=== PATIENT | female | born 1950 | race Caucasian/White ===

== ENCOUNTER 2017-04-13 22:42 | Observation (INO) | payer OTHER, MEDICAID ==
--- NOTE | 2017-04-13 23:59 | DR.GENAD ---
HPI - HPI Comment HPI Comment: HISTORY BELOW. - Complaint/Symptoms Chief Complaint Doctors Comments: GENERALIZE WEAKNESS WITH ARTHRALGIA AND SEVERE PAIN. PATIENT IS HAVING SEVERE LOWER BACK AND RIGHT HIP AND SHOULDER PAIN. SHE IA HAVING HEADACHE AHD DIZZINESS. HAVE MEDS AT HOME BUT NOT HELPING.LAST TIME SHE HAD EPISODE LIKE THIS SHE WAS IN HOSPITAL FOR SEVERAL DAYS ON IV MEDICATIONS. FEVER AT HOME. Chief Complaint:: right shoulder,hip and foot pain, headache - Nurses notes reviewed Nurses Notes Review: Yes - Source History Provided: Patient - Mode of Arrival Mode of Arrival: Wheelchair - Timing Onset of Chief Complaint: 04/12/17 Came on: Gradually - Duration Duration: Constant Duration: Days - Severity Severity: Moderate PMH - PMH Past Medical History: Yes Past Medical History: Arthritis, Asthma, CHF, Diabetes, Gout, Hypertension Past Surgical History: Yes Surgical History: , Hysterectomy - Family History History of Family Medical Conditions: Yes Family Medical History: Hypertension - Social History Does patient currently use any type of tobacco product: No Have you used tobacco products in the last 12 months: No Type of Tobacco Use: None Does any household member use tobacco: No Alcohol Use: None Do you use any recreational Drugs:: No Lives With: Alone Lives Where: Home - infectious screening In the last 2 months have you had wt loss of >10#?: NO Have you had fever, night sweats or hemotysis?: No Have you traveled outside the country in the last 6 months?: No Isolation: Standard ROS - Review of Systems Constitutional: Fever, Weakness, Fatigue. negative: Chills, Diaphoresis, Loss of Appetite Eyes: No Symptoms Reported. negative: Eye Pain, Discharge ENTM: No Symptoms Reported, Nose Congestion. negative: Ear Pain, Nose Discharge , Throat Pain Respiratoy: No Symptoms Reported, Non-Productive Cough, Short of Breath. negative: Productive Cough, Wheezing, Hemoptysis Cardiovascular: Chest Pain. negative: Edema, Palpitations, Syncope Gastrointestinal/Abdominal: Abdominal Pain, Nausea. negative: Constipation, Diarrhea, Vomiting Genitourinary: No Symptoms Reported. negative: Dysuria, Frequency, Hematuria Neurological: Headache, Numbness, Paresthesia, Weakness, Dizziness Musculoskeletal: Back Pain, Joint Pain, Joint Swelling, Muscle Pain, Muscle Stiffness, Neck Pain, Right, Shoulder, Hip Integumentary: Change in Color, Rash Hematologic/Lymphatic: Easy Bleeding, Easy Bruising Endocrine: negative: Flushing, Increased Thirst, Increased Urine All Other Systems: Reviewed and Negative PE - Vital Signs Vitals: Temperature 97.4 F Pulse Rate 96 Respiratory Rate 16 Blood Pressure [Right Arm] 144/89 Blood Pressure [Left Arm] 127/74 Blood Pressure 148/83 O2 Sat by Pulse Oximetry 94 - General Limitations: No Limitations General Appearance: Alert - Head Head Exam: Normal Inspection - Eyes Eye exam: Normal Appearance - ENT ENT Exam: Normal External Ear Exam External Ear Exam: Normal External Inspection TM/Canal Exam: Bilateral Normal Nose Exam: Normal Nose Exam Mouth Exam: Normal Inspection Throat Exam: Normal Inspection - Neck Neck Exam: Trachea Midline. negative: Tenderness, Meningismus, Lymphadenopathy - Chest Chest Inspection: Symmetric Chest Wall Rise - Respiratory Respiratory Exam: Normal Lung Sounds Bilat, Respiratory Distress Respiratory Exam: Bilateral Wheezing, Bilateral Rhonchi, Lower Rhonchi - Cardiovascular Cardiovascular Exam: Regular Rate, Normal Rhythm, Normal Heart Sounds - Abdominal Exam Abdominal Exam: Normal Bowel Sounds, Soft, Tenderness (EPIGASTRIC DISCOMFORT.) - Extremities Extremities Exam: Tenderness (RT HIP AND SHOULDER), Joint Swelling (RT HIP AND SHOULDER.) - Back Back Exam: Paraspinal Tenderness, Vertebral Tenderness - Neurologic Neurological Exam: Alert, Oriented X3, CN II-XII Intact, Reflexes Normal. negative: Motor Sensory Deficit - Psychiatric Psychiatric Exam: Normal Affect, Normal Mood - Skin Skin Exam: Normal Color MDM - Additional Information Additional Information Obtained From: Family - Differential Diagnosis Differential Diagnosis: GENERALISE WEAKNESS, UTI, GENERALIZE ARTHRALGIA, ARTHRITIS Course - Treatment Treatment: SEE ORDERS. - Consultation Consultation Comments: DISCUSS PATIENT WITH DR. CHRISTINE. HE WILL ADMIT PATIENT. - Education/Counseling Education/Counseling: Patient, Family, Education Educated On: Treatment, Diagnosis, Needs for Follow Up ROR - Labs Reviewed Laboratory Results Reviewed?: Yes Result Diagrams: 04/14/17 04:40 04/14/17 04:40 Laboratory: WBC 8.9 X10^3/uL (3.6-10.0) 04/14/17 00:10 RBC 4.14 X10^6/uL (3.5-5.4) 04/14/17 00:10 Hgb 11.5 g/dL (12.0-16.0) L 04/14/17 00:10 Hct 34.3 % (36.0-47.0) L 04/14/17 00:10 MCV 83.0 fL (80.0-100.0) 04/14/17 00:10 MCH 27.8 pg (27.0-34.0) 04/14/17 00:10 MCHC 33.5 g/dL (33.0-35.0) 04/14/17 00:10 RDW 15.5 % (11.6-16.5) 04/14/17 00:10 Plt Count 327 X10^3/uL (150.0-450.0) 04/14/17 00:10 MPV 6.7 fL (7.4-11.0) L 04/14/17 00:10 Neut % 55.4 % (42.0-75.0) 04/14/17 00:10 Lymph % 36.8 % (21.0-51.0) 04/14/17 00:10 [place] % 5.0 % (0.0-13.0) 04/14/17 00:10 Eos % 1.9 % (0.9-2.9) 04/14/17 00:10 Baso % 0.9 % (0.2-1.0) 04/14/17 00:10 Neut # 4.9 x10^3/uL (2.2-4.8) H 04/14/17 00:10 Lymph # 3.3 X10^3/uL (1.3-2.9) H 04/14/17 00:10 [place] # 0.4 x10^3/uL (0.3-0.8) 04/14/17 00:10 Eos # 0.2 x10^3/uL (0.0-0.2) 04/14/17 00:10 Baso # 0.1 X10^3/uL (0.0-0.1) 04/14/17 00:10 Absolute Nucleated RBC 0.1 /100WBC 04/14/17 00:10 Sodium 147 mmol/L (136-145) H 04/14/17 00:10 Corrected Sodium 147 mmol/L (136-145) H 04/14/17 00:10 Potassium 4.2 mmol/L (3.5-5.1) 04/14/17 00:10 Chloride 107 mmol/L (98-107) 04/14/17 00:10 Carbon Dioxide 29.7 mmol/L (21-32) 04/14/17 00:10 BUN 18 mg/dL (7-18) 04/14/17 00:10 Creatinine 0.90 mg/dL (0.55-1.02) 04/14/17 00:10 Est GFR (MDRD) Af Amer > 60 (>60) 04/14/17 00:10 Est GFR (MDRD) Non-Af > 60 (>60) 04/14/17 00:10 Glucose 112 mg/dL (65-99) H 04/14/17 00:10 Calcium 9.4 mg/dL (8.5-10.1) 04/14/17 00:10 Corrected Calcium TNP 04/14/17 00:10 Total Bilirubin 0.30 mg/dL (0.2-1.0) 04/14/17 00:10 AST 24 Units/L (15-37) 04/14/17 00:10 ALT 20 Units/L (12-78) 04/14/17 00:10 Alkaline Phosphatase 64 Units/L (46-116) 04/14/17 00:10 Creatine Kinase 914 Units/L (26-192) H 04/14/17 00:10 CK-MB (CK-2) < 1.0 ng/mL (0-4.0) 04/14/17 00:10 CK/CKMB % Calc 0.1 % (<4) 04/14/17 00:10 Troponin I < 0.02 ng/mL (0-1.5) 04/14/17 00:10 Total Protein 7.9 g/dL (6.4-8.2) 04/14/17 00:10 Albumin 3.8 g/dL (3.4-5.0) 04/14/17 00:10 Globulin 4.1 g/dL (2.5-4.5) 04/14/17 00:10 Albumin/Globulin Ratio 0.9 Ratio (1.1-2.1) L 04/14/17 00:10 - XRAY XRAY Findings: REPORT DISCUSS WITH THE PATIENT AND FAMILY. - EKG Rhythm: NSR (EKG NOTED) - Diagnosis Discharge Problem: Generalized weakness, Generalized arthritis, Intractable pain - Discharge Plan Disposition: ADMITTED INPATIENT Condition: Stable - Follow ups/Referrals - Instructions
[2017-04-14 00:23] LABS: BASOPHILS # (AUTO) 0.1 X10^3/uL (0.0-0.1); BASOPHILS % (AUTO) 0.9 % (0.2-1.0); EOSINOPHILS # (AUTO) 0.2 x10^3/uL (0.0-0.2); EOSINOPHILS % (AUTO) 1.9 % (0.9-2.9); HEMATOCRIT 34.3 % (36.0-47.0); HEMOGLOBIN 11.5 g/dL (12.0-16.0); LYMPHOCYTES # (AUTO) 3.3 X10^3/uL (1.3-2.9); LYMPHOCYTES % (AUTO) 36.8 % (21.0-51.0); MEAN CORPUSCULAR HEMOGLOBIN 27.8 pg (27.0-34.0); MEAN CORPUSCULAR HGB CONC 33.5 g/dL (33.0-35.0); MEAN PLATELET VOLUME 6.7 fL (7.4-11.0); MONOCYTES # (AUTO) 0.4 x10^3/uL (0.3-0.8); NEUTROPHILS # (AUTO) 4.9 x10^3/uL (2.2-4.8); NEUTROPHILS % (AUTO) 55.4 % (42.0-75.0); PLATELET COUNT 327 X10^3/uL (150.0-450.0); RED BLOOD COUNT 4.14 X10^6/uL (3.5-5.4); RED CELL DISTRIBUTION WIDTH 15.5 % (11.6-16.5); WHITE BLOOD COUNT 8.9 X10^3/uL (3.6-10.0)
--- NOTE | 2017-04-14 00:47 | RAD ---
EXAM: Chest X-ray INDICATION: Chest pain COMPARISION: Prior exam from October 15, 2016 TECHNIQUE: PA, single view FINDINGS: The lungs are clear. The heart is mildly enlarged. No pleural effusion or pneumothorax. The mediasti num is normal. The regional skeleton is intact. IMPRESSION: Cardiomegaly. The remainder of the examination appears unremarkable. Reported By:
--- NOTE | 2017-04-14 00:50 | RAD ---
EXAM: Right shoulder x-ray INDICATION: Pain COMPARISION: No priors for comparison TECHNIQUE: Lateral, AP with internal and external rotation, 3 views FINDINGS: No acute fracture or dislocation. The joint spaces are preserved. The soft tissues are normal. No ra diopaque foreign body. The visualize ribs are intact. IMPRESSION: Normal right shoulder x-ray examination Reported By:
[2017-04-14 00:51] LABS: BLOOD UREA NITROGEN 18 mg/dL (7-18); CALCIUM 9.4 mg/dL (8.5-10.1); CARBON DIOXIDE 29.7 mmol/L (21-32); CHLORIDE 107 mmol/L (98-107); COR NA(FOR HYPERGLY) 147 mmol/L (136-145); GLUCOSE 112 mg/dL (65-99); SODIUM 147 mmol/L (136-145); TROPONIN I < 0.02 ng/mL (0-1.5); eGFR BLACK RACES > 60 (>60); eGFR NON BLACK RACES > 60 (>60)
--- NOTE | 2017-04-14 00:51 | RAD ---
EXAM: Lumbar Spine X-Ray INDICATION: Lumbar pain COMPARISION: No priors for comparison TECHNIQUE: AP, lateral L-S junction, and lateral views were obtained, 3 views FINDINGS: Moderate degenerative disc changes are present at L5-S1. There is mild disc space narrowing througho ut the remaining lumbar levels. Mild degenerative endplate changes are also present. No acute fractu re or subluxation. The vertebral body heights are preserved. The facets are intact. The surrounding soft tissues appear unremarkable. IMPRESSION: Mild and moderate degenerative disc changes noted throughout the lumbar spine. No acute abnormality is identified. Reported By:
[2017-04-14 00:52] LABS: ALANINE AMINOTRANSFERASE 20 Units/L (12-78); ALBUMIN 3.8 g/dL (3.4-5.0); ALKALINE PHOSPHATASE 64 Units/L (46-116); ASPARTATE AMINO TRANSFERASE 24 Units/L (15-37); CKMB % 0.1 % (<4); CREATINE KINASE 914 Units/L (26-192); CREATINE KINASE MB < 1.0 ng/mL (0-4.0); TOTAL PROTEIN 7.9 g/dL (6.4-8.2)
[2017-04-14] MEDS ORDERED: DECADRON INJ IVP ONE (01:34)
[2017-04-14] MEDS ORDERED: TORADOL 30 MG VIAL IVP ONE (01:34)
[2017-04-14] MEDS ORDERED: DECADRON INJ ONE (02:15)
[2017-04-14] MEDS ORDERED: TORADOL 30 MG VIAL ONE (02:15)
[2017-04-14] MEDS: NS 1000 ML 1,000 ML IV SCH ×2 (02:21→19:30)
[2017-04-14] MEDS ORDERED: TORADOL 15 MG VIAL IVP PRN (02:22)
[2017-04-14] MEDS ORDERED: ZOFRAN INJ 4 MG VIAL IVP PRN (02:24)
[2017-04-14 02:43] LABS: APPEARANCE,URINE CLEAR (CLEAR); COLOR,URINE YELLOW (YELLOW); GLUCOSE, URINE NEGATIVE (NEGATIVE); KETONES,URINE NEGATIVE (NEGATIVE); PROTEIN,URINE NEGATIVE (NEGATIVE)
[2017-04-14 02:44] LABS: BILIRUBIN,URINE NEGATIVE (NEGATIVE); BLOOD/HEMOGLOBIN,URINE NEGATIVE (NEGATIVE); LEUKOCYTE ESTERASE ,URINE 1+ (NEGATIVE); NITRITES,URINE POSITIVE (NEGATIVE); RBC,URINE NONE SEEN /HPF (NEGATIVE); UROBILINOGEN,URINE NORMAL (NORMAL)
[2017-04-14 02:45] LABS: BACTERIA,URINE TRACE /HPF (NEGATIVE); SQUAMOUS EPITHELIAL CELL,UR NEGATIVE /HPF (NEGATIVE)
[2017-04-14 05:22] LABS: ALANINE AMINOTRANSFERASE 18 Units/L (12-78); ALBUMIN 3.6 g/dL (3.4-5.0); ALKALINE PHOSPHATASE 61 Units/L (46-116); ASPARTATE AMINO TRANSFERASE 21 Units/L (15-37); BLOOD UREA NITROGEN 18 mg/dL (7-18); CALCIUM 9.2 mg/dL (8.5-10.1); CARBON DIOXIDE 27.1 mmol/L (21-32); CHLORIDE 107 mmol/L (98-107); CHOL/HDL RATIO 2.2 (0.0-5.0); CHOLESTEROL 161 mg/dL (0-200); COR NA(FOR HYPERGLY) 146 mmol/L (136-145); GLUCOSE 155 mg/dL (65-99); HDL CHOLESTEROL 73 mg/dL (40-60); SODIUM 145 mmol/L (136-145); TOTAL PROTEIN 7.6 g/dL (6.4-8.2); TRIGLYCERIDES 104 mg/dL (0-150); eGFR BLACK RACES > 60 (>60); eGFR NON BLACK RACES > 60 (>60)
[2017-04-14 05:36] LABS: BASOPHILS % (AUTO) 0.3 % (0.2-1.0); EOSINOPHILS % (AUTO) 0.5 % (0.9-2.9); HEMATOCRIT 32.5 % (36.0-47.0); HEMOGLOBIN 10.9 g/dL (12.0-16.0); LYMPHOCYTES # (AUTO) 1.4 X10^3/uL (1.3-2.9); LYMPHOCYTES % (AUTO) 15.2 % (21.0-51.0); MEAN CORPUSCULAR HEMOGLOBIN 27.4 pg (27.0-34.0); MEAN CORPUSCULAR HGB CONC 33.6 g/dL (33.0-35.0); MEAN CORPUSCULAR VOLUME 81.6 fL (80.0-100.0); MONOCYTES # (AUTO) 0.2 x10^3/uL (0.3-0.8); MONOCYTES % (AUTO) 1.9 % (0.0-13.0); NEUTROPHILS # (AUTO) 7.6 x10^3/uL (2.2-4.8); NEUTROPHILS % (AUTO) 82.1 % (42.0-75.0); PLATELET COUNT 318 X10^3/uL (150.0-450.0); RED BLOOD COUNT 3.98 X10^6/uL (3.5-5.4); RED CELL DISTRIBUTION WIDTH 15.4 % (11.6-16.5); WHITE BLOOD COUNT 9.2 X10^3/uL (3.6-10.0)
[2017-04-14 05:58] LABS: CKMB % 0.1 % (<4); CREATINE KINASE 772 Units/L (26-192); CREATINE KINASE MB < 1.0 ng/mL (0-4.0); TROPONIN I < 0.02 ng/mL (0-1.5)
[2017-04-14 06:20] VITALS: BMI 34.8
[2017-04-14] MEDS ORDERED: MILK OF MAGNESIA PO PRN (09:01)
[2017-04-14] MEDS: PERCOCET TAB 5/325 MG PO PRN ×2 (11:00→21:14)
[2017-04-14 11:49] LABS: CKMB % 0.2 % (<4); CREATINE KINASE 625 Units/L (26-192); CREATINE KINASE MB < 1.0 ng/mL (0-4.0); TROPONIN I < 0.02 ng/mL (0-1.5)
--- NOTE | 2017-04-14 12:19 | DR.H&P ---
H&P - History & Physical for Day of: H&P Date: 04/13/17 - Chief Complaint Chief Complaint: weakness, muscel aches - Allergies Allergies/Adverse Reactions: Allergies Allergy/AdvReac Type Severity Reaction Status Date / Time MS No Known Drug Allergy Allergy Verified 02/28/16 14:01 [No Known Drug Allergy] - History of Present Illness History of Present Illness: 67 BF ADMITTED FROM ER WITH CO WEAKNESS AND MUSCLE ACHES. PT CO LOWER BACK PAIN AND LEG WEAKNESS. PLAN TO ADMIT FOR FURTHER EVALUATION. REPEAT AM LABS, TELEMETRY. - Past Medical History Past Medical History: Arthritis, Asthma, CHF, Diabetes, Gout, Hypertension - Past Surgical History Surgical History: , Hysterectomy - Family History Family Medical History: Hypertension - Social History Does patient currently use any type of tobacco product: No Have you used tobacco products in the last 12 months: No Type of Tobacco Use: None Does any household member use tobacco: No Alcohol Use: None Drug Use: None - Medications Home Medications: Alprazolam [XANAX 0.5 MG *] 1 mg PO DAILY PRN 04/14/17 [History Confirmed ] Furosemide [Lasix] 40 mg PO QAM 04/14/17 [History Confirmed 04/14/17] Gabapentin [Neurontin Cap 300 mg] 900 mg PO HS 04/14/17 [History Confirmed 04/14] Glimepiride [Glimepiride] 4 mg PO BID 04/14/17 [History Confirmed 04/14/17] Metformin HCl [Metformin HCl] 1,000 mg PO BID 04/14/17 [History Confirmed ] - Review of Systems Constitutional: Weakness Eyes: No Symptoms Reported ENT: No Symptoms Reported Respiratory: No Symptoms Reported Cardiovascular: No Symptoms Reported Gastrointestinal: Nausea Genitourinary: No Symptoms Reported Musculoskeletal: Back Pain Skin: No Symptoms Reported Neurological: Weakness - Physical Exam Vital Signs: Temperature 97.6 F Pulse Rate [Left Brachial] 110 Respiratory Rate 20 Blood Pressure [Right Arm] 137/75 Blood Pressure [Left Arm] 132/82 O2 Sat by Pulse Oximetry 95 Oriented: Normal Eyes: Normal Ear: Normal Nose: Normal Throat: Normal Respiratory: RLL Diminished, LLL Diminished Cardiovascular: Normal : Normal Auscultation: Bowel Sounds: Normal Palpation: Normal Tenderness: Normal Skin: Normal Musculoskeletal: Back:Lumbar, Motor Deficit Psychiatric: Depression Speech Pattern: Clear, Appropriate - Assessment/Plan (1) UTI (urinary tract infection) Qualifiers: Urinary tract infection type: U Hematuria presence: H Indwelling urinary catheter type: I Encounter type: E Status: Acute Plan: PLAN TO ADMIT, IV ATBX. CULTURE PENDING (2) Generalized weakness Status: Acute Plan: IV HYDRATION, AM LABS (3) Back pain Qualifiers: Back pain location: B Chronicity: C Back pain laterality: B Sciatica presence: S Sciatica laterality: S Status: Chronic (4) CHF (congestive heart failure) Qualifiers: Congestive heart failure type: unspecified congestive heart failure type Congestive heart failure chronicity: chronic Qualified Code(s): I50.9 - Heart failure, unspecified Status: Chronic Plan: BP AND LIPID CONTROL. RESUME HOME MEDS (5) Diabetes mellitus Qualifiers: Diabetes mellitus type: D Diabetes mellitus complication status: D Diabetes mellitus complication detail: D Diabetic retinopathy severity: D Proliferative retinopathy type: P Diabetes mellitus macular edema: D Diabetes mellitus chcf insulin use: D Laterality: L Chronic kidney disease stage: C Status: Chronic (6) Hypertension Qualifiers: Hypertension type: H Status: Chronic
[2017-04-14] MEDS ORDERED: HumuLIN R SC PRN (13:00)
[2017-04-14] MEDS: ROCEPHIN VIAL 1 GM 1 GM in NS 50 ML IV + SPIKE MINIBAG* 50 ML IV SCH (14:09)
[2017-04-14] MEDS: MORPHINE SULFATE INJ 2 MG IVP PRN (16:00)
--- NOTE | 2017-04-14 17:39 | MRI ---
MRI BRAIN WITHOUT CONTRAST CLINICAL HISTORY: 67-year-old female with severe headache and dizziness with left-sided weakness. COMPARISON: CT head May 23, 2016. TECHNIQUE: Multiplanar, multisequence MR images of the brain were obtained without contrast. FINDINGS: There is no evidence of diffusion restriction. The craniocervical junction is normal. Pitu itary and optic nerve complex are normal. Mild multifocal punctate T2 FLAIR signal hyperintensities are present within the periventricular and supraventricular white matter that are nonspecific in [place] but most likely to represent microvascular white matter ischemic changes. Normal signal oscar acteristics and morphology are demonstrated within the cerebral cortex, corpus callosum, deep lawrence n uclei, brainstem and cerebellum. Age related cortical volume loss is present, with commensurate sulc al and ventricular prominence. The major vascular flow voids, to include the dural venous sinuses, a re intact. The basilar cisterns are normal. Bilateral lens implants with otherwise normal appearance of the orbits and globes. Trace fluid in th e floor of the dominant right sphenoid sinus with high proteinaceous fluid within the dependent left mastoid air cells. Remaining paranasal sinuses, right mastoid air cells and tympanic cavities are c lear. IMPRESSION: 1. Mild chronic microvascular white matter ischemic disease, with age related volume loss. 2. Proteinaceous fluid within the dependent aspect of the left mastoid air cells. 3. No acute ischemic or hemorrhagic insult. Reported By:
[2017-04-14] MEDS ORDERED: RESTORIL CAP 15 MG PO PRN (19:39)
[2017-04-14] MEDS ORDERED: COLACE CAP 100 MG PO SCH (21:00)
[2017-04-15 05:32] LABS: ALANINE AMINOTRANSFERASE 17 Units/L (12-78); ALBUMIN 3.2 g/dL (3.4-5.0); ALKALINE PHOSPHATASE 54 Units/L (46-116); ASPARTATE AMINO TRANSFERASE 14 Units/L (15-37); BLOOD UREA NITROGEN 20 mg/dL (7-18); CALCIUM 8.9 mg/dL (8.5-10.1); CHLORIDE 108 mmol/L (98-107); COR CA(FOR HYPOALB) 9.5 mg/dL (8.5-10.1); COR NA(FOR HYPERGLY) 143 mmol/L (136-145); CREATININE 0.87 mg/dL (0.55-1.02); GLUCOSE 115 mg/dL (65-99); SODIUM 143 mmol/L (136-145); TOTAL PROTEIN 6.9 g/dL (6.4-8.2); eGFR BLACK RACES > 60 (>60); eGFR NON BLACK RACES > 60 (>60)
[2017-04-15 05:35] LABS: BASOPHILS # (AUTO) 0.1 X10^3/uL (0.0-0.1); BASOPHILS % (AUTO) 0.5 % (0.2-1.0); EOSINOPHILS % (AUTO) 0.2 % (0.9-2.9); HEMATOCRIT 31.9 % (36.0-47.0); HEMOGLOBIN 10.7 g/dL (12.0-16.0); LYMPHOCYTES # (AUTO) 3.4 X10^3/uL (1.3-2.9); LYMPHOCYTES % (AUTO) 32.6 % (21.0-51.0); MEAN CORPUSCULAR HEMOGLOBIN 27.3 pg (27.0-34.0); MEAN CORPUSCULAR HGB CONC 33.6 g/dL (33.0-35.0); MEAN CORPUSCULAR VOLUME 81.5 fL (80.0-100.0); MEAN PLATELET VOLUME 7.1 fL (7.4-11.0); MONOCYTES # (AUTO) 0.6 x10^3/uL (0.3-0.8); MONOCYTES % (AUTO) 6.1 % (0.0-13.0); NEUTROPHILS # (AUTO) 6.2 x10^3/uL (2.2-4.8); NEUTROPHILS % (AUTO) 60.6 % (42.0-75.0); PLATELET COUNT 311 X10^3/uL (150.0-450.0); RED BLOOD COUNT 3.91 X10^6/uL (3.5-5.4); RED CELL DISTRIBUTION WIDTH 15.2 % (11.6-16.5); WHITE BLOOD COUNT 10.3 X10^3/uL (3.6-10.0)
[2017-04-15] MEDS: MORPHINE SULFATE INJ 2 MG IVP PRN (05:41)
[2017-04-15] MEDS: NS 1000 ML 1,000 ML IV SCH (06:12)
[2017-04-15] MEDS: ROCEPHIN VIAL 1 GM 1 GM in NS 50 ML IV + SPIKE MINIBAG* 50 ML IV SCH (08:30)
[2017-04-15 12:21] VITALS: BP 136/77
[2017-04-15] MEDS: PERCOCET TAB 5/325 MG PO PRN (12:56)
[2017-04-15 17:17] LABS: RHEUMATOID FACTOR NEGATIVE (NEGATIVE)
== END 2017-04-15 17:10 | disposition home or self-care (01) ==
LOC: ER 22:42 → MED/SURG 04-14 02:12
PROVIDERS: ADMIT Internal Medicine; ATTEND Internal Medicine
DX: N39.0 Urinary tract infection, site not specified (principal); R42 Dizziness and giddiness; I50.9 Heart failure, unspecified; R53.1 Weakness; M13.89 Other specified arthritis, multiple sites; M54.5 Low back pain; M25.551 Pain in right hip; M25.511 Pain in right shoulder; I51.7 Cardiomegaly; M51.36 Other intervertebral disc degeneration, lumbar region; R94.31 Abnormal electrocardiogram [ECG] [EKG]; M62.81 Muscle weakness (generalized); E11.65 Type 2 diabetes mellitus with hyperglycemia; I10 Essential (primary) hypertension; R51 Headache
CPT/HCPCS: 36415; 70551; 71010; 72100; 73030; 80053; 80061; 81001; 82550; 82553; 84484; 85025; 85652; 86140; 86308; 86430; 87086; 93005; 93010; 94760; 96365; 96374; 96375; 97535; 99218; 99284; A4222; G8978; G8979; G8984; G8985; G0378; J0696; J1100; J1815; J1885; J2270

== ENCOUNTER → 2017-08-08 | Outpatient (CLI) | payer OTHER, MEDICAID ==
--- NOTE | 2017-08-09 14:20 | RAD ---
HISTORY: Shortness of breath Study: Chest PA and lateral Comparison: 04/17/2017 Findings: The heart is enlarged. Mild pulmonary venous congestion is present. No interstitial or alveolar edema , alveolar infiltrates, or pleural effusions are identified. The bony thorax is unremarkable. IMPRESSION: Cardiomegaly with mild pulmonary venous congestion Lungs clear Reported By:
--- NOTE | 2017-08-09 14:21 | RAD ---
HISTORY: Lower abdominal pain Study: KUB Comparison: None Findings: Evaluation of the abdomen demonstrates a normal bowel gas pattern. No pathological soft tissue mass or calcification can be observed. The bony structures are grossly intact. IMPRESSION: 1. No evidence for acute abdominal pathology identified. Reported By:
== END | disposition home or self-care (01) ==
LOC: RAD 13:20
PROVIDERS: ATTEND Nurse Practitioner Family
DX: R06.02 Shortness of breath (principal); R10.30 Lower abdominal pain, unspecified; R09.89 Other specified symptoms and signs involving the circulatory and respiratory systems; I51.7 Cardiomegaly
CPT/HCPCS: 71020; 74000

== ENCOUNTER 2017-08-09 15:06 | Inpatient (IN) | payer OTHER, MEDICAID ==
[2017-08-09 15:48] VITALS: BMI 34.7
[2017-08-09 16:56] LABS: BASOPHILS # (AUTO) 0.1 X10^3/uL (0.0-0.1); BASOPHILS % (AUTO) 1.3 % (0.2-1.0); EOSINOPHILS # (AUTO) 0.3 x10^3/uL (0.0-0.2); EOSINOPHILS % (AUTO) 3.2 % (0.9-2.9); HEMATOCRIT 30.1 % (36.0-47.0); HEMOGLOBIN 10.1 g/dL (12.0-16.0); LYMPHOCYTES # (AUTO) 3.6 X10^3/uL (1.3-2.9); LYMPHOCYTES % (AUTO) 39.2 % (21.0-51.0); MEAN CORPUSCULAR HEMOGLOBIN 27.5 pg (27.0-34.0); MEAN CORPUSCULAR HGB CONC 33.6 g/dL (33.0-35.0); MEAN PLATELET VOLUME 7.2 fL (7.4-11.0); MONOCYTES # (AUTO) 0.7 x10^3/uL (0.3-0.8); MONOCYTES % (AUTO) 7.6 % (0.0-13.0); NEUTROPHILS # (AUTO) 4.5 x10^3/uL (2.2-4.8); NEUTROPHILS % (AUTO) 48.7 % (42.0-75.0); PLATELET COUNT 278 X10^3/uL (150.0-450.0); RED BLOOD COUNT 3.68 X10^6/uL (3.5-5.4); RED CELL DISTRIBUTION WIDTH 14.4 % (11.6-16.5); WHITE BLOOD COUNT 9.2 X10^3/uL (3.6-10.0)
[2017-08-09 17:04] LABS: ALANINE AMINOTRANSFERASE 15 Units/L (12-78); ALBUMIN 3.8 g/dL (3.4-5.0); ALKALINE PHOSPHATASE 70 Units/L (46-116); ASPARTATE AMINO TRANSFERASE 19 Units/L (15-37); BLOOD UREA NITROGEN 86 mg/dL (7-18); CALCIUM 8.7 mg/dL (8.5-10.1); CARBON DIOXIDE 18.2 mmol/L (21-32); CHLORIDE 104 mmol/L (98-107); COR NA(FOR HYPERGLY) 139 mmol/L (136-145); CREATININE 9.82 mg/dL (0.55-1.02); MAGNESIUM 2.7 mg/dL (1.7-2.9); SODIUM 139 mmol/L (136-145); TOTAL PROTEIN 7.8 g/dL (6.4-8.2); eGFR BLACK RACES 5 (>60); eGFR NON BLACK RACES 4 (>60)
[2017-08-09] MEDS ORDERED: XANAX PO PRN (17:47)
[2017-08-09] MEDS ORDERED: ZOFRAN INJ 4 MG VIAL IVP PRN (17:48)
[2017-08-09 17:51] LABS: CKMB % 0.7 % (<4); CREATINE KINASE 135 Units/L (26-192); CREATINE KINASE MB < 1.0 ng/mL (0-4.0); PHOSPHORUS 7.1 mg/dL (2.6-4.7); TROPONIN I < 0.02 ng/mL (0-1.5)
[2017-08-09] MEDS: NS 1000 ML 1,000 ML IV SCH (18:18)
[2017-08-09 19:57] LABS: BILIRUBIN,URINE NEGATIVE (NEGATIVE); BLOOD/HEMOGLOBIN,URINE 2+ (NEGATIVE); GLUCOSE, URINE NEGATIVE (NEGATIVE); KETONES,URINE NEGATIVE (NEGATIVE); LEUKOCYTE ESTERASE ,URINE NEGATIVE (NEGATIVE); NITRITES,URINE NEGATIVE (NEGATIVE); PROTEIN,URINE 2+ (NEGATIVE); UROBILINOGEN,URINE NORMAL (NORMAL)
[2017-08-09 20:04] LABS: APPEARANCE,URINE CLEAR (CLEAR); BACTERIA,URINE NEGATIVE /HPF (NEGATIVE); COLOR,URINE YELLOW (YELLOW); SQUAMOUS EPITHELIAL CELL,UR MODERATE /HPF (NEGATIVE)
[2017-08-09] MEDS ORDERED: ULTRAM PO PRN (20:24)
[2017-08-09] MEDS ORDERED: ULTRAM ONE (20:34)
[2017-08-09] MEDS: COREG TAB 12.5 MG PO SCH (20:38)
[2017-08-09] MEDS: ZOCOR TAB 40 MG PO SCH (20:38)
[2017-08-09] MEDS: AMBIEN PO SCH (20:38)
[2017-08-09] MEDS: NEURONTIN CAP 300 MG PO SCH (20:39)
[2017-08-09] MEDS: SNACK - Diabetic Appropriate PO SCH (20:40)
[2017-08-09] MEDS: MORPHINE SULFATE INJ 2 MG INJ IVP PRN (23:29)
[2017-08-10 06:12] LABS: BASOPHILS # (AUTO) 0.1 X10^3/uL (0.0-0.1); BASOPHILS % (AUTO) 0.8 % (0.2-1.0); EOSINOPHILS # (AUTO) 0.3 x10^3/uL (0.0-0.2); EOSINOPHILS % (AUTO) 4.1 % (0.9-2.9); HEMATOCRIT 28.9 % (36.0-47.0); HEMOGLOBIN 9.8 g/dL (12.0-16.0); LYMPHOCYTES % (AUTO) 36.4 % (21.0-51.0); MEAN CORPUSCULAR HEMOGLOBIN 27.8 pg (27.0-34.0); MEAN CORPUSCULAR VOLUME 81.7 fL (80.0-100.0); MEAN PLATELET VOLUME 7.3 fL (7.4-11.0); MONOCYTES # (AUTO) 0.7 x10^3/uL (0.3-0.8); MONOCYTES % (AUTO) 8.2 % (0.0-13.0); NEUTROPHILS # (AUTO) 4.2 x10^3/uL (2.2-4.8); NEUTROPHILS % (AUTO) 50.5 % (42.0-75.0); PLATELET COUNT 257 X10^3/uL (150.0-450.0); RED BLOOD COUNT 3.54 X10^6/uL (3.5-5.4); RED CELL DISTRIBUTION WIDTH 13.8 % (11.6-16.5); WHITE BLOOD COUNT 8.3 X10^3/uL (3.6-10.0)
[2017-08-10] MEDS: NEURONTIN CAP 300 MG PO SCH ×3 (06:17→20:37)
[2017-08-10 06:43] LABS: ALANINE AMINOTRANSFERASE 11 Units/L (12-78); ALBUMIN 3.4 g/dL (3.4-5.0); ALKALINE PHOSPHATASE 65 Units/L (46-116); ASPARTATE AMINO TRANSFERASE 16 Units/L (15-37); BLOOD UREA NITROGEN 81 mg/dL (7-18); CALCIUM 8.4 mg/dL (8.5-10.1); CARBON DIOXIDE 16.4 mmol/L (21-32); CHLORIDE 108 mmol/L (98-107); COR NA(FOR HYPERGLY) 142 mmol/L (136-145); CREATININE 8.03 mg/dL (0.55-1.02); SODIUM 142 mmol/L (136-145); TOTAL PROTEIN 7.1 g/dL (6.4-8.2); eGFR BLACK RACES 6 (>60); eGFR NON BLACK RACES 5 (>60)
[2017-08-10] MEDS: MORPHINE SULFATE INJ 2 MG INJ IVP PRN ×3 (06:45→21:27)
[2017-08-10] MEDS: NS 1000 ML 1,000 ML IV SCH ×2 (07:40→23:10)
[2017-08-10] MEDS: COREG TAB 12.5 MG PO SCH ×2 (08:19→20:37)
--- NOTE | 2017-08-10 08:37 | RAD ---
HISTORY: Shortness of breath, COPD, asthma, hypertension, CHF. Study: Two-view chest Comparison: 08/08/2017 Findings: Cardiac monitoring electrodes are noted on the chest. The trachea is midline. There is cardiomegaly w ith pulmonary vascular congestion. Improved aeration is present involving both lungs with reduction i n interstitial markings. Findings likely represent some improvement in CHF. No consolidation, pleural fluid or pneumothorax is seen. Osseous structures are intact. IMPRESSION: Improvement in CHF pattern. Reported By:
[2017-08-10] MEDS: COLACE CAP 100 MG PO SCH ×2 (10:56→20:36)
[2017-08-10] MEDS: HumuLIN R SUBCUT PRN ×2 (12:06→20:39)
--- NOTE | 2017-08-10 13:03 | DR.H&P ---
H&P - History & Physical for Day of: H&P Date: 08/09/17 - Chief Complaint Chief Complaint: sob, edema, weakness - Allergies Allergies/Adverse Reactions: Allergies Allergy/AdvReac Type Severity Reaction Status Date / Time No Known Drug Allergies Allergy Verified 08/09/17 16:33 - History of Present Illness History of Present Illness: patient is a 67-year-old black female who was a direct admit from Dr. Levi's office after presenting for follow-up visit for CHF exacerbation. Patient was seen one day ago with complaints of shortness of breath, edema and weakness. Patient had outpatient labs which revealed acute renal failure as well as venous congestion on her chest x-ray. Patient was admitted to ICU for further evaluation and general IV hydration to improve renal function. We will repeat a.m. labs hold by mouth NSAIDs as well as diabetic medication. We will administer sliding scale insulin only at this time. - Past Medical History Past Medical History: Arthritis, Asthma, CHF, Diabetes, Gout, Hypertension - Past Surgical History Surgical History: , Hysterectomy - Family History Family Medical History: Hypertension - Social History Does patient currently use any type of tobacco product: No Type of Tobacco Use: None Does any household member use tobacco: No Alcohol Use: None Drug Use: None - Review of Systems Constitutional: Weakness Eyes: No Symptoms Reported ENT: No Symptoms Reported Respiratory: Shortness of Breath Cardiovascular: Edema Gastrointestinal: Nausea Genitourinary: Retention Musculoskeletal: Back Pain, Leg Pain Neurological: Weakness - Physical Exam Vital Signs: Temperature 97.0 F Pulse Rate [Left Brachial] 69 Respiratory Rate 18 Blood Pressure [Right Arm] 124/72 Blood Pressure [Left Arm] 119/58 Blood Pressure 136/77 O2 Sat by Pulse Oximetry 98 Oriented: Normal Eyes: Normal Ear: Normal Nose: Normal Throat: Normal Respiratory: RLL Diminished, LLL Diminished Cardiovascular: Edema : Normal Auscultation: Bowel Sounds: Normal Palpation: Normal Tenderness: Normal Skin: Normal Musculoskeletal: Back:Thoracic, Back:Lumbar Psychiatric: Depression Speech Pattern: Clear, Appropriate - Assessment/Plan (1) ARF (acute renal failure) Qualifiers: Acute renal failure type: unspecified Qualified Code(s): N17.9 - Acute kidney failure, unspecified Status: Acute Plan: ADMIT ICU, GENTLE IV HYDRATION, STRICT I & OS. CBC CMP MAG, UA UC CHEST XRAY EKG ON ADMISSION. BP MONITORING, HOLD NSAIDS AND PO DIABETIC AGENTS. CARDIAC PROFILE. REPEAT AM LABS (2) Generalized weakness Status: Acute (3) Arthritis Status: Chronic (4) Asthma Status: Chronic (5) CHF (congestive heart failure) Qualifiers: Congestive heart failure type: unspecified congestive heart failure type Congestive heart failure chronicity: chronic Qualified Code(s): I50.9 - Heart failure, unspecified Status: Chronic (6) Diabetes mellitus Status: Chronic
[2017-08-10] MEDS ORDERED: MILK OF MAGNESIA ONE (20:31)
[2017-08-10] MEDS: AMBIEN PO SCH (20:37)
[2017-08-10] MEDS: ZOCOR TAB 40 MG PO SCH (20:37)
[2017-08-10] MEDS: MILK OF MAGNESIA PO PRN (20:37)
[2017-08-10] MEDS: SNACK - Diabetic Appropriate PO SCH (20:38)
[2017-08-11] MEDS: NEURONTIN CAP 300 MG PO SCH ×3 (05:56→21:06)
[2017-08-11 06:07] LABS: BASOPHILS # (AUTO) 0.1 X10^3/uL (0.0-0.1); BASOPHILS % (AUTO) 0.7 % (0.2-1.0); EOSINOPHILS # (AUTO) 0.3 x10^3/uL (0.0-0.2); EOSINOPHILS % (AUTO) 4.4 % (0.9-2.9); HEMATOCRIT 29.6 % (36.0-47.0); HEMOGLOBIN 9.9 g/dL (12.0-16.0); LYMPHOCYTES % (AUTO) 38.4 % (21.0-51.0); MEAN CORPUSCULAR HEMOGLOBIN 27.4 pg (27.0-34.0); MEAN CORPUSCULAR HGB CONC 33.5 g/dL (33.0-35.0); MEAN CORPUSCULAR VOLUME 81.8 fL (80.0-100.0); MEAN PLATELET VOLUME 7.4 fL (7.4-11.0); MONOCYTES # (AUTO) 0.7 x10^3/uL (0.3-0.8); MONOCYTES % (AUTO) 8.3 % (0.0-13.0); NEUTROPHILS # (AUTO) 3.8 x10^3/uL (2.2-4.8); NEUTROPHILS % (AUTO) 48.2 % (42.0-75.0); PLATELET COUNT 263 X10^3/uL (150.0-450.0); RED BLOOD COUNT 3.62 X10^6/uL (3.5-5.4); RED CELL DISTRIBUTION WIDTH 14.3 % (11.6-16.5); WHITE BLOOD COUNT 7.9 X10^3/uL (3.6-10.0)
[2017-08-11 06:16] LABS: ALANINE AMINOTRANSFERASE 13 Units/L (12-78); ALBUMIN 3.4 g/dL (3.4-5.0); ALKALINE PHOSPHATASE 64 Units/L (46-116); ASPARTATE AMINO TRANSFERASE 14 Units/L (15-37); BLOOD UREA NITROGEN 59 mg/dL (7-18); CALCIUM 8.1 mg/dL (8.5-10.1); CARBON DIOXIDE 20.4 mmol/L (21-32); CHLORIDE 114 mmol/L (98-107); CREATININE 4.13 mg/dL (0.55-1.02); SODIUM 146 mmol/L (136-145); TOTAL PROTEIN 7.1 g/dL (6.4-8.2); eGFR BLACK RACES 14 (>60); eGFR NON BLACK RACES 11 (>60)
[2017-08-11] MEDS: MORPHINE SULFATE INJ 2 MG INJ IVP PRN ×2 (07:00→13:55)
[2017-08-11] MEDS: NS 1000 ML 1,000 ML IV SCH ×2 (08:00→11:21)
[2017-08-11] MEDS: COREG TAB 12.5 MG PO SCH ×2 (08:11→21:05)
[2017-08-11] MEDS ORDERED: ROBITUSSIN DM PO PRN (08:53)
[2017-08-11] MEDS ORDERED: DULCOLAX SUPPOSITORY 10 MG RECTAL ONE (13:07)
[2017-08-11] MEDS: MILK OF MAGNESIA PO PRN (13:55)
[2017-08-11] MEDS ORDERED: NS 1/2 1000 ML IV 1,000 ML IV ONE (14:14)
[2017-08-11] MEDS: NS 1/2 1000 ML IV 1,000 ML IV SCH (14:22)
[2017-08-11] MEDS: HumuLIN R SUBCUT PRN (16:24)
[2017-08-11] MEDS: COLACE CAP 100 MG PO SCH (21:04)
[2017-08-11] MEDS: AMBIEN PO SCH (21:04)
[2017-08-11] MEDS: SNACK - Diabetic Appropriate PO SCH (21:04)
[2017-08-11] MEDS: ZOCOR TAB 40 MG PO SCH (21:05)
[2017-08-11] MEDS ORDERED: DULCOLAX SUPPOSITORY 10 MG PR NR (22:00)
[2017-08-12] MEDS ORDERED: NS 1/2 1000 ML IV 1,000 ML IV ONE ×2 (01:59→15:38)
[2017-08-12] MEDS: NS 1/2 1000 ML IV 1,000 ML IV SCH ×2 (03:15→15:47)
[2017-08-12 06:04] LABS: BASOPHILS % (AUTO) 0.5 % (0.2-1.0); EOSINOPHILS # (AUTO) 0.3 x10^3/uL (0.0-0.2); EOSINOPHILS % (AUTO) 3.6 % (0.9-2.9); HEMATOCRIT 28.6 % (36.0-47.0); HEMOGLOBIN 9.5 g/dL (12.0-16.0); LYMPHOCYTES # (AUTO) 3.8 X10^3/uL (1.3-2.9); LYMPHOCYTES % (AUTO) 44.5 % (21.0-51.0); MEAN CORPUSCULAR HEMOGLOBIN 27.3 pg (27.0-34.0); MEAN CORPUSCULAR HGB CONC 33.3 g/dL (33.0-35.0); MEAN CORPUSCULAR VOLUME 82.1 fL (80.0-100.0); MEAN PLATELET VOLUME 7.5 fL (7.4-11.0); MONOCYTES # (AUTO) 0.6 x10^3/uL (0.3-0.8); MONOCYTES % (AUTO) 6.7 % (0.0-13.0); NEUTROPHILS # (AUTO) 3.9 x10^3/uL (2.2-4.8); NEUTROPHILS % (AUTO) 44.7 % (42.0-75.0); PLATELET COUNT 267 X10^3/uL (150.0-450.0); RED BLOOD COUNT 3.49 X10^6/uL (3.5-5.4); RED CELL DISTRIBUTION WIDTH 14.1 % (11.6-16.5); WHITE BLOOD COUNT 8.6 X10^3/uL (3.6-10.0)
[2017-08-12 06:19] LABS: ALBUMIN 3.2 g/dL (3.4-5.0); CARBON DIOXIDE 20.8 mmol/L (21-32); COR CA(FOR HYPOALB) 8.6 mg/dL (8.5-10.1); CREATININE 2.23 mg/dL (0.55-1.02); TOTAL PROTEIN 6.8 g/dL (6.4-8.2)
[2017-08-12] MEDS: HumuLIN R SUBCUT PRN ×4 (06:24→21:45)
[2017-08-12] MEDS: MORPHINE SULFATE INJ 2 MG INJ IVP PRN ×3 (07:22→21:49)
[2017-08-12] MEDS: NEURONTIN CAP 300 MG PO SCH ×3 (07:32→21:42)
[2017-08-12] MEDS: COREG TAB 12.5 MG PO SCH ×2 (09:46→21:40)
[2017-08-12] MEDS: FLONASE NASAL SPRAY ENOSTRIL SCH (16:05)
[2017-08-12] MEDS: CLARITIN PO SCH (16:09)
[2017-08-12] MEDS ORDERED: CLARITIN ONE (16:10)
[2017-08-12] MEDS: COLACE CAP 100 MG PO SCH (21:40)
[2017-08-12] MEDS: ZOCOR TAB 40 MG PO SCH (21:40)
[2017-08-12] MEDS: SNACK - Diabetic Appropriate PO SCH (21:42)
[2017-08-12] MEDS: AMBIEN PO SCH (21:42)
--- NOTE | 2017-08-12 21:51 | PCM.PROG ---
Progress Note - Progress Note for Day of Date: 08/12/17 - Subjective Subjective: patient is a 67-year-old black female who was a direct admit from Dr. Levi's office after presenting for follow-up visit for CHF exacerbation. Patient was seen one day ago with complaints of shortness of breath, edema and weakness. Patient had outpatient labs which revealed acute renal failure as well as venous congestion on her chest x-ray. Patient was admitted to ICU for further evaluation and general IV hydration to improve renal function. Patient today is sitting up in chair. Complains of allergies. States she needs her Flonase. Patients CR has improved. Denies any other complaints. - Past Medical Family Social History Past Med/Fam/Surg Hx: No changes since H&P Allergies: Allergies No Known Drug Allergies Allergy (Verified 08/09/17 16:33) - Review of Systems ROS: No change since H&P - Vital Signs and I&O's Vital Signs: Temperature 98.4 F Pulse Rate [Left Brachial] 61 Respiratory Rate 16 Blood Pressure [Right Arm] 123/62 Blood Pressure [Left Arm] 136/79 Blood Pressure 136/77 O2 Sat by Pulse Oximetry 98 Intake and Output: Intake & Output 08/10/17 08/11/17 08/12/17 08/13/17 11:59 11:59 11:59 11:59 Intake Total 1640 5070 3820 1840 Output Total 370 3000 3150 1150 Balance 1270 2070 670 690 - Physical Exam Oriented: Normal Eyes: Normal Ear: Normal Nose: Normal Throat: Normal Respiratory: Normal Cardiovascular: Edema : Normal Auscultation: Bowel Sounds: Normal Palpation: Normal Tenderness: Normal Skin: Normal Musculoskeletal: Back:Thoracic, Back:Lumbar Psychiatric: Depression Mood Description: Calm Affect: Normal Speech Pattern: Clear, Appropriate - Laboratory and Diagnostics Result Diagrams: 08/12/17 04:40 08/12/17 04:40 Labs: 08/09/17 19:46 Urine,Clean Catch Urine Culture - Final Laboratory WBC 8.6 X10^3/uL (3.6-10.0) 08/12/17 04:40 RBC 3.49 X10^6/uL (3.5-5.4) L 08/12/17 04:40 Hgb 9.5 g/dL (12.0-16.0) L 08/12/17 04:40 Hct 28.6 % (36.0-47.0) L 08/12/17 04:40 MCV 82.1 fL (80.0-100.0) 08/12/17 04:40 MCH 27.3 pg (27.0-34.0) 08/12/17 04:40 MCHC 33.3 g/dL (33.0-35.0) 08/12/17 04:40 RDW 14.1 % (11.6-16.5) 08/12/17 04:40 Plt Count 267 X10^3/uL (150.0-450.0) 08/12/17 04:40 MPV 7.5 fL (7.4-11.0) 08/12/17 04:40 Neut % 44.7 % (42.0-75.0) 08/12/17 04:40 Lymph % 44.5 % (21.0-51.0) 08/12/17 04:40 [place] % 6.7 % (0.0-13.0) 08/12/17 04:40 Eos % 3.6 % (0.9-2.9) H 08/12/17 04:40 Baso % 0.5 % (0.2-1.0) 08/12/17 04:40 Neut # 3.9 x10^3/uL (2.2-4.8) 08/12/17 04:40 Lymph # 3.8 X10^3/uL (1.3-2.9) H 08/12/17 04:40 [place] # 0.6 x10^3/uL (0.3-0.8) 08/12/17 04:40 Eos # 0.3 x10^3/uL (0.0-0.2) H 08/12/17 04:40 Baso # 0.0 X10^3/uL (0.0-0.1) 08/12/17 04:40 Absolute Nucleated RBC 0.1 /100WBC 08/12/17 04:40 INR Target Range - 08/09/17 16:35 INR 0.98 (0.8-1.3) 08/09/17 16:35 Sodium 146 mmol/L (136-145) H 08/12/17 04:40 Corrected Sodium 147 mmol/L (136-145) H 08/12/17 04:40 Potassium 4.7 mmol/L (3.5-5.1) 08/12/17 04:40 Chloride 113 mmol/L (98-107) H 08/12/17 04:40 Carbon Dioxide 20.8 mmol/L (21-32) L 08/12/17 04:40 BUN 36 mg/dL (7-18) H 08/12/17 04:40 Creatinine 2.23 mg/dL (0.55-1.02) H 08/12/17 04:40 Est GFR (MDRD) Af Amer 28 (>60) L 08/12/17 04:40 Est GFR (MDRD) Non-Af 23 (>60) L 08/12/17 04:40 Glucose 138 mg/dL (65-99) H 08/12/17 04:40 POC Glucose (mg/dL) 221 mg/dL (65-99) H 08/12/17 20:32 Calcium 8.0 mg/dL (8.5-10.1) L 08/12/17 04:40 Corrected Calcium 8.6 mg/dL (8.5-10.1) 08/12/17 04:40 Phosphorus 7.1 mg/dL (2.6-4.7) H 08/09/17 16:35 Magnesium 2.7 mg/dL (1.7-2.9) 08/09/17 16:35 Total Bilirubin 0.20 mg/dL (0.2-1.0) 08/12/17 04:40 AST 16 Units/L (15-37) 08/12/17 04:40 ALT 7 Units/L (12-78) L 08/12/17 04:40 Alkaline Phosphatase 59 Units/L (46-116) 08/12/17 04:40 Creatine Kinase 135 Units/L (26-192) 08/09/17 16:35 CK-MB (CK-2) < 1.0 ng/mL (0-4.0) 08/09/17 16:35 CK/CKMB % Calc 0.7 % (<4) 08/09/17 16:35 Troponin I < 0.02 ng/mL (0-1.5) 08/09/17 16:35 Total Protein 6.8 g/dL (6.4-8.2) 08/12/17 04:40 Albumin 3.2 g/dL (3.4-5.0) L 08/12/17 04:40 Globulin 3.6 g/dL (2.5-4.5) 08/12/17 04:40 Albumin/Globulin Ratio 0.9 Ratio (1.1-2.1) L 08/12/17 04:40 Specimen Type Clean catch urine 08/09/17 19:46 Urine Color Yellow (YELLOW) 08/09/17 19:46 Urine Appearance Clear (CLEAR) 08/09/17 19:46 Urine pH 5.0 (5.0 - 8.0) 08/09/17 19:46 Ur Specific [place] 1.015 (1.000-1.030) 08/09/17 19:46 Urine Protein 2+ (NEGATIVE) 08/09/17 19:46 Urine Glucose (UA) Negative (NEGATIVE) 08/09/17 19:46 Urine Ketones Negative (NEGATIVE) 08/09/17 19:46 Urine Occult Blood 2+ (NEGATIVE) 08/09/17 19:46 Urine Nitrite Negative (NEGATIVE) 08/09/17 19:46 Urine Bilirubin Negative (NEGATIVE) 08/09/17 19:46 Urine Urobilinogen Normal (NORMAL) 08/09/17 19:46 Ur Leukocyte Esterase Negative (NEGATIVE) 08/09/17 19:46 Urine RBC 2-6 /HPF (NEGATIVE) 08/09/17 19:46 Urine WBC 0-3 /HPF (NEGATIVE) 08/09/17 19:46 Ur Squamous Epith Cells Moderate /HPF (NEGATIVE) 08/09/17 19:46 Urine Bacteria Negative /HPF (NEGATIVE) 08/09/17 19:46 Ur Culture Indicated? Yes/culture set up 08/09/17 19:46 Radiology Reviewed: Yes Rhythm: NSR - Plan (1) Seasonal allergic rhinitis Status: Acute Plan: Flonase and Claritin (2) ARF (acute renal failure) Status: Acute Qualifiers: Acute renal failure type: unspecified Qualified Code(s): N17.9 - Acute kidney failure, unspecified Plan: GENTLE IV HYDRATION, STRICT I & OS. CBC CMP CHEST XRAY in AM. BP MONITORING, HOLD NSAIDS AND PO DIABETIC AGENTS (3) Cardiomegaly Status: Acute (4) CHF (congestive heart failure) Status: Chronic Qualifiers: Congestive heart failure type: unspecified congestive heart failure type Congestive heart failure chronicity: chronic Qualified Code(s): I50.9 - Heart failure, unspecified Plan: Monitor for SOB, Monitor BUN/CR (5) Diabetes mellitus, type II Status: Chronic Plan: FSBS checks with SSRI coverage. (6) Hypertension Status: Chronic Qualifiers: Hypertension type: essential hypertension Qualified Code(s): I10 - Essential (primary) hypertension Plan: Monitor BP. Administer anti-hypertensives.
[2017-08-13] MEDS ORDERED: NS 1/2 1000 ML IV 1,000 ML IV ONE (02:33)
[2017-08-13] MEDS: NS 1/2 1000 ML IV 1,000 ML IV SCH ×2 (02:50→05:11)
[2017-08-13 05:26] LABS: CALCIUM 8.3 mg/dL (8.5-10.1); CARBON DIOXIDE 21.8 mmol/L (21-32); CREATININE 1.48 mg/dL (0.55-1.02)
[2017-08-13 05:27] LABS: BASOPHILS % (AUTO) 0.5 % (0.2-1.0); EOSINOPHILS # (AUTO) 0.3 x10^3/uL (0.0-0.2); EOSINOPHILS % (AUTO) 2.8 % (0.9-2.9); HEMATOCRIT 28.8 % (36.0-47.0); HEMOGLOBIN 9.7 g/dL (12.0-16.0); LYMPHOCYTES # (AUTO) 2.8 X10^3/uL (1.3-2.9); LYMPHOCYTES % (AUTO) 29.5 % (21.0-51.0); MEAN CORPUSCULAR HEMOGLOBIN 27.7 pg (27.0-34.0); MEAN CORPUSCULAR HGB CONC 33.8 g/dL (33.0-35.0); MEAN CORPUSCULAR VOLUME 82.1 fL (80.0-100.0); MEAN PLATELET VOLUME 7.3 fL (7.4-11.0); MONOCYTES # (AUTO) 0.7 x10^3/uL (0.3-0.8); MONOCYTES % (AUTO) 7.1 % (0.0-13.0); NEUTROPHILS # (AUTO) 5.7 x10^3/uL (2.2-4.8); NEUTROPHILS % (AUTO) 60.1 % (42.0-75.0); PLATELET COUNT 262 X10^3/uL (150.0-450.0); RED BLOOD COUNT 3.51 X10^6/uL (3.5-5.4); RED CELL DISTRIBUTION WIDTH 14.2 % (11.6-16.5); WHITE BLOOD COUNT 9.5 X10^3/uL (3.6-10.0)
[2017-08-13] MEDS: HumuLIN R SUBCUT PRN ×3 (06:15→17:02)
[2017-08-13] MEDS: NEURONTIN CAP 300 MG PO SCH ×2 (06:15→17:00)
[2017-08-13] MEDS: MORPHINE SULFATE INJ 2 MG INJ IVP PRN (06:20)
[2017-08-13] MEDS: CLARITIN PO SCH (09:50)
[2017-08-13] MEDS: COREG TAB 12.5 MG PO SCH (09:50)
[2017-08-13] MEDS: FLONASE NASAL SPRAY ENOSTRIL SCH (09:50)
[2017-08-13 13:08] VITALS: BP 147/85
[2017-08-13] MEDS ORDERED: FLUVIRIN IM ONE (17:05)
== END 2017-08-13 17:30 | disposition home or self-care (01) | DRG 684 ==
LOC: ICU 15:06
PROVIDERS: ADMIT Internal Medicine; ATTEND Internal Medicine
PROC: 3E0234Z Introduction of Serum, Toxoid and Vaccine into Muscle, Percutaneous Approach (ICD-10-PCS; principal; 2017-08-13)
DX: N17.8 Other acute kidney failure (principal); I50.9 Heart failure, unspecified; R06.02 Shortness of breath; R60.0 Localized edema; R53.1 Weakness; I10 Essential (primary) hypertension; M13.89 Other specified arthritis, multiple sites; J45.998 Other asthma; E11.65 Type 2 diabetes mellitus with hyperglycemia; I51.7 Cardiomegaly; J30.2 Other seasonal allergic rhinitis; Z23 Encounter for immunization; K59.09 Other constipation
CPT/HCPCS: 36415; 71010; 71020; 80048; 80053; 81001; 82550; 82553; 83735; 84100; 84484; 85025; 85610; 87086; 90686; 93005; 93010; 99231; A4222; J1815; J2270

== ENCOUNTER 2018-03-09 10:54 | Observation (INO) | payer OTHER, MEDICAID ==
[2018-03-09 14:11] LABS: BASOPHILS # (AUTO) 0.1 X10^3/uL (0.0-0.1); BASOPHILS % (AUTO) 0.9 % (0.2-1.0); EOSINOPHILS # (AUTO) 0.1 x10^3/uL (0.0-0.2); EOSINOPHILS % (AUTO) 1.3 % (0.9-2.9); HEMATOCRIT 33.3 % (36.0-47.0); HEMOGLOBIN 11.3 g/dL (12.0-16.0); LYMPHOCYTES % (AUTO) 30.5 % (21.0-51.0); MEAN CORPUSCULAR HEMOGLOBIN 27.3 pg (27.0-34.0); MEAN CORPUSCULAR HGB CONC 33.9 g/dL (33.0-35.0); MEAN CORPUSCULAR VOLUME 80.6 fL (80.0-100.0); MEAN PLATELET VOLUME 6.9 fL (7.4-11.0); MONOCYTES # (AUTO) 0.6 x10^3/uL (0.3-0.8); MONOCYTES % (AUTO) 5.7 % (0.0-13.0); NEUTROPHILS # (AUTO) 6.1 x10^3/uL (2.2-4.8); NEUTROPHILS % (AUTO) 61.6 % (42.0-75.0); PLATELET COUNT 388 X10^3/uL (150.0-450.0); RED BLOOD COUNT 4.14 X10^6/uL (3.5-5.4); RED CELL DISTRIBUTION WIDTH 15.3 % (11.6-16.5); WHITE BLOOD COUNT 9.9 X10^3/uL (3.6-10.0)
[2018-03-09 14:20] LABS: ALANINE AMINOTRANSFERASE 21 Units/L (12-78); ALBUMIN 4.1 g/dL (3.4-5.0); ALKALINE PHOSPHATASE 80 Units/L (46-116); ASPARTATE AMINO TRANSFERASE 12 Units/L (15-37); BLOOD UREA NITROGEN 23 mg/dL (7-18); CALCIUM 9.3 mg/dL (8.5-10.1); CARBON DIOXIDE 22.8 mmol/L (21-32); CHLORIDE 104 mmol/L (98-107); COR NA(FOR HYPERGLY) 141 mmol/L (136-145); CREATININE 1.05 mg/dL (0.55-1.02); SODIUM 138 mmol/L (136-145); TOTAL PROTEIN 8.8 g/dL (6.4-8.2); eGFR BLACK RACES > 60 (>60); eGFR NON BLACK RACES 56 (>60)
[2018-03-09 14:38] VITALS: BMI 34.0
--- NOTE | 2018-03-09 14:55 | DR.H&P ---
H&P - History & Physical for Day of: H&P Date: 03/09/18 - Chief Complaint Chief Complaint: DIZZINESS, SOB, WEAKNESS, "LEGS GIVING OUT" - Allergies Allergies/Adverse Reactions: Allergies Allergy/AdvReac Type Severity Reaction Status Date / Time No Known Drug Allergies Allergy Verified 08/09/17 16:33 - History of Present Illness History of Present Illness: 68 BF DIRECT ADMIT FROM DR BLANCO OFFICE WITH CO DIZZINESS, LOWER EXTREMITY WEAKNESS, MULTIPLE FALLS, "LEGS GIVING OUT" AN SOB. PT HAS PMH OF DM , CAD, HTN, OA, RENAL INSUFF. PT STATES SHE HAS HAD INCREASED NAUSEA AND INDIGESTION. PT ADMITTED FOR TREATMENT AND EVALUATION OF NEW ONSET SYMPTOMS. - Past Medical History Past Medical History: Arthritis, Asthma, CHF, Diabetes, Gout, Hypertension - Past Surgical History Surgical History: , Hysterectomy - Family History Family Medical History: Hypertension - Social History Does patient currently use any type of tobacco product: No Have you used tobacco products in the last 12 months: Yes Does any household member use tobacco: No Alcohol Use: None Drug Use: None - Medications Home Medications: Allopurinol [ZYLOPRIM tab 100 mg *] 1 tab PO DAILY 03/09/18 [History Confirmed 03/09/18] Furosemide [LASIX TAB 40 MG *] 1 tab PO DAILY 03/09/18 [History Confirmed ] Hydrocodone-Acet 7.5 mg/325 mg [NORCO 7.5 MG/325 MG *] 1 tab PO PRN PRN [History Confirmed 03/09/18] Meclizine HCl [Meclizine HCl] 1 tab PO TID 03/09/18 [History Confirmed 03/09/18] Pantoprazole Sodium [Pantoprazole Sodium] 1 tab PO DAILY 03/09/18 [History Confirmed 03/09/18] Potassium Chloride [Potassium Chloride] 1 tab PO DAILY 03/09/18 [History Confirmed 03/09/18] - Review of Systems Constitutional: Weakness Eyes: No Symptoms Reported ENT: No Symptoms Reported Respiratory: Shortness of Breath, SOB with Excertion Cardiovascular: Light Headedness Gastrointestinal: Nausea Genitourinary: No Symptoms Reported Musculoskeletal: Shoulder Pain, Back Pain, Leg Pain, Neck Pain Skin: No Symptoms Reported Neurological: Weakness - Physical Exam Vital Signs: Temperature 97.3 F Pulse Rate [Right Brachial] 105 Respiratory Rate 20 Blood Pressure [Right Arm] 156/75 Blood Pressure [Left Arm] 147/85 Blood Pressure 119/66 O2 Sat by Pulse Oximetry 97 Oriented: Normal Eyes: Normal Ear: Normal Nose: Normal Throat: Normal Respiratory: RLL Diminished, LLL Diminished Cardiovascular: Edema (BILATERAL TRACE EDEMA TO LOWER EXTREMITIES) : Normal Auscultation: Bowel Sounds: Normal Palpation: Normal Tenderness: Normal Skin: Decreased Turgur Musculoskeletal: Back:Thoracic, Back:Lumbar, Sensory Deficit, Crepitance Psychiatric: Anxiety, Depression Mood Description: Depressed Speech Pattern: Clear, Appropriate - Assessment/Plan (1) Generalized weakness Status: Acute Plan: ADMIT. CE AND EKG ON ADMISSION, CXR, CBC CMP BNP UA. VERIFY AND RESUME HOME MEDS. IV HYDRATION, BS CONTROL. CT HEAD, ENCOURAGE ORAL HYDRATION (2) Dizziness Status: Acute (3) Shortness of breath Status: Acute (4) Dehydration, mild Status: Acute (5) Arthritis Status: Chronic (6) Asthma Status: Chronic (7) CHF (congestive heart failure) Qualifiers: Qualified Code(s): I50.9 - Heart failure, unspecified Status: Chronic (8) Diabetes mellitus Status: Chronic (9) Hypertension Qualifiers: Hypertension type: essential hypertension Qualified Code(s): I10 - Essential (primary) hypertension Status: Chronic
--- NOTE | 2018-03-09 14:58 | RAD ---
HISTORY: Shortness of breath and weakness. Study: Portable chest. Comparison: Chest x-ray dated August 12, 2017. Findings: The trachea is midline. The cardiac silhouette is mildly enlarged without overt signs of failure. N o obvious focal consolidation, pleural effusion, or pneumothorax. The bony thorax is unremarkable. IMPRESSION: No acute cardiopulmonary disease. Reported By:
[2018-03-09] MEDS ORDERED: NEURONTIN CAP 300 MG PO PRN (14:59)
[2018-03-09] MEDS: NS 1000 ML 1,000 ML IV SCH (15:06)
[2018-03-09] MEDS: XANAX PO SCH ×2 (15:07→21:05)
[2018-03-09] MEDS: ZYLOPRIM PO SCH (15:24)
[2018-03-09 15:27] LABS: CREATINE KINASE 71 Units/L (26-192); CREATINE KINASE MB < 1.0 ng/mL (0-4.0); TROPONIN I < 0.02 ng/mL (0-1.5)
[2018-03-09 15:42] LABS: CKMB % 1.4 % (<4)
--- NOTE | 2018-03-09 15:55 | CT ---
CT head without contrast Indication: Dizziness, frequent falls Comparison: 11/07/2017 Technique: CT images of the head were obtained without contrast. Automatic exposure control was [employer]. Findings: There is no acute bleed, mass effect, or abnormal extra-axial collection. The ventricles ar e not significantly dilated. No acute calvarial fracture is seen. The visualized paranasal sinuses an d mastoid air cells are grossly clear. Impression: No acute intracranial abnormality. Reported By:
[2018-03-09] MEDS: GLUCOPHAGE PO SCH (16:54)
[2018-03-09] MEDS: GLUCOPHAGE ONE ×2 (17:12→17:13)
[2018-03-09] MEDS ORDERED: HumuLIN R SUBCUT PRN (19:38)
[2018-03-09] MEDS: SNACK - Diabetic Appropriate PO SCH (20:30)
[2018-03-09] MEDS ORDERED: PATIENT'S HOME MEDICATION (Simvastatin [Simvastatin] 40 MG) PO SCH (21:00)
[2018-03-09] MEDS ORDERED: ZOLPIDEM TARTRATE 10 MG PO SCH (21:00)
[2018-03-09] MEDS ORDERED: NEURONTIN CAP 300 MG PO SCH ×2 (21:00)
[2018-03-09] MEDS ORDERED: PATIENT'S HOME MEDICATION (Metformin Hcl [Metformin Hcl] 1,000 MG) PO SCH (21:00)
[2018-03-09 21:05] LABS: BILIRUBIN,URINE NEGATIVE (NEGATIVE); BLOOD/HEMOGLOBIN,URINE NEGATIVE (NEGATIVE); GLUCOSE, URINE NEGATIVE (NEGATIVE); KETONES,URINE NEGATIVE (NEGATIVE); LEUKOCYTE ESTERASE ,URINE NEGATIVE (NEGATIVE); NITRITES,URINE NEGATIVE (NEGATIVE); PROTEIN,URINE NEGATIVE (NEGATIVE); UROBILINOGEN,URINE NORMAL (NORMAL)
[2018-03-09 21:06] LABS: APPEARANCE,URINE CLEAR (CLEAR); COLOR,URINE YELLOW (YELLOW)
[2018-03-09] MEDS: ZOCOR TAB 40 MG PO SCH (21:06)
[2018-03-09] MEDS: COREG TAB 12.5 MG PO SCH (21:06)
[2018-03-09] MEDS: ANTIVERT TAB 25 MG PO SCH (21:06)
[2018-03-09] MEDS: AMBIEN PO PRN (21:07)
[2018-03-10] MEDS: NS 1000 ML 1,000 ML IV SCH ×3 (03:06→21:49)
[2018-03-10] MEDS ORDERED: GLUCOPHAGE ONE ×2 (05:59→16:47)
[2018-03-10] MEDS: ANTIVERT TAB 25 MG PO SCH ×3 (06:04→21:30)
[2018-03-10] MEDS: GLUCOPHAGE PO SCH ×2 (06:04→16:51)
[2018-03-10 07:07] LABS: BASOPHILS # (AUTO) 0.1 X10^3/uL (0.0-0.1); BASOPHILS % (AUTO) 0.7 % (0.2-1.0); EOSINOPHILS # (AUTO) 0.2 x10^3/uL (0.0-0.2); EOSINOPHILS % (AUTO) 2.1 % (0.9-2.9); HEMATOCRIT 30.4 % (36.0-47.0); HEMOGLOBIN 10.2 g/dL (12.0-16.0); LYMPHOCYTES # (AUTO) 4.6 X10^3/uL (1.3-2.9); LYMPHOCYTES % (AUTO) 48.6 % (21.0-51.0); MEAN CORPUSCULAR HEMOGLOBIN 27.1 pg (27.0-34.0); MEAN CORPUSCULAR HGB CONC 33.4 g/dL (33.0-35.0); MEAN PLATELET VOLUME 7.2 fL (7.4-11.0); MONOCYTES # (AUTO) 0.7 x10^3/uL (0.3-0.8); MONOCYTES % (AUTO) 7.1 % (0.0-13.0); NEUTROPHILS # (AUTO) 3.9 x10^3/uL (2.2-4.8); NEUTROPHILS % (AUTO) 41.5 % (42.0-75.0); PLATELET COUNT 336 X10^3/uL (150.0-450.0); RED BLOOD COUNT 3.76 X10^6/uL (3.5-5.4); RED CELL DISTRIBUTION WIDTH 15.4 % (11.6-16.5); WHITE BLOOD COUNT 9.4 X10^3/uL (3.6-10.0)
[2018-03-10 07:31] LABS: ALANINE AMINOTRANSFERASE 20 Units/L (12-78); ALBUMIN 3.3 g/dL (3.4-5.0); ALKALINE PHOSPHATASE 63 Units/L (46-116); ASPARTATE AMINO TRANSFERASE 12 Units/L (15-37); BLOOD UREA NITROGEN 17 mg/dL (7-18); CALCIUM 8.4 mg/dL (8.5-10.1); CARBON DIOXIDE 22.7 mmol/L (21-32); CHLORIDE 108 mmol/L (98-107); COR NA(FOR HYPERGLY) 142 mmol/L (136-145); CREATININE 0.82 mg/dL (0.55-1.02); SODIUM 141 mmol/L (136-145); TOTAL PROTEIN 7.2 g/dL (6.4-8.2); eGFR BLACK RACES > 60 (>60); eGFR NON BLACK RACES > 60 (>60)
[2018-03-10] MEDS ORDERED: PATIENT'S HOME MEDICATION (Potassium Chloride [Potassium Chloride] 1 TAB) PO SCH (09:00)
[2018-03-10] MEDS ORDERED: PANTOPRAZOLE SODIUM PO SCH (09:00)
[2018-03-10] MEDS ORDERED: PATIENT'S HOME MEDICATION (Losartan Potassium [Losartan Potassium] 100 MG) PO SCH (09:00)
[2018-03-10] MEDS: COZAAR PO SCH (09:29)
[2018-03-10] MEDS: XANAX PO SCH ×2 (09:29→21:30)
[2018-03-10] MEDS: COREG TAB 12.5 MG PO SCH ×2 (09:30→21:30)
[2018-03-10] MEDS: ZYLOPRIM PO SCH (09:30)
[2018-03-10] MEDS: LASIX PO SCH (09:30)
[2018-03-10] MEDS: PROTONIX TAB 40 MG PO SCH (09:30)
[2018-03-10] MEDS: MICRO K EXTEN CAP 10 MEQ PO SCH (09:31)
[2018-03-10] MEDS: LINAGLIPTIN PO SCH (09:33)
[2018-03-10 12:05] LABS: CREATINE KINASE 61 Units/L (26-192); CREATINE KINASE MB < 1.0 ng/mL (0-4.0); TROPONIN I < 0.02 ng/mL (0-1.5)
[2018-03-10 12:07] LABS: CKMB % 1.6 % (<4)
[2018-03-10] MEDS ORDERED: MILK OF MAGNESIA PO PRN (15:17)
[2018-03-10] MEDS ORDERED: COLACE CAP 100 MG PO PRN (15:17)
[2018-03-10] MEDS: NORCO 7.5/325 MG TAB PO PRN ×2 (15:26→21:30)
[2018-03-10 17:22] LABS: CREATINE KINASE 58 Units/L (26-192); CREATINE KINASE MB < 1.0 ng/mL (0-4.0); TROPONIN I < 0.02 ng/mL (0-1.5)
[2018-03-10 18:15] LABS: CKMB % 1.7 % (<4)
[2018-03-10] MEDS: SNACK - Diabetic Appropriate PO SCH (20:30)
[2018-03-10] MEDS: AMBIEN PO PRN (21:30)
[2018-03-10] MEDS: ZOCOR TAB 40 MG PO SCH (21:30)
[2018-03-10 23:17] LABS: CKMB % 1.8 % (<4); CREATINE KINASE 55 Units/L (26-192); CREATINE KINASE MB < 1.0 ng/mL (0-4.0); TROPONIN I < 0.02 ng/mL (0-1.5)
[2018-03-11] MEDS ORDERED: GLUCOPHAGE ONE (05:08)
[2018-03-11] MEDS: ANTIVERT TAB 25 MG PO SCH (05:59)
[2018-03-11] MEDS: GLUCOPHAGE PO SCH (06:02)
[2018-03-11 06:03] LABS: BASOPHILS # (AUTO) 0.1 X10^3/uL (0.0-0.1); BASOPHILS % (AUTO) 0.6 % (0.2-1.0); EOSINOPHILS # (AUTO) 0.2 x10^3/uL (0.0-0.2); EOSINOPHILS % (AUTO) 1.9 % (0.9-2.9); HEMATOCRIT 33.9 % (36.0-47.0); HEMOGLOBIN 11.2 g/dL (12.0-16.0); LYMPHOCYTES # (AUTO) 5.7 X10^3/uL (1.3-2.9); LYMPHOCYTES % (AUTO) 52.2 % (21.0-51.0); MEAN CORPUSCULAR HEMOGLOBIN 27.1 pg (27.0-34.0); MEAN CORPUSCULAR VOLUME 82.1 fL (80.0-100.0); MEAN PLATELET VOLUME 6.9 fL (7.4-11.0); MONOCYTES # (AUTO) 0.5 x10^3/uL (0.3-0.8); MONOCYTES % (AUTO) 4.9 % (0.0-13.0); NEUTROPHILS # (AUTO) 4.4 x10^3/uL (2.2-4.8); NEUTROPHILS % (AUTO) 40.4 % (42.0-75.0); PLATELET COUNT 387 X10^3/uL (150.0-450.0); RED BLOOD COUNT 4.13 X10^6/uL (3.5-5.4); RED CELL DISTRIBUTION WIDTH 15.4 % (11.6-16.5); WHITE BLOOD COUNT 10.8 X10^3/uL (3.6-10.0)
[2018-03-11 06:33] LABS: ALANINE AMINOTRANSFERASE 19 Units/L (12-78); ALBUMIN 3.7 g/dL (3.4-5.0); ALKALINE PHOSPHATASE 74 Units/L (46-116); ASPARTATE AMINO TRANSFERASE 11 Units/L (15-37); BLOOD UREA NITROGEN 13 mg/dL (7-18); CALCIUM 8.3 mg/dL (8.5-10.1); CHLORIDE 106 mmol/L (98-107); COR NA(FOR HYPERGLY) 142 mmol/L (136-145); CREATININE 0.95 mg/dL (0.55-1.02); SODIUM 141 mmol/L (136-145); TOTAL PROTEIN 8.1 g/dL (6.4-8.2); eGFR BLACK RACES > 60 (>60); eGFR NON BLACK RACES > 60 (>60)
[2018-03-11] MEDS: COREG TAB 12.5 MG PO SCH (09:00)
[2018-03-11] MEDS: NORCO 7.5/325 MG TAB PO PRN (10:25)
[2018-03-11] MEDS: NS 1000 ML 1,000 ML IV SCH (11:29)
[2018-03-11] MEDS: COZAAR PO SCH (11:29)
[2018-03-11] MEDS: LASIX PO SCH (11:29)
[2018-03-11] MEDS: PROTONIX TAB 40 MG PO SCH (11:29)
[2018-03-11] MEDS: LINAGLIPTIN PO SCH (11:29)
[2018-03-11] MEDS: MICRO K EXTEN CAP 10 MEQ PO SCH (11:29)
[2018-03-11] MEDS: XANAX PO SCH (11:30)
[2018-03-11] MEDS: ZYLOPRIM PO SCH (11:30)
[2018-03-11 12:45] VITALS: BP 140/74
--- NOTE | 2018-03-11 13:52 | RAD ---
HISTORY: Mid back pain Study: Three-view thoracic spine Comparison: Chest x-ray done 08/09/2017. Findings: No fracture line or subluxation is seen. There is minimal anterior wedge compression deformity at the T7 level. This was present on patient's prior studies also. There is multilevel spondylosis involvin g the mid-lower thoracic spine region. Pedicles are intact. Disc spaces are well maintained. IMPRESSION: Minimal, stable and chronic appearing anterior wedge compression deformity at the T7 level. No acute fracture or subluxation is seen. Reported By:
--- NOTE | 2018-03-11 13:53 | RAD ---
Examination: Lumbar spine, five views History: Mid back pain Findings: There is an S shaped biphasic scoliosis. Alignment of vertebrae is normal. Disc narrowing i s present at several levels with marginal osteophytes. No fracture or bone destruction. Pedicles and sacroiliac joints intact. There is increased soft tissue density in the left upper abdomen. Impression: 1. Multilevel degenerative disc changes with spondylosis. Mild scoliosis. No acute lumbar spine abnor mality noted. 2. Increased soft tissue density in the left upper abdomen may represent fluid filled stomach. The po ssibility of left renal or other mass formation is not excluded. Follow-up KUB would be helpful to fu rther evaluate. Reported By:
== END 2018-03-11 13:50 | disposition home or self-care (01) ==
LOC: UNDOADMOB 10:54 → OBS 10:54 → ICU 17:36 → MED/SURG 03-11 08:25
PROVIDERS: ADMIT Internal Medicine; ATTEND Internal Medicine
DX: R53.1 Weakness (principal); R06.02 Shortness of breath; R42 Dizziness and giddiness; E11.9 Type 2 diabetes mellitus without complications; Z87.448 Personal history of other diseases of urinary system; M19.90 Unspecified osteoarthritis, unspecified site; F41.9 Anxiety disorder, unspecified; G62.9 Polyneuropathy, unspecified; K21.9 Gastro-esophageal reflux disease without esophagitis; J45.901 Unspecified asthma with (acute) exacerbation; I50.9 Heart failure, unspecified; I10 Essential (primary) hypertension; E86.0 Dehydration; Z91.81 History of falling
CPT/HCPCS: 36415; 70450; 71045; 72072; 72110; 80053; 81003; 82550; 82553; 82607; 82728; 82746; 83540; 83880; 84466; 84484; 85025; 93005; 93010; 99217; A4222; G0378; J1815

== ENCOUNTER 2018-09-12 17:10 | Inpatient (IN) ==
[2018-09-12] MEDS ORDERED: NS 1000 ML 1,000 ML IV ONE (18:00)
[2018-09-12 18:29] LABS: BILIRUBIN,URINE NEGATIVE (NEGATIVE); BLOOD/HEMOGLOBIN,URINE 3+ (NEGATIVE); GLUCOSE, URINE 1+ (NEGATIVE); KETONES,URINE NEGATIVE (NEGATIVE); LEUKOCYTE ESTERASE ,URINE NEGATIVE (NEGATIVE); NITRITES,URINE NEGATIVE (NEGATIVE); PROTEIN,URINE 2+ (NEGATIVE); UROBILINOGEN,URINE NORMAL (NORMAL)
[2018-09-12 18:36] LABS: AMORPHOUS SEDIMENT,UR 2+ /HPF (NEGATIVE); APPEARANCE,URINE SLIGHTLY HAZY (CLEAR); BACTERIA,URINE TRACE /HPF (NEGATIVE); COLOR,URINE YELLOW (YELLOW); SQUAMOUS EPITHELIAL CELL,UR MODERATE /HPF (NEGATIVE)
[2018-09-12 19:04] LABS: BASOPHILS # (AUTO) 0.1 X10^3/uL (0.0-0.1); BASOPHILS % (AUTO) 0.7 % (0.2-1.0); EOSINOPHILS # (AUTO) 0.2 x10^3/uL (0.0-0.2); EOSINOPHILS % (AUTO) 2.8 % (0.9-2.9); HEMATOCRIT 29.8 % (36.0-47.0); HEMOGLOBIN 9.9 g/dL (12.0-16.0); LYMPHOCYTES # (AUTO) 2.3 X10^3/uL (1.3-2.9); LYMPHOCYTES % (AUTO) 30.2 % (21.0-51.0); MEAN CORPUSCULAR HEMOGLOBIN 27.9 pg (27.0-34.0); MEAN CORPUSCULAR HGB CONC 33.4 g/dL (33.0-35.0); MEAN CORPUSCULAR VOLUME 83.7 fL (80.0-100.0); MEAN PLATELET VOLUME 6.6 fL (7.4-11.0); MONOCYTES # (AUTO) 0.4 x10^3/uL (0.3-0.8); MONOCYTES % (AUTO) 5.4 % (0.0-13.0); NEUTROPHILS # (AUTO) 4.7 x10^3/uL (2.2-4.8); NEUTROPHILS % (AUTO) 60.9 % (42.0-75.0); PLATELET COUNT 316 X10^3/uL (150.0-450.0); RED BLOOD COUNT 3.56 X10^6/uL (3.5-5.4); RED CELL DISTRIBUTION WIDTH 14.7 % (11.6-16.5); WHITE BLOOD COUNT 7.7 X10^3/uL (3.6-10.0)
[2018-09-12 19:14] LABS: ALBUMIN 3.3 g/dL (3.4-5.0); CALCIUM 8.1 mg/dL (8.5-10.1); CARBON DIOXIDE 21.3 mmol/L (21-32); COR CA(FOR HYPOALB) 8.7 mg/dL (8.5-10.1); CREATININE 5.84 mg/dL (0.55-1.02); MAGNESIUM 3.2 mg/dL (1.7-2.9); TOTAL PROTEIN 7.4 g/dL (6.4-8.2)
[2018-09-12 20:07] VITALS: BMI 34.0
[2018-09-12] MEDS: HumuLIN R SUBCUT PRN (20:19)
[2018-09-12] MEDS: KAYEXALATE SUSP PO SCH ×2 (20:20→23:01)
[2018-09-12] MEDS: NS 1000 ML 1,000 ML IV SCH (20:21)
[2018-09-12] MEDS: SNACK - Diabetic Appropriate PO SCH (21:58)
--- NOTE | 2018-09-12 22:16 | RAD ---
Chest AP portable Indication: Hypertension Comparison: 03/09/2018 Findings: There is no pneumothorax or effusion. There is no consolidation. Heart size is enlarged. Monitoring leads obscure detail Impression: Cardiomegaly without other acute chest process. Reported By:
[2018-09-12] MEDS ORDERED: NORCO 5/325 MG TAB PO PRN (22:43)
[2018-09-12] MEDS: AMBIEN PO PRN (23:00)
[2018-09-13 06:09] LABS: BASOPHILS # (AUTO) 0.1 X10^3/uL (0.0-0.1); BASOPHILS % (AUTO) 0.6 % (0.2-1.0); BLOOD UREA NITROGEN 49 mg/dL (7-18); CALCIUM 8.1 mg/dL (8.5-10.1); CARBON DIOXIDE 20.6 mmol/L (21-32); CHLORIDE 109 mmol/L (98-107); CREATININE 3.97 mg/dL (0.55-1.02); EOSINOPHILS # (AUTO) 0.2 x10^3/uL (0.0-0.2); EOSINOPHILS % (AUTO) 2.6 % (0.9-2.9); HEMOGLOBIN 9.8 g/dL (12.0-16.0); LYMPHOCYTES # (AUTO) 3.7 X10^3/uL (1.3-2.9); LYMPHOCYTES % (AUTO) 43.5 % (21.0-51.0); MEAN CORPUSCULAR HEMOGLOBIN 28.3 pg (27.0-34.0); MEAN CORPUSCULAR HGB CONC 33.8 g/dL (33.0-35.0); MEAN CORPUSCULAR VOLUME 83.6 fL (80.0-100.0); MEAN PLATELET VOLUME 6.8 fL (7.4-11.0); MONOCYTES # (AUTO) 0.6 x10^3/uL (0.3-0.8); MONOCYTES % (AUTO) 6.9 % (0.0-13.0); NEUTROPHILS # (AUTO) 3.9 x10^3/uL (2.2-4.8); NEUTROPHILS % (AUTO) 46.4 % (42.0-75.0); PLATELET COUNT 317 X10^3/uL (150.0-450.0); RED BLOOD COUNT 3.47 X10^6/uL (3.5-5.4); RED CELL DISTRIBUTION WIDTH 14.6 % (11.6-16.5); SODIUM 144 mmol/L (136-145); WHITE BLOOD COUNT 8.5 X10^3/uL (3.6-10.0); eGFR NON BLACK RACES 12 (>60)
[2018-09-13] MEDS ORDERED: FLEXERIL TAB 10 MG PO PRN (08:50)
[2018-09-13] MEDS ORDERED: PROVENTIL NEB TX 0.083% 2.5MG/ 3ML IN PRN (08:50)
[2018-09-13] MEDS ORDERED: ATARAX TAB 25 MG PO PRN (08:50)
[2018-09-13] MEDS ORDERED: ZOLPIDEM TARTRATE 10 MG PO PRN (08:50)
--- NOTE | 2018-09-13 08:53 | DR.H&P ---
H&P - History & Physical for Day of: H&P Date: 09/12/18 - Chief Complaint Chief Complaint: WEAKNESS, SWELLING - History of Present Illness History of Present Illness: 68 BF DIRECT ADMIT FROM DR BLANCO OFFICE WITH CO NEW ONSET WEAKNESS AND 7LBS WEIGHT GAIN THIS WEEK. PT WAS SEEN IN ER WITH CREAT6.35 AND ELEVATED POTASSIUM. PT WAS INSTRUCTED TO HOLD METFORMIN AND FOLLOW UP WITH HER PCP. PT STATES SHE HAS NOT CHANGED ANY HOME MEDICATION OR USED OTC NSAIDS. PT REPORTS NO V/D SOME NAUSEA. PT HAS CREAT ON 08/17 WAS 1.11. PT HAS PMH OF DM, HTN, GERD, OA, NEUROPATHY, ALISSA. PT ADMITTED FOR EVALUATION AND TREATMENT OF ACUTE RENAL FAILURE. - Past Medical History Past Medical History: Hypertension, Diabetes, Asthma, Arthritis, Gout, CHF - Past Surgical History Surgical History: - Family History Family Medical History: Hypertension - Social History Does patient currently use any type of tobacco product: No Have you used tobacco products in the last 12 months: No Type of Tobacco Use: None Does any household member use tobacco: No Alcohol Use: None Drug Use: Prescription Drugs - Medications Home Medications: No Known Drug Allergies Allergy (Verified 08/09/17 16:33) CONTINUE taking the following medications albuterol sulfate 1 puff INHALATION PRN PRN 09/12/18 [History] budesonide-formoterol [Symbicort] 1 puff INHALATION DAILY 09/12/18 [History] cyclobenzaprine 10 mg PO BID PRN 09/12/18 [History] hydroxyzine HCl 25 mg PO Q8H PRN 09/12/18 [History] trazodone 50 mg PO HS 09/12/18 [History] - Review of Systems Constitutional: Weakness, Malaise Eyes: No Symptoms Reported ENT: No Symptoms Reported Respiratory: Shortness of Breath Cardiovascular: Edema Gastrointestinal: Nausea. denies: Vomiting, Abdominal Pain, Diarrhea Genitourinary: denies: Dysuria, Frequency Musculoskeletal: Back Pain, Neck Pain Skin: No Symptoms Reported Neurological: Weakness - Physical Exam Vital Signs: Temperature 98.3 F Pulse Rate [Left Brachial] 87 Pulse Rate 99 Respiratory Rate 14 Blood Pressure [Right Arm] 116/60 Blood Pressure [Left Arm] 115/76 Blood Pressure 106/65 O2 Sat by Pulse Oximetry 98 Oriented: Normal Eyes: Normal Ear: Normal Nose: Normal Throat: Normal Respiratory: RLL Diminished, LLL Diminished Cardiovascular: Edema. negative: Murmur : Normal Auscultation: Bowel Sounds: Normal Palpation: Normal Tenderness: Epigastric Skin: Decreased Turgur Musculoskeletal: Back:Thoracic, Back:Lumbar, Tender (C SPINE) Psychiatric: Anxiety, Depression Mood Description: Depressed Affect: Anxious, Depressed Speech Pattern: Clear, Appropriate - Assessment/Plan (1) ARF (acute renal failure) Qualifiers: Acute renal failure type: unspecified Qualified Code(s): N17.9 - Acute kidney failure, unspecified Status: Acute Plan: ADMIT, CBC CMP. CERVANTES CATH, STRICT I &OS, BP AND LIPID CONTROL. 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 RENAL US, HOLD ORAL DIABETES MEDICATIONS, VERIFY HOME MEDICATION. ENCOURAGE ORAL HYDRATION, EKG AND CXR ON ADMISSION (2) Cardiomegaly Status: Acute (3) Chronic neck pain Status: Acute (4) Dehydration, mild Status: Acute (5) Hyperkalemia Status: Acute (6) CHF (congestive heart failure) Qualifiers: Qualified Code(s): I50.9 - Heart failure, unspecified Status: Chronic (7) Diabetes mellitus, type II Status: Chronic (8) Hypertension Qualifiers: Hypertension type: essential hypertension Qualified Code(s): I10 - Essential (primary) hypertension Status: Chronic - Allergies Allergies/Adverse Reactions: Allergies Allergy/AdvReac Type Severity Reaction Status Date / Time No Known Drug Allergies Allergy Verified 08/09/17 16:33
[2018-09-13] MEDS ORDERED: PATIENT'S HOME MEDICATION (Budesonide-Formoterol 1 PUFF) IN SCH (09:00)
[2018-09-13] MEDS: NS 1000 ML 1,000 ML IV SCH ×2 (09:32→22:33)
[2018-09-13] MEDS: NORCO 7.5/325 MG TAB PO PRN ×2 (09:32→23:49)
[2018-09-13] MEDS: COREG TAB 12.5 MG PO SCH ×2 (09:32→20:18)
[2018-09-13] MEDS: XANAX PO SCH (09:33)
[2018-09-13] MEDS: COZAAR PO SCH (09:33)
--- NOTE | 2018-09-13 09:51 | PCM.PROG ---
Progress Note - Progress Note for Day of Date of Exam: 09/13/18 - Subjective Subjective: 68 BF ADMITTED FOR ACUTE RENAL INSUFFICIENCY ADMISSION CREAT 5.84, IMPROVED TO BUN 49 CREAT 3.97 THIS AM. PT IN ICU, CONTINUOUS CARDIAC MONITORING, CERVANTES WITH STRICT I&OS. PT DENIES ANY CHEST PAIN OR CHEST PAIN THIS AM. PT HAS RENAL US ORDERED FOR THIS AM. PT CO MILD GAS, NAUSEA. PT DENIES SOB OR N/V - Past Medical Family Social History Past Med/Fam/Surg Hx: No changes since H&P Allergies: Allergies No Known Drug Allergies Allergy (Verified 08/09/17 16:33) - Review of Systems ROS: No change since H&P - Vital Signs and I&O's Vital Signs: Temperature 97.3 F Pulse Rate [Left Brachial] 80 Pulse Rate 99 Respiratory Rate 21 Blood Pressure [Right Arm] 148/83 Blood Pressure [Left Arm] 115/76 Blood Pressure 106/65 O2 Sat by Pulse Oximetry 98 Intake and Output: Intake & Output 09/10/18 09/11/18 09/12/18 09/13/18 11:59 11:59 11:59 11:59 Intake Total 2760 / 2760 Output Total 2100 / 2100 Balance 660 / 660 - Physical Exam Oriented: Normal Eyes: Normal Ear: Normal Nose: Normal Throat: Normal Respiratory: Diminished Cardiovascular: Normal. negative: Murmur : Normal Auscultation: Bowel Sounds: Normal Tenderness: Epigastric Skin: Decreased Turgur Musculoskeletal: Back:Thoracic, Back:Lumbar, Tender (C SPINE) Psychiatric: Anxiety, Depression Mood Description: Depressed Affect: Anxious, Depressed Speech Pattern: Clear, Appropriate - Laboratory and Diagnostics Result Diagrams: 09/13/18 05:43 09/13/18 05:43 Labs: Laboratory WBC 8.5 X10^3/uL (3.6-10.0) 09/13/18 05:43 RBC 3.47 X10^6/uL (3.5-5.4) L 09/13/18 05:43 Hgb 9.8 g/dL (12.0-16.0) L 09/13/18 05:43 Hct 29.0 % (36.0-47.0) L 09/13/18 05:43 MCV 83.6 fL (80.0-100.0) 09/13/18 05:43 MCH 28.3 pg (27.0-34.0) 09/13/18 05:43 MCHC 33.8 g/dL (33.0-35.0) 09/13/18 05:43 RDW 14.6 % (11.6-16.5) 09/13/18 05:43 Plt Count 317 X10^3/uL (150.0-450.0) 09/13/18 05:43 MPV 6.8 fL (7.4-11.0) L 09/13/18 05:43 Neut % (Auto) 46.4 % (42.0-75.0) 09/13/18 05:43 Lymph % (Auto) 43.5 % (21.0-51.0) 09/13/18 05:43 [place] % (Auto) 6.9 % (0.0-13.0) 09/13/18 05:43 Eos % (Auto) 2.6 % (0.9-2.9) 09/13/18 05:43 Baso % (Auto) 0.6 % (0.2-1.0) 09/13/18 05:43 Neut # (Auto) 3.9 x10^3/uL (2.2-4.8) 09/13/18 05:43 Lymph # (Auto) 3.7 X10^3/uL (1.3-2.9) H 09/13/18 05:43 [place] # (Auto) 0.6 x10^3/uL (0.3-0.8) 09/13/18 05:43 Eos # (Auto) 0.2 x10^3/uL (0.0-0.2) 09/13/18 05:43 Baso # (Auto) 0.1 X10^3/uL (0.0-0.1) 09/13/18 05:43 Absolute Nucleated RBC 0.0 /100WBC 09/13/18 05:43 Sodium 144 mmol/L (136-145) 09/13/18 05:43 Corrected Sodium TNP 09/13/18 05:43 Potassium 4.6 mmol/L (3.5-5.1) 09/13/18 05:43 Chloride 109 mmol/L (98-107) H 09/13/18 05:43 Carbon Dioxide 20.6 mmol/L (21-32) L 09/13/18 05:43 BUN 49 mg/dL (7-18) H 09/13/18 05:43 Creatinine 3.97 mg/dL (0.55-1.02) H 09/13/18 05:43 Est GFR (MDRD) Af Amer 14 (>60) L 09/13/18 05:43 Est GFR (MDRD) Non-Af 12 (>60) L 09/13/18 05:43 Glucose 69 mg/dL (65-99) 09/13/18 05:43 POC Glucose (mg/dL) 68 mg/dL (65-99) 09/13/18 05:16 Calcium 8.1 mg/dL (8.5-10.1) L 09/13/18 05:43 Corrected Calcium 8.7 mg/dL (8.5-10.1) 09/12/18 18:52 Magnesium 3.2 mg/dL (1.7-2.9) H 09/12/18 18:52 Total Bilirubin 0.20 mg/dL (0.2-1.0) 09/12/18 18:52 AST 19 Units/L (15-37) 09/12/18 18:52 ALT 22 Units/L (12-78) 09/12/18 18:52 Alkaline Phosphatase 83 Units/L (46-116) 09/12/18 18:52 Total Protein 7.4 g/dL (6.4-8.2) 09/12/18 18:52 Albumin 3.3 g/dL (3.4-5.0) L 09/12/18 18:52 Globulin 4.1 g/dL (2.5-4.5) 09/12/18 18:52 Albumin/Globulin Ratio 0.8 Ratio (1.1-2.1) L 09/12/18 18:52 Specimen Type Catherized urine 09/12/18 18:20 Urine Color Yellow (YELLOW) 09/12/18 18:20 Urine Appearance Slightly hazy (CLEAR) 09/12/18 18:20 Urine pH 5.0 (5.0 - 8.0) 09/12/18 18:20 Ur Specific [place] 1.015 (1.000-1.030) 09/12/18 18:20 Urine Protein 2+ (NEGATIVE) 09/12/18 18:20 Urine Glucose (UA) 1+ (NEGATIVE) 09/12/18 18:20 Urine Ketones Negative (NEGATIVE) 09/12/18 18:20 Urine Occult Blood 3+ (NEGATIVE) 09/12/18 18:20 Urine Nitrite Negative (NEGATIVE) 09/12/18 18:20 Urine Bilirubin Negative (NEGATIVE) 09/12/18 18:20 Urine Urobilinogen Normal (NORMAL) 09/12/18 18:20 Ur Leukocyte Esterase Negative (NEGATIVE) 09/12/18 18:20 Urine RBC 5-10 /HPF (NONE SEEN) 09/12/18 18:20 Urine WBC 0-2 /HPF (NONE SEEN) 09/12/18 18:20 Ur Squamous Epith Cells Moderate /HPF (NEGATIVE) 09/12/18 18:20 Amorphous Sediment 2+ /HPF (NEGATIVE) 09/12/18 18:20 Urine Bacteria Trace /HPF (NEGATIVE) 09/12/18 18:20 Ur Culture Indicated? No/not indicated 09/12/18 18:20 - Plan (1) ARF (acute renal failure) Status: Acute Qualifiers: Acute renal failure type: unspecified Qualified Code(s): N17.9 - Acute kid annabella failure, unspecified [facility]. CERVANTES CATH, STRICT I &OS, BP AND LIPID CONTROL. CONTINUOUS OVEREDGE SEWER, SUPPLEMENTAL O2. RENAL US, HOLD ORAL DIABETES MEDICATIONS,. ENCOURAGE ORAL HYDRATION, EKG AND CXR ON ADMISSION AND REPEAT AM CXR (2) Cardiomegaly Status: Acute (3) Chronic neck pain Status: Acute (4) Dehydration, mild Status: Acute (5) Hyperkalemia Status: Acute (6) CHF (congestive heart failure) Status: Chronic Qualifiers: Qualified Code(s): I50.9 - Heart failure, unspecified (7) Diabetes mellitus, type II Status: Chronic Plan: SSI (8) Hypertension Status: Chronic Qualifiers: Hypertension type: essential hypertension Qualified Code(s): I10 - Essential (primary) hypertension Plan: RESTART HOME BP MEDICATION
[2018-09-13] MEDS: HumuLIN R SUBCUT PRN ×3 (12:21→20:26)
[2018-09-13] MEDS: MORPHINE SULFATE INJ 2 MG INJ IVP PRN ×2 (12:23→20:26)
--- NOTE | 2018-09-13 14:48 | US ---
History: Elevated creatinine Study: Ultrasound of the kidneys Comparison: October 13, 2006 Findings: The right kidney measures 10.1 x 6.5 x 8.7 cm with cortical thickness of 2 cm. The left kidney measures 11.5 x 7.4 x 8.9 cm with cortical thickness of 2.4 cm. There is no hydronephrosis or mass or calculus. There is normal echogenicity of renal cortex. There is no free fluid. The urinary bladder is empty. Impression: Negative Reported By:
[2018-09-13] MEDS: ZOCOR TAB 10 MG PO SCH (20:19)
[2018-09-13] MEDS: DESYREL PO SCH (20:19)
[2018-09-13] MEDS: SNACK - Diabetic Appropriate PO SCH (20:27)
[2018-09-13] MEDS: PULMICORT NEB TX 0.5 MG NEB SCH (20:48)
[2018-09-13] MEDS: AMBIEN PO PRN (23:49)
[2018-09-14 05:14] LABS: BASOPHILS % (AUTO) 0.5 % (0.2-1.0); EOSINOPHILS # (AUTO) 0.3 x10^3/uL (0.0-0.2); EOSINOPHILS % (AUTO) 3.4 % (0.9-2.9); HEMATOCRIT 27.6 % (36.0-47.0); HEMOGLOBIN 9.1 g/dL (12.0-16.0); LYMPHOCYTES # (AUTO) 4.5 X10^3/uL (1.3-2.9); LYMPHOCYTES % (AUTO) 50.6 % (21.0-51.0); MEAN CORPUSCULAR HEMOGLOBIN 27.7 pg (27.0-34.0); MEAN CORPUSCULAR VOLUME 84.1 fL (80.0-100.0); MEAN PLATELET VOLUME 6.6 fL (7.4-11.0); MONOCYTES # (AUTO) 0.6 x10^3/uL (0.3-0.8); MONOCYTES % (AUTO) 7.4 % (0.0-13.0); NEUTROPHILS # (AUTO) 3.4 x10^3/uL (2.2-4.8); NEUTROPHILS % (AUTO) 38.1 % (42.0-75.0); PLATELET COUNT 296 X10^3/uL (150.0-450.0); RED BLOOD COUNT 3.28 X10^6/uL (3.5-5.4); RED CELL DISTRIBUTION WIDTH 14.8 % (11.6-16.5); WHITE BLOOD COUNT 8.8 X10^3/uL (3.6-10.0)
[2018-09-14 05:38] LABS: ALANINE AMINOTRANSFERASE 19 Units/L (12-78); ALKALINE PHOSPHATASE 68 Units/L (46-116); ASPARTATE AMINO TRANSFERASE 13 Units/L (15-37); BLOOD UREA NITROGEN 27 mg/dL (7-18); CALCIUM 7.8 mg/dL (8.5-10.1); CARBON DIOXIDE 21.4 mmol/L (21-32); CHLORIDE 113 mmol/L (98-107); COR CA(FOR HYPOALB) 8.6 mg/dL (8.5-10.1); CREATININE 1.94 mg/dL (0.55-1.02); SODIUM 146 mmol/L (136-145); TOTAL PROTEIN 6.7 g/dL (6.4-8.2); eGFR NON BLACK RACES 27 (>60)
[2018-09-14] MEDS: XANAX PO SCH (08:29)
[2018-09-14] MEDS: COZAAR PO SCH (08:29)
[2018-09-14] MEDS: COREG TAB 12.5 MG PO SCH ×2 (08:29→20:34)
[2018-09-14] MEDS: NS 1000 ML 1,000 ML IV SCH (08:30)
[2018-09-14] MEDS: NORCO 7.5/325 MG TAB PO PRN ×2 (08:32→20:42)
[2018-09-14] MEDS: PULMICORT NEB TX 0.5 MG NEB SCH ×2 (09:44→20:23)
--- NOTE | 2018-09-14 10:03 | RAD ---
HISTORY: Coughing. Shortness of breath. Study: AP. and lateral chest. Comparison: 09/12/2018 Findings: The lungs are clear. The heart size is borderline enlarged. Very minimal pleural effusion is noted bilaterally. [id number] thoracic spondylosis is noted. IMPRESSION: 1. Borderline cardiomegaly without evidence of failure. 2. Very minimal pleural effusion is noted bilaterally. Reported By:
[2018-09-14] MEDS: BROVANA IN SCH ×2 (10:06→20:23)
[2018-09-14] MEDS: PROVENTIL NEB TX 0.083% 2.5MG/ 3ML NEB SCH ×4 (10:06→17:24)
[2018-09-14] MEDS: MORPHINE SULFATE INJ 2 MG INJ IVP PRN (11:37)
[2018-09-14] MEDS: HumuLIN R SUBCUT PRN ×2 (11:38→20:43)
--- NOTE | 2018-09-14 12:41 | PCM.PROG ---
Progress Note - Progress Note for Day of Date of Exam: 09/14/18 - Subjective Subjective: 68 BF ADMITTED FOR ACUTE RENAL INSUFFICIENCY ADMISSION CREAT 5.84, IMPROVED TO BUN 27 CREAT 1.94 THIS AM. PT IN ICU, CONTINUOUS CARDIAC MONITORING, CERVANTES WITH STRICT I&OS. PLAN TO START BLADDER TRAINING AND D/C CERVANTES OVER NEXT 24HRS. PT DENIES ANY CHEST PAIN OR CHEST PAIN THIS AM. PT IS CO GENERALIZED WEAKNESS AND WHEEZING, PT HAS ASTHMA. RESP CONSULTED FOR JET NEBS CXR THIS AM. PT HAD RENAL US WITH NO ABNORMAL FINDINGS - Past Medical Family Social History Past Med/Fam/Surg Hx: No changes since H&P Allergies: Allergies No Known Drug Allergies Allergy (Verified 08/09/17 16:33) - Review of Systems ROS: No change since H&P - Vital Signs and I&O's Vital Signs: Temperature 97.3 F Pulse Rate [Left Brachial] 80 Pulse Rate 99 Respiratory Rate 21 Blood Pressure [Right Arm] 135/81 Blood Pressure [Left Arm] 115/76 Blood Pressure 106/65 O2 Sat by Pulse Oximetry 97 Intake and Output: Intake & Output 09/12/18 09/13/18 09/14/18 09/15/18 11:59 11:59 11:59 11:59 Intake Total 2760 / 2760 2718 / 2718 Output Total 2100 / 2100 3225 / 3225 Balance 660 / 660 -507 / -507 - Physical Exam Oriented: Normal Eyes: Normal Ear: Normal Nose: Normal Throat: Normal Respiratory: Diminished Cardiovascular: Normal. negative: Murmur : Normal Auscultation: Bowel Sounds: Normal Tenderness: Epigastric Skin: Decreased Turgur Musculoskeletal: Back:Thoracic, Back:Lumbar, Tender (C SPINE) Psychiatric: Anxiety, Depression Mood Description: Depressed Affect: Anxious, Depressed Speech Pattern: Clear, Appropriate - Laboratory and Diagnostics Result Diagrams: 09/14/18 04:58 09/14/18 04:58 Labs: Laboratory WBC 8.8 X10^3/uL (3.6-10.0) 09/14/18 04:58 RBC 3.28 X10^6/uL (3.5-5.4) L 09/14/18 04:58 Hgb 9.1 g/dL (12.0-16.0) L 09/14/18 04:58 Hct 27.6 % (36.0-47.0) L 09/14/18 04:58 MCV 84.1 fL (80.0-100.0) 09/14/18 04:58 MCH 27.7 pg (27.0-34.0) 09/14/18 04:58 MCHC 33.0 g/dL (33.0-35.0) 09/14/18 04:58 RDW 14.8 % (11.6-16.5) 09/14/18 04:58 Plt Count 296 X10^3/uL (150.0-450.0) 09/14/18 04:58 MPV 6.6 fL (7.4-11.0) L 09/14/18 04:58 Neut % (Auto) 38.1 % (42.0-75.0) L 09/14/18 04:58 Lymph % (Auto) 50.6 % (21.0-51.0) 09/14/18 04:58 [place] % (Auto) 7.4 % (0.0-13.0) 09/14/18 04:58 Eos % (Auto) 3.4 % (0.9-2.9) H 09/14/18 04:58 Baso % (Auto) 0.5 % (0.2-1.0) 09/14/18 04:58 Neut # (Auto) 3.4 x10^3/uL (2.2-4.8) 09/14/18 04:58 Lymph # (Auto) 4.5 X10^3/uL (1.3-2.9) H 09/14/18 04:58 [place] # (Auto) 0.6 x10^3/uL (0.3-0.8) 09/14/18 04:58 Eos # (Auto) 0.3 x10^3/uL (0.0-0.2) H 09/14/18 04:58 Baso # (Auto) 0.0 X10^3/uL (0.0-0.1) 09/14/18 04:58 Absolute Nucleated RBC 0.0 /100WBC 09/14/18 04:58 Sodium 146 mmol/L (136-145) H 09/14/18 04:58 Corrected Sodium TNP 09/14/18 04:58 Potassium 4.6 mmol/L (3.5-5.1) 09/14/18 04:58 Chloride 113 mmol/L (98-107) H 09/14/18 04:58 Carbon Dioxide 21.4 mmol/L (21-32) 09/14/18 04:58 BUN 27 mg/dL (7-18) H 09/14/18 04:58 Creatinine 1.94 mg/dL (0.55-1.02) H 09/14/18 04:58 Est GFR (MDRD) Af Amer 33 (>60) L 09/14/18 04:58 Est GFR (MDRD) Non-Af 27 (>60) L 09/14/18 04:58 Glucose 104 mg/dL (65-99) H 09/14/18 04:58 POC Glucose (mg/dL) 109 mg/dL (65-99) H 09/14/18 05:18 Calcium 7.8 mg/dL (8.5-10.1) L 09/14/18 04:58 Corrected Calcium 8.6 mg/dL (8.5-10.1) 09/14/18 04:58 Magnesium 3.2 mg/dL (1.7-2.9) H 09/12/18 18:52 Total Bilirubin 0.20 mg/dL (0.2-1.0) 09/14/18 04:58 AST 13 Units/L (15-37) L 09/14/18 04:58 ALT 19 Units/L (12-78) 09/14/18 04:58 Alkaline Phosphatase 68 Units/L (46-116) 09/14/18 04:58 Total Protein 6.7 g/dL (6.4-8.2) 09/14/18 04:58 Albumin 3.0 g/dL (3.4-5.0) L 09/14/18 04:58 Globulin 3.7 g/dL (2.5-4.5) 09/14/18 04:58 Albumin/Globulin Ratio 0.8 Ratio (1.1-2.1) L 09/14/18 04:58 Specimen Type Catherized urine 09/12/18 18:20 Urine Color Yellow (YELLOW) 09/12/18 18:20 Urine Appearance Slightly hazy (CLEAR) 09/12/18 18:20 Urine pH 5.0 (5.0 - 8.0) 09/12/18 18:20 Ur Specific [place] 1.015 (1.000-1.030) 09/12/18 18:20 Urine Protein 2+ (NEGATIVE) 09/12/18 18:20 Urine Glucose (UA) 1+ (NEGATIVE) 09/12/18 18:20 Urine Ketones Negative (NEGATIVE) 09/12/18 18:20 Urine Occult Blood 3+ (NEGATIVE) 09/12/18 18:20 Urine Nitrite Negative (NEGATIVE) 09/12/18 18:20 Urine Bilirubin Negative (NEGATIVE) 09/12/18 18:20 Urine Urobilinogen Normal (NORMAL) 09/12/18 18:20 Ur Leukocyte Esterase Negative (NEGATIVE) 09/12/18 18:20 Urine RBC 5-10 /HPF (NONE SEEN) 09/12/18 18:20 Urine WBC 0-2 /HPF (NONE SEEN) 09/12/18 18:20 Ur Squamous Epith Cells Moderate /HPF (NEGATIVE) 09/12/18 18:20 Amorphous Sediment 2+ /HPF (NEGATIVE) 09/12/18 18:20 Urine Bacteria Trace /HPF (NEGATIVE) 09/12/18 18:20 Ur Culture Indicated? No/not indicated 09/12/18 18:20 - Plan (1) ARF (acute renal failure) Status: Acute Qualifiers: Acute renal failure type: unspecified Qualified Code(s): N17.9 - Acute kidney failure, unspecified Plan: AM CBC CMP. CEVRANTES CATH, STRICT I &O S, BP AND LIPID CONTROL. CONTINUOUS NET [employer] DEVELOPER, SUPPLEMENTAL O2. RENAL US, BLOOD SUGAR CONTROL,. ENCOURAGE ORAL HYDRATION, EKG. BLADDER TRAINING, DC CERVANTES. RESP CONSULT (2) Cardiomegaly Status: Acute (3) Chronic neck pain Status: Acute (4) Dehydration, mild Status: Acute (5) Hyperkalemia Status: Acute (6) CHF (congestive heart failure) Status: Chronic Qualifiers: Qualified Code(s): I50.9 - Heart failure, unspecified (7) Diabetes mellitus, type II Status: Chronic Plan: SSI (8) Hypertension Status: Chronic Qualifiers: Hypertension type: essential hypertension Qualified Code(s): I10 - Essential (primary) hypertension Plan: RESTART HOME BP MEDICATION
[2018-09-14] MEDS ORDERED: NS 1/2 1000 ML IV 1,000 ML IV ONE (13:53)
[2018-09-14] MEDS: NS 1/2 1000 ML IV 1,000 ML IV SCH (13:56)
[2018-09-14] MEDS: DESYREL PO SCH (20:34)
[2018-09-14] MEDS: ZOCOR TAB 10 MG PO SCH (20:34)
[2018-09-14] MEDS: SNACK - Diabetic Appropriate PO SCH (20:43)
[2018-09-14] MEDS: AMBIEN PO PRN (20:43)
[2018-09-15] MEDS: PROVENTIL NEB TX 0.083% 2.5MG/ 3ML NEB SCH ×4 (00:20→17:28)
[2018-09-15] MEDS ORDERED: NS 1/2 1000 ML IV 1,000 ML IV ONE (05:34)
[2018-09-15 05:38] LABS: BASOPHILS # (AUTO) 0.1 X10^3/uL (0.0-0.1); BASOPHILS % (AUTO) 0.6 % (0.2-1.0); EOSINOPHILS # (AUTO) 0.3 x10^3/uL (0.0-0.2); EOSINOPHILS % (AUTO) 3.4 % (0.9-2.9); HEMATOCRIT 27.5 % (36.0-47.0); LYMPHOCYTES # (AUTO) 4.3 X10^3/uL (1.3-2.9); LYMPHOCYTES % (AUTO) 49.1 % (21.0-51.0); MEAN CORPUSCULAR HEMOGLOBIN 27.9 pg (27.0-34.0); MEAN CORPUSCULAR HGB CONC 32.8 g/dL (33.0-35.0); MEAN CORPUSCULAR VOLUME 85.1 fL (80.0-100.0); MONOCYTES # (AUTO) 0.6 x10^3/uL (0.3-0.8); MONOCYTES % (AUTO) 7.1 % (0.0-13.0); NEUTROPHILS # (AUTO) 3.5 x10^3/uL (2.2-4.8); NEUTROPHILS % (AUTO) 39.8 % (42.0-75.0); PLATELET COUNT 274 X10^3/uL (150.0-450.0); RED BLOOD COUNT 3.23 X10^6/uL (3.5-5.4); RED CELL DISTRIBUTION WIDTH 15.1 % (11.6-16.5); WHITE BLOOD COUNT 8.8 X10^3/uL (3.6-10.0)
[2018-09-15] MEDS: NS 1/2 1000 ML IV 1,000 ML IV SCH ×2 (05:51→14:44)
[2018-09-15 05:52] LABS: ALBUMIN 2.9 g/dL (3.4-5.0); CARBON DIOXIDE 21.4 mmol/L (21-32); COR CA(FOR HYPOALB) 8.9 mg/dL (8.5-10.1); CREATININE 1.24 mg/dL (0.55-1.02); TOTAL PROTEIN 6.5 g/dL (6.4-8.2)
[2018-09-15] MEDS: NS 1000 ML 1,000 ML IV SCH (07:04)
[2018-09-15] MEDS: BROVANA IN SCH ×2 (08:52→20:23)
[2018-09-15] MEDS: COZAAR PO SCH (08:52)
[2018-09-15] MEDS: COREG TAB 12.5 MG PO SCH ×2 (08:52→20:31)
[2018-09-15] MEDS: PULMICORT NEB TX 0.5 MG NEB SCH ×2 (08:52→20:23)
[2018-09-15] MEDS: XANAX PO SCH (08:52)
[2018-09-15] MEDS ORDERED: LASIX IVP ONE (09:50)
[2018-09-15] MEDS ORDERED: K-DUR TAB 20 MEQ PO SCH (10:00)
[2018-09-15] MEDS ORDERED: K-DUR TAB 20 MEQ PO ONE (10:38)
[2018-09-15] MEDS: HumuLIN R SUBCUT PRN ×3 (12:26→20:57)
[2018-09-15] MEDS: MIRALAX POWDER (1 DOSE 17 G) PO SCH ×2 (20:31→20:32)
[2018-09-15] MEDS: DESYREL PO SCH (20:31)
[2018-09-15] MEDS: AMBIEN PO PRN (20:31)
[2018-09-15] MEDS: SNACK - Diabetic Appropriate PO SCH (20:35)
[2018-09-15] MEDS ORDERED: ZOCOR TAB 20 MG PO SCH (21:00)
[2018-09-15] MEDS: MORPHINE SULFATE INJ 2 MG INJ IVP PRN (21:00)
[2018-09-16] MEDS: PROVENTIL NEB TX 0.083% 2.5MG/ 3ML NEB SCH ×3 (00:20→12:18)
[2018-09-16 05:54] LABS: ALANINE AMINOTRANSFERASE 18 Units/L (12-78); ALKALINE PHOSPHATASE 65 Units/L (46-116); ASPARTATE AMINO TRANSFERASE 12 Units/L (15-37); BLOOD UREA NITROGEN 14 mg/dL (7-18); CALCIUM 8.1 mg/dL (8.5-10.1); CARBON DIOXIDE 19.7 mmol/L (21-32); CHLORIDE 110 mmol/L (98-107); COR CA(FOR HYPOALB) 8.9 mg/dL (8.5-10.1); COR NA(FOR HYPERGLY) 146 mmol/L (136-145); CREATININE 1.09 mg/dL (0.55-1.02); SODIUM 145 mmol/L (136-145); TOTAL PROTEIN 6.6 g/dL (6.4-8.2); eGFR NON BLACK RACES 53 (>60)
[2018-09-16 05:56] LABS: BASOPHILS # (AUTO) 0.1 X10^3/uL (0.0-0.1); BASOPHILS % (AUTO) 0.7 % (0.2-1.0); EOSINOPHILS # (AUTO) 0.3 x10^3/uL (0.0-0.2); EOSINOPHILS % (AUTO) 2.7 % (0.9-2.9); HEMATOCRIT 26.9 % (36.0-47.0); HEMOGLOBIN 8.9 g/dL (12.0-16.0); LYMPHOCYTES # (AUTO) 4.1 X10^3/uL (1.3-2.9); LYMPHOCYTES % (AUTO) 42.6 % (21.0-51.0); MEAN CORPUSCULAR HEMOGLOBIN 27.8 pg (27.0-34.0); MEAN CORPUSCULAR HGB CONC 33.3 g/dL (33.0-35.0); MEAN CORPUSCULAR VOLUME 83.6 fL (80.0-100.0); MEAN PLATELET VOLUME 6.9 fL (7.4-11.0); MONOCYTES # (AUTO) 0.6 x10^3/uL (0.3-0.8); MONOCYTES % (AUTO) 6.3 % (0.0-13.0); NEUTROPHILS # (AUTO) 4.6 x10^3/uL (2.2-4.8); NEUTROPHILS % (AUTO) 47.7 % (42.0-75.0); PLATELET COUNT 281 X10^3/uL (150.0-450.0); RED BLOOD COUNT 3.22 X10^6/uL (3.5-5.4); RED CELL DISTRIBUTION WIDTH 14.7 % (11.6-16.5); WHITE BLOOD COUNT 9.7 X10^3/uL (3.6-10.0)
[2018-09-16] MEDS: NS 1/2 1000 ML IV 1,000 ML IV SCH (06:54)
[2018-09-16] MEDS: XANAX PO SCH (08:38)
[2018-09-16] MEDS: COZAAR PO SCH (08:38)
[2018-09-16] MEDS: COREG TAB 12.5 MG PO SCH (08:38)
[2018-09-16] MEDS: BROVANA IN SCH (08:49)
[2018-09-16] MEDS: PULMICORT NEB TX 0.5 MG NEB SCH (08:49)
[2018-09-16] MEDS ORDERED: K-DUR TAB 20 MEQ PO ONE (10:38)
[2018-09-16 12:20] VITALS: BP 95/45
[2018-09-16] MEDS ORDERED: ZOCOR TAB 20 MG PO SCH (21:00)
== END 2018-09-16 12:27 | disposition home or self-care (01) | DRG 684 ==
LOC: ICU → OBSVTOIN 17:29 → MED/SURG 09-14 15:58
PROVIDERS: ADMIT Internal Medicine; ATTEND Internal Medicine
DX: N17.8 Other acute kidney failure; I50.9 Heart failure, unspecified; N18.5 Chronic kidney disease, stage 5; J45.998 Other asthma; I51.7 Cardiomegaly; R94.4 Abnormal results of kidney function studies; I12.9 Hypertensive chronic kidney disease with stage 1 through stage 4 chronic kidney disease, or unspecified chronic kidney disease; R26.89 Other abnormalities of gait and mobility; R53.1 Weakness; E87.5 Hyperkalemia; R20.0 Anesthesia of skin; R60.0 Localized edema; M54.2 Cervicalgia; E11.65 Type 2 diabetes mellitus with hyperglycemia; R51 Headache; E86.0 Dehydration
CPT/HCPCS: 36415; 71010; 71020; 71045; 71046; 72125; 76770; 80048; 80053; 81001; 83735; 85025; 93005; 93010; 94640; 97162; 99283; A4222; J1815; J1940; J2270; J7030; J7613; J7626

== ENCOUNTER 2018-12-17 14:21 | Observation (INO) ==
[2018-12-17 15:24] LABS: BASOPHILS # (AUTO) 0.1 X10^3/uL (0.0-0.1); BASOPHILS % (AUTO) 0.6 % (0.2-1.0); EOSINOPHILS # (AUTO) 0.2 x10^3/uL (0.0-0.2); EOSINOPHILS % (AUTO) 1.7 % (0.9-2.9); HEMATOCRIT 31.6 % (36.0-47.0); HEMOGLOBIN 10.3 g/dL (12.0-16.0); LYMPHOCYTES # (AUTO) 3.5 X10^3/uL (1.3-2.9); LYMPHOCYTES % (AUTO) 34.1 % (21.0-51.0); MEAN CORPUSCULAR HEMOGLOBIN 27.4 pg (27.0-34.0); MEAN CORPUSCULAR HGB CONC 32.6 g/dL (33.0-35.0); MEAN CORPUSCULAR VOLUME 84.1 fL (80.0-100.0); MEAN PLATELET VOLUME 6.3 fL (7.4-11.0); MONOCYTES # (AUTO) 0.5 x10^3/uL (0.3-0.8); NEUTROPHILS % (AUTO) 58.6 % (42.0-75.0); PLATELET COUNT 299 X10^3/uL (150.0-450.0); RED BLOOD COUNT 3.75 X10^6/uL (3.5-5.4); RED CELL DISTRIBUTION WIDTH 14.2 % (11.6-16.5); WHITE BLOOD COUNT 10.2 X10^3/uL (3.6-10.0)
[2018-12-17 15:51] LABS: ALANINE AMINOTRANSFERASE 24 Units/L (12-78); ALBUMIN 3.5 g/dL (3.4-5.0); ALKALINE PHOSPHATASE 67 Units/L (46-116); ASPARTATE AMINO TRANSFERASE 15 Units/L (15-37); BLOOD UREA NITROGEN 21 mg/dL (7-18); CALCIUM 9.2 mg/dL (8.5-10.1); CARBON DIOXIDE 24.8 mmol/L (21-32); CHLORIDE 105 mmol/L (98-107); COR NA(FOR HYPERGLY) 141 mmol/L (136-145); CREATININE 1.35 mg/dL (0.55-1.02); SODIUM 140 mmol/L (136-145); TOTAL PROTEIN 7.3 g/dL (6.4-8.2); eGFR NON BLACK RACES 42 (>60)
--- NOTE | 2018-12-17 15:53 | DR.GENAD ---
HPI Time Seen Time Seen by Provider: 12/17/18 15:53 PCP Primary Care Physician: DR CHRISTINE Complaint/Symptoms Chief Complaint:: PT STATES SHE WAS AT OUTPATIENT REHAB TODAY AND WHEN SHE STOOD UP SHE BECAME VERY DIZZY. BP AT THAT TIME WAS 83/54. PT DENIES LOSS OF CONSCIOUSNESS. EMS INITIATED 500ML NS BOLUS AND BP UPON ARRIVAL TO ER IS 92/60. PT IS ASYMPTOMATIC AND STATES, "I FEEL FINE." Source History Provided: Patient Mode of Arrival Mode of Arrival: Stretcher Timing Onset of Chief Complaint: 12/17/18 PMH PMH Past Medical History: Yes Past Medical History: CHF, Depression, Diabetes, Migraines, GERD, Gout and Hypertension Past Surgical History: Yes Surgical History: and Hysterectomy Family History History of Family Medical Conditions: Yes Family Medical History: Hypertension Social History Does patient currently use any type of tobacco product: Yes Have you used tobacco products in the last 12 months: No Type of Tobacco Use: None Do you use any recreational Drugs:: No infectious screening In the last 2 months have you had wt loss of >10#?: NO Have you had fever, night sweats or hemotysis?: No Have you traveled outside the country in the last 6 months?: No Isolation: Standard ROS Review of Systems Constitutional: No Symptoms Reported Eyes: No Symptoms Reported ENTM: No Symptoms Reported Respiratoy: No Symptoms Reported Cardiovascular: No Symptoms Reported Gastrointestinal/Abdominal: No Symptoms Reported Genitourinary: No Symptoms Reported Neurological: No Symptoms Reported Musculoskeletal: No Symptoms Reported Integumentary: No Symptoms Reported Hematologic/Lymphatic: No Symptoms Reported Endocrine: No Symptoms Reported Psychiatric: No Symptoms Reported All Other Systems: Reviewed and Negative PE Vital Signs Vitals: Temperature 97.4 F Pulse Rate [Left Brachial] 77 Pulse Rate 70 Respiratory Rate 17 Blood Pressure [Right Arm] 136/62 Blood Pressure [Left Arm] 133/60 Blood Pressure 103/58 O2 Sat by Pulse Oximetry 99 General Limitations: No Limitations General Appearance: Alert and In No Apparent Distress Head Head Exam: Normal Inspection Eyes Eye exam: Normal Appearance ENT ENT Exam: Normal Exam External Ear Exam: Normal External Inspection TM/Canal Exam: Bilateral: Normal Nose Exam: Normal Nose Exam Mouth Exam: Normal Inspection Throat Exam: Normal Inspection Neck Neck Exam: Normal Inspection Chest Chest Inspection: Normal Inspection Respiratory Respiratory Exam: Normal Lung Sounds Bilat Respiratory Exam: Bilateral: Clear to Auscultation Cardiovascular Cardiovascular Exam: Regular Rate and Normal Rhythm Abdominal Exam Abdominal Exam: Normal Inspection, Normal Bowel Sounds and Soft Extremities Extremities Exam: Normal Inspection Back Back Exam: Normal Inspection Neurologic Neurological Exam: Alert and Oriented X3 Psychiatric Psychiatric Exam: Normal Affect and Normal Mood Skin Skin Exam: Warm, Dry, Intact and Normal Color ROR Labs Reviewed Laboratory Results Reviewed?: Yes Result Diagrams: 12/17/18 15:14 12/17/18 15:14 Laboratory: WBC 10.2 X10^3/uL (3.6-10.0) H 12/17/18 15:14 RBC 3.75 X10^6/uL (3.5-5.4) 12/17/18 15:14 Hgb 10.3 g/dL (12.0-16.0) L 12/17/18 15:14 Hct 31.6 % (36.0-47.0) L 12/17/18 15:14 MCV 84.1 fL (80.0-100.0) 12/17/18 15:14 MCH 27.4 pg (27.0-34.0) 12/17/18 15:14 MCHC 32.6 g/dL (33.0-35.0) L 12/17/18 15:14 RDW 14.2 % (11.6-16.5) 12/17/18 15:14 Plt Count 299 X10^3/uL (150.0-450.0) 12/17/18 15:14 MPV 6.3 fL (7.4-11.0) L 12/17/18 15:14 Neut % (Auto) 58.6 % (42.0-75.0) 12/17/18 15:14 Lymph % (Auto) 34.1 % (21.0-51.0) 12/17/18 15:14 [place] % (Auto) 5.0 % (0.0-13.0) 12/17/18 15:14 Eos % (Auto) 1.7 % (0.9-2.9) 12/17/18 15:14 Baso % (Auto) 0.6 % (0.2-1.0) 12/17/18 15:14 Neut # (Auto) 6.0 x10^3/uL (2.2-4.8) H 12/17/18 15:14 Lymph # (Auto) 3.5 X10^3/uL (1.3-2.9) H 12/17/18 15:14 [place] # (Auto) 0.5 x10^3/uL (0.3-0.8) 12/17/18 15:14 Eos # (Auto) 0.2 x10^3/uL (0.0-0.2) 12/17/18 15:14 Baso # (Auto) 0.1 X10^3/uL (0.0-0.1) 12/17/18 15:14 Absolute Nucleated RBC 0.0 /100WBC 12/17/18 15:14 Sodium 140 mmol/L (136-145) 12/17/18 15:14 Corrected Sodium 141 mmol/L (136-145) 12/17/18 15:14 Potassium 4.4 mmol/L (3.5-5.1) 12/17/18 15:14 Chloride 105 mmol/L (98-107) 12/17/18 15:14 Carbon Dioxide 24.8 mmol/L (21-32) 12/17/18 15:14 BUN 21 mg/dL (7-18) H 12/17/18 15:14 Creatinine 1.35 mg/dL (0.55-1.02) H 12/17/18 15:14 Est GFR (MDRD) Af Amer 50 (>60) L 12/17/18 15:14 Est GFR (MDRD) Non-Af 42 (>60) L 12/17/18 15:14 Glucose 141 mg/dL (65-99) H 12/17/18 15:14 Calcium 9.2 mg/dL (8.5-10.1) 12/17/18 15:14 Corrected Calcium TNP 12/17/18 15:14 Total Bilirubin 0.30 mg/dL (0.2-1.0) 12/17/18 15:14 AST 15 Units/L (15-37) 12/17/18 15:14 ALT 24 Units/L (12-78) 12/17/18 15:14 Alkaline Phosphatase 67 Units/L (46-116) 12/17/18 15:14 Total Protein 7.3 g/dL (6.4-8.2) 12/17/18 15:14 Albumin 3.5 g/dL (3.4-5.0) 12/17/18 15:14 Globulin 3.8 g/dL (2.5-4.5) 12/17/18 15:14 Albumin/Globulin Ratio 0.9 Ratio (1.1-2.1) L 12/17/18 15:14 Specimen Type Random urine 12/17/18 18:25 Urine Color Yellow (YELLOW) 12/17/18 18:25 Urine Appearance Clear (CLEAR) 12/17/18 18:25 Urine pH 5.0 (5.0 - 8.0) 12/17/18 18:25 Ur Specific [place] 1.010 (1.000-1.030) 12/17/18 18:25 Urine Protein Negative (NEGATIVE) 12/17/18 18:25 Urine Glucose (UA) Negative (NEGATIVE) 12/17/18 18:25 Urine Ketones Negative (NEGATIVE) 12/17/18 18:25 Urine Occult Blood Negative (NEGATIVE) 12/17/18 18:25 Urine Nitrite Negative (NEGATIVE) 12/17/18 18:25 Urine Bilirubin Negative (NEGATIVE) 12/17/18 18:25 Urine Urobilinogen Normal (NORMAL) 12/17/18 18:25 Ur Leukocyte Esterase Negative (NEGATIVE) 12/17/18 18:25 Diagnosis Discharge Problem: SOB (shortness of breath) Chest pain Qualifiers: Chest pain type: chest pain on breathing Qualified Code(s): R07.1 - Chest pain on breathing CHF exacerbation Qualifiers: Heart failure type: combined systolic and diastolic Qualified Code(s): I50.43 - Acute on chronic combined systolic (congestive) and diastolic (congestive) heart failure Instructions Instructions: Coronary Artery Disease, Male Shortness of Breath, Adult Heart Failure, [id number]
[2018-12-17 18:46] LABS: BILIRUBIN,URINE NEGATIVE (NEGATIVE); BLOOD/HEMOGLOBIN,URINE NEGATIVE (NEGATIVE); GLUCOSE, URINE NEGATIVE (NEGATIVE); KETONES,URINE NEGATIVE (NEGATIVE); LEUKOCYTE ESTERASE ,URINE NEGATIVE (NEGATIVE); NITRITES,URINE NEGATIVE (NEGATIVE); PROTEIN,URINE NEGATIVE (NEGATIVE); UROBILINOGEN,URINE NORMAL (NORMAL)
[2018-12-17 18:55] LABS: APPEARANCE,URINE CLEAR (CLEAR); COLOR,URINE YELLOW (YELLOW)
[2018-12-17 20:45] VITALS: BMI 34.2
[2018-12-17] MEDS: NORCO 5/325 MG TAB PO PRN (20:45)
[2018-12-17] MEDS: NS 1000 ML 1,000 ML IV SCH (20:55)
[2018-12-18 00:31] LABS: CKMB % 0.2 % (<4); CREATINE KINASE MB 0.2 ng/mL (0-4.0)
[2018-12-18 00:48] LABS: BILIRUBIN,URINE NEGATIVE (NEGATIVE); BLOOD/HEMOGLOBIN,URINE NEGATIVE (NEGATIVE); GLUCOSE, URINE NEGATIVE (NEGATIVE); KETONES,URINE NEGATIVE (NEGATIVE); LEUKOCYTE ESTERASE ,URINE NEGATIVE (NEGATIVE); NITRITES,URINE NEGATIVE (NEGATIVE); PROTEIN,URINE NEGATIVE (NEGATIVE); UROBILINOGEN,URINE NORMAL (NORMAL)
[2018-12-18 01:03] LABS: APPEARANCE,URINE CLEAR (CLEAR); COLOR,URINE YELLOW (YELLOW)
[2018-12-18] MEDS: NORCO 5/325 MG TAB PO PRN ×3 (03:54→20:59)
[2018-12-18 05:31] LABS: BASOPHILS # (AUTO) 0.1 X10^3/uL (0.0-0.1); BASOPHILS % (AUTO) 0.6 % (0.2-1.0); EOSINOPHILS # (AUTO) 0.2 x10^3/uL (0.0-0.2); HEMATOCRIT 30.8 % (36.0-47.0); HEMOGLOBIN 10.1 g/dL (12.0-16.0); LYMPHOCYTES # (AUTO) 4.2 X10^3/uL (1.3-2.9); LYMPHOCYTES % (AUTO) 44.5 % (21.0-51.0); MEAN CORPUSCULAR HEMOGLOBIN 27.8 pg (27.0-34.0); MEAN CORPUSCULAR HGB CONC 32.6 g/dL (33.0-35.0); MEAN CORPUSCULAR VOLUME 85.1 fL (80.0-100.0); MEAN PLATELET VOLUME 6.7 fL (7.4-11.0); MONOCYTES # (AUTO) 0.6 x10^3/uL (0.3-0.8); MONOCYTES % (AUTO) 6.7 % (0.0-13.0); NEUTROPHILS # (AUTO) 4.4 x10^3/uL (2.2-4.8); NEUTROPHILS % (AUTO) 46.2 % (42.0-75.0); PLATELET COUNT 306 X10^3/uL (150.0-450.0); RED BLOOD COUNT 3.62 X10^6/uL (3.5-5.4); RED CELL DISTRIBUTION WIDTH 14.4 % (11.6-16.5); WHITE BLOOD COUNT 9.4 X10^3/uL (3.6-10.0)
[2018-12-18 05:37] LABS: BLOOD UREA NITROGEN 20 mg/dL (7-18); CALCIUM 8.7 mg/dL (8.5-10.1); CARBON DIOXIDE 24.6 mmol/L (21-32); CHLORIDE 106 mmol/L (98-107); CREATININE 1.04 mg/dL (0.55-1.02); SODIUM 140 mmol/L (136-145); eGFR NON BLACK RACES 56 (>60)
[2018-12-18 06:16] LABS: CKMB % 0.4 % (<4); CREATINE KINASE MB 0.3 ng/mL (0-4.0); TROPONIN I 0.01 ng/mL (0-1.5)
[2018-12-18] MEDS: PROTONIX TAB 40 MG PO SCH (10:39)
[2018-12-18] MEDS: COREG TAB 12.5 MG PO SCH ×2 (10:39→20:57)
[2018-12-18] MEDS: NS 1000 ML 1,000 ML IV SCH (10:40)
[2018-12-18] MEDS: AMARYL TAB 4 MG PO SCH (10:40)
[2018-12-18 13:05] LABS: ALANINE AMINOTRANSFERASE 24 Units/L (12-78); ALBUMIN 3.3 g/dL (3.4-5.0); ALKALINE PHOSPHATASE 66 Units/L (46-116); ASPARTATE AMINO TRANSFERASE 16 Units/L (15-37); COR CA(FOR HYPOALB) 9.3 mg/dL (8.5-10.1); TOTAL PROTEIN 6.8 g/dL (6.4-8.2)
--- NOTE | 2018-12-18 16:28 | DR.H&P ---
H&P - History & Physical for Day of: H&P Date: 12/17/18 - Chief Complaint Chief Complaint: NEAR SYNCOPE, HYPOTENSION - History of Present Illness History of Present Illness: 68 BF ER ADMISSION AFTER PRESENTING WITH EMS CO PT WAS AT PHYSICAL THERAPY AND WENT TO STAND TO MOVE TO NEXT EXERCISE AND BECAME DIZZINES AND SAT IMMEDIATELY DOWN. PT WAS HYPOTENSIVE ON EXAM. PT STATES SHE WAS HAVING PHYSICAL THERAPY FOR C SPINE DDD AND HAD HER NECK MASSAGED AND FELT FINE PRIOR TO EPISODE. PT HAS PMH OF CAD, HTN, OA, CHF, SERGIO. PT ADMITTED FOR EVALUATION OF ACUTE HYPOTENSION AND NEAR SYNCOPE. - Past Medical History Past Medical History: Hypertension, Diabetes, Depression, GERD, Gout, Migraines, CHF - Past Surgical History Surgical History: , Hysterectomy - Family History Family Medical History: Hypertension - Social History Does patient currently use any type of tobacco product: Yes Have you used tobacco products in the last 12 months: No Type of Tobacco Use: None Alcohol Use: None Drug Use: None - Medications Home Medications: No Known Drug Allergies Allergy (Verified 08/09/17 16:33) CONTINUE taking the following medications albuterol sulfate [ProAir HFA] 2 puff INHALATION Q4H PRN 12/18/18 [History] alprazolam 0.25 mg PO DAILY PRN 12/18/18 [History] alprazolam [Xanax] 0.25 mg PO DAILY PRN 12/18/18 [History] aspirin [Aspir-Low] 81 mg PO DAILY 12/18/18 [History] dulaglutide [Trulicity] 0.5 ml SUBCUT WEEKLY 12/18/18 [History] escitalopram oxalate 10 mg PO DAILY 12/18/18 [History] hydrocodone-acetaminophen 1 tab PO BID PRN 12/18/18 [History] hydrocodone-acetaminophen [[place]] 1 tab PO BID PRN 12/18/18 [History] levocetirizine 5 mg PO DAILY 12/18/18 [History] zolpidem 10 mg PO HS PRN 12/18/18 [History] - Review of Systems Constitutional: Weakness Eyes: No Symptoms Reported ENT: No Symptoms Reported Respiratory: No Symptoms Reported Cardiovascular: No Symptoms Reported Genitourinary: No Symptoms Reported Musculoskeletal: No Symptoms Reported Skin: No Symptoms Reported Neurological: Other (HEADACHE, DIZZINESS) - Physical Exam Vital Signs: Temperature 98.3 F Pulse Rate [Left Brachial] 79 Pulse Rate 70 Respiratory Rate 18 Blood Pressure [Right Arm] 149/71 Blood Pressure [Left Arm] 133/60 Blood Pressure 103/58 O2 Sat by Pulse Oximetry 96 Oriented: Normal Eyes: Normal Ear: Normal Nose: Normal Throat: Normal Respiratory: Clear Throughout Cardiovascular: Normal. negative: Murmur, Edema : Normal Auscultation: Bowel Sounds: Normal Palpation: Normal Tenderness: Normal Skin: Normal Musculoskeletal: Swelling, Tender Psychiatric: Normal Mood Description: Calm Speech Pattern: Clear, Appropriate - Assessment/Plan (1) Near syncope Status: Acute Plan: ADMIT, CARDIAC MONITORING. BP CONTROL, IV HYDRATION. ADMISSION LABS, VERIFY HOME MEDICATION. HOLD ANTIHYPERTENSIVE MEDICATION IF BP <100/60 (2) Vasovagal near syncope Status: Acute (3) CHF (congestive heart failure) Qualifiers: Qualified Code(s): I50.9 - Heart failure, unspecified Status: Chronic (4) Diabetes mellitus Status: Chronic - Allergies Allergies/Adverse Reactions: Allergies Allergy/AdvReac Type Severity Reaction Status Date / Time No Known Drug Allergies Allergy Verified 08/09/17 16:33
[2018-12-18] MEDS ORDERED: ULTRAM PO PRN (16:30)
--- NOTE | 2018-12-18 17:00 | RAD ---
HISTORY: Near syncope. Study: PA and lateral chest. Comparison: Chest x-ray dated September 14, 2018. Findings: The trachea is midline. The cardiac silhouette is stably enlarged without overt signs of failure. Chronic emphysematous changes. No obvious focal consolidation, pleural effusion, or pneumothorax. The bony thorax is unremarkable. IMPRESSION: No acute cardiopulmonary disease. Reported By:
[2018-12-18] MEDS ORDERED: DESYREL PO SCH (21:00)
[2018-12-18] MEDS ORDERED: ZOCOR TAB 40 MG PO SCH (21:00)
[2018-12-18] MEDS ORDERED: AMBIEN PO PRN (23:26)
[2018-12-19] MEDS ORDERED: MILK OF MAGNESIA PO PRN (04:38)
[2018-12-19] MEDS ORDERED: COLACE CAP 100 MG PO PRN (04:38)
[2018-12-19 05:20] LABS: BASOPHILS # (AUTO) 0.1 X10^3/uL (0.0-0.1); BASOPHILS % (AUTO) 0.7 % (0.2-1.0); EOSINOPHILS # (AUTO) 0.1 x10^3/uL (0.0-0.2); EOSINOPHILS % (AUTO) 1.6 % (0.9-2.9); HEMATOCRIT 30.2 % (36.0-47.0); HEMOGLOBIN 9.9 g/dL (12.0-16.0); LYMPHOCYTES # (AUTO) 3.8 X10^3/uL (1.3-2.9); LYMPHOCYTES % (AUTO) 42.8 % (21.0-51.0); MEAN CORPUSCULAR HGB CONC 32.8 g/dL (33.0-35.0); MEAN CORPUSCULAR VOLUME 85.3 fL (80.0-100.0); MEAN PLATELET VOLUME 6.7 fL (7.4-11.0); MONOCYTES # (AUTO) 0.6 x10^3/uL (0.3-0.8); MONOCYTES % (AUTO) 6.6 % (0.0-13.0); NEUTROPHILS # (AUTO) 4.2 x10^3/uL (2.2-4.8); NEUTROPHILS % (AUTO) 48.3 % (42.0-75.0); PLATELET COUNT 290 X10^3/uL (150.0-450.0); RED BLOOD COUNT 3.54 X10^6/uL (3.5-5.4); RED CELL DISTRIBUTION WIDTH 14.3 % (11.6-16.5); WHITE BLOOD COUNT 8.8 X10^3/uL (3.6-10.0)
[2018-12-19 05:42] LABS: ALANINE AMINOTRANSFERASE 23 Units/L (12-78); ALBUMIN 3.2 g/dL (3.4-5.0); ALKALINE PHOSPHATASE 61 Units/L (46-116); ASPARTATE AMINO TRANSFERASE 14 Units/L (15-37); BLOOD UREA NITROGEN 14 mg/dL (7-18); CALCIUM 8.9 mg/dL (8.5-10.1); CARBON DIOXIDE 22.6 mmol/L (21-32); CHLORIDE 109 mmol/L (98-107); COR CA(FOR HYPOALB) 9.5 mg/dL (8.5-10.1); CREATININE 0.99 mg/dL (0.55-1.02); SODIUM 141 mmol/L (136-145); TOTAL PROTEIN 6.6 g/dL (6.4-8.2); eGFR NON BLACK RACES 59 (>60)
[2018-12-19] MEDS ORDERED: COZAAR PO SCH (09:00)
[2018-12-19] MEDS: COREG TAB 12.5 MG PO SCH (09:23)
[2018-12-19] MEDS: AMARYL TAB 4 MG PO SCH (09:23)
[2018-12-19] MEDS: PROTONIX TAB 40 MG PO SCH (09:23)
[2018-12-19] MEDS: NORCO 5/325 MG TAB PO PRN (09:30)
[2018-12-19 10:33] VITALS: BP 130/62
== END 2018-12-19 11:45 | disposition home or self-care (01) ==
LOC: ER 14:21 → MED/SURG 14:21
PROVIDERS: ADMIT Internal Medicine; ATTEND Internal Medicine
DX: R42 Dizziness and giddiness; R55 Syncope and collapse; I95.89 Other hypotension; R06.02 Shortness of breath; E11.65 Type 2 diabetes mellitus with hyperglycemia; I11.0 Hypertensive heart disease with heart failure; M47.22 Other spondylosis with radiculopathy, cervical region; R94.31 Abnormal electrocardiogram [ECG] [EKG]; R07.1 Chest pain on breathing; I50.43 Acute on chronic combined systolic (congestive) and diastolic (congestive) heart failure
CPT/HCPCS: 36415; 71020; 71046; 80053; 81003; 82550; 82553; 84484; 85025; 93005; 94760; 96365; 96367; 99284; G0378; J7030

== ENCOUNTER 2019-11-08 12:30 | Observation (INO) ==
--- NOTE | 2019-11-08 12:52 | DR.H&P ---
H&P - History & Physical for Day of: H&P Date: 11/08/19 - Chief Complaint Chief Complaint: weakness, dizziness, bp running low - History of Present Illness History of Present Illness: PT IS 69 BF DIRECT ADMIT FROM DR BLANCO OFFICE WITH CO DIZZINESS, BP LOW IN OFFICE THIS AM. PT STATES SHE WAS SEEN IN ER ON 11/02 WITH SAME SYMPTOMS, DX WITH ACUTE BRONCHITIS AND HAS BEEN TAKING ZITHROMAX WITHOUT IMPROVEMENT. PT REPORTS IMPROVING SORE THROAT AND COUGH BUT CONTINUES TO FEEL DIZZY. PT HAS PMH OF HTN, CHF, OA, SERGIO, DM. ER LABS REVEALED ELEVATED CREAT 2.73 PT HAS RENAL FUNCTION NORMAL 10/12 1.29 THEN - Past Medical History Past Medical History: Hypertension, Diabetes, Depression, GERD, Gout, Migraines, CHF - Past Surgical History Surgical History: , Hysterectomy - Family History Family Medical History: Hypertension - Social History Does patient currently use any type of tobacco product: No Have you used tobacco products in the last 12 months: No Type of Tobacco Use: None Does any household member use tobacco: No Alcohol Use: None Drug Use: None Risks, benefits, and alternatives of opioids discussed: No - Medications Home Medications: No Known Drug Allergies Allergy (Verified 08/09/17 16:33) - Review of Systems Constitutional: Weakness Eyes: No Symptoms Reported ENT: No Symptoms Reported Respiratory: No Symptoms Reported Cardiovascular: No Symptoms Reported Gastrointestinal: No Symptoms Reported Genitourinary: No Symptoms Reported Musculoskeletal: Shoulder Pain, Back Pain, Neck Pain Skin: No Symptoms Reported Neurological: Weakness, Other (EPISODES OF DIZZINESS) - Physical Exam Vital Signs: Blood Pressure [Right Arm] 140/62 Oriented: Normal Eyes: Normal Ear: Normal Nose: Normal Throat: Dry Respiratory: RLL Diminished, LLL Diminished Cardiovascular: Normal : Normal Auscultation: Bowel Sounds: Normal Palpation: Normal Tenderness: Normal Skin: Decreased [place]urgur Musculoskeletal: Right, Shoulder, Back:Thoracic, Back:Lumbar, Tender Psychiatric: Anxiety Affect: Anxious Speech Pattern: Clear, Appropriate - Assessment/Plan (1) ARF (acute renal failure) Qualifiers: Acute renal failure type: unspecified Qualified Code(s): N17.9 - Acute kidney failure, unspecified Status: Acute Plan: ADMIT, GENTLE IV HYDRATION. PAIN AND NAUSEA CONTROL. BP MONITORING, ADMISSION LABS. UA WITH STRICT I &OS. PPI THERAPY, SSI COVERAGE. EKG ON ADMISSION, CXR ON ADMISSION (2) Bronchitis Status: Acute (3) Diabetes Status: Acute (4) COPD (chronic obstructive pulmonary disease) Qualifiers: COPD type: chronic bronchitis Status: Acute (5) Degenerative cervical spinal stenosis Status: Acute (6) Dizziness Status: Acute (7) Generalized weakness Status: Acute - Allergies Allergies/Adverse Reactions: Allergies Allergy/AdvReac Type Severity Reaction Status Date / Time No Known Drug Allergies Allergy Verified 08/09/17 16:33
--- NOTE | 2019-11-08 13:33 | RAD ---
HISTORYCHFSTUDYPA and lateral chestCOMPARISONJanuary 2019FINDINGSThere is unchanged mild to moderate cardiomegaly with a tortuous descending thoracic aorta. The lungs are clear. There is no edema or effusion. There is no significant bony abnormality.IMPRESSIONUnchanged mild cardiomegaly, no evidence for acute diseaseElectronically signed by: ALAN PEREZ (Nov 08, 2019 13:31:40)
[2019-11-08 13:37] LABS: BASOPHILS % (AUTO) 0.5 % (0.2-1.0); EOSINOPHILS # (AUTO) 0.3 x10^3/uL (0.0-0.2); EOSINOPHILS % (AUTO) 3.1 % (0.9-2.9); HEMATOCRIT 33.3 % (36.0-47.0); HEMOGLOBIN 10.9 g/dL (12.0-16.0); LYMPHOCYTES # (AUTO) 4.1 X10^3/uL (1.3-2.9); LYMPHOCYTES % (AUTO) 45.6 % (21.0-51.0); MEAN CORPUSCULAR HEMOGLOBIN 28.2 pg (27.0-34.0); MEAN CORPUSCULAR HGB CONC 32.7 g/dL (33.0-35.0); MEAN CORPUSCULAR VOLUME 86.2 fL (80.0-100.0); MEAN PLATELET VOLUME 7.1 fL (7.4-11.0); MONOCYTES # (AUTO) 0.6 x10^3/uL (0.3-0.8); MONOCYTES % (AUTO) 6.5 % (0.0-13.0); NEUTROPHILS % (AUTO) 44.3 % (42.0-75.0); PLATELET COUNT 325 X10^3/uL (150.0-450.0); RED BLOOD COUNT 3.86 X10^6/uL (3.5-5.4); RED CELL DISTRIBUTION WIDTH 14.3 % (11.6-16.5); WHITE BLOOD COUNT 8.9 X10^3/uL (3.6-10.0)
[2019-11-08 13:45] LABS: ALANINE AMINOTRANSFERASE 15 Units/L (12-78); ALBUMIN 3.5 g/dL (3.4-5.0); ALKALINE PHOSPHATASE 82 Units/L (46-116); ASPARTATE AMINO TRANSFERASE 11 Units/L (15-37); BLOOD UREA NITROGEN 23 mg/dL (7-18); CALCIUM 9.1 mg/dL (8.5-10.1); CARBON DIOXIDE 27.9 mmol/L (21-32); CHLORIDE 104 mmol/L (98-107); COR NA(FOR HYPERGLY) 143 mmol/L (136-145); CREATININE 1.03 mg/dL (0.55-1.02); SODIUM 141 mmol/L (136-145); eGFR NON BLACK RACES 57 (>60)
[2019-11-08 13:50] LABS: LACTIC ACID 1.3 mmol/L (0.4-2.0)
[2019-11-08] MEDS: PROTONIX INJ 40 MG VIAL IVP SCH (14:15)
[2019-11-08] MEDS: NS 1000 ML 1,000 ML IV SCH (14:15)
[2019-11-08] MEDS: PERCOCET TAB 5/325 MG PO PRN ×2 (14:35→21:59)
[2019-11-08 16:11] LABS: BILIRUBIN,URINE NEGATIVE (NEGATIVE); BLOOD/HEMOGLOBIN,URINE NEGATIVE (NEGATIVE); GLUCOSE, URINE NEGATIVE (NEGATIVE); KETONES,URINE NEGATIVE (NEGATIVE); LEUKOCYTE ESTERASE ,URINE NEGATIVE (NEGATIVE); NITRITES,URINE NEGATIVE (NEGATIVE); PROTEIN,URINE NEGATIVE (NEGATIVE); UROBILINOGEN,URINE NORMAL (NORMAL)
[2019-11-08 16:22] LABS: APPEARANCE,URINE CLEAR (CLEAR); COLOR,URINE YELLOW (YELLOW)
[2019-11-08] MEDS: HumuLIN R SUBCUT PRN (17:09)
[2019-11-08] MEDS: MORPHINE SULFATE INJ 2 MG INJ IVP PRN (17:11)
[2019-11-08 17:19] VITALS: BMI 36.1
[2019-11-08] MEDS: PULMICORT NEB TX 0.5 MG NEB SCH (20:28)
[2019-11-08] MEDS ORDERED: MILK OF MAGNESIA ONE (21:36)
[2019-11-08] MEDS: COLACE CAP 100 MG PO SCH (21:58)
[2019-11-08] MEDS: COREG TAB 12.5 MG PO SCH (21:58)
[2019-11-08] MEDS: SNACK - Diabetic Appropriate PO SCH (21:58)
[2019-11-08] MEDS: AMBIEN PO PRN (21:59)
[2019-11-08] MEDS: MILK OF MAGNESIA PO PRN (21:59)
[2019-11-09] MEDS: NS 1000 ML 1,000 ML IV SCH ×3 (04:00→20:15)
[2019-11-09] MEDS: PERCOCET TAB 5/325 MG PO PRN ×3 (05:30→20:15)
[2019-11-09 06:55] LABS: BASOPHILS % (AUTO) 0.5 % (0.2-1.0); EOSINOPHILS # (AUTO) 0.3 x10^3/uL (0.0-0.2); EOSINOPHILS % (AUTO) 4.1 % (0.9-2.9); HEMATOCRIT 29.9 % (36.0-47.0); HEMOGLOBIN 10.1 g/dL (12.0-16.0); LYMPHOCYTES # (AUTO) 3.3 X10^3/uL (1.3-2.9); LYMPHOCYTES % (AUTO) 41.1 % (21.0-51.0); MEAN CORPUSCULAR HGB CONC 33.8 g/dL (33.0-35.0); MEAN CORPUSCULAR VOLUME 85.8 fL (80.0-100.0); MEAN PLATELET VOLUME 7.3 fL (7.4-11.0); MONOCYTES # (AUTO) 0.6 x10^3/uL (0.3-0.8); MONOCYTES % (AUTO) 7.7 % (0.0-13.0); NEUTROPHILS # (AUTO) 3.7 x10^3/uL (2.2-4.8); NEUTROPHILS % (AUTO) 46.6 % (42.0-75.0); PLATELET COUNT 293 X10^3/uL (150.0-450.0); RED BLOOD COUNT 3.49 X10^6/uL (3.5-5.4); RED CELL DISTRIBUTION WIDTH 14.3 % (11.6-16.5); WHITE BLOOD COUNT 7.9 X10^3/uL (3.6-10.0)
[2019-11-09 07:16] LABS: ALANINE AMINOTRANSFERASE 15 Units/L (12-78); ALKALINE PHOSPHATASE 68 Units/L (46-116); ASPARTATE AMINO TRANSFERASE 13 Units/L (15-37); BLOOD UREA NITROGEN 22 mg/dL (7-18); CALCIUM 8.5 mg/dL (8.5-10.1); CARBON DIOXIDE 25.7 mmol/L (21-32); CHLORIDE 107 mmol/L (98-107); COR CA(FOR HYPOALB) 9.3 mg/dL (8.5-10.1); COR NA(FOR HYPERGLY) 143 mmol/L (136-145); CREATININE 0.89 mg/dL (0.55-1.02); SODIUM 142 mmol/L (136-145); TOTAL PROTEIN 6.7 g/dL (6.4-8.2); eGFR NON BLACK RACES > 60 (>60)
[2019-11-09] MEDS: PROVENTIL NEB TX 0.083% 2.5MG/ 3ML NEB PRN (09:04)
[2019-11-09] MEDS: PULMICORT NEB TX 0.5 MG NEB SCH ×2 (09:04→20:25)
[2019-11-09] MEDS ORDERED: LEXAPRO ONE (10:13)
[2019-11-09] MEDS: LEXAPRO PO SCH (10:30)
[2019-11-09] MEDS: COREG TAB 12.5 MG PO SCH ×2 (10:30→20:55)
[2019-11-09] MEDS: PROTONIX INJ 40 MG VIAL IVP SCH (10:30)
[2019-11-09] MEDS ORDERED: SOLU-Medrol 40 MG VIAL IVP ONE (11:17)
[2019-11-09] MEDS: HumuLIN R SUBCUT PRN ×3 (13:56→20:13)
[2019-11-09] MEDS ORDERED: ZOFRAN INJ 4 MG VIAL IVP PRN (14:29)
[2019-11-09] MEDS: SNACK - Diabetic Appropriate PO SCH (20:05)
[2019-11-09] MEDS: AMBIEN PO PRN (20:14)
[2019-11-09] MEDS: COLACE CAP 100 MG PO SCH (20:14)
[2019-11-10] MEDS: PERCOCET TAB 5/325 MG PO PRN ×2 (03:12→09:42)
[2019-11-10 05:51] LABS: ALANINE AMINOTRANSFERASE 16 Units/L (12-78); ALBUMIN 3.1 g/dL (3.4-5.0); ALKALINE PHOSPHATASE 69 Units/L (46-116); ASPARTATE AMINO TRANSFERASE 15 Units/L (15-37); BLOOD UREA NITROGEN 15 mg/dL (7-18); CALCIUM 8.6 mg/dL (8.5-10.1); CARBON DIOXIDE 23.1 mmol/L (21-32); CHLORIDE 106 mmol/L (98-107); COR CA(FOR HYPOALB) 9.3 mg/dL (8.5-10.1); COR NA(FOR HYPERGLY) 143 mmol/L (136-145); SODIUM 140 mmol/L (136-145); TOTAL PROTEIN 6.9 g/dL (6.4-8.2); eGFR NON BLACK RACES > 60 (>60)
[2019-11-10 05:57] LABS: BASOPHILS % (AUTO) 0.2 % (0.2-1.0); HEMATOCRIT 29.5 % (36.0-47.0); HEMOGLOBIN 9.9 g/dL (12.0-16.0); LYMPHOCYTES # (AUTO) 1.3 X10^3/uL (1.3-2.9); LYMPHOCYTES % (AUTO) 13.7 % (21.0-51.0); MEAN CORPUSCULAR HEMOGLOBIN 28.5 pg (27.0-34.0); MEAN CORPUSCULAR HGB CONC 33.5 g/dL (33.0-35.0); MEAN CORPUSCULAR VOLUME 84.9 fL (80.0-100.0); MONOCYTES # (AUTO) 0.4 x10^3/uL (0.3-0.8); NEUTROPHILS # (AUTO) 7.7 x10^3/uL (2.2-4.8); NEUTROPHILS % (AUTO) 82.1 % (42.0-75.0); PLATELET COUNT 311 X10^3/uL (150.0-450.0); RED BLOOD COUNT 3.48 X10^6/uL (3.5-5.4); RED CELL DISTRIBUTION WIDTH 14.4 % (11.6-16.5); WHITE BLOOD COUNT 9.4 X10^3/uL (3.6-10.0)
[2019-11-10] MEDS: HumuLIN R SUBCUT PRN ×4 (06:04→21:03)
[2019-11-10] MEDS: NS 1000 ML 1,000 ML IV SCH ×2 (06:05→22:18)
[2019-11-10] MEDS ORDERED: LEXAPRO ONE (08:43)
[2019-11-10] MEDS: COREG TAB 12.5 MG PO SCH ×2 (08:45→21:01)
[2019-11-10] MEDS: LEXAPRO PO SCH (08:45)
[2019-11-10] MEDS: PROTONIX INJ 40 MG VIAL IVP SCH (08:45)
[2019-11-10] MEDS: PROVENTIL NEB TX 0.083% 2.5MG/ 3ML NEB PRN ×2 (08:52→20:10)
[2019-11-10] MEDS: PULMICORT NEB TX 0.5 MG NEB SCH ×2 (08:52→20:10)
[2019-11-10] MEDS: NEURONTIN CAP 100 MG PO SCH (11:15)
[2019-11-10] MEDS: PEPCID 20 MG IV PREMIX* 20 MG/50 ML BAG IV SCH (11:26)
[2019-11-10] MEDS ORDERED: NEURONTIN CAP 300 MG PO SCH (21:00)
[2019-11-10] MEDS: MORPHINE SULFATE INJ 2 MG INJ IVP PRN (21:00)
[2019-11-10] MEDS: SNACK - Diabetic Appropriate PO SCH (21:01)
[2019-11-10] MEDS: COLACE CAP 100 MG PO SCH (21:01)
[2019-11-10] MEDS: AMBIEN PO PRN (21:03)
[2019-11-10] MEDS: MILK OF MAGNESIA PO PRN (21:04)
[2019-11-11] MEDS: PERCOCET TAB 5/325 MG PO PRN ×2 (03:00→10:04)
[2019-11-11] MEDS: PROVENTIL NEB TX 0.083% 2.5MG/ 3ML NEB PRN ×2 (04:04→10:06)
[2019-11-11 06:43] LABS: BASOPHILS # (AUTO) 0.1 X10^3/uL (0.0-0.1); BASOPHILS % (AUTO) 0.5 % (0.2-1.0); EOSINOPHILS # (AUTO) 0.2 x10^3/uL (0.0-0.2); EOSINOPHILS % (AUTO) 1.6 % (0.9-2.9); HEMATOCRIT 28.1 % (36.0-47.0); HEMOGLOBIN 9.3 g/dL (12.0-16.0); LYMPHOCYTES # (AUTO) 4.5 X10^3/uL (1.3-2.9); LYMPHOCYTES % (AUTO) 39.9 % (21.0-51.0); MEAN CORPUSCULAR HEMOGLOBIN 28.3 pg (27.0-34.0); MEAN CORPUSCULAR HGB CONC 33.1 g/dL (33.0-35.0); MEAN CORPUSCULAR VOLUME 85.4 fL (80.0-100.0); MEAN PLATELET VOLUME 6.8 fL (7.4-11.0); MONOCYTES # (AUTO) 0.7 x10^3/uL (0.3-0.8); MONOCYTES % (AUTO) 6.2 % (0.0-13.0); NEUTROPHILS # (AUTO) 5.8 x10^3/uL (2.2-4.8); NEUTROPHILS % (AUTO) 51.8 % (42.0-75.0); PLATELET COUNT 268 X10^3/uL (150.0-450.0); RED BLOOD COUNT 3.29 X10^6/uL (3.5-5.4); RED CELL DISTRIBUTION WIDTH 14.3 % (11.6-16.5); WHITE BLOOD COUNT 11.2 X10^3/uL (3.6-10.0)
[2019-11-11 06:50] LABS: ALANINE AMINOTRANSFERASE 17 Units/L (12-78); ALKALINE PHOSPHATASE 60 Units/L (46-116); ASPARTATE AMINO TRANSFERASE 16 Units/L (15-37); BLOOD UREA NITROGEN 13 mg/dL (7-18); CALCIUM 7.9 mg/dL (8.5-10.1); CARBON DIOXIDE 25.3 mmol/L (21-32); CHLORIDE 110 mmol/L (98-107); COR CA(FOR HYPOALB) 8.7 mg/dL (8.5-10.1); COR NA(FOR HYPERGLY) 144 mmol/L (136-145); CREATININE 0.87 mg/dL (0.55-1.02); SODIUM 143 mmol/L (136-145); TOTAL PROTEIN 6.4 g/dL (6.4-8.2); eGFR NON BLACK RACES > 60 (>60)
[2019-11-11] MEDS ORDERED: LEXAPRO ONE (08:42)
[2019-11-11] MEDS: PEPCID 20 MG IV PREMIX* 20 MG/50 ML BAG IV SCH (08:53)
[2019-11-11] MEDS: LEXAPRO PO SCH (08:54)
[2019-11-11] MEDS: COREG TAB 12.5 MG PO SCH (08:55)
[2019-11-11] MEDS: NEURONTIN CAP 100 MG PO SCH ×2 (08:56→12:23)
[2019-11-11] MEDS: PROTONIX INJ 40 MG VIAL IVP SCH (09:03)
[2019-11-11] MEDS: MILK OF MAGNESIA PO PRN (10:03)
[2019-11-11] MEDS: PULMICORT NEB TX 0.5 MG NEB SCH (10:06)
[2019-11-11 12:07] VITALS: BP 123/63
--- NOTE | 2019-11-11 14:27 | RAD ---
HISTORYIntractable left hip painSTUDYAP pelvis and frog-leg left hipCOMPARISONJuly 2018FINDINGSThere is no fracture or dislocation. There are mild osteophytes about the left hip unchanged. The pubic rami are intact. There is sclerosis about the left acetabulum.IMPRESSIONUnchanged mild left hip osteoarthritisElectronically signed by: ALAN PEREZ (Nov 11, 2019 14:26:42)
--- NOTE | 2019-11-11 14:34 | CT ---
HISTORYIntractable lumbar spine painSTUDYCT of the lumbar spine without contrast. Sagittal and coronal reformations were provided. Dose reduction techniques were utilized.COMPARISONNoneFINDINGSThere is normal alignment without fracture or depression. There is moderately severe L4-5 and L5-S1 disc space narrowing with vacuum phenomenon and severe anterior and left lateral osteophytes. There is mild L3-4 disc space narrowing with more mild osteophytes at L3-4 and L2-3 and L1-2.At L3-4 there is moderate asymmetric disc bulging and protrusion more right ventrally with severe right L3-4 neural foraminal encroachment. There is calcification around this disc protrusion. There are associated osteophytes about the facet joints.There is moderately severe L4-5 facet joint osteoarthritis with ligamentum flavum hypertrophy and diffuse bulging of the disc.At L5-S1 there is moderate facet joint osteophyte formation with posterior encroachment onto the neural foramina in association with mild disc bulging.IMPRESSION1. Degenerative disc disease most severe at L4-5 and L5-S1 as well as lower lumbar facet joint osteoarthritis2. Moderately severe acquired spinal stenosis at L4-53. Severe right L3-4 neural foraminal stenosis and mild to moderate acquired spinal stenosis4. Neural foraminal stenosis bilaterally at L5-[id number] signed by: ALAN PEREZ (Nov 11, 2019 14:32:34)
== END 2019-11-11 15:00 | disposition home or self-care (01) ==
LOC: MED/SURG
PROVIDERS: ADMIT Internal Medicine; ATTEND Internal Medicine
DX: N17.9 Acute kidney failure, unspecified; J42 Unspecified chronic bronchitis; M51.36 Other intervertebral disc degeneration, lumbar region; I10 Essential (primary) hypertension; M16.12 Unilateral primary osteoarthritis, left hip; E11.65 Type 2 diabetes mellitus with hyperglycemia; F41.8 Other specified anxiety disorders; K21.9 Gastro-esophageal reflux disease without esophagitis; D64.89 Other specified anemias; R42 Dizziness and giddiness; M48.02 Spinal stenosis, cervical region; M48.061 Spinal stenosis, lumbar region without neurogenic claudication; R53.1 Weakness; I95.89 Other hypotension
CPT/HCPCS: 36415; 71020; 71046; 72131; 73501; 80053; 81003; 83605; 85025; 87086; 93005; 94640; 94760; A4222; C9113; S0028; G0378; J1815; J2270; J2920; J7030; J7613; J7626

== ENCOUNTER 2020-02-02 17:05 | Inpatient (IN) ==
[2020-02-02] MEDS ORDERED: NS 1000 ML 1,000 ML ONE ×3 (17:14→19:20)
[2020-02-02] MEDS ORDERED: NS 1000 ML 1,000 ML IV ONE ×3 (17:17→19:20)
--- NOTE | 2020-02-02 17:33 | DR.EXT ---
HPI Time Seen Time Seen by Provider: 02/02/20 17:30 PCP Primary Care Physician: EMMETT HPI Comment HPI Comment: PATIENT IS 70YR OLD FEMALE IN ER WITH CREASING NECK PAIN TIMES ONE DAY. PATIENT HAVE HISTORY OF CHRONIC NECK PAIN. DENIES TRAUMA. NO FEVER. BP 74/43 IN ER. SPEECH IS SLUGGISH. HISTORY DM AND HYPERTENSION. SHE IS DIZZY AND WEAK. DENIES CHEST PAIN, BACK PAIN AND DYSURIA. TOOK HER PAIN MEDICATION BEFORE COMMING TO ER. PAIN IS 9/10 SHARP AND ACHING. Complaint Chief Complaint:: PT. C/O CHRONIC NECK PAIN. PT. HAS BEEN HAVING NECK PAIN SINCE MARCH OF 2019 BUT PAIN WORSENED YESTERDAY. UPON ARRIVAL TO THE ER, PT. IS AWAKE AND ALERT BUT SPEECH IS SLUGGISH. PT. SAYS SHE TOOK HER PAIN MEDICATION AT 0830. Chief Complaint Doctors Comments: INCREASING NECK PAIN TIMES ONE DAY. Reviewed Nurses Notes Review: Yes Source History Provided: Patient and EMS Mode of Arrival Mode of Arrival: EMS Location Location: Bilateral (BILATERAL LATERAL NECK.) Timing Onset of Chief Complaint: 02/01/20 Context Onset: Spontaneous Symptoms: Swelling DVT risk factors: None Severity Pain Severity: Severe Associated signs and symptoms Associated signs and symptoms: SOB PMH PMH Past Medical History: Yes Past Medical History: CHF, Depression, Diabetes, Migraines, GERD, Gout and Hypertension Past Surgical History: Yes Surgical History: Hysterectomy Family History History of Family Medical Conditions: Yes Family Medical History: Diabetes Mellitus and Heart Failure Social History Does patient currently use any type of tobacco product: No Have you used tobacco products in the last 12 months: No Type of Tobacco Use: None Does any household member use tobacco: No Alcohol Use: None Do you use any recreational Drugs:: No Lives With: Alone Lives Where: Home Travel Risk Coronavirus risk:travel/contact w/high risk person: No Has patient experienced Coronavirus symptoms: No Infectious screening In the last 2 months have you had wt loss of >10#?: NO Have you had fever, night sweats or hemotysis?: No Have you traveled outside the country in the last 6 months?: No Isolation: Standard ROS Review of Systems Constitutional: No Symptoms Reported and See HPI; negative Fever, Weakness and Fatigue Eyes: No Symptoms Reported and See HPI; negative Blurred Vision and Diplopia ENTM: No Symptoms Reported and See HPI; negative Hearing Loss, Nose Discharge, Nose Congestion and Throat Pain Respiratoy: No Symptoms Reported and See HPI; negative Moist Cough, Short of Breath and Wheezing Cardiovascular: No Symptoms Reported and See HPI; negative Chest Pain, Edema and Palpitations Gastrointestinal/Abdominal: No Symptoms Reported and See HPI; negative Abdominal Pain, Diarrhea, Nausea and Vomiting Genitourinary: No Symptoms Reported and See HPI; negative Dysuria, Frequency and Hematuria Neurological: See HPI and Headache; negative Weakness and Dizziness Musculoskeletal: See HPI, Neck Pain and Neck Integumentary: No Symptoms Reported and See HPI; negative Change in Color, Rash and Juandice Hematologic/Lymphatic: No Symptoms Reported and See HPI; negative Easy Bruising and Swollen Glands Endocrine: No Symptoms Reported and See HPI; negative Increased Thirst, Increased Urine and Decreased Appetite Psychiatric: No Symptoms Reported and See HPI All Other Systems: Reviewed and Negative PE Vital Signs Vitals: Temperature 97.9 F Pulse Rate 84 Respiratory Rate 20 Blood Pressure [Left Arm] 77/47 Blood Pressure 99/59 O2 Sat by Pulse Oximetry 96 General Limitations: No Limitations General Appearance: Alert and In No Apparent Distress Head Head Exam: Normal Inspection and Atraumatic Eyes Eye exam: Normal Appearance and PERRL; negative Scleral Icterus and Conjunctival Injection ENT ENT Exam: Normal Exam, Normal Oropharynx, Normal External Ear Exam and TM's Normal Bilaterally Neck Neck Exam: Normal Inspection, Trachea Midline and Tenderness (TENDERNESS LATERAL NECK BOTH SIDES.); negative Full ROM (DECREASE ROM.) and Lymphadenopathy Chest Chest Inspection: Normal Inspection and Symmetric Chest Wall Rise; negative Tenderness Respiratory Respiratory Exam: Normal Lung Sounds Bilat; negative Accessory Muscle Use, Chest Wall Tenderness and Respiratory Distress Respiratory Exam: Bilateral: Clear to Auscultation Cardiovascular Cardiovascular Exam: Regular Rate, Normal Rhythm and Normal Heart Sounds; negative Systolic Murmur and Diastolic Murmur Abdominal Exam Abdominal Exam: Normal Inspection, Normal Bowel Sounds and Soft; negative Tenderness Extremies Extremities Exam: Normal Inspection and Normal Capillary Refill; negative Tenderness, Edema and Calf Tenderness Back Back Exam: Normal Inspection; negative Tenderness Neurologic Neurological Exam: Alert, Oriented X3 and CN II-XII Intact; negative Motor Sensory Deficit Psychiatric Psychiatric Exam: Normal Affect and Anxious Skin Skin Exam: Warm, Dry, Intact and Normal Color MDM Differential Diagnosis Differential Diagnosis: Muscle spasm, Strain and Other (TORTICOLIS.) COURSE Treatment Treatment: SEE ORDERS. Education/Counseling Education/Counseling: Patient Educated On: Diagnosis and Needs for Follow Up ROR Labs Reviewed Laboratory Results Reviewed?: Yes Result Diagrams: 02/04/20 04:24 02/04/20 12:46 Laboratory: WBC 10.6 X10^3/uL (3.6-10.0) H 02/02/20 17:44 RBC 3.25 X10^6/uL (3.5-5.4) L 02/02/20 17:44 Hgb 9.3 g/dL (12.0-16.0) L 02/02/20 17:44 Hct 27.7 % (36.0-47.0) L 02/02/20 17:44 MCV 85.3 fL (80.0-100.0) 02/02/20 17:44 MCH 28.7 pg (27.0-34.0) 02/02/20 17:44 MCHC 33.6 g/dL (33.0-35.0) 02/02/20 17:44 RDW 13.8 % (11.6-16.5) 02/02/20 17:44 Plt Count 177 X10^3/uL (150.0-450.0) 02/02/20 17:44 MPV 8.3 fL (7.4-11.0) 02/02/20 17:44 Neut % (Auto) 54.0 % (42.0-75.0) 02/02/20 17:44 Lymph % (Auto) 35.2 % (21.0-51.0) 02/02/20 17:44 [place] % (Auto) 7.2 % (0.0-13.0) 02/02/20 17:44 Eos % (Auto) 3.2 % (0.9-2.9) H 02/02/20 17:44 Baso % (Auto) 0.4 % (0.2-1.0) 02/02/20 17:44 Neut # (Auto) 5.7 x10^3/uL (2.2-4.8) H 02/02/20 17:44 Lymph # (Auto) 3.7 X10^3/uL (1.3-2.9) H 02/02/20 17:44 [place] # (Auto) 0.8 x10^3/uL (0.3-0.8) 02/02/20 17:44 Eos # (Auto) 0.3 x10^3/uL (0.0-0.2) H 02/02/20 17:44 Baso # (Auto) 0.0 X10^3/uL (0.0-0.1) 02/02/20 17:44 Absolute Nucleated RBC 0.0 /100WBC 02/02/20 17:44 Sodium 136 mmol/L (136-145) 02/02/20 17:44 Corrected Sodium 142 mmol/L (136-145) 02/02/20 17:44 Potassium 5.0 mmol/L (3.5-5.1) 02/02/20 17:44 Chloride 103 mmol/L (98-107) 02/02/20 17:44 Carbon Dioxide 20.7 mmol/L (21-32) L 02/02/20 17:44 BUN 94 mg/dL (7-18) H 02/02/20 17:44 Creatinine 4.56 mg/dL (0.55-1.02) H 02/02/20 17:44 Est GFR (MDRD) Af Amer 12 (>60) L 02/02/20 17:44 Est GFR (MDRD) Non-Af 10 (>60) L 02/02/20 17:44 Glucose 330 mg/dL (65-99) H 02/02/20 17:44 Calcium 7.6 mg/dL (8.5-10.1) L 02/02/20 17:44 Corrected Calcium 8.4 mg/dL (8.5-10.1) L 02/02/20 17:44 Total Bilirubin 0.30 mg/dL (0.2-1.0) 02/02/20 17:44 AST 100 Units/L (15-37) H 02/02/20 17:44 ALT 112 Units/L (12-78) H 02/02/20 17:44 Alkaline Phosphatase 63 Units/L (46-116) 02/02/20 17:44 Creatine Kinase 133 Units/L (26-192) 02/02/20 17:44 CK-MB (CK-2) < 1.0 ng/mL (0-4.0) 02/02/20 17:44 CK/CKMB % Calc 0.8 % (<4) 02/02/20 17:44 Troponin I < 0.02 ng/mL (0-1.5) 02/02/20 17:44 Total Protein 6.5 g/dL (6.4-8.2) 02/02/20 17:44 Albumin 3.0 g/dL (3.4-5.0) L 02/02/20 17:44 Globulin 3.5 g/dL (2.5-4.5) 02/02/20 17:44 Albumin/Globulin Ratio 0.9 Ratio (1.1-2.1) L 02/02/20 17:44 RSV Nasal Swab Negative (NEGATIVE) 02/02/20 21:01 Acetone, Semi-Quant Negative (NEGATIVE) 02/02/20 17:44 Influenza Type A (PCR) Negative (NEGATIVE) 02/02/20 21:01 Influenza Type B (PCR) Negative (NEGATIVE) 02/02/20 21:01 S. pyogenes (TEM-PCR) Not detected (NOT DETECT) 02/02/20 21:01 Miscellaneous Test Covid-19 02/02/20 21:01 XRAY XRAY Interpreted by: Radiologist (TRPORT NOTED AND DISCUSSED WITH PATIENT.) Opioid Opioid Risk Tool Age (Harsha box if 16-45): No History of Preadolescent Sexual Abuse: No Total: 0 Total Score Risk Category: Low Risk Copyright: Jas ZAMUDIO predicting aberrant behaviors Diagnosis Discharge Problem: Acute hypotension, Acute renal failure, Acute dehydration, Acute hyperglycemia Instructions Instructions: Shortness of Breath, Adult, Rapj-nm-Hihu Hypotension, Pmzc-[id number] Acute Kidney Injury, Adult Chronic Pain, Adult Form - Blood Pressure Record Sheet Heart Failure, Frud-nz-[id number] Type 2 Diabetes Mellitus, Diagnosis, Adult, Wehh-no-Gzpm Dehydration, Elderly, Nevo-il-Qyqr Form - Daily Weight Record Forms: Precautions for COVID19 Patient Portal Social Distancing
[2020-02-02 17:56] LABS: BASOPHILS % (AUTO) 0.4 % (0.2-1.0); EOSINOPHILS # (AUTO) 0.3 x10^3/uL (0.0-0.2); EOSINOPHILS % (AUTO) 3.2 % (0.9-2.9); HEMATOCRIT 27.7 % (36.0-47.0); HEMOGLOBIN 9.3 g/dL (12.0-16.0); LYMPHOCYTES # (AUTO) 3.7 X10^3/uL (1.3-2.9); LYMPHOCYTES % (AUTO) 35.2 % (21.0-51.0); MEAN CORPUSCULAR HEMOGLOBIN 28.7 pg (27.0-34.0); MEAN CORPUSCULAR HGB CONC 33.6 g/dL (33.0-35.0); MEAN CORPUSCULAR VOLUME 85.3 fL (80.0-100.0); MEAN PLATELET VOLUME 8.3 fL (7.4-11.0); MONOCYTES # (AUTO) 0.8 x10^3/uL (0.3-0.8); MONOCYTES % (AUTO) 7.2 % (0.0-13.0); NEUTROPHILS # (AUTO) 5.7 x10^3/uL (2.2-4.8); PLATELET COUNT 177 X10^3/uL (150.0-450.0); RED BLOOD COUNT 3.25 X10^6/uL (3.5-5.4); RED CELL DISTRIBUTION WIDTH 13.8 % (11.6-16.5); WHITE BLOOD COUNT 10.6 X10^3/uL (3.6-10.0)
[2020-02-02 18:08] LABS: BLOOD UREA NITROGEN 94 mg/dL (7-18); CALCIUM 7.6 mg/dL (8.5-10.1); CARBON DIOXIDE 20.7 mmol/L (21-32); CHLORIDE 103 mmol/L (98-107); COR NA(FOR HYPERGLY) 142 mmol/L (136-145); CREATININE 4.56 mg/dL (0.55-1.02); SODIUM 136 mmol/L (136-145); TROPONIN I < 0.02 ng/mL (0-1.5); eGFR NON BLACK RACES 10 (>60)
[2020-02-02 18:13] LABS: ALANINE AMINOTRANSFERASE 112 Units/L (12-78); ALKALINE PHOSPHATASE 63 Units/L (46-116); ASPARTATE AMINO TRANSFERASE 100 Units/L (15-37); CKMB % 0.8 % (<4); COR CA(FOR HYPOALB) 8.4 mg/dL (8.5-10.1); CREATINE KINASE 133 Units/L (26-192); CREATINE KINASE MB < 1.0 ng/mL (0-4.0); TOTAL PROTEIN 6.5 g/dL (6.4-8.2)
--- NOTE | 2020-02-02 19:43 | RAD ---
HISTORYSOBSTUDYCHEST, 1 [id number]/2020FINDINGSStable cardiomegaly. Patient is rotated. Lungs adequately inflated and appear grossly clear without edema, sizable effusion, consolidation, or visible pneumothorax. No acute osseous finding.IMPRESSIONStable cardiomegaly without acute finding.Electronically signed by: Desmond Simmons (Feb 02, 2020 19:42:25)
--- NOTE | 2020-02-02 20:09 | CT ---
STUDY: CT CERVICAL SPINE WITHOUT IV CONTRASTCOMPARISON: NoneTECHNIQUE: Axial images were acquired through the cervical spine without IV contrast. sagittal and coronal reformatted images were provided. All images reviewed in a variety of windows and levels.RADIATION REDUCTION TECHNIQUE: Automated exposure control, Adjustment of the mA and/or kV according to patient size, or iterative reconstruction techniques were used.HISTORY: CHRONIC NECK PAINFINDINGS:Please note that lack of IV contrast limits evaluation of soft tissue structures and vascular detail.There is no evidence of an acute osseous fracture or subluxation. Severe multilevel degenerative changes of the cervical spine is seen with near [id number] articulation, vacuum disc phenomenon, and multilevel disc osteophyte complexes most notable from the level of C4-C5 to the level of C6-C7. Large anterior marginal osteophytes are also with moderate degree of facet hypertrophy.The skull base is intact.Mastoid air cells are well-aerated.The visualized portions of the paraspinous muscles are unremarkable.There are no abnormal areas of increased attenuation within the spinal canal to suggest an epidural hematoma.The visualized lung apices are clear.There are no obvious abnormal masses seen within the visualized soft tissues of the neck.IMPRESSION:1. THERE IS NO EVIDENCE OF ACUTE FRACTURE OR SUBLUXATION2. SEVERE MULTILEVEL DEGENERATIVE CHANGES OF THE CERVICAL SPINE IS SEEN FROM THE LEVEL OF C4-C5 TO THE LEVEL OF C6-7 DETAILED ABOVE.Electronically signed by: Dayo Jimenez (Feb 02, 2020 20:07:31)
[2020-02-02 21:39] LABS: RSV AG DETECTION NEGATIVE (NEGATIVE)
[2020-02-02 22:14] LABS: STREP A BY PCR NOT DETECTED (NOT DETECT)
[2020-02-02 23:19] LABS: BILIRUBIN,URINE NEGATIVE (NEGATIVE); BLOOD/HEMOGLOBIN,URINE 1+ (NEGATIVE); GLUCOSE, URINE 2+ (NEGATIVE); KETONES,URINE NEGATIVE (NEGATIVE); LEUKOCYTE ESTERASE ,URINE NEGATIVE (NEGATIVE); NITRITES,URINE NEGATIVE (NEGATIVE); PROTEIN,URINE 1+ (NEGATIVE); UROBILINOGEN,URINE NORMAL (NORMAL)
[2020-02-02 23:22] LABS: APPEARANCE,URINE CLEAR (CLEAR); BACTERIA,URINE NEGATIVE /HPF (NEGATIVE); COLOR,URINE PALE YELLOW (YELLOW); RBC,URINE NONE SEEN /HPF (0-3); SQUAMOUS EPITHELIAL CELL,UR RARE /HPF (NEGATIVE)
[2020-02-02 23:43] VITALS: BMI 31.8
[2020-02-03] MEDS: NORCO 5/325 MG TAB PO PRN ×2 (00:03→08:30)
[2020-02-03] MEDS ORDERED: RESTORIL CAP 15 MG PO PRN (00:10)
[2020-02-03 06:10] LABS: BASOPHILS % (AUTO) 0.5 % (0.2-1.0); EOSINOPHILS # (AUTO) 0.4 x10^3/uL (0.0-0.2); EOSINOPHILS % (AUTO) 4.5 % (0.9-2.9); HEMATOCRIT 29.5 % (36.0-47.0); LYMPHOCYTES # (AUTO) 4.7 X10^3/uL (1.3-2.9); LYMPHOCYTES % (AUTO) 49.3 % (21.0-51.0); MEAN CORPUSCULAR HEMOGLOBIN 28.3 pg (27.0-34.0); MEAN CORPUSCULAR HGB CONC 33.8 g/dL (33.0-35.0); MEAN CORPUSCULAR VOLUME 83.8 fL (80.0-100.0); MEAN PLATELET VOLUME 8.3 fL (7.4-11.0); MONOCYTES # (AUTO) 0.7 x10^3/uL (0.3-0.8); MONOCYTES % (AUTO) 7.7 % (0.0-13.0); NEUTROPHILS # (AUTO) 3.6 x10^3/uL (2.2-4.8); PLATELET COUNT 199 X10^3/uL (150.0-450.0); RED BLOOD COUNT 3.52 X10^6/uL (3.5-5.4); RED CELL DISTRIBUTION WIDTH 13.5 % (11.6-16.5); WHITE BLOOD COUNT 9.5 X10^3/uL (3.6-10.0)
[2020-02-03 06:28] LABS: ALANINE AMINOTRANSFERASE 100 Units/L (12-78); ALKALINE PHOSPHATASE 67 Units/L (46-116); ASPARTATE AMINO TRANSFERASE 68 Units/L (15-37); BLOOD UREA NITROGEN 77 mg/dL (7-18); CALCIUM 8.1 mg/dL (8.5-10.1); CARBON DIOXIDE 22.9 mmol/L (21-32); CHLORIDE 109 mmol/L (98-107); CKMB % 0.7 % (<4); COR CA(FOR HYPOALB) 8.9 mg/dL (8.5-10.1); COR NA(FOR HYPERGLY) 143 mmol/L (136-145); CREATINE KINASE 138 Units/L (26-192); CREATINE KINASE MB < 1.0 ng/mL (0-4.0); CREATININE 2.62 mg/dL (0.55-1.02); MAGNESIUM 2.7 mg/dL (1.7-2.9); SODIUM 142 mmol/L (136-145); TOTAL PROTEIN 6.9 g/dL (6.4-8.2); TROPONIN I < 0.02 ng/mL (0-1.5); eGFR NON BLACK RACES 19 (>60)
[2020-02-03] MEDS ORDERED: NS 1000 ML 1,000 ML IV ONE (09:37)
[2020-02-03] MEDS ORDERED: NS 1000 ML 1,000 ML IV PRN (09:38)
[2020-02-03] MEDS ORDERED: NS 1000 ML 1,000 ML IV SCH (10:00)
--- NOTE | 2020-02-03 10:33 | DR.H&P ---
H&P - History & Physical for Day of: H&P Date: 02/03/20 - Chief Complaint Chief Complaint: Neck Pain, Falling, Hallucination - History of Present Illness History of Present Illness: The patient is a 70yo BF who was admitted to [facility] after presenting to ED via EMS with complaints of neck pain, falling twice and having hallucinations. States that she was having conversations with her mother and brother. States she knew it wasn;t real. States that she is having increasing neck pain with pain radiating into her arms. Sattes her legs feel weak as well. States that she has seen Dr Garcia and referred to Dr Cali and had epidural injection x 1. States surgery was discussed but MD felt pain would not change. Patient is noted with JEFE. Previous CR in office 01/16 was 1.30. States she is on Torsumide 20mg a day. Has history of heart failure. Last echo was earlier in December with Dr Bernabe, cardiology. Does admit to having leg swelling. Denies cramping. Has had improvement of BUN/CR with IV bolus. Denies any fever, cough, congestion. Admits to tickle in throat. Denies diarrhea, nausea or vomiting. Denies exposure to Covid + persons. Denies any other complaints. - Past Medical History Past Medical History: Hypertension, Diabetes, Depression, GERD, Gout, Migraines, CHF - Past Surgical History Surgical History: Hysterectomy - Family History Family Medical History: Diabetes Mellitus, Heart Failure - Social History Does patient currently use any type of tobacco product: No Have you used tobacco products in the last 12 months: No Type of Tobacco Use: None Does any household member use tobacco: No Alcohol Use: None Drug Use: None Risks, benefits, and alternatives of opioids discussed: Yes Prescription drug monitoring program results: PDMP reviewed and no concerns identified - Medications Home Medications: No Known Drug Allergies Allergy (Verified 01/08/20 12:55) CONTINUE taking the following medications alprazolam 0.25 mg PO HS PRN 02/02/20 [History] carvedilol [Coreg] 25 mg PO BID 02/02/20 [History] gabapentin 600 mg PO TID 02/02/20 [History] hydrocodone-acetaminophen 1 tab PO Q6HR PRN 02/02/20 [History] linaclotide [Linzess] 145 mcg PO DAILY 02/02/20 [History] linagliptin [Tradjenta] 5 mg PO DAILY 02/02/20 [History] pregabalin [Lyrica] 100 mg PO BID 02/02/20 [History] torsemide 20 mg PO DAILY 02/02/20 [History] - Review of Systems Constitutional: Malaise Eyes: No Symptoms Reported ENT: See HPI Respiratory: No Symptoms Reported Cardiovascular: Edema Gastrointestinal: No Symptoms Reported Genitourinary: No Symptoms Reported Musculoskeletal: Neck Pain Skin: No Symptoms Reported Neurological: Weakness, Confusion - Physical Exam Vital Signs: Temperature 98.6 F Pulse Rate [Right Brachial] 75 Pulse Rate 84 Respiratory Rate 18 Blood Pressure [Right Arm] 114/59 Blood Pressure [Left Arm] 77/47 Blood Pressure 115/58 O2 Sat by Pulse Oximetry 95 Oriented: Normal Eyes: Normal Ear: Normal Nose: Normal Throat: Normal Respiratory: Clear Throughout Cardiovascular: Normal, Edema (1+ BLE) : Normal Auscultation: Bowel Sounds: Normal Palpation: Normal Tenderness: Normal Skin: Normal Musculoskeletal: Normal Psychiatric: Normal Mood Description: Calm Affect: Normal Speech Pattern: Clear - Assessment/Plan (1) ARF (acute renal failure) Qualifiers: Acute renal failure type: unspecified Qualified Code(s): N17.9 - Acute kidney failure, unspecified Status: Acute Plan: Monitor labs, IV hydration (2) Cervical radiculopathy due to degenerative joint disease of spine Status: Acute (3) Chronic neck pain Status: Acute Plan: Pain medication as needed (4) Diabetes Qualifiers: Diabetes mellitus type: type 2 Status: Acute Plan: Monitor BS. Coverage as indicated. - Review H&P Reviewed: Yes Patient was examined?: Yes - Allergies Allergies/Adverse Reactions: Allergies Allergy/AdvReac Type Severity Reaction Status Date / Time No Known Drug Allergies Allergy Verified 01/08/20 12:55
[2020-02-03 11:26] LABS: CKMB % 0.7 % (<4); CREATINE KINASE 137 Units/L (26-192); CREATINE KINASE MB < 1.0 ng/mL (0-4.0); TROPONIN I < 0.02 ng/mL (0-1.5)
[2020-02-03] MEDS: LOVENOX INJ 30 MG SYR SC SCH (12:40)
[2020-02-03] MEDS ORDERED: NORCO 7.5/325 MG TAB PO PRN (14:10)
[2020-02-03] MEDS ORDERED: XANAX PO PRN (14:10)
[2020-02-03] MEDS ORDERED: PATIENT'S HOME MEDICATION (Albuterol Sulfate [Proair Hfa] 2 PUFF) IN PRN (14:10)
[2020-02-03] MEDS ORDERED: PROVENTIL NEB TX 0.083% 2.5MG/ 3ML NEB PRN (14:23)
[2020-02-03] MEDS: HumuLIN R SC PRN (16:35)
[2020-02-03] MEDS ORDERED: NEURONTIN CAP 300 MG PO SCH (22:00)
[2020-02-04 05:07] LABS: BASOPHILS % (AUTO) 0.5 % (0.2-1.0); EOSINOPHILS # (AUTO) 0.4 x10^3/uL (0.0-0.2); EOSINOPHILS % (AUTO) 4.6 % (0.9-2.9); HEMATOCRIT 29.2 % (36.0-47.0); HEMOGLOBIN 9.9 g/dL (12.0-16.0); LYMPHOCYTES # (AUTO) 4.7 X10^3/uL (1.3-2.9); LYMPHOCYTES % (AUTO) 52.8 % (21.0-51.0); MEAN CORPUSCULAR HEMOGLOBIN 28.4 pg (27.0-34.0); MEAN CORPUSCULAR VOLUME 83.5 fL (80.0-100.0); MEAN PLATELET VOLUME 8.1 fL (7.4-11.0); MONOCYTES # (AUTO) 0.6 x10^3/uL (0.3-0.8); MONOCYTES % (AUTO) 6.3 % (0.0-13.0); NEUTROPHILS # (AUTO) 3.2 x10^3/uL (2.2-4.8); NEUTROPHILS % (AUTO) 35.8 % (42.0-75.0); PLATELET COUNT 207 X10^3/uL (150.0-450.0); RED CELL DISTRIBUTION WIDTH 13.9 % (11.6-16.5); WHITE BLOOD COUNT 8.9 X10^3/uL (3.6-10.0)
[2020-02-04 05:19] LABS: ALBUMIN 3.1 g/dL (3.4-5.0); CALCIUM 8.3 mg/dL (8.5-10.1); CARBON DIOXIDE 22.8 mmol/L (21-32); CREATININE 1.48 mg/dL (0.55-1.02)
[2020-02-04] MEDS: LOVENOX INJ 30 MG SYR SC SCH (08:30)
[2020-02-04] MEDS ORDERED: LINZESS PO SCH (09:00)
[2020-02-04] MEDS ORDERED: TRADJENTA PO SCH (09:00)
[2020-02-04] MEDS: HumuLIN R SC PRN (11:30)
[2020-02-04 13:17] LABS: ALBUMIN 3.2 g/dL (3.4-5.0); CALCIUM 8.7 mg/dL (8.5-10.1); CARBON DIOXIDE 23.8 mmol/L (21-32); COR CA(FOR HYPOALB) 9.3 mg/dL (8.5-10.1); CREATININE 1.29 mg/dL (0.55-1.02); TOTAL PROTEIN 7.3 g/dL (6.4-8.2)
[2020-02-04 13:45] VITALS: BP 156/82
== END 2020-02-04 03:30 | disposition home or self-care (01) | DRG 684 ==
LOC: ER 17:05 → MED/SURG 21:05
PROVIDERS: ADMIT Internal Medicine; ATTEND Internal Medicine
CPT/HCPCS: 36415; 71010; 71045; 72125; 80053; 81001; 82009; 82550; 82553; 82607; 82728; 82746; 83540; 83605; 83735; 84466; 84484; 85025; 87040; 87420; 87502; 87651; 93005; 94760; 96365; 96367; 99284; A4216; J1650; J1815; J7030

== ENCOUNTER 2022-01-11 15:42 | Observation (INO) ==
[2022-01-11] MEDS ORDERED: ZOFRAN INJ 4 MG VIAL IVP PRN (16:35)
[2022-01-11 17:02] LABS: BASOPHILS # (AUTO) 0.1 X10^3/uL (0.0-0.1); EOSINOPHILS # (AUTO) 0.2 x10^3/uL (0.0-0.2); MONOCYTES # (AUTO) 0.6 x10^3/uL (0.3-0.8)
[2022-01-11] MEDS: NS 1,000 ML IV 1,000 ML IV SCH (17:03)
[2022-01-11] MEDS: PROTONIX INJ 40 MG VIAL IVP SCH (17:04)
[2022-01-11 17:09] LABS: EOSINOPHILS % (AUTO) 2.6 % (0.9-2.9); HEMATOCRIT 33.5 % (36.0-47.0); LYMPHOCYTES # (AUTO) 3.8 X10^3/uL (1.3-2.9); LYMPHOCYTES % (AUTO) 41.1 % (21.0-51.0); MEAN CORPUSCULAR HEMOGLOBIN 27.6 pg (27.0-34.0); MEAN CORPUSCULAR HGB CONC 32.7 g/dL (33.0-35.0); MEAN CORPUSCULAR VOLUME 84.4 fL (80.0-100.0); MEAN PLATELET VOLUME 7.5 fL (7.4-11.0); MONOCYTES % (AUTO) 6.7 % (0.0-13.0); NEUTROPHILS # (AUTO) 4.5 x10^3/uL (2.2-4.8); NEUTROPHILS % (AUTO) 48.6 % (42.0-75.0); RED BLOOD COUNT 3.97 X10^6/uL (3.5-5.4); RED CELL DISTRIBUTION WIDTH 15.1 % (11.6-16.5); WHITE BLOOD COUNT 9.3 X10^3/uL (3.6-10.0)
[2022-01-11 17:14] LABS: ALANINE AMINOTRANSFERASE 20 Units/L (12-78); ALBUMIN 3.9 g/dL (3.4-5.0); ALKALINE PHOSPHATASE 73 Units/L (46-116); ASPARTATE AMINO TRANSFERASE 28 Units/L (15-37); BLOOD UREA NITROGEN 26 mg/dL (7-18); CARBON DIOXIDE 29.6 mmol/L (21-32); CHLORIDE 108 mmol/L (98-107); SODIUM 143 mmol/L (136-145); TOTAL PROTEIN 7.9 g/dL (6.4-8.2); eGFR NON BLACK RACES 43 (>60)
[2022-01-11] MEDS: CIPRO IV 400 MG PREMIX* 400 MG/200 ML IV.SOLN. IV SCH ×2 (18:00→21:38)
[2022-01-11 18:02] LABS: AMYLASE 46 Units/L (25-115); LIPASE 220 Units/L (73-393)
--- NOTE | 2022-01-11 18:10 | DR.H&P ---
H&P - History & Physical for Day of: H&P Date: 01/11/22 - Chief Complaint Chief Complaint: left side abdominal pain, nausea - History of Present Illness History of Present Illness: PT IS 71 BF DIRECT ADMIT FROM DR CHRISTINE OFFICE WITH LEFT LATERAL ABDOMINAL PAIN AFTER EATING CASHEWS. PT REPORTS PAIN WORSENED WITH DECREASED APPETITE AND NAUSEA. PT REPORTS DEHDRATION. PT HAD HX OF DM, HTN, CHF, RENAL DISEASE AND OA. PT ADMITTED FOR TREATMENT OF ACUTE ILLNESS AND IV ANTIBIOTICS. - Past Medical History Past Medical History: Hypertension, Diabetes, Depression, GERD, Gout, Migraines, CHF - Past Surgical History Surgical History: CABG/Valve Surgery, Hysterectomy - Family History Family Medical History: Diabetes Mellitus - Social History Does patient currently use any type of tobacco product: No Have you used tobacco products in the last 12 months: No Type of Tobacco Use: None Does any household member use tobacco: No Alcohol Use: None Drug Use: None - Medications Home Medications: No Known Drug Allergies Allergy (Verified 02/01/21 13:01) CONTINUE taking the following medications evolocumab [Repatha SureClick] 140 mg SUBCUT 01/11/22 [History] famotidine [Pepcid] 20 mg PO DAILY 01/11/22 [History] insulin detemir U-100 [Levemir U-100 Insulin] 12 unit SUBCUT DAILY 01/11/22 [History] tizanidine 4 mg PO BID 01/11/22 [History] - Review of Systems Constitutional: Weakness, Malaise Eyes: No Symptoms Reported ENT: No Symptoms Reported Respiratory: No Symptoms Reported Cardiovascular: No Symptoms Reported Gastrointestinal: Nausea, Abdominal Pain Genitourinary: No Symptoms Reported Musculoskeletal: Back Pain Skin: No Symptoms Reported Neurological: Weakness - Physical Exam Vital Signs: Temperature 97.2 F Pulse Rate [Left Brachial] 72 Respiratory Rate 22 Blood Pressure [Right Arm] 156/82 Blood Pressure [Left Arm] 139/87 Blood Pressure [Right Arm] 123/63 Blood Pressure 169/76 O2 Sat by Pulse Oximetry 97 Oriented: Normal Eyes: Normal Ear: Normal Nose: Discharge Throat: Normal Respiratory: RLL Diminished, LLL Diminished Cardiovascular: Normal, Edema : Normal Auscultation: Bowel Sounds: Normal Palpation: Normal Tenderness: LUQ, LLQ Skin: Decreased Turgur Musculoskeletal: Back:Thoracic, Back:Lumbar Psychiatric: Normal Speech Pattern: Clear, Appropriate - Assessment/Plan (1) Acute colitis Status: Acute Plan: ADMIT, CT ABD PELVIS WITH CONTRAST. GENTLE IV HYDRATION, IV CIPRO. VERIFY HOME MEDICATION. BLOOD SUGAR CONTROL. STOOL STUDIES. BP CONTROL, STRICT I&OS, PAIN AND NAUSEA CONTROL (2) Acute renal failure Status: Acute (3) Acute dehydration Status: Acute (4) Hypertension Qualifiers: Hypertension type: essential hypertension Qualified Code(s): I10 - Essential (primary) hypertension Status: Chronic (5) Diabetes mellitus, type II Status: Chronic (6) Back pain Status: Chronic - Allergies Allergies/Adverse Reactions: Allergies Allergy/AdvReac Type Severity Reaction Status Date / Time No Known Drug Allergies Allergy Verified 02/01/21 13:01
[2022-01-11 19:45] LABS: BILIRUBIN,URINE NEGATIVE (NEGATIVE); BLOOD/HEMOGLOBIN,URINE NEGATIVE (NEGATIVE); GLUCOSE, URINE NEGATIVE (NEGATIVE); KETONES,URINE NEGATIVE (NEGATIVE); LEUKOCYTE ESTERASE ,URINE NEGATIVE (NEGATIVE); NITRITES,URINE NEGATIVE (NEGATIVE); PROTEIN,URINE NEGATIVE (NEGATIVE); UROBILINOGEN,URINE NORMAL (NORMAL)
[2022-01-11 19:54] LABS: APPEARANCE,URINE CLEAR (CLEAR); COLOR,URINE PALE YELLOW (YELLOW)
[2022-01-11] MEDS: PULMICORT NEB TX 0.5 MG NEB SCH (20:30)
--- NOTE | 2022-01-11 21:43 | RAD ---
HISTORYABD PAIN Relevant Clinical InformationSTUDYACUTE ABDOMEN SERIESCOMPARISONFINDINGSThe airways are clear. Heart size is normal. Aorta is tortuous. There is no free air under the diaphragm. There is no abnormal dilation of large or small bowel. There is dextroscoliosis with degeneration. There is bilateral hip degeneration and SI joint sclerosis.IMPRESSION1. [No acute cardiopulmonary disease.]2. [No evidence for acute abdominal pathology identified.]Electronically signed by: Sourav Alegre (Jan 11, 2022 21:42:36)
[2022-01-11] MEDS: MORPHINE SULFATE INJ 4 MG IVP PRN (21:58)
[2022-01-12] MEDS: NS 1,000 ML IV 1,000 ML IV SCH ×3 (07:05→21:24)
[2022-01-12] MEDS ORDERED: NS 100 ML IV 100 ML ONE (08:40)
[2022-01-12] MEDS: CIPRO IV 400 MG PREMIX* 400 MG/200 ML IV.SOLN. IV SCH ×2 (09:18→20:45)
[2022-01-12] MEDS: PROTONIX INJ 40 MG VIAL IVP SCH (09:18)
[2022-01-12] MEDS: PULMICORT NEB TX 0.5 MG NEB SCH ×2 (09:20→20:25)
[2022-01-12] MEDS: MORPHINE SULFATE INJ 4 MG IVP PRN ×2 (11:22→19:45)
--- NOTE | 2022-01-12 12:42 | CT ---
HISTORYLEFT ABDOMINAL PAINSTUDYABDOMEN/PELVIS WITH MCUEZVYWSEAPT03/05/2021TECHNIQUEAxial images through the abdomen and pelvis was performed after the administration of oral and intravenous contrast.CT scan was performed following ALARA (As low as Reasonably Achievable).Coronal and Sagittal reformatted images were performed..FINDINGSThe lung bases demonstrate minimal atelectasis bilaterally. The liver demonstrate no focal lesions. Normal enhancement of the portal vein. The spleen is nonenlarged, the gallbladder is unremarkable. No gallstones. The pancreas demonstrate no focal lesions. No intra or extrahepatic biliary dilatationNo adrenal massesThere are bilateral normal enhancing kidneys without hydronephrosis, no obstructive ureteral stoneNo abnormal dilated small bowel loops, no significant colitis, no evidence of appendicitis, the terminal ileum is unremarkable, there is the extensive diverticulosis of the transverse and left colon.Pelvis: No free fluid, the uterus is not present, no adnexal masses, the urinary bladder is unremarkable. There are small internal iliac lymph nodes measuring in the left in short axis 0.7 centimeters, unchanged since prior studyThere is also in the right lymph node measuring in short axis 0.9 centimeters. There is sigmoid left colonic junction diverticulosis with mild diverticulitis with interval improvement since prior study. There is trace amount of fluid in the paracolic gutterBone windows no evidence of aggressive bone lesions. No acute fractures. There is multilevel degenerative disc disease with vacuum phenomenon from L3-L4 to [id number] acute diverticulitis at the junction of the left colon with the sigmoid colon and distal sigmoid colon with mild mucosal thickening and minimal stranding, with interval improvement since prior studyNo drainable collections. No free fluid.Electronically signed by: Imani oTrres (Jan 12, 2022 12:41:51)
[2022-01-12] MEDS ORDERED: AMBIEN PO PRN (22:43)
[2022-01-12] MEDS: NEURONTIN CAP 300 MG PO SCH (22:55)
[2022-01-13] MEDS ORDERED: VENTOLIN or PROAIR HFA IN PRN (01:41)
[2022-01-13] MEDS: NEURONTIN CAP 300 MG PO SCH ×3 (05:26→21:16)
[2022-01-13] MEDS: MORPHINE SULFATE INJ 4 MG IVP PRN (05:26)
[2022-01-13 06:35] LABS: BASOPHILS # (AUTO) 0.1 X10^3/uL (0.0-0.1); BASOPHILS % (AUTO) 0.7 % (0.2-1.0); EOSINOPHILS # (AUTO) 0.3 x10^3/uL (0.0-0.2); EOSINOPHILS % (AUTO) 2.1 % (0.9-2.9); HEMATOCRIT 30.6 % (36.0-47.0); HEMOGLOBIN 9.9 g/dL (12.0-16.0); LYMPHOCYTES # (AUTO) 5.3 X10^3/uL (1.3-2.9); LYMPHOCYTES % (AUTO) 43.8 % (21.0-51.0); MEAN CORPUSCULAR HEMOGLOBIN 27.4 pg (27.0-34.0); MEAN CORPUSCULAR HGB CONC 32.5 g/dL (33.0-35.0); MEAN CORPUSCULAR VOLUME 84.1 fL (80.0-100.0); MEAN PLATELET VOLUME 8.1 fL (7.4-11.0); MONOCYTES # (AUTO) 0.8 x10^3/uL (0.3-0.8); MONOCYTES % (AUTO) 6.6 % (0.0-13.0); NEUTROPHILS # (AUTO) 5.6 x10^3/uL (2.2-4.8); NEUTROPHILS % (AUTO) 46.8 % (42.0-75.0); RED BLOOD COUNT 3.64 X10^6/uL (3.5-5.4)
[2022-01-13 07:16] LABS: ALANINE AMINOTRANSFERASE 13 Units/L (12-78); ALBUMIN 3.1 g/dL (3.4-5.0); ALKALINE PHOSPHATASE 61 Units/L (46-116); ASPARTATE AMINO TRANSFERASE 27 Units/L (15-37); BLOOD UREA NITROGEN 10 mg/dL (7-18); CALCIUM 8.6 mg/dL (8.5-10.1); CARBON DIOXIDE 19.3 mmol/L (21-32); CHLORIDE 108 mmol/L (98-107); COR CA(FOR HYPOALB) 9.3 mg/dL (8.5-10.1); CREATININE 0.92 mg/dL (0.55-1.02); SODIUM 140 mmol/L (136-145); TOTAL PROTEIN 6.5 g/dL (6.4-8.2); eGFR NON BLACK RACES > 60 (>60)
[2022-01-13 07:53] LABS: PLATELET MORPHOLOGY COMMENT NORMAL (NORMAL)
[2022-01-13] MEDS ORDERED: PATIENT'S HOME MEDICATION (Dulaglutide [Trulicity] 1.5 mg/0.5 mL Pen Injector) SUBCUT SCH ×2 (09:00)
[2022-01-13] MEDS ORDERED: TRADJENTA PO SCH (09:00)
[2022-01-13] MEDS: PULMICORT NEB TX 0.5 MG NEB SCH ×2 (09:30→20:24)
[2022-01-13] MEDS: PROVENTIL NEB TX 0.083% 2.5MG/ 3ML NEB PRN (09:30)
[2022-01-13] MEDS: COZAAR PO SCH (09:50)
[2022-01-13] MEDS: NORVASC TAB 5 MG PO SCH (09:50)
[2022-01-13] MEDS: FLONASE NASAL SPRAY ENOSTRIL SCH (09:50)
[2022-01-13] MEDS: PROTONIX INJ 40 MG VIAL IVP SCH (09:50)
[2022-01-13] MEDS: NORCO 7.5/325 MG TAB PO PRN ×2 (09:50→16:35)
[2022-01-13] MEDS: CIPRO IV 400 MG PREMIX* 400 MG/200 ML IV.SOLN. IV SCH ×2 (09:50→21:15)
[2022-01-13] MEDS: ZYLOPRIM PO SCH (09:50)
[2022-01-13] MEDS: PEPCID TAB 20 MG PO SCH (09:50)
[2022-01-13] MEDS: LINZESS PO SCH (09:50)
[2022-01-13] MEDS: AMARYL TAB 4 MG PO SCH ×2 (10:07→21:15)
[2022-01-13] MEDS: PATIENT'S HOME MEDICATION (Icosapent Ethyl [Vascepa] 1 gram Capsule) PO SCH (10:08)
[2022-01-13] MEDS: LEVEMIR SC SCH (10:08)
[2022-01-13] MEDS: TRADJENTA PO SCH (10:08)
[2022-01-13] MEDS: PROTONIX TAB 40 MG PO SCH (10:12)
[2022-01-13] MEDS: NS 1,000 ML IV 1,000 ML IV SCH (13:56)
--- NOTE | 2022-01-13 20:28 | PCM.PROG ---
Progress Note - Progress Note for Day of Date of Exam: 01/12/22 - Subjective Subjective: Patient is a 72 year old AAF who was admitted due to acute abdominal pain and diverticulitis. Patient reports minimal improvement in pain. Patient denies N/V/D. States she is passing flatus. Reports abd pain on left side of abdomen with slight improvement. Will advance diet to clears and progress as tolerated. Repeat labs in am. - Past Medical Family Social History Past Med/Fam/Surg Hx: No changes since H&P Allergies: Allergies No Known Drug Allergies Allergy (Verified 02/01/21 13:01) - Review of Systems ROS: No change since H&P - Vital Signs and I&O's Vital Signs: Temperature 98.6 F Pulse Rate [Left Brachial] 71 Pulse Rate 76 Respiratory Rate 18 Blood Pressure [Right Arm] 136/66 Blood Pressure [Left Arm] 145/67 Blood Pressure [Right Arm] 123/63 Blood Pressure 169/76 O2 Sat by Pulse Oximetry 96 Intake and Output: Intake & Output 01/10/22 01/11/22 01/12/22 01/13/22 23:59 23:59 23:59 23:59 Intake Total 340 / 340 2910 / 2910 420 / 420 Balance 340 / 340 2910 / 2910 420 / 420 - Physical Exam Oriented: Normal, Time, Person, Place Eyes: Normal Ear: Normal Nose: Normal Throat: Normal Respiratory: Normal Cardiovascular: Normal : Normal Auscultation: Bowel Sounds: Normal Palpation: Normal Tenderness: LUQ, LLQ, Moderate Skin: Normal Musculoskeletal: Back:Thoracic, Back:Lumbar Psychiatric: Normal Mood Description: Calm Affect: Normal Speech Pattern: Clear, Appropriate - Laboratory and Diagnostics Result Diagrams: 01/13/22 05:42 01/13/22 05:42 Labs: 01/11/22 19:25 Urine,Clean Catch Urine Culture - Preliminary Laboratory WBC 12.0 X10^3/uL (3.6-10.0) H 01/13/22 05:42 RBC 3.64 X10^6/uL (3.5-5.4) 01/13/22 05:42 Hgb 9.9 g/dL (12.0-16.0) L 01/13/22 05:42 Hct 30.6 % (36.0-47.0) L 01/13/22 05:42 MCV 84.1 fL (80.0-100.0) 01/13/22 05:42 MCH 27.4 pg (27.0-34.0) 01/13/22 05:42 MCHC 32.5 g/dL (33.0-35.0) L 01/13/22 05:42 RDW 15.0 % (11.6-16.5) 01/13/22 05:42 Plt Count 232 X10^3/uL (150.0-450.0) 01/13/22 05:42 Plt Count Comment Adequate (ADEQUATE) 01/13/22 05:42 MPV 8.1 fL (7.4-11.0) 01/13/22 05:42 Neut % (Auto) 46.8 % (42.0-75.0) 01/13/22 05:42 Lymph % (Auto) 43.8 % (21.0-51.0) 01/13/22 05:42 [place] % (Auto) 6.6 % (0.0-13.0) 01/13/22 05:42 Eos % (Auto) 2.1 % (0.9-2.9) 01/13/22 05:42 Baso % (Auto) 0.7 % (0.2-1.0) 01/13/22 05:42 Neut # (Auto) 5.6 x10^3/uL (2.2-4.8) H 01/13/22 05:42 Lymph # (Auto) 5.3 X10^3/uL (1.3-2.9) H 01/13/22 05:42 [place] # (Auto) 0.8 x10^3/uL (0.3-0.8) 01/13/22 05:42 Eos # (Auto) 0.3 x10^3/uL (0.0-0.2) H 01/13/22 05:42 Baso # (Auto) 0.1 X10^3/uL (0.0-0.1) 01/13/22 05:42 Absolute Nucleated RBC 0.1 /100WBC 01/13/22 05:42 Plt Clumps, EDTA Few 01/13/22 05:42 Plt Morphology Comment Normal (NORMAL) 01/13/22 05:42 RBC Morphology Normal (NORMAL) 01/13/22 05:42 Sodium 140 mmol/L (136-145) 01/13/22 05:42 Corrected Sodium TNP 01/13/22 05:42 Potassium 4.4 mmol/L (3.5-5.1) 01/13/22 05:42 Chloride 108 mmol/L (98-107) H 01/13/22 05:42 Carbon Dioxide 19.3 mmol/L (21-32) L 01/13/22 05:42 BUN 10 mg/dL (7-18) 01/13/22 05:42 Creatinine 0.92 mg/dL (0.55-1.02) 01/13/22 05:42 Est GFR (MDRD) Af Amer > 60 (>60) 01/13/22 05:42 Est GFR (MDRD) Non-Af > 60 (>60) 01/13/22 05:42 Glucose 72 mg/dL (65-99) 01/13/22 05:42 POC Glucose (mg/dL) 79 mg/dL (65-99) 01/13/22 09:45 Calcium 8.6 mg/dL (8.5-10.1) 01/13/22 05:42 Corrected Calcium 9.3 mg/dL (8.5-10.1) 01/13/22 05:42 Total Bilirubin 0.40 mg/dL (0.2-1.0) 01/13/22 05:42 AST 27 Units/L (15-37) 01/13/22 05:42 ALT 13 Units/L (12-78) 01/13/22 05:42 Alkaline Phosphatase 61 Units/L (46-116) 01/13/22 05:42 C-Reactive Protein 8.20 mg/L (0-3.0) H 01/11/22 16:50 Total Protein 6.5 g/dL (6.4-8.2) 01/13/22 05:42 Albumin 3.1 g/dL (3.4-5.0) L 01/13/22 05:42 Globulin 3.4 g/dL (2.5-4.5) 01/13/22 05:42 Albumin/Globulin Ratio 0.9 Ratio (1.1-2.1) L 01/13/22 05:42 Amylase 46 Units/L (25-115) 01/11/22 16:50 Lipase 220 Units/L (73-393) 01/11/22 16:50 Specimen Type Clean catch urine 01/11/22 19:25 Urine Color Pale yellow (YELLOW) 01/11/22 19:25 Urine Appearance Clear (CLEAR) 01/11/22 19:25 Urine pH 7.0 (5.0 - 8.0) 01/11/22 19:25 Ur Specific [place] 1.005 (1.000-1.030) 01/11/22 19:25 Urine Protein Negative (NEGATIVE) 01/11/22 19:25 Urine Glucose (UA) Negative (NEGATIVE) 01/11/22 19:25 Urine Ketones Negative (NEGATIVE) 01/11/22 19:25 Urine Occult Blood Negative (NEGATIVE) 01/11/22 19:25 Urine Nitrite Negative (NEGATIVE) 01/11/22 19:25 Urine Bilirubin Negative (NEGATIVE) 01/11/22 19:25 Urine Urobilinogen Normal (NORMAL) 01/11/22 19:25 Ur Leukocyte Esterase Negative (NEGATIVE) 01/11/22 19:25 SARS CoV-2 RNA Rapid LINDA Negative (NEGATIVE) 01/11/22 16:10 - Plan (1) Diverticulitis Status: Acute Plan: IV abx. IV fluids. Advance diet. 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
--- NOTE | 2022-01-13 20:33 | PCM.PROG ---
Progress Note - Subjective Subjective: Patient is a 72 year old AAF who was admitted due to acute abdominal pain and diverticulitis. Patient reports improvement in pain. Patient denies N/V/D. States she is passing flatus. Reports abd pain on left side of abdomen with improvement. Will advance diet to full and progress as tolerated. Repeat labs in am. Plan for possible dc in am. - Past Medical Family Social History Past Med/Fam/Surg Hx: No changes since H&P Allergies: Allergies No Known Drug Allergies Allergy (Verified 02/01/21 13:01) - Review of Systems ROS: No change since H&P - Vital Signs and I&O's Vital Signs: Temperature 98.6 F Pulse Rate [Left Brachial] 71 Pulse Rate 76 Respiratory Rate 18 Blood Pressure [Right Arm] 136/66 Blood Pressure [Left Arm] 145/67 Blood Pressure [Right Arm] 123/63 Blood Pressure 169/76 O2 Sat by Pulse Oximetry 96 Intake and Output: Intake & Output 01/10/22 01/11/22 01/12/22 01/13/22 23:59 23:59 23:59 23:59 Intake Total 340 / 340 2910 / 2910 420 / 420 Balance 340 / 340 2910 / 2910 420 / 420 - Physical Exam Oriented: Normal, Time, Person, Place Eyes: Normal Ear: Normal Nose: Normal Throat: Normal Respiratory: Normal Cardiovascular: Normal : Normal Auscultation: Bowel Sounds: Normal Palpation: Normal Tenderness: LUQ, LLQ, Moderate Skin: Normal Musculoskeletal: Back:Thoracic, Back:Lumbar Psychiatric: Normal Mood Description: Calm Affect: Normal Speech Pattern: Clear, Appropriate - Laboratory and Diagnostics Result Diagrams: 01/13/22 05:42 01/13/22 05:42 Labs: 01/11/22 19:25 Urine,Clean Catch Urine Culture - Preliminary Laboratory WBC 12.0 X10^3/uL (3.6-10.0) H 01/13/22 05:42 RBC 3.64 X10^6/uL (3.5-5.4) 01/13/22 05:42 Hgb 9.9 g/dL (12.0-16.0) L 01/13/22 05:42 Hct 30.6 % (36.0-47.0) L 01/13/22 05:42 MCV 84.1 fL (80.0-100.0) 01/13/22 05:42 MCH 27.4 pg (27.0-34.0) 01/13/22 05:42 MCHC 32.5 g/dL (33.0-35.0) L 01/13/22 05:42 RDW 15.0 % (11.6-16.5) 01/13/22 05:42 Plt Count 232 X10^3/uL (150.0-450.0) 01/13/22 05:42 Plt Count Comment Adequate (ADEQUATE) 01/13/22 05:42 MPV 8.1 fL (7.4-11.0) 01/13/22 05:42 Neut % (Auto) 46.8 % (42.0-75.0) 01/13/22 05:42 Lymph % (Auto) 43.8 % (21.0-51.0) 01/13/22 05:42 [place] % (Auto) 6.6 % (0.0-13.0) 01/13/22 05:42 Eos % (Auto) 2.1 % (0.9-2.9) 01/13/22 05:42 Baso % (Auto) 0.7 % (0.2-1.0) 01/13/22 05:42 Neut # (Auto) 5.6 x10^3/uL (2.2-4.8) H 01/13/22 05:42 Lymph # (Auto) 5.3 X10^3/uL (1.3-2.9) H 01/13/22 05:42 [place] # (Auto) 0.8 x10^3/uL (0.3-0.8) 01/13/22 05:42 Eos # (Auto) 0.3 x10^3/uL (0.0-0.2) H 01/13/22 05:42 Baso # (Auto) 0.1 X10^3/uL (0.0-0.1) 01/13/22 05:42 Absolute Nucleated RBC 0.1 /100WBC 01/13/22 05:42 Plt Clumps, EDTA Few 01/13/22 05:42 Plt Morphology Comment Normal (NORMAL) 01/13/22 05:42 RBC Morphology Normal (NORMAL) 01/13/22 05:42 Sodium 140 mmol/L (136-145) 01/13/22 05:42 Corrected Sodium TNP 01/13/22 05:42 Potassium 4.4 mmol/L (3.5-5.1) 01/13/22 05:42 Chloride 108 mmol/L (98-107) H 01/13/22 05:42 Carbon Dioxide 19.3 mmol/L (21-32) L 01/13/22 05:42 BUN 10 mg/dL (7-18) 01/13/22 05:42 Creatinine 0.92 mg/dL (0.55-1.02) 01/13/22 05:42 Est GFR (MDRD) Af Amer > 60 (>60) 01/13/22 05:42 Est GFR (MDRD) Non-Af > 60 (>60) 01/13/22 05:42 Glucose 72 mg/dL (65-99) 01/13/22 05:42 POC Glucose (mg/dL) 79 mg/dL (65-99) 01/13/22 09:45 Calcium 8.6 mg/dL (8.5-10.1) 01/13/22 05:42 Corrected Calcium 9.3 mg/dL (8.5-10.1) 01/13/22 05:42 Total Bilirubin 0.40 mg/dL (0.2-1.0) 01/13/22 05:42 AST 27 Units/L (15-37) 01/13/22 05:42 ALT 13 Units/L (12-78) 01/13/22 05:42 Alkaline Phosphatase 61 Units/L (46-116) 01/13/22 05:42 C-Reactive Protein 8.20 mg/L (0-3.0) H 01/11/22 16:50 Total Protein 6.5 g/dL (6.4-8.2) 01/13/22 05:42 Albumin 3.1 g/dL (3.4-5.0) L 01/13/22 05:42 Globulin 3.4 g/dL (2.5-4.5) 01/13/22 05:42 Albumin/Globulin Ratio 0.9 Ratio (1.1-2.1) L 01/13/22 05:42 Amylase 46 Units/L (25-115) 01/11/22 16:50 Lipase 220 Units/L (73-393) 01/11/22 16:50 Specimen Type Clean catch urine 01/11/22 19:25 Urine Color Pale yellow (YELLOW) 01/11/22 19:25 Urine Appearance Clear (CLEAR) 01/11/22 19:25 Urine pH 7.0 (5.0 - 8.0) 01/11/22 19:25 Ur Specific [place] 1.005 (1.000-1.030) 01/11/22 19:25 Urine Protein Negative (NEGATIVE) 01/11/22 19:25 Urine Glucose (UA) Negative (NEGATIVE) 01/11/22 19:25 Urine Ketones Negative (NEGATIVE) 01/11/22 19: Urine Occult Blood Negative (NEGATIVE) 01/11/22 19: Urine Nitrite Negative (NEGATIVE) 01/11/22 19: Urine Bilirubin Negative (NEGATIVE) 01/11/22 19:25 Urine Urobilinogen Normal (NORMAL) 01/11/22 19:25 Ur Leukocyte Esterase Negative (NEGATIVE) 01/11/22 19:25 SARS CoV-2 RNA Rapid LINDA Negative (NEGATIVE) 01/11/22 16:10 - Plan (1) Diverticulitis Status: Acute Plan: IV abx. IV fluids. Advance diet. Repeat labs as ordered (2) Dehydration Status: Acute Plan: Improved (3) Diabetes mellitus Status: Chronic Qualifiers: Diabetes mellitus prison insulin use: without prison use (4) JEFE (acute kidney injury) Status: Acute Plan: Improved (5) Hypertension Status: Chronic Qualifiers: Hypertension type: essential hypertension Qualified Code(s): I10 - Essential (primary) hypertension
[2022-01-13] MEDS: SNACK - Diabetic Appropriate PO SCH (21:15)
[2022-01-13] MEDS: AMBIEN PO SCH (21:15)
[2022-01-13] MEDS: ZOCOR TAB 40 MG PO SCH (21:15)
[2022-01-14] MEDS: NS 1,000 ML IV 1,000 ML IV SCH ×3 (03:43→15:52)
[2022-01-14] MEDS: NEURONTIN CAP 300 MG PO SCH ×3 (05:19→22:04)
[2022-01-14] MEDS: MORPHINE SULFATE INJ 4 MG IVP PRN (05:36)
[2022-01-14 06:52] LABS: BASOPHILS % (AUTO) 0.4 % (0.2-1.0); EOSINOPHILS # (AUTO) 0.2 x10^3/uL (0.0-0.2); EOSINOPHILS % (AUTO) 2.1 % (0.9-2.9); HEMATOCRIT 32.1 % (36.0-47.0); HEMOGLOBIN 10.5 g/dL (12.0-16.0); LYMPHOCYTES # (AUTO) 2.9 X10^3/uL (1.3-2.9); LYMPHOCYTES % (AUTO) 36.2 % (21.0-51.0); MEAN CORPUSCULAR HEMOGLOBIN 27.4 pg (27.0-34.0); MEAN CORPUSCULAR HGB CONC 32.5 g/dL (33.0-35.0); MEAN CORPUSCULAR VOLUME 84.2 fL (80.0-100.0); MEAN PLATELET VOLUME 7.3 fL (7.4-11.0); MONOCYTES # (AUTO) 0.6 x10^3/uL (0.3-0.8); MONOCYTES % (AUTO) 7.4 % (0.0-13.0); NEUTROPHILS # (AUTO) 4.3 x10^3/uL (2.2-4.8); NEUTROPHILS % (AUTO) 53.9 % (42.0-75.0); RED BLOOD COUNT 3.81 X10^6/uL (3.5-5.4); RED CELL DISTRIBUTION WIDTH 14.5 % (11.6-16.5); WHITE BLOOD COUNT 7.9 X10^3/uL (3.6-10.0)
[2022-01-14 07:11] LABS: ALANINE AMINOTRANSFERASE 14 Units/L (12-78); ALBUMIN 3.2 g/dL (3.4-5.0); ALKALINE PHOSPHATASE 62 Units/L (46-116); AMYLASE 32 Units/L (25-115); ASPARTATE AMINO TRANSFERASE 15 Units/L (15-37); BLOOD UREA NITROGEN 9 mg/dL (7-18); CALCIUM 8.6 mg/dL (8.5-10.1); CARBON DIOXIDE 21.5 mmol/L (21-32); CHLORIDE 109 mmol/L (98-107); COR CA(FOR HYPOALB) 9.2 mg/dL (8.5-10.1); CREATININE 0.92 mg/dL (0.55-1.02); LIPASE 153 Units/L (73-393); SODIUM 143 mmol/L (136-145); TOTAL PROTEIN 6.6 g/dL (6.4-8.2); eGFR NON BLACK RACES > 60 (>60)
[2022-01-14] MEDS: MILK OF MAGNESIA PO SCH (08:41)
[2022-01-14] MEDS: LINZESS PO SCH (08:41)
[2022-01-14] MEDS: PEPCID TAB 20 MG PO SCH (08:42)
[2022-01-14] MEDS: NORVASC TAB 5 MG PO SCH (08:43)
[2022-01-14] MEDS: ZYLOPRIM PO SCH (08:43)
[2022-01-14] MEDS: PROTONIX INJ 40 MG VIAL IVP SCH (08:45)
[2022-01-14] MEDS: AMARYL TAB 4 MG PO SCH ×2 (08:45→21:49)
[2022-01-14] MEDS: PROTONIX TAB 40 MG PO SCH ×2 (08:46→14:34)
[2022-01-14] MEDS: CIPRO IV 400 MG PREMIX* 400 MG/200 ML IV.SOLN. IV SCH ×2 (08:47→21:51)
[2022-01-14] MEDS: PULMICORT NEB TX 0.5 MG NEB SCH ×2 (09:15→20:10)
[2022-01-14] MEDS: FLONASE NASAL SPRAY ENOSTRIL SCH (10:36)
[2022-01-14] MEDS: COZAAR PO SCH (10:36)
[2022-01-14] MEDS: TRADJENTA PO SCH (10:37)
[2022-01-14] MEDS: PATIENT'S HOME MEDICATION (Icosapent Ethyl [Vascepa] 1 gram Capsule) PO SCH (10:37)
[2022-01-14] MEDS: LEVEMIR SC SCH (10:37)
[2022-01-14] MEDS ORDERED: PATIENT'S HOME MEDICATION (Dulaglutide [Trulicity] 1.5 mg/0.5 mL Pen Injector) SUBCUT SCH (16:00)
[2022-01-14] MEDS: AMBIEN PO SCH (21:49)
[2022-01-14] MEDS: COLACE CAP 100 MG PO SCH (21:50)
[2022-01-14] MEDS: ZOCOR TAB 40 MG PO SCH (21:51)
--- NOTE | 2022-01-15 00:12 | PCM.PROG ---
Progress Note - Progress Note for Day of Date of Exam: 01/14/22 - Subjective Subjective: Patient is a 72 year old AAF who was admitted due to acute abdominal pain and diverticulitis. Patient reports improvement in pain. However patient has had nausea with vomiting today after attempting to eat grits. Will keep diet full and progress as tolerated. Repeat labs in am. Plan for possible dc in am if tolerates diet. - Past Medical Family Social History Past Med/Fam/Surg Hx: No changes since H&P Allergies: Allergies No Known Drug Allergies Allergy (Verified 02/01/21 13:01) - Review of Systems ROS: No change since H&P - Vital Signs and I&O's Vital Signs: Temperature 98.4 F Pulse Rate [Left Brachial] 87 Pulse Rate 91 Respiratory Rate 20 Blood Pressure [Right Arm] 142/74 Blood Pressure [Left Arm] 145/67 Blood Pressure [Right Arm] 123/63 Blood Pressure 169/76 O2 Sat by Pulse Oximetry 98 Intake and Output: Intake & Output 01/12/22 01/13/22 01/14/22 01/15/22 23:59 23:59 23:59 23:59 Intake Total 2910 / 2910 1126 / 1126 2367 / 2367 Balance 2910 / 2910 1126 / 1126 2367 / 2367 - Physical Exam Oriented: Normal, Time, Person, Place Eyes: Normal Ear: Normal Nose: Normal Throat: Normal Respiratory: Normal Cardiovascular: Normal : Normal Auscultation: Bowel Sounds: Normal Tenderness: LUQ, LLQ, Moderate Skin: Normal Musculoskeletal: Back:Thoracic, Back:Lumbar Psychiatric: Normal Mood Description: Calm Affect: Normal Speech Pattern: Clear, Appropriate - Laboratory and Diagnostics Result Diagrams: 01/14/22 05:40 01/14/22 05:40 Labs: 01/11/22 19:25 Urine,Clean Catch Urine Culture - Final Enterococcus Gallinarum Laboratory WBC 7.9 X10^3/uL (3.6-10.0) 01/14/22 05:40 RBC 3.81 X10^6/uL (3.5-5.4) 01/14/22 05:40 Hgb 10.5 g/dL (12.0-16.0) L 01/14/22 05:40 Hct 32.1 % (36.0-47.0) L 01/14/22 05:40 MCV 84.2 fL (80.0-100.0) 01/14/22 05:40 MCH 27.4 pg (27.0-34.0) 01/14/22 05:40 MCHC 32.5 g/dL (33.0-35.0) L 01/14/22 05:40 RDW 14.5 % (11.6-16.5) 01/14/22 05:40 Plt Count 216 X10^3/uL (150.0-450.0) 01/14/22 05:40 Plt Count Comment Adequate (ADEQUATE) 01/13/22 05:42 MPV 7.3 fL (7.4-11.0) L 01/14/22 05:40 Neut % (Auto) 53.9 % (42.0-75.0) 01/14/22 05:40 Lymph % (Auto) 36.2 % (21.0-51.0) 01/14/22 05:40 [place] % (Auto) 7.4 % (0.0-13.0) 01/14/22 05:40 Eos % (Auto) 2.1 % (0.9-2.9) 01/14/22 05:40 Baso % (Auto) 0.4 % (0.2-1.0) 01/14/22 05:40 Neut # (Auto) 4.3 x10^3/uL (2.2-4.8) 01/14/22 05:40 Lymph # (Auto) 2.9 X10^3/uL (1.3-2.9) 01/14/22 05:40 [place] # (Auto) 0.6 x10^3/uL (0.3-0.8) 01/14/22 05:40 Eos # (Auto) 0.2 x10^3/uL (0.0-0.2) 01/14/22 05:40 Baso # (Auto) 0.0 X10^3/uL (0.0-0.1) 01/14/22 05:40 Absolute Nucleated RBC 0.0 /100WBC 01/14/22 05:40 Plt Clumps, EDTA Few 01/13/22 05:42 Plt Morphology Comment Normal (NORMAL) 01/13/22 05:42 RBC Morphology Normal (NORMAL) 01/13/22 05:42 Sodium 143 mmol/L (136-145) 01/14/22 05:40 Corrected Sodium TNP 01/14/22 05:40 Potassium 3.7 mmol/L (3.5-5.1) 01/14/22 05:40 Chloride 109 mmol/L (98-107) H 01/14/22 05:40 Carbon Dioxide 21.5 mmol/L (21-32) 01/14/22 05:40 BUN 9 mg/dL (7-18) 01/14/22 05:40 Creatinine 0.92 mg/dL (0.55-1.02) 01/14/22 05:40 Est GFR (MDRD) Af Amer > 60 (>60) 01/14/22 05:40 Est GFR (MDRD) Non-Af > 60 (>60) 01/14/22 05:40 Glucose 102 mg/dL (65-99) H 01/14/22 05:40 POC Glucose (mg/dL) 170 mg/dL (65-99) H 01/14/22 09:32 Calcium 8.6 mg/dL (8.5-10.1) 01/14/22 05:40 Corrected Calcium 9.2 mg/dL (8.5-10.1) 01/14/22 05:40 Total Bilirubin 0.30 mg/dL (0.2-1.0) 01/14/22 05:40 AST 15 Units/L (15-37) 01/14/22 05:40 ALT 14 Units/L (12-78) 01/14/22 05:40 Alkaline Phosphatase 62 Units/L (46-116) 01/14/22 05:40 C-Reactive Protein 8.20 mg/L (0-3.0) H 01/11/22 16:50 Total Protein 6.6 g/dL (6.4-8.2) 01/14/22 05:40 Albumin 3.2 g/dL (3.4-5.0) L 01/14/22 05:40 Globulin 3.4 g/dL (2.5-4.5) 01/14/22 05:40 Albumin/Globulin Ratio 0.9 Ratio (1.1-2.1) L 01/14/22 05:40 Amylase 32 Units/L (25-115) 01/14/22 05:40 Lipase 153 Units/L (73-393) 01/14/22 05:40 Specimen Type Clean catch urine 01/11/22 19:25 Urine Color Pale yellow (YELLOW) 01/11/22 19:25 Urine Appearance Clear (CLEAR) 01/11/22 19:25 Urine pH 7.0 (5.0 - 8.0) 01/11/22 19:25 Ur Specific [place] 1.005 (1.000-1.030) 01/11/22 19:25 Urine Protein Negative (NEGATIVE) 01/11/22 19:25 Urine Glucose (UA) Negative (NEGATIVE) 01/11/22 19:25 Urine Ketones Negative (NEGATIVE) 01/11/22 19:25 Urine Occult Blood Negative (NEGATIVE) 01/11/22 19: Urine Nitrite Negative (NEGATIVE) 01/11/22 19:25 Urine Bilirubin Negative (NEGATIVE) 01/11/22 19:25 Urine Urobilinogen Normal (NORMAL) 01/11/22 19:25 Ur Leukocyte Esterase Negative (NEGATIVE) 01/11/22 19:25 SARS CoV-2 RNA Rapid LINDA Negative (NEGATIVE) 01/11/22 16:10 - Plan (1) Nausea & vomiting Status: Acute (2) Diverticulitis Status: Acute Plan: IV abx. IV fluids. Advance diet. Repeat labs as ordered (3) Dehydration Status: Acute Plan: Improved (4) Diabetes mellitus Status: Chronic Qualifiers: Diabetes mellitus shelter insulin use: without lobsterman use (5) JEFE (acute kidney injury) Status: Acute Plan: Improved (6) Hypertension Status: Chronic Qualifiers: Hypertension type: essential hypertension Qualified Code(s): I10 - Essential (primary) hypertension
[2022-01-15] MEDS: SNACK - Diabetic Appropriate PO SCH ×2 (00:37→21:48)
[2022-01-15] MEDS: NEURONTIN CAP 300 MG PO SCH ×3 (05:30→21:59)
[2022-01-15] MEDS: NS 1,000 ML IV 1,000 ML IV SCH ×2 (06:09→19:04)
[2022-01-15 07:54] LABS: ALANINE AMINOTRANSFERASE 14 Units/L (12-78); ALBUMIN 3.1 g/dL (3.4-5.0); ALKALINE PHOSPHATASE 59 Units/L (46-116); ASPARTATE AMINO TRANSFERASE 12 Units/L (15-37); BLOOD UREA NITROGEN 13 mg/dL (7-18); CALCIUM 8.2 mg/dL (8.5-10.1); CARBON DIOXIDE 22.6 mmol/L (21-32); CHLORIDE 111 mmol/L (98-107); COR CA(FOR HYPOALB) 8.9 mg/dL (8.5-10.1); CREATININE 0.99 mg/dL (0.55-1.02); SODIUM 144 mmol/L (136-145); TOTAL PROTEIN 6.4 g/dL (6.4-8.2); eGFR NON BLACK RACES 59 (>60)
[2022-01-15 08:07] LABS: BASOPHILS % (AUTO) 0.4 % (0.2-1.0); EOSINOPHILS # (AUTO) 0.2 x10^3/uL (0.0-0.2); HEMATOCRIT 30.7 % (36.0-47.0); LYMPHOCYTES # (AUTO) 3.3 X10^3/uL (1.3-2.9); LYMPHOCYTES % (AUTO) 37.7 % (21.0-51.0); MEAN CORPUSCULAR HEMOGLOBIN 27.8 pg (27.0-34.0); MEAN CORPUSCULAR HGB CONC 32.8 g/dL (33.0-35.0); MEAN CORPUSCULAR VOLUME 84.7 fL (80.0-100.0); MEAN PLATELET VOLUME 7.3 fL (7.4-11.0); MONOCYTES # (AUTO) 0.7 x10^3/uL (0.3-0.8); NEUTROPHILS # (AUTO) 4.5 x10^3/uL (2.2-4.8); NEUTROPHILS % (AUTO) 51.9 % (42.0-75.0); RED BLOOD COUNT 3.62 X10^6/uL (3.5-5.4); WHITE BLOOD COUNT 8.7 X10^3/uL (3.6-10.0)
[2022-01-15 08:29] LABS: AMYLASE 36 Units/L (25-115); LIPASE 197 Units/L (73-393)
[2022-01-15] MEDS: COZAAR PO SCH (08:46)
[2022-01-15] MEDS: LINZESS PO SCH (08:47)
[2022-01-15] MEDS: AMARYL TAB 4 MG PO SCH ×2 (08:48→21:58)
[2022-01-15] MEDS: NORVASC TAB 5 MG PO SCH (08:48)
[2022-01-15] MEDS: ZYLOPRIM PO SCH (08:49)
[2022-01-15] MEDS: PROTONIX TAB 40 MG PO SCH (08:49)
[2022-01-15] MEDS: MILK OF MAGNESIA PO SCH (08:50)
[2022-01-15] MEDS: CIPRO IV 400 MG PREMIX* 400 MG/200 ML IV.SOLN. IV SCH ×2 (08:50→21:51)
[2022-01-15] MEDS: FLONASE NASAL SPRAY ENOSTRIL SCH (09:03)
[2022-01-15] MEDS: PEPCID TAB 20 MG PO SCH (09:03)
[2022-01-15] MEDS: PATIENT'S HOME MEDICATION (Icosapent Ethyl [Vascepa] 1 gram Capsule) PO SCH (09:03)
[2022-01-15] MEDS: TRADJENTA PO SCH (09:04)
[2022-01-15] MEDS: LEVEMIR SC SCH ×2 (09:45→11:30)
[2022-01-15] MEDS: PULMICORT NEB TX 0.5 MG NEB SCH ×2 (12:35→21:08)
[2022-01-15] MEDS: MORPHINE SULFATE INJ 4 MG IVP PRN ×2 (13:49→21:50)
[2022-01-15] MEDS: NovoLIN R (or HumuLIN R) SUBCUT PRN ×2 (16:11→21:53)
--- NOTE | 2022-01-15 16:20 | PCM.PROG ---
Progress Note Progress Note for Day of Date of Exam: 01/15/22 Subjective Subjective: Patient is a 72 year old AAF who was admitted due to acute abdominal pain and diverticulitis. Patient reports improvement in pain. However patient has had nausea with vomiting today after attempting to eat grits. Will keep diet full and progress as tolerated. Repeat labs in am. Plan for possible dc in am if tolerates diet. The patient says she is eating now and tolerating it but it caused her to have left lower quadrant abdominal pain and is now made her feel bad. We will continue her on IV antibiotics for another 24 hours and try to discharge her home tomorrow morning. Past Medical Family Social History Past Med/Fam/Surg Hx: No changes since H&P Allergies: Allergies No Known Drug Allergies Allergy (Verified 02/01/21 13:01) Review of Systems ROS: No change since H&P Vital Signs and I&O's Vital Signs: Temperature 98.2 F Pulse Rate [Left Brachial] 80 Pulse Rate 91 Respiratory Rate 21 Blood Pressure [Right Arm] 137/67 Blood Pressure [Left Arm] 145/67 Blood Pressure [Right Arm] 123/63 Blood Pressure 169/76 O2 Sat by Pulse Oximetry 94 Intake and Output: Intake & Output 01/13/22 01/14/22 01/15/22 01/16/22 11:59 11:59 11:59 11:59 Intake Total 2210 / 2210 1226 / 1226 1966 816 / 816 Balance 2210 / 2210 1226 / 1226 1966 816 / 816 Physical Exam Oriented: Normal, Time, Person and Place Eyes: Normal Ear: Normal Nose: Normal Throat: Normal Respiratory: Normal Cardiovascular: Normal : Normal Auscultation: Bowel Sounds: Normal Tenderness: LUQ, LLQ and Moderate Skin: Normal Musculoskeletal: Back:Thoracic and Back:Lumbar Psychiatric: Normal Mood Description: Calm Affect: Normal Speech Pattern: Clear and Appropriate Laboratory and Diagnostics Result Diagrams: 01/15/22 06:40 01/15/22 06:40 Labs: 01/11/22 19:25 Urine,Clean Catch Urine Culture - Final Enterococcus Gallinarum Laboratory WBC 8.7 X10^3/uL (3.6-10.0) 01/15/22 06:40 RBC 3.62 X10^6/uL (3.5-5.4) 01/15/22 06:40 Hgb 10.0 g/dL (12.0-16.0) L 01/15/22 06:40 Hct 30.7 % (36.0-47.0) L 01/15/22 06:40 MCV 84.7 fL (80.0-100.0) 01/15/22 06:40 MCH 27.8 pg (27.0-34.0) 01/15/22 06:40 MCHC 32.8 g/dL (33.0-35.0) L 01/15/22 06:40 RDW 15.0 % (11.6-16.5) 01/15/22 06:40 Plt Count 217 X10^3/uL (150.0-450.0) 01/15/22 06:40 Plt Count Comment Adequate (ADEQUATE) 01/13/22 05:42 MPV 7.3 fL (7.4-11.0) L 01/15/22 06:40 Neut % (Auto) 51.9 % (42.0-75.0) 01/15/22 06:40 Lymph % (Auto) 37.7 % (21.0-51.0) 01/15/22 06:40 [place] % (Auto) 8.0 % (0.0-13.0) 01/15/22 06:40 Eos % (Auto) 2.0 % (0.9-2.9) 01/15/22 06:40 Baso % (Auto) 0.4 % (0.2-1.0) 01/15/22 06:40 Neut # (Auto) 4.5 x10^3/uL (2.2-4.8) 01/15/22 06:40 Lymph # (Auto) 3.3 X10^3/uL (1.3-2.9) H 01/15/22 06:40 [place] # (Auto) 0.7 x10^3/uL (0.3-0.8) 01/15/22 06:40 Eos # (Auto) 0.2 x10^3/uL (0.0-0.2) 01/15/22 06:40 Baso # (Auto) 0.0 X10^3/uL (0.0-0.1) 01/15/22 06:40 Absolute Nucleated RBC 0.0 /100WBC 01/15/22 06:40 Plt Clumps, EDTA Few 01/13/22 05:42 Plt Morphology Comment Normal (NORMAL) 01/13/22 05:42 RBC Morphology Normal (NORMAL) 01/13/22 05:42 Sodium 144 mmol/L (136-145) 01/15/22 06:40 Corrected Sodium TNP 01/15/22 06:40 Potassium 3.5 mmol/L (3.5-5.1) 01/15/22 06:40 Chloride 111 mmol/L (98-107) H 01/15/22 06:40 Carbon Dioxide 22.6 mmol/L (21-32) 01/15/22 06:40 BUN 13 mg/dL (7-18) 01/15/22 06:40 Creatinine 0.99 mg/dL (0.55-1.02) 01/15/22 06:40 Est GFR (MDRD) Af Amer > 60 (>60) 01/15/22 06:40 Est GFR (MDRD) Non-Af 59 (>60) 01/15/22 06:40 Glucose 66 mg/dL (65-99) 01/15/22 06:40 POC Glucose (mg/dL) 192 mg/dL (65-99) H 01/15/22 15:59 Calcium 8.2 mg/dL (8.5-10.1) L 01/15/22 06:40 Corrected Calcium 8.9 mg/dL (8.5-10.1) 01/15/22 06:40 Total Bilirubin 0.30 mg/dL (0.2-1.0) 01/15/22 06:40 AST 12 Units/L (15-37) L 01/15/22 06:40 ALT 14 Units/L (12-78) 01/15/22 06:40 Alkaline Phosphatase 59 Units/L (46-116) 01/15/22 06:40 C-Reactive Protein 8.20 mg/L (0-3.0) H 01/11/22 16:50 Total Protein 6.4 g/dL (6.4-8.2) 01/15/22 06:40 Albumin 3.1 g/dL (3.4-5.0) L 01/15/22 06:40 Globulin 3.3 g/dL (2.5-4.5) 01/15/22 06:40 Albumin/Globulin Ratio 0.9 Ratio (1.1-2.1) L 01/15/22 06:40 Amylase 36 Units/L (25-115) 01/15/22 06:40 Lipase 197 Units/L (73-393) 01/15/22 06:40 Specimen Type Clean catch urine 01/11/22 19:25 Urine Color Pale yellow (YELLOW) 01/11/22 19:25 Urine Appearance Clear (CLEAR) 01/11/22 19:25 Urine pH 7.0 (5.0 - 8.0) 01/11/22 19:25 Ur Specific [place] 1.005 (1.000-1.030) 01/11/22 19:25 Urine Protein Negative (NEGATIVE) 01/11/22 19:25 Urine Glucose (UA) Negative (NEGATIVE) 01/11/22 19:25 Urine Ketones Negative (NEGATIVE) 01/11/22 19:25 Urine Occult Blood Negative (NEGATIVE) 01/11/22 19:25 Urine Nitrite Negative (NEGATIVE) 01/11/22 19:25 Urine Bilirubin Negative (NEGATIVE) 01/11/22 19:25 Urine Urobilinogen Normal (NORMAL) 01/11/22 19:25 Ur Leukocyte Esterase Negative (NEGATIVE) 01/11/22 19:25 SARS CoV-2 RNA Rapid LINDA Negative (NEGATIVE) 01/11/22 16:10 Plan (1) Nausea & vomiting: Status: Acute (2) Diverticulitis: Status: Acute Plan: IV abx IV fluids Advance diet Repeat labs as ordered (3) Dehydration: Status: Acute Plan: Improved (4) Diabetes mellitus: Status: Chronic Qualifiers: Diabetes mellitus termite technician insulin use: without usp use (5) JEFE (acute kidney injury): Status: Acute Plan: Improved (6) Hypertension: Status: Chronic Qualifiers: Hypertension type: essential hypertension Qualified Code(s): I10 - Essential (primary) hypertension
[2022-01-15] MEDS: PROVENTIL NEB TX 0.083% 2.5MG/ 3ML NEB PRN (21:09)
[2022-01-15] MEDS: AMBIEN PO SCH (21:56)
[2022-01-15] MEDS: COLACE CAP 100 MG PO SCH (21:56)
[2022-01-15] MEDS: ZOCOR TAB 40 MG PO SCH (21:59)
[2022-01-16] MEDS: NORCO 7.5/325 MG TAB PO PRN ×2 (01:51→08:25)
[2022-01-16 06:16] LABS: BASOPHILS % (AUTO) 0.5 % (0.2-1.0); EOSINOPHILS # (AUTO) 0.2 x10^3/uL (0.0-0.2); EOSINOPHILS % (AUTO) 2.6 % (0.9-2.9); HEMATOCRIT 30.1 % (36.0-47.0); LYMPHOCYTES # (AUTO) 3.9 X10^3/uL (1.3-2.9); MEAN CORPUSCULAR HEMOGLOBIN 27.9 pg (27.0-34.0); MEAN CORPUSCULAR HGB CONC 33.2 g/dL (33.0-35.0); MEAN CORPUSCULAR VOLUME 84.2 fL (80.0-100.0); MEAN PLATELET VOLUME 7.2 fL (7.4-11.0); MONOCYTES # (AUTO) 0.7 x10^3/uL (0.3-0.8); MONOCYTES % (AUTO) 7.8 % (0.0-13.0); NEUTROPHILS # (AUTO) 4.2 x10^3/uL (2.2-4.8); NEUTROPHILS % (AUTO) 46.1 % (42.0-75.0); RED BLOOD COUNT 3.57 X10^6/uL (3.5-5.4); RED CELL DISTRIBUTION WIDTH 15.2 % (11.6-16.5); WHITE BLOOD COUNT 9.1 X10^3/uL (3.6-10.0)
[2022-01-16] MEDS: NS 1,000 ML IV 1,000 ML IV SCH ×3 (06:26→22:09)
[2022-01-16] MEDS: NEURONTIN CAP 300 MG PO SCH ×3 (06:26→22:53)
[2022-01-16 06:46] LABS: ALANINE AMINOTRANSFERASE 15 Units/L (12-78); ALBUMIN 3.1 g/dL (3.4-5.0); ALKALINE PHOSPHATASE 62 Units/L (46-116); ASPARTATE AMINO TRANSFERASE 11 Units/L (15-37); BLOOD UREA NITROGEN 14 mg/dL (7-18); CALCIUM 7.9 mg/dL (8.5-10.1); CARBON DIOXIDE 24.2 mmol/L (21-32); CHLORIDE 111 mmol/L (98-107); COR CA(FOR HYPOALB) 8.6 mg/dL (8.5-10.1); CREATININE 1.01 mg/dL (0.55-1.02); SODIUM 144 mmol/L (136-145); TOTAL PROTEIN 6.3 g/dL (6.4-8.2); eGFR NON BLACK RACES 57 (>60)
[2022-01-16] MEDS: MILK OF MAGNESIA PO SCH (08:05)
[2022-01-16] MEDS: PROTONIX TAB 40 MG PO SCH (08:06)
[2022-01-16] MEDS: LINZESS PO SCH (08:06)
[2022-01-16] MEDS: NORVASC TAB 5 MG PO SCH (08:06)
[2022-01-16] MEDS: ZYLOPRIM PO SCH (08:06)
[2022-01-16] MEDS: COZAAR PO SCH (08:06)
[2022-01-16] MEDS: AMARYL TAB 4 MG PO SCH ×2 (08:07→22:52)
[2022-01-16] MEDS: CIPRO IV 400 MG PREMIX* 400 MG/200 ML IV.SOLN. IV SCH ×2 (08:10→22:51)
[2022-01-16] MEDS: PEPCID TAB 20 MG PO SCH (08:11)
[2022-01-16] MEDS: FLONASE NASAL SPRAY ENOSTRIL SCH (08:11)
[2022-01-16] MEDS: TRADJENTA PO SCH (08:12)
[2022-01-16] MEDS: PULMICORT NEB TX 0.5 MG NEB SCH ×2 (09:04→20:58)
[2022-01-16] MEDS: LEVEMIR SC SCH (09:32)
--- NOTE | 2022-01-16 15:39 | PCM.PROG ---
Progress Note Progress Note for Day of Date of Exam: 01/16/22 Subjective Subjective: Patient is a 72 year old AAF who was admitted due to acute abdominal pain and diverticulitis. Patient reports improvement in pain. However patient has had nausea with vomiting today after attempting to eat grits. Will keep diet full and progress as tolerated. Repeat labs in am. Plan for possible dc in am if tolerates diet. The patient says she is eating now and tolerating it but it caused her to have left lower quadrant abdominal pain and is now made her feel bad and nauseated. We will continue her on IV antibiotics for another 24 hours and try to discharge her home tomorrow morning. She is overall improved since the previous day. Past Medical Family Social History Past Med/Fam/Surg Hx: No changes since H&P Allergies: Allergies No Known Drug Allergies Allergy (Verified 02/01/21 13:01) Review of Systems ROS: No change since H&P Vital Signs and I&O's Vital Signs: Temperature 97.9 F Pulse Rate [Left Brachial] 74 Pulse Rate 73 Respiratory Rate 20 Blood Pressure [Right Arm] 142/74 Blood Pressure [Left Arm] 145/67 Blood Pressure [Right Arm] 123/63 Blood Pressure 169/76 O2 Sat by Pulse Oximetry 94 Intake and Output: Intake & Output 01/14/22 01/15/22 01/16/22 01/17/22 11:59 11:59 11:59 11:59 Intake Total 1226 / 1226 1966 Balance 1226 / 1226 1966 Physical Exam Oriented: Normal, Time, Person and Place Eyes: Normal Ear: Normal Nose: Normal Throat: Normal Respiratory: Normal Cardiovascular: Normal : Normal Auscultation: Bowel Sounds: Normal Tenderness: LUQ, LLQ and Moderate Skin: Normal Musculoskeletal: Back:Thoracic and Back:Lumbar Psychiatric: Normal Mood Description: Calm Affect: Normal Speech Pattern: Clear and Appropriate Laboratory and Diagnostics Result Diagrams: 01/16/22 05:27 01/16/22 05:27 Labs: 01/11/22 19:25 Urine,Clean Catch Urine Culture - Final Enterococcus Gallinarum Laboratory WBC 9.1 X10^3/uL (3.6-10.0) 01/16/22 05:27 RBC 3.57 X10^6/uL (3.5-5.4) 01/16/22 05:27 Hgb 10.0 g/dL (12.0-16.0) L 01/16/22 05:27 Hct 30.1 % (36.0-47.0) L 01/16/22 05:27 MCV 84.2 fL (80.0-100.0) 01/16/22 05:27 MCH 27.9 pg (27.0-34.0) 01/16/22 05:27 MCHC 33.2 g/dL (33.0-35.0) 01/16/22 05:27 RDW 15.2 % (11.6-16.5) 01/16/22 05:27 Plt Count 221 X10^3/uL (150.0-450.0) 01/16/22 05:27 Plt Count Comment Adequate (ADEQUATE) 01/13/22 05:42 MPV 7.2 fL (7.4-11.0) L 01/16/22 05:27 Neut % (Auto) 46.1 % (42.0-75.0) 01/16/22 05:27 Lymph % (Auto) 43.0 % (21.0-51.0) 01/16/22 05:27 [place] % (Auto) 7.8 % (0.0-13.0) 01/16/22 05:27 Eos % (Auto) 2.6 % (0.9-2.9) 01/16/22 05:27 Baso % (Auto) 0.5 % (0.2-1.0) 01/16/22 05:27 Neut # (Auto) 4.2 x10^3/uL (2.2-4.8) 01/16/22 05:27 Lymph # (Auto) 3.9 X10^3/uL (1.3-2.9) H 01/16/22 05:27 [place] # (Auto) 0.7 x10^3/uL (0.3-0.8) 01/16/22 05:27 Eos # (Auto) 0.2 x10^3/uL (0.0-0.2) 01/16/22 05:27 Baso # (Auto) 0.0 X10^3/uL (0.0-0.1) 01/16/22 05:27 Absolute Nucleated RBC 0.1 /100WBC 01/16/22 05:27 Plt Clumps, EDTA Few 01/13/22 05:42 Plt Morphology Comment Normal (NORMAL) 01/13/22 05:42 RBC Morphology Normal (NORMAL) 01/13/22 05:42 Sodium 144 mmol/L (136-145) 01/16/22 05:27 Corrected Sodium TNP 01/16/22 05:27 Potassium 3.8 mmol/L (3.5-5.1) 01/16/22 05:27 Chloride 111 mmol/L (98-107) H 01/16/22 05:27 Carbon Dioxide 24.2 mmol/L (21-32) 01/16/22 05:27 BUN 14 mg/dL (7-18) 01/16/22 05:27 Creatinine 1.01 mg/dL (0.55-1.02) 01/16/22 05:27 Est GFR (MDRD) Af Amer > 60 (>60) 01/16/22 05:27 Est GFR (MDRD) Non-Af 57 (>60) L 01/16/22 05:27 Glucose 69 mg/dL (65-99) 01/16/22 05:27 POC Glucose (mg/dL) 88 mg/dL (65-99) 01/16/22 12:34 Calcium 7.9 mg/dL (8.5-10.1) L 01/16/22 05:27 Corrected Calcium 8.6 mg/dL (8.5-10.1) 01/16/22 05:27 Total Bilirubin 0.20 mg/dL (0.2-1.0) 01/16/22 05:27 AST 11 Units/L (15-37) L 01/16/22 05:27 ALT 15 Units/L (12-78) 01/16/22 05:27 Alkaline Phosphatase 62 Units/L (46-116) 01/16/22 05:27 C-Reactive Protein 8.20 mg/L (0-3.0) H 01/11/22 16:50 Total Protein 6.3 g/dL (6.4-8.2) L 01/16/22 05:27 Albumin 3.1 g/dL (3.4-5.0) L 01/16/22 05:27 Globulin 3.2 g/dL (2.5-4.5) 01/16/22 05:27 Albumin/Globulin Ratio 1.0 Ratio (1.1-2.1) L 01/16/22 05:27 Amylase 36 Units/L (25-115) 01/15/22 06:40 Lipase 197 Units/L (73-393) 01/15/22 06:40 Specimen Type Clean catch urine 01/11/22 19:25 Urine Color Pale yellow (YELLOW) 01/11/22 19:25 Urine Appearance Clear (CLEAR) 01/11/22 19:25 Urine pH 7.0 (5.0 - 8.0) 01/11/22 19:25 Ur Specific [place] 1.005 (1.000-1.030) 01/11/22 19:25 Urine Protein Negative (NEGATIVE) 01/11/22 19:25 Urine Glucose (UA) Negative (NEGATIVE) 01/11/22 19:25 Urine Ketones Negative (NEGATIVE) 01/11/22 19:25 Urine Occult Blood Negative (NEGATIVE) 01/11/22 19:25 Urine Nitrite Negative (NEGATIVE) 01/11/22 19:25 Urine Bilirubin Negative (NEGATIVE) 01/11/22 19:25 Urine Urobilinogen Normal (NORMAL) 01/11/22 19:25 Ur Leukocyte Esterase Negative (NEGATIVE) 01/11/22 19:25 SARS CoV-2 RNA Rapid LINDA Negative (NEGATIVE) 01/11/22 16:10 Plan (1) Nausea & vomiting: Status: Acute (2) Diverticulitis: Status: Acute Plan: IV abx IV fluids Advance diet Repeat labs as ordered (3) Dehydration: Status: Acute Plan: Improved (4) Diabetes mellitus: Status: Chronic Qualifiers: Diabetes mellitus penitentiary insulin use: without termite technician use (5) JEFE (acute kidney injury): Status: Acute Plan: Improved (6) Hypertension: Status: Chronic Qualifiers: Hypertension type: essential hypertension Qualified Code(s): I10 - Essential (primary) hypertension
[2022-01-16] MEDS: NovoLIN R (or HumuLIN R) SUBCUT PRN (17:28)
[2022-01-16] MEDS: SNACK - Diabetic Appropriate PO SCH (22:09)
[2022-01-16] MEDS: MORPHINE SULFATE INJ 4 MG IVP PRN (22:50)
[2022-01-16] MEDS: COLACE CAP 100 MG PO SCH (22:52)
[2022-01-16] MEDS: AMBIEN PO SCH (22:52)
[2022-01-16] MEDS: ZOCOR TAB 40 MG PO SCH (22:53)
[2022-01-17] MEDS: NS 1,000 ML IV 1,000 ML IV SCH ×3 (01:11→22:02)
[2022-01-17 05:23] LABS: BASOPHILS % (AUTO) 0.5 % (0.2-1.0); EOSINOPHILS # (AUTO) 0.2 x10^3/uL (0.0-0.2); EOSINOPHILS % (AUTO) 2.3 % (0.9-2.9); HEMATOCRIT 29.7 % (36.0-47.0); HEMOGLOBIN 9.8 g/dL (12.0-16.0); LYMPHOCYTES # (AUTO) 3.4 X10^3/uL (1.3-2.9); LYMPHOCYTES % (AUTO) 37.1 % (21.0-51.0); MEAN CORPUSCULAR HEMOGLOBIN 27.9 pg (27.0-34.0); MEAN CORPUSCULAR HGB CONC 32.9 g/dL (33.0-35.0); MEAN CORPUSCULAR VOLUME 84.7 fL (80.0-100.0); MEAN PLATELET VOLUME 7.1 fL (7.4-11.0); MONOCYTES # (AUTO) 0.8 x10^3/uL (0.3-0.8); MONOCYTES % (AUTO) 8.3 % (0.0-13.0); NEUTROPHILS # (AUTO) 4.8 x10^3/uL (2.2-4.8); NEUTROPHILS % (AUTO) 51.8 % (42.0-75.0); RED BLOOD COUNT 3.51 X10^6/uL (3.5-5.4); RED CELL DISTRIBUTION WIDTH 15.3 % (11.6-16.5); WHITE BLOOD COUNT 9.3 X10^3/uL (3.6-10.0)
[2022-01-17 05:40] LABS: ALANINE AMINOTRANSFERASE 14 Units/L (12-78); ALKALINE PHOSPHATASE 60 Units/L (46-116); ASPARTATE AMINO TRANSFERASE 13 Units/L (15-37); BLOOD UREA NITROGEN 10 mg/dL (7-18); CARBON DIOXIDE 23.8 mmol/L (21-32); CHLORIDE 108 mmol/L (98-107); COR CA(FOR HYPOALB) 8.8 mg/dL (8.5-10.1); CREATININE 0.77 mg/dL (0.55-1.02); SODIUM 140 mmol/L (136-145); TOTAL PROTEIN 6.3 g/dL (6.4-8.2); eGFR NON BLACK RACES > 60 (>60)
[2022-01-17] MEDS: NEURONTIN CAP 300 MG PO SCH (05:47)
[2022-01-17] MEDS: PULMICORT NEB TX 0.5 MG NEB SCH ×2 (08:54→20:13)
[2022-01-17] MEDS: AMARYL TAB 4 MG PO SCH ×2 (09:19→21:43)
[2022-01-17] MEDS: CIPRO IV 400 MG PREMIX* 400 MG/200 ML IV.SOLN. IV SCH ×2 (09:19→21:42)
[2022-01-17] MEDS: COZAAR PO SCH (09:19)
[2022-01-17] MEDS: NORVASC TAB 5 MG PO SCH (09:20)
[2022-01-17] MEDS: FLONASE NASAL SPRAY ENOSTRIL SCH (09:20)
[2022-01-17] MEDS: LINZESS PO SCH (09:20)
[2022-01-17] MEDS: PEPCID TAB 20 MG PO SCH (09:20)
[2022-01-17] MEDS: ZYLOPRIM PO SCH (09:21)
[2022-01-17] MEDS: PROTONIX TAB 40 MG PO SCH (09:21)
[2022-01-17] MEDS: LEVEMIR SC SCH (09:21)
[2022-01-17] MEDS: TRADJENTA PO SCH (09:21)
[2022-01-17] MEDS: NORCO 7.5/325 MG TAB PO PRN (09:46)
[2022-01-17] MEDS: NovoLIN R (or HumuLIN R) SUBCUT PRN ×3 (11:44→17:15)
[2022-01-17] MEDS: MILK OF MAGNESIA PO SCH (13:17)
[2022-01-17] MEDS: NEURONTIN TAB 600 MG PO SCH ×2 (13:30→21:53)
--- NOTE | 2022-01-17 14:24 | RAD ---
HISTORYLeft hip painSTUDYLeft hip two [id number] fracture, dislocation, bone destruction or periarticular soft tissue calcification. There is mild narrowing of the joint space. No significant bone production is noted involving femoral head or acetabular margin.IMPRESSIONNo acute findings left hip. Mild osteoarthrosis.Electronically signed by: LUCA CAMACHO (Jan 17, 2022 14:23:33)
[2022-01-17] MEDS: MORPHINE SULFATE INJ 4 MG IVP PRN ×2 (17:13→22:59)
[2022-01-17] MEDS ORDERED: NS 100 ML IV 100 ML ONE (17:56)
[2022-01-17] MEDS: ZOCOR TAB 40 MG PO SCH (21:42)
[2022-01-17] MEDS: SNACK - Diabetic Appropriate PO SCH (21:42)
[2022-01-17] MEDS: COLACE CAP 100 MG PO SCH (21:42)
[2022-01-17] MEDS: AMBIEN PO SCH (21:43)
[2022-01-18] MEDS: NS 1,000 ML IV 1,000 ML IV SCH (03:06)
--- NOTE | 2022-01-18 03:32 | CT ---
PROCEDURE: CT Abdomen and Pelvis with Contrast .HISTORY: Diverticulitis.TECHNIQUE: Axial images were performed through the abdomen and pelvis with the administration of IV contrast with multiplanar reformations . Oral contrast was administered. Dose reduction techniques including Automated Exposure Control (AEC) and adjustment of mA and kV were utilized .COMPARISON: 01/12/2022.TECHNICAL QUALITY: Satisfactory .FINDINGS:Clear lung bases. Unchanged start size upper limits of normal.Liver, spleen, adrenals, pancreas show no abnormality.Kidneys show no masses or obstruction.Normal biliary tract.No ascites or pneumoperitoneum.Normal aorta.No lymphadenopathy.No definite diverticulitis visualized today. Moderate colonic diverticulosis. No bowel obstruction and normal appendix.Previous hysterectomy and no masses or free fluid in the pelvis.Normal urinary bladder.No acute bony abnormality.IMPRESSION:1. No evidence of diverticulitis today.2. No other significant abnormality identified involving abdomen or pelvis.3. Heart size upper limits of normal.Electronically signed by: Forrest Han (Jan 18, 2022 03:31:35)
[2022-01-18] MEDS: NEURONTIN TAB 600 MG PO SCH (05:00)
[2022-01-18] MEDS: MORPHINE SULFATE INJ 4 MG IVP PRN (05:00)
[2022-01-18] MEDS: AMARYL TAB 4 MG PO SCH (09:29)
[2022-01-18] MEDS: CIPRO IV 400 MG PREMIX* 400 MG/200 ML IV.SOLN. IV SCH (09:31)
[2022-01-18] MEDS: COZAAR PO SCH (09:32)
[2022-01-18] MEDS: FLONASE NASAL SPRAY ENOSTRIL SCH (09:32)
[2022-01-18] MEDS: LINZESS PO SCH (09:35)
[2022-01-18] MEDS: MILK OF MAGNESIA PO SCH (09:36)
[2022-01-18] MEDS: NORVASC TAB 5 MG PO SCH (09:38)
[2022-01-18] MEDS: PEPCID TAB 20 MG PO SCH (09:40)
[2022-01-18] MEDS: PROTONIX TAB 40 MG PO SCH (09:41)
[2022-01-18] MEDS: ZYLOPRIM PO SCH (09:43)
[2022-01-18] MEDS: LEVEMIR SC SCH (09:44)
[2022-01-18] MEDS: PULMICORT NEB TX 0.5 MG NEB SCH (09:45)
[2022-01-18] MEDS: TRADJENTA PO SCH (10:15)
[2022-01-18 10:30] VITALS: BP 125/59
--- NOTE | 2022-03-28 23:23 | PCM.PROG ---
Progress Note - Progress Note for Day of Date of Exam: 01/17/22 - Subjective Subjective: Patient is a 72 year old AAF who was admitted due to acute abdominal pain and diverticulitis. Patient reports improvement in symptoms. Patiet is able to tolerate po food and fluids. Patient continues to report pain requirig IV pain meds. Patient also frustrated that pain contiues. .Hip xray. Repeat labs in am. Plan for possible dc in am if tolerates diet. - Past Medical Family Social History Past Med/Fam/Surg Hx: No changes since H&P Allergies: Allergies No Known Drug Allergies Allergy (Verified 02/01/22 11:11) - Review of Systems ROS: No change since H&P - Vital Signs and I&O's Vital Signs: Temperature 98 F Pulse Rate [Left Brachial] 93 Pulse Rate 78 Respiratory Rate 20 Blood Pressure [Right Arm] 125/59 Blood Pressure [Left Arm] 143/75 Blood Pressure [Right Arm] 123/63 Blood Pressure 169/76 O2 Sat by Pulse Oximetry 98 - Physical Exam Oriented: Normal, Time, Person, Place Eyes: Normal Ear: Normal Nose: Normal Throat: Normal Respiratory: Normal Cardiovascular: Normal : Normal Auscultation: Bowel Sounds: Normal Palpation: Normal Tenderness: LUQ, LLQ, Mild Skin: Normal Musculoskeletal: Back:Thoracic, Back:Lumbar Psychiatric: Normal Mood Description: Calm Affect: Normal Speech Pattern: Clear, Appropriate - Laboratory and Diagnostics Result Diagrams: 01/17/22 05:00 01/17/22 05:00 Labs: 01/17/22 12:50 Stool Stool Culture - Final 01/17/22 12:50 Stool - Final 01/11/22 19:25 Urine,Clean Catch Urine Culture - Final Enterococcus Gallinarum Laboratory WBC 9.3 X10^3/uL (3.6-10.0) 01/17/22 05:00 RBC 3.51 X10^6/uL (3.5-5.4) 01/17/22 05:00 Hgb 9.8 g/dL (12.0-16.0) L 01/17/22 05:00 Hct 29.7 % (36.0-47.0) L 01/17/22 05:00 MCV 84.7 fL (80.0-100.0) 01/17/22 05:00 MCH 27.9 pg (27.0-34.0) 01/17/22 05:00 MCHC 32.9 g/dL (33.0-35.0) L 01/17/22 05:00 RDW 15.3 % (11.6-16.5) 01/17/22 05:00 Plt Count 206 X10^3/uL (150.0-450.0) 01/17/22 05:00 Plt Count Comment Adequate (ADEQUATE) 01/13/22 05:42 MPV 7.1 fL (7.4-11.0) L 01/17/22 05:00 Neut % (Auto) 51.8 % (42.0-75.0) 01/17/22 05:00 Lymph % (Auto) 37.1 % (21.0-51.0) 01/17/22 05:00 [place] % (Auto) 8.3 % (0.0-13.0) 01/17/22 05:00 Eos % (Auto) 2.3 % (0.9-2.9) 01/17/22 05:00 Baso % (Auto) 0.5 % (0.2-1.0) 01/17/22 05:00 Neut # (Auto) 4.8 x10^3/uL (2.2-4.8) 01/17/22 05:00 Lymph # (Auto) 3.4 X10^3/uL (1.3-2.9) H 01/17/22 05:00 [place] # (Auto) 0.8 x10^3/uL (0.3-0.8) 01/17/22 05:00 Eos # (Auto) 0.2 x10^3/uL (0.0-0.2) 01/17/22 05:00 Baso # (Auto) 0.0 X10^3/uL (0.0-0.1) 01/17/22 05:00 Absolute Nucleated RBC 0.0 /100WBC 01/17/22 05:00 Plt Clumps, EDTA Few 01/13/22 05:42 Plt Morphology Comment Normal (NORMAL) 01/13/22 05:42 RBC Morphology Normal (NORMAL) 01/13/22 05:42 Sodium 140 mmol/L (136-145) 01/17/22 05:00 Corrected Sodium TNP 01/17/22 05:00 Potassium 3.7 mmol/L (3.5-5.1) 01/17/22 05:00 Chloride 108 mmol/L (98-107) H 01/17/22 05:00 Carbon Dioxide 23.8 mmol/L (21-32) 01/17/22 05:00 BUN 10 mg/dL (7-18) 01/17/22 05:00 Creatinine 0.77 mg/dL (0.55-1.02) 01/17/22 05:00 Est GFR (MDRD) Af Amer > 60 (>60) 01/17/22 05:00 Est GFR (MDRD) Non-Af > 60 (>60) 01/17/22 05:00 Glucose 89 mg/dL (65-99) 01/17/22 05:00 POC Glucose (mg/dL) 204 mg/dL (65-99) H 01/18/22 09:00 Calcium 8.0 mg/dL (8.5-10.1) L 01/17/22 05:00 Corrected Calcium 8.8 mg/dL (8.5-10.1) 01/17/22 05:00 Total Bilirubin 0.20 mg/dL (0.2-1.0) 01/17/22 05:00 AST 13 Units/L (15-37) L 01/17/22 05:00 ALT 14 Units/L (12-78) 01/17/22 05:00 Alkaline Phosphatase 60 Units/L (46-116) 01/17/22 05:00 C-Reactive Protein 8.20 mg/L (0-3.0) H 01/11/22 16:50 Total Protein 6.3 g/dL (6.4-8.2) L 01/17/22 05:00 Albumin 3.0 g/dL (3.4-5.0) L 01/17/22 05:00 Globulin 3.3 g/dL (2.5-4.5) 01/17/22 05:00 Albumin/Globulin Ratio 0.9 Ratio (1.1-2.1) L 01/17/22 05:00 Amylase 36 Units/L (25-115) 01/15/22 06:40 Lipase 197 Units/L (73-393) 01/15/22 06:40 Specimen Type Clean catch urine 01/11/22 19:25 Urine Color Pale yellow (YELLOW) 01/11/22 19:25 Urine Appearance Clear (CLEAR) 01/11/22 19:25 Urine pH 7.0 (5.0 - 8.0) 01/11/22 19:25 Ur Specific [place] 1.005 (1.000-1.030) 01/11/22 19:25 Urine Protein Negative (NEGATIVE) 01/11/22 19:25 Urine Glucose (UA) Negative (NEGATIVE) 01/11/22 19:25 Urine Ketones Negative (NEGATIVE) 01/11/22 19:25 Urine Occult Blood Negative (NEGATIVE) 01/11/22 19:25 Urine Nitrite Negative (NEGATIVE) 01/11/22 19: Urine Bilirubin Negative (NEGATIVE) 01/11/22 19: Urine Urobilinogen Normal (NORMAL) 01/11/22 19:25 Ur Leukocyte Esterase Negative (NEGATIVE) 01/11/22 19:25 Stool Description Fob tube 01/17/22 12:50 Stl Occult Blood (IFOB) Positive (NEGATIVE) A 01/17/22 12:50 Stl C. diff Tox B Gene Negative (NEGATIVE) 01/17/22 12:50 Stl C. diff [id number] Presumptive negative (NEGATIVE) 01/17/22 12:50 Stool H. pylori Ag Negative (NEGATIVE) 01/17/22 12:50 SARS CoV-2 RNA Rapid LINDA Negative (NEGATIVE) 01/11/22 16:10 - Plan (1) Nausea & vomiting Status: Acute (2) Diverticulitis Status: Acute Plan: IV abx. IV fluids. Advance diet. Repeat labs as ordered (3) Dehydration Status: Acute Plan: Improved (4) Diabetes mellitus Status: Chronic Qualifiers: Diabetes mellitus mcfp insulin use: without extermination inspector use (5) JEFE (acute kidney injury) Status: Acute Plan: Improved (6) Hypertension Status: Chronic Qualifiers: Hypertension type: essential hypertension Qualified Code(s): I10 - Essential (primary) hypertension
--- NOTE | 2022-03-28 23:28 | PCM.DCPLAN ---
Discharge Plan - Discharge Plan Hospital Course: Admit date 01/11/22 Discharge date 01/18/22 DOS 01/18/22 Admit diagnosis(1) Acute colitis (2) Acute renal failure (3) Acute dehydration (4) Hypertension (5) Diabetes mellitus, type II (6) Back pain 7 BACTER Discharge diagnosis same Hospital Course PT IS 71 BF DIRECT ADMIT FROM DR CHRISTINE OFFICE WITH LEFT LATERAL ABDOMINAL PAIN AFTER EATING CASHEWS. PT REPORTS PAIN WORSENED WITH DECREASED APPETITE AND NAUSEA. PT REPORTS DEHDRATION. PT HAD HX OF DM, HTN, CHF, RENAL DISEASE AND OA. PT ADMITTED FOR TREATMENT OF ACUTE ILLNESS AND IV ANTIBIOTICS. PATIENT WAS TREATED WITH IV ABX AND IV FLUIDS. SYMPTOMS IMPROVED. PATIENT WAS ABLE TO TOLERATE A REGULAR DIET. uRINE CULTURE POSITIVE FOR BACTERIA HOWEVER COLONY COUNT TOO LOW FOR FURTHER TREATMENT. PATIENT ALSO RECEIVED APPROPRIATE TREATMENT WHILE IN HOSPITAL. Discharge time spent >35 mins. Disposition: 01 HOME, SELF-CARE Condition: Stable Health Concerns: Post Hospitalization: new medications and changes needed to prevent readmission or further decline. Pt educated and given instructions on all concerns. Plan of Treatment: Continue with present treatment and follow up plan. Pt is to keep follow up appointment as instructed and take medications as ordered. Prescriptions: Continued albuterol sulfate [ProAir HFA] 90 mcg/actuation Hfa Aerosol Inhaler 2 puff Inhalation Q4H PRN (Reason: SOB) allopurinol 100 MG tablet 100 mg PO DAILY carvedilol [Coreg] 25 mg tablet 25 mg PO DAILY famotidine [Pepcid] 20 mg Tablet 20 mg PO DAILY fluticasone propionate 50 mcg/actuation [place],Suspension 1 mcg INTRANASAL DAILY gabapentin [Neurontin] 300 mg Capsule 600 mg PO TID Glimepiride 4 MG Tab 4 mg PO BID icosapent ethyl [Vascepa] 1 gram Capsule 1 g PO DAILY Levemir U-100 Insulin 100 unit/mL Solution 12 unit SUBCUT DAILY Linzess 145 mcg capsule 145 mcg PO DAILY losartan 100 MG tablet 50 mg PO DAILY Repatha SureClick 140 mg/mL Pen Injector 140 mg SUBCUT PRN PRN Simvastatin 40 MG Tab 40 mg PO HS tizanidine 2 mg Tablet 4 mg PO BID torsemide 20 mg tablet 10 mg PO DAILY Tradjenta 5 mg tablet 5 mg PO DAILY trazodone 150 mg tablet 150 mg PO HS Trulicity 1.5 mg/0.5 mL Pen Injector 0.5 mg SUBCUT DAILY zolpidem 10 mg tablet 5 mg PO HS Changed pantoprazole [Protonix] 40 mg Tablet,Delayed Release (Dr/Ec) 40 mg PO BID Qty: 60 RF: 0 Changed from: 40 mg oral daily Transmission Status: Received by [facility] hydrocodone-acetaminophen 7.5-325 mg tablet 1 tab PO BID PRN - Orders to Discharge Patient Discharge Orders: Discharge (Routine); Ordered 01/18/22 Ordered By: Flora Felix - Follow ups/Referrals Follow ups/Referrals: CATALINO NYE [Primary Care Provider] - 01/24/22 2:45 pm - Instructions Instructions: Diabetes Mellitus and Sick Day Management, Diverticulitis, [id number], Heart Failure, Self Care, [id number], Acute Kidney Injury, Adult Forms: Excuse From Work or School, Precautions for COVID19, [facility], Patient Portal, Social Distancing Print Language: [id number]
== END 2022-01-18 11:30 | disposition home or self-care (01) ==
LOC: MED/SURG
PROVIDERS: ADMIT Internal Medicine; ATTEND Internal Medicine

== ENCOUNTER 2022-02-01 11:00 | Observation (INO) ==
[2022-02-01 11:18] VITALS: BMI 34.3
[2022-02-01] MEDS ORDERED: TORADOL 30 MG VIAL IVP ONE (11:19)
[2022-02-01] MEDS ORDERED: NS 500 ML IV 500 ML IV ONE ×2 (11:20→11:31)
[2022-02-01] MEDS ORDERED: TORADOL 30 MG VIAL ONE (11:31)
--- NOTE | 2022-02-01 11:35 | DR.EXTPAIN ---
HPI Time seen Time Seen by Provider: 02/01/22 11:18 Complaint/Symptoms Chief Complaint Doctor Comments: 72 y/o female brought in via EMS after suffering a fall at home. Pt states her kegs start shaking while standing, fell to the ground. Thinks she hit her head, no LOC. Having a headache, dull, diffu se, does not radiate. Also with neck pain, with moving. Also with right upper chest/back pain. + worse with palpation, moving. Nothing makes it better. Having similar episodes over the past year. Denies loss of balance, tripping. States legs just give way. BP low on arrival. Pt took her BP meds this am. Denies recent illness - no URI, GI, complaints. COVID-19 Coronavirus risk:travel/contact w/high risk person: No Has patient experienced Coronavirus symptoms: No Nurses notes reviewed Nurses Notes Review: Yes Source History Provided: Patient and EMS Mode of arrival Mode of Arrival: EMS PMH PMH Past Medical History: CHF, Depression, Diabetes, Migraines, GERD, Gout and Hypertension Past Surgical History: Yes Surgical History: CABG/Valve Surgery and Hysterectomy Family History Family Medical History: Diabetes Mellitus Social History Do you use any recreational Drugs:: No Infectious screening Isolation: Standard ROS Review of Systems Constitutional: Weakness Eyes: No Symptoms Reported ENTM: No Symptoms Reported Respiratoy: No Symptoms Reported Cardiovascular: No Symptoms Reported Gastrointestinal/Abdominal: No Symptoms Reported Genitourinary: No Symptoms Reported Neurological: Headache and Weakness Musculoskeletal: Right, Chest wall and Shoulder Integumentary: No Symptoms Reported Hematologic/Lymphatic: No Symptoms Reported Psychiatric: No Symptoms Reported All Other Systems: Reviewed and Negative PE Vital Signs Vitals: Temperature 97.9 F Pulse Rate 76 Respiratory Rate 20 Blood Pressure [Right Arm] 125/59 Blood Pressure 119/64 O2 Sat by Pulse Oximetry 96 General Limitations: No Limitations General Appearance: Alert and In No Apparent Distress Head Head Exam: Normal Inspection, Atraumatic and Normocephalic Eyes Eye exam: PERRL and EOMI ENT ENT Exam: Normal Exam and Mucous Membranes Moist Neck Neck Exam: Tenderness (diffuse, posterior aspect, c-collar reapplied) Chest Chest Inspection: Tenderness (R upper anterior chest wall) Respiratory Respiratory Exam: Normal Lung Sounds Bilat; negative Accessory Muscle Use and Respiratory Distress Respiratory Exam: Bilateral: Clear to Auscultation Cardiovascular Cardiovascular Exam: Regular Rate, Normal Rhythm and Normal Heart Sounds Abdominal Exam Abdominal Exam: Normal Inspection, Normal Bowel Sounds and Soft; negative Tenderness Extremities Extremities Exam: Tenderness (R scapular region, + pain with ROM of R shoulder. ) Lower Extremities Hip/Pelvis Exam: Normal Inspection; negative Tenderness Neurological Neurological Exam: Alert, Oriented X3 and CN II-XII Intact; negative Motor Sensory Deficit Psychiatric Psychiatric Exam: Normal Affect Skin Skin Exam: Warm and Dry MDM Differential Diagnosis Differential Diagnosis: Contusion, Fracture and Other (hypotension, sepsis) COURSE Treatment Treatment: 72 y/o female brought in for evaluation after falling at home. + neck, R chest/back pain. Is hypotensive, denies recent illness. W/u initiated. Will CT the head/neck, x-ray the chest, R shoulder. Will check labs, pt given a 500 ml NS bolus. 1340 - BP was low on arrival, doing better after IV fluids. Labs overall acceptable. Does have elevated Cr, 2.5, twice higher than last lab from a year ago. Urine a bit off, c/w mild UTI. Given IV rocephin. Discussed with her PCP, Dr Levi, will admit. ROR Labs Reviewed Result Diagrams: 02/01/22 11:37 02/01/22 11:37 Laboratory: WBC 8.8 X10^3/uL (3.6-10.0) 02/01/22 11:37 RBC 3.68 X10^6/uL (3.5-5.4) 02/01/22 11:37 Hgb 10.2 g/dL (12.0-16.0) L 02/01/22 11:37 Hct 31.1 % (36.0-47.0) L 02/01/22 11:37 MCV 84.5 fL (80.0-100.0) 02/01/22 11:37 MCH 27.6 pg (27.0-34.0) 02/01/22 11:37 MCHC 32.6 g/dL (33.0-35.0) L 02/01/22 11:37 RDW 15.7 % (11.6-16.5) 02/01/22 11:37 Plt Count 275 X10^3/uL (150.0-450.0) 02/01/22 11:37 MPV 7.1 fL (7.4-11.0) L 02/01/22 11:37 Neut % (Auto) 56.3 % (42.0-75.0) 02/01/22 11:37 Lymph % (Auto) 37.0 % (21.0-51.0) 02/01/22 11:37 [place] % (Auto) 4.8 % (0.0-13.0) 02/01/22 11:37 Eos % (Auto) 1.5 % (0.9-2.9) 02/01/22 11:37 Baso % (Auto) 0.4 % (0.2-1.0) 02/01/22 11:37 Neut # (Auto) 4.9 x10^3/uL (2.2-4.8) H 02/01/22 11:37 Lymph # (Auto) 3.3 X10^3/uL (1.3-2.9) H 02/01/22 11:37 [place] # (Auto) 0.4 x10^3/uL (0.3-0.8) 02/01/22 11:37 Eos # (Auto) 0.1 x10^3/uL (0.0-0.2) 02/01/22 11:37 Baso # (Auto) 0.0 X10^3/uL (0.0-0.1) 02/01/22 11:37 Absolute Nucleated RBC 0.2 /100WBC 02/01/22 11:37 Sodium 141 mmol/L (136-145) 02/01/22 11:37 Corrected Sodium 145 mmol/L (136-145) 02/01/22 11:37 Potassium 4.5 mmol/L (3.5-5.1) 02/01/22 11:37 Chloride 105 mmol/L (98-107) 02/01/22 11:37 Carbon Dioxide 23.4 mmol/L (21-32) 02/01/22 11:37 BUN 38 mg/dL (7-18) H 02/01/22 11:37 Creatinine 2.45 mg/dL (0.55-1.02) H 02/01/22 11:37 Est GFR (MDRD) Af Amer 25 (>60) L 02/01/22 11:37 Est GFR (MDRD) Non-Af 21 (>60) L 02/01/22 11:37 Glucose 246 mg/dL (65-99) H 02/01/22 11:37 Lactic Acid 2.5 mmol/L (0.4-2.0) H 02/01/22 11:37 Calcium 8.9 mg/dL (8.5-10.1) 02/01/22 11:37 Corrected Calcium TNP 02/01/22 11:37 Total Bilirubin 0.30 mg/dL (0.2-1.0) 02/01/22 11:37 AST 14 Units/L (15-37) L 02/01/22 11:37 ALT 15 Units/L (12-78) 02/01/22 11:37 Alkaline Phosphatase 74 Units/L (46-116) 02/01/22 11:37 Creatine Kinase 101 Units/L (26-192) 02/01/22 11:37 CK-MB (CK-2) < 1.0 ng/mL (0-4.0) 02/01/22 11:37 CK/CKMB % Calc 1.0 % (<4) 02/01/22 11:37 Troponin I High Sens 6.1 ng/L (4.0-60.0) 02/01/22 11:37 Total Protein 7.3 g/dL (6.4-8.2) 02/01/22 11:37 Albumin 3.6 g/dL (3.4-5.0) 02/01/22 11:37 Globulin 3.7 g/dL (2.5-4.5) 02/01/22 11:37 Albumin/Globulin Ratio 1.0 Ratio (1.1-2.1) L 02/01/22 11:37 Specimen Type Random urine 02/01/22 13:34 Urine Color Yellow (YELLOW) 02/01/22 13:34 Urine Appearance Clear (CLEAR) 02/01/22 13:34 Urine pH 6.0 (5.0 - 8.0) 02/01/22 13:34 Ur Specific [place] 1.010 (1.000-1.030) 02/01/22 13:34 Urine Protein 2+ (NEGATIVE) 02/01/22 13:34 Urine Glucose (UA) Negative (NEGATIVE) 02/01/22 13:34 Urine Ketones Negative (NEGATIVE) 02/01/22 13:34 Urine Blood 1+ (NEGATIVE) 02/01/22 13:34 Urine Nitrite Negative (NEGATIVE) 02/01/22 13:34 Urine Bilirubin Negative (NEGATIVE) 02/01/22 13:34 Urine Urobilinogen Normal (NORMAL) 02/01/22 13:34 Ur Leukocyte Esterase 3+ (NEGATIVE) 02/01/22 13:34 Urine RBC 5-10 /HPF (0-3) A 02/01/22 13:34 Urine WBC 10-20 /HPF (0-5) A 02/01/22 13:34 Ur Squamous Epith Cells Moderate /HPF (NEGATIVE) 02/01/22 13:34 Urine Bacteria Trace /HPF (NEGATIVE) 02/01/22 13:34 Ur Culture Indicated? Yes/culture set up 02/01/22 13:34 Opioid Opioid Risk Tool Age (Harsha box if 16-45): No History of Preadolescent Sexual Abuse: No Total: 0 Total Score Risk Category: Low Risk Copyright: Jas ZAMUDIO predicting aberrant behaviors Diagnosis Discharge Problem: Acute nontraumatic kidney injury UTI (urinary tract infection) Qualifiers: Urinary tract infection type: acute cystitis Hematuria presence: without hematuria Qualified Code(s): N30.00 - Acute cystitis without hematuria
[2022-02-01 12:04] LABS: BASOPHILS % (AUTO) 0.4 % (0.2-1.0); EOSINOPHILS # (AUTO) 0.1 x10^3/uL (0.0-0.2); EOSINOPHILS % (AUTO) 1.5 % (0.9-2.9); HEMATOCRIT 31.1 % (36.0-47.0); HEMOGLOBIN 10.2 g/dL (12.0-16.0); LYMPHOCYTES # (AUTO) 3.3 X10^3/uL (1.3-2.9); MEAN CORPUSCULAR HEMOGLOBIN 27.6 pg (27.0-34.0); MEAN CORPUSCULAR HGB CONC 32.6 g/dL (33.0-35.0); MEAN CORPUSCULAR VOLUME 84.5 fL (80.0-100.0); MEAN PLATELET VOLUME 7.1 fL (7.4-11.0); MONOCYTES # (AUTO) 0.4 x10^3/uL (0.3-0.8); MONOCYTES % (AUTO) 4.8 % (0.0-13.0); NEUTROPHILS # (AUTO) 4.9 x10^3/uL (2.2-4.8); NEUTROPHILS % (AUTO) 56.3 % (42.0-75.0); RED BLOOD COUNT 3.68 X10^6/uL (3.5-5.4); RED CELL DISTRIBUTION WIDTH 15.7 % (11.6-16.5); WHITE BLOOD COUNT 8.8 X10^3/uL (3.6-10.0)
[2022-02-01 12:13] LABS: LACTIC ACID 2.5 mmol/L (0.4-2.0)
[2022-02-01 12:23] LABS: ALANINE AMINOTRANSFERASE 15 Units/L (12-78); ALBUMIN 3.6 g/dL (3.4-5.0); ALKALINE PHOSPHATASE 74 Units/L (46-116); ASPARTATE AMINO TRANSFERASE 14 Units/L (15-37); BLOOD UREA NITROGEN 38 mg/dL (7-18); CALCIUM 8.9 mg/dL (8.5-10.1); CARBON DIOXIDE 23.4 mmol/L (21-32); CHLORIDE 105 mmol/L (98-107); COR NA(FOR HYPERGLY) 145 mmol/L (136-145); CREATINE KINASE 101 Units/L (26-192); CREATINE KINASE MB < 1.0 ng/mL (0-4.0); CREATININE 2.45 mg/dL (0.55-1.02); SODIUM 141 mmol/L (136-145); TOTAL PROTEIN 7.3 g/dL (6.4-8.2); eGFR NON BLACK RACES 21 (>60)
--- NOTE | 2022-02-01 12:26 | CT ---
HISTORYS/P FALL, HIT HEADSTUDYHEAD (TRAUMA)COMPARISONCT head from 02/13/2021TECHNIQUEMultiple axial images of the head were performed from the skullbase to the vertex using standard departmental protocol. Sagittal and coronal reformatted images were performed. Dose reduction techniques including Automated Exposure Control (AEC) and adjustment of mA and kV were utilized.FINDINGSThe lateral ventricles and basilar cisterns are patent.No parenchymal mass or hematoma. Lopez-white differentiation appears acutely preserved.No extra-axial collection.The globes are intact.No air fluid levels in the paranasal sinuses. No paranasal sinus wall thickening or sclerosis. Mastoid air cells are clear.The calvarium is intact.IMPRESSIONNo acute intracranial abnormality.Electronically signed by: Liam Pak (Feb 01, 2022 12:25:52)
--- NOTE | 2022-02-01 12:51 | RAD ---
HISTORYFALL HTN, DM, CHF, CABG VALVE, HYSTSTUDYCHEST, 1 [id number] is midline. There is stable severe cardiomegaly. No evidence of pneumothorax. No dominant alveolar radiopacities, no pleural effusions. No central pulmonary edema. Osseus structures are unremarkable. No subcutaneous emphysema.IMPRESSIONNo acute cardiopulmonary findings .Electronically signed by: Imani Torres (Feb 01, 2022 12:50:36)
--- NOTE | 2022-02-01 13:08 | RAD ---
HISTORYFall, right shoulder painSTUDYRight shoulder three viewsCOMPARISONNoneFINDINGSClavicle, AC joint, scapula, glenohumeral joint, proximal humerus, and right upper ribs appear intact.IMPRESSIONNo significant abnormality identifiedElectronically signed by: CASIE TERRY (Feb 01, 2022 13:07:55)
--- NOTE | 2022-02-01 13:53 | CT ---
HISTORYFall, neck painSTUDYCT cervical spine without contrastTechnique: Axial noncontrast images with coronal and sagittal reformats. Dose reduction procedures were used with mA/kv adjusted for body size.[id number]/13/2018 reportFINDINGSThe prevertebral soft tissues are normal. The alignment is normal. The vertebral bodies are of average height. Disc space narrowing is present C3-4, C4-5, C5-6. Anterior and posterior spondylitic change present at those levels also. The pedicles, spinous processes, and posterior elements are intact. There is mild spondylitic canal stenosis C5-6. The neural foramina are patent. Diffuse bilateral facet and uncovertebral joint degenerative joint disease is present. There is no evidence for fracture or dislocation.IMPRESSIONNo evidence for fracture or dislocationDisc space narrowing C3-4 through C5-6Minimal spondylitic canal stenosis C5-6Diffuse bilateral facet and uncovertebral joint degenerative joint diseaseElectronically signed by: CASIE TERRY (Feb 01, 2022 13:52:52)
[2022-02-01 14:28] LABS: BILIRUBIN,URINE NEGATIVE (NEGATIVE); BLOOD/HEMOGLOBIN,URINE 1+ (NEGATIVE); GLUCOSE, URINE NEGATIVE (NEGATIVE); KETONES,URINE NEGATIVE (NEGATIVE); LEUKOCYTE ESTERASE ,URINE 3+ (NEGATIVE); NITRITES,URINE NEGATIVE (NEGATIVE); PROTEIN,URINE 2+ (NEGATIVE); UROBILINOGEN,URINE NORMAL (NORMAL)
[2022-02-01 14:48] LABS: APPEARANCE,URINE CLEAR (CLEAR); BACTERIA,URINE TRACE /HPF (NEGATIVE); COLOR,URINE YELLOW (YELLOW); SQUAMOUS EPITHELIAL CELL,UR MODERATE /HPF (NEGATIVE)
[2022-02-01] MEDS ORDERED: ROCEPHIN 1 GRAM IV PREMIX 1 G/50 ML IV.SOLN. IV ONE (15:00)
[2022-02-01] MEDS ORDERED: ROCEPHIN VIAL 1 GRAM ONE (15:23)
[2022-02-01] MEDS ORDERED: MORPHINE SULFATE INJ 2 MG INJ IVP ONE (15:25)
[2022-02-01] MEDS ORDERED: MORPHINE SULFATE INJ 2 MG INJ ONE (16:09)
[2022-02-01] MEDS ORDERED: VENTOLIN or PROAIR HFA IN PRN (16:49)
[2022-02-01] MEDS ORDERED: PROVENTIL NEB TX 0.083% 2.5MG/ 3ML NEB PRN (16:50)
[2022-02-01] MEDS: ROCEPHIN 1 GRAM IV PREMIX 1 G/50 ML IV.SOLN. IV SCH (16:51)
[2022-02-01] MEDS: NS 1,000 ML IV 1,000 ML IV SCH (17:44)
[2022-02-01] MEDS ORDERED: SNACK - Diabetic Appropriate PO SCH (20:00)
[2022-02-01] MEDS: SNACK - Diabetic Appropriate PO SCH (20:30)
[2022-02-01] MEDS: NovoLIN R (or HumuLIN R) SUBCUT PRN (21:00)
[2022-02-01] MEDS: AMBIEN PO SCH (21:21)
[2022-02-01] MEDS: NEURONTIN CAP 300 MG PO SCH (21:22)
[2022-02-01] MEDS: DESYREL PO SCH (21:22)
[2022-02-01] MEDS: PROTONIX TAB 40 MG PO SCH (21:23)
[2022-02-01] MEDS: ZOCOR TAB 40 MG PO SCH (21:23)
[2022-02-02] MEDS ORDERED: TYLENOL 325 MG TAB PO ONE (04:04)
[2022-02-02] MEDS: TYLENOL 325 MG TAB PO PRN (04:30)
[2022-02-02 04:34] LABS: BASOPHILS % (AUTO) 0.3 % (0.2-1.0); EOSINOPHILS # (AUTO) 0.2 x10^3/uL (0.0-0.2); EOSINOPHILS % (AUTO) 2.6 % (0.9-2.9); HEMATOCRIT 32.2 % (36.0-47.0); HEMOGLOBIN 10.4 g/dL (12.0-16.0); LYMPHOCYTES # (AUTO) 3.3 X10^3/uL (1.3-2.9); MEAN CORPUSCULAR HEMOGLOBIN 27.1 pg (27.0-34.0); MEAN CORPUSCULAR HGB CONC 32.4 g/dL (33.0-35.0); MEAN CORPUSCULAR VOLUME 83.6 fL (80.0-100.0); MONOCYTES # (AUTO) 0.6 x10^3/uL (0.3-0.8); MONOCYTES % (AUTO) 6.9 % (0.0-13.0); NEUTROPHILS # (AUTO) 4.1 x10^3/uL (2.2-4.8); NEUTROPHILS % (AUTO) 50.2 % (42.0-75.0); RED BLOOD COUNT 3.85 X10^6/uL (3.5-5.4); RED CELL DISTRIBUTION WIDTH 15.8 % (11.6-16.5); WHITE BLOOD COUNT 8.2 X10^3/uL (3.6-10.0)
[2022-02-02 04:52] LABS: ALBUMIN 3.3 g/dL (3.4-5.0); CALCIUM 8.8 mg/dL (8.5-10.1); CARBON DIOXIDE 25.7 mmol/L (21-32); COR CA(FOR HYPOALB) 9.4 mg/dL (8.5-10.1); CREATININE 1.3 mg/dL (0.55-1.02); TOTAL PROTEIN 7.1 g/dL (6.4-8.2)
[2022-02-02] MEDS: NS 1,000 ML IV 1,000 ML IV SCH ×4 (05:16→23:30)
[2022-02-02] MEDS: NEURONTIN CAP 300 MG PO SCH ×3 (05:17→21:51)
[2022-02-02] MEDS: PROTONIX TAB 40 MG PO SCH ×2 (08:25→21:42)
[2022-02-02] MEDS: ROCEPHIN 1 GRAM IV PREMIX 1 G/50 ML IV.SOLN. IV SCH (08:26)
[2022-02-02] MEDS: COREG TAB 25 MG PO SCH (08:40)
[2022-02-02] MEDS: ZYLOPRIM PO SCH (08:40)
[2022-02-02] MEDS: LEVEMIR SC SCH (08:41)
[2022-02-02] MEDS: LINZESS PO SCH (08:41)
[2022-02-02] MEDS: PEPCID TAB 20 MG PO SCH (08:42)
[2022-02-02] MEDS: TRADJENTA PO SCH ×2 (11:10→11:51)
[2022-02-02] MEDS ORDERED: REPATHA SURECLICK 140 MG SUBCUT SCH (11:15)
[2022-02-02] MEDS ORDERED: DULAGLUTIDE SUBCUT SCH (11:15)
[2022-02-02] MEDS: FLONASE NASAL SPRAY ENOSTRIL SCH (11:50)
[2022-02-02] MEDS: COZAAR PO SCH ×2 (11:51→11:58)
[2022-02-02] MEDS: ICOSAPENT ETHYL 1 GM PO SCH (11:52)
[2022-02-02] MEDS: DEMADEX PO SCH (11:56)
[2022-02-02] MEDS: ZANAFLEX PO SCH ×2 (11:57→21:42)
[2022-02-02] MEDS: NORCO 7.5/325 MG TAB PO PRN ×2 (11:59→21:40)
[2022-02-02] MEDS ORDERED: MORPHINE SULFATE INJ 2 MG INJ ONE (13:44)
[2022-02-02] MEDS: MORPHINE SULFATE INJ 2 MG INJ IVP PRN ×2 (13:45→23:10)
--- NOTE | 2022-02-02 14:05 | DR.H&P ---
H&P - History & Physical for Day of: H&P Date: 02/01/22 - Chief Complaint Chief Complaint: FALL, HIP AND SHOULDER PAIN - History of Present Illness History of Present Illness: PT IS 72 BF ER ADMISSION AFTER PRESENTING WITH CO FALL WHILE IN RESTROOM THIS AM. PT CO PAIN TO LEFT KNEE AND LOWER BACK AND RIGHT SHOULDER. PT HAD PMH OF DM, HTN, OA, SERGIO. PT HAD ELEVATED BUN/CREAT ON ADMISSION ABOVER HER BASELINE. PT WAS ADMITTED FOR TREATMENT OF ACUTE ILLNESS. - Past Medical History Past Medical History: Hypertension, Diabetes, Depression, GERD, Gout, Migraines, CHF - Past Surgical History Surgical History: CABG/Valve Surgery, Hysterectomy - Family History Family Medical History: Diabetes Mellitus - Social History Does patient currently use any type of tobacco product: No Have you used tobacco products in the last 12 months: No Type of Tobacco Use: None Alcohol Use: None Drug Use: None - Medications Home Medications: No Known Drug Allergies Allergy (Verified 02/01/22 11:11) CONTINUE taking the following medications hydrocodone-acetaminophen 1 tab PO BID PRN 02/02/22 [History] - Review of Systems Constitutional: Weakness Eyes: No Symptoms Reported ENT: No Symptoms Reported Respiratory: SOB with Excertion Cardiovascular: No Symptoms Reported Genitourinary: No Symptoms Reported Musculoskeletal: Shoulder Pain, Back Pain, Leg Pain Skin: No Symptoms Reported Neurological: Weakness - Physical Exam Vital Signs: Temperature 98.3 F Pulse Rate [Right Brachial] 70 Pulse Rate [Left] 72 Pulse Rate 70 Respiratory Rate 20 Blood Pressure [Right Arm] 143/77 Blood Pressure 119/64 O2 Sat by Pulse Oximetry 96 Oriented: Normal Eyes: Normal, Diplopia Nose: Normal Throat: Normal Respiratory: RLL Diminished, LLL Diminished Cardiovascular: Normal. negative: Edema Auscultation: Bowel Sounds: Normal Palpation: Normal Tenderness: Normal Skin: Decreased Turgur Musculoskeletal: Right, Shoulder, Knee (LEFT KNEE), Back:Lumbar, Tender Psychiatric: Anxiety Affect: Anxious Speech Pattern: Clear, Appropriate - Assessment/Plan (1) Acute renal failure Status: Acute Plan: ADMIT, GENTLE IV HYDRATION. BP AND BS CONTROL. STRICT I&OS. PAIN CONTROL, VERIFY HOME MEDICATION AND RESUME. CT HEAD, XRAYS OBTAINED IN ER PRIOR TO ADMISSION (2) Acute dehydration Status: Acute (3) Arthritis Status: Chronic (4) Diabetes mellitus Qualifiers: Diabetes mellitus termite exterminator helper insulin use: without termite exterminator helper use Status: Chronic (5) Hypertension Qualifiers: Hypertension type: essential hypertension Qualified Code(s): I10 - Essential (primary) hypertension Status: Chronic - Allergies Allergies/Adverse Reactions: Allergies Allergy/AdvReac Type Severity Reaction Status Date / Time No Known Drug Allergies Allergy Verified 02/01/22 11:11
--- NOTE | 2022-02-02 15:55 | RAD ---
HISTORYPT C/O LEFT KNEE PAIN Relevant Clinical InformationSTUDYKNEE, AP/LAT LEFTCOMPARISONNoneFINDINGSNo evidence for acute cortical disruption or dislocation. The medial and lateral tibiofemoral compartments appear unremarkable without loss of significant joint space. The lateral radiograph fails to demonstrate significant joint effusion. Patellofemoral compartment is normal in its appearance.IMPRESSIONNegative examElectronically signed by: ARELY REED (Feb 02, 2022 15:56:57)
[2022-02-02] MEDS: AMARYL TAB 4 MG PO SCH (16:24)
[2022-02-02] MEDS: NovoLIN R (or HumuLIN R) SUBCUT PRN ×2 (16:24→16:26)
[2022-02-02] MEDS: SNACK - Diabetic Appropriate PO SCH (20:30)
[2022-02-02] MEDS: AMBIEN PO SCH (21:42)
[2022-02-02] MEDS: ZOCOR TAB 40 MG PO SCH (21:42)
[2022-02-02] MEDS: DESYREL PO SCH (21:42)
[2022-02-03] MEDS: TYLENOL 325 MG TAB PO PRN (03:35)
[2022-02-03] MEDS: NEURONTIN CAP 300 MG PO SCH ×2 (05:10→11:35)
[2022-02-03] MEDS: MORPHINE SULFATE INJ 2 MG INJ IVP PRN (05:10)
[2022-02-03] MEDS: ROCEPHIN 1 GRAM IV PREMIX 1 G/50 ML IV.SOLN. IV SCH (09:00)
[2022-02-03] MEDS: FLONASE NASAL SPRAY ENOSTRIL SCH (09:01)
[2022-02-03] MEDS: PROTONIX TAB 40 MG PO SCH (09:02)
[2022-02-03] MEDS: COZAAR PO SCH (09:02)
[2022-02-03] MEDS: DEMADEX PO SCH (09:03)
[2022-02-03] MEDS: LINZESS PO SCH (09:03)
[2022-02-03] MEDS: PEPCID TAB 20 MG PO SCH (09:04)
[2022-02-03] MEDS: LEVEMIR SC SCH (09:04)
[2022-02-03] MEDS: ZYLOPRIM PO SCH (09:04)
[2022-02-03] MEDS: TRADJENTA PO SCH (09:05)
[2022-02-03] MEDS: ZANAFLEX PO SCH (09:05)
[2022-02-03] MEDS: AMARYL TAB 4 MG PO SCH (09:05)
[2022-02-03] MEDS: COREG TAB 25 MG PO SCH (09:05)
[2022-02-03] MEDS: ICOSAPENT ETHYL 1 GM PO SCH (09:06)
[2022-02-03] MEDS: NS 1,000 ML IV 1,000 ML IV SCH (09:06)
[2022-02-03] MEDS: NORCO 7.5/325 MG TAB PO PRN (11:36)
[2022-02-03 13:04] VITALS: BP 134/66
[2022-02-04] MEDS ORDERED: LOVAZA PO SCH (09:00)
[2022-02-04] MEDS ORDERED: DULAGLUTIDE SUBCUT SCH (13:00)
--- NOTE | 2022-03-28 23:47 | PCM.DCPLAN ---
Discharge Plan - Discharge Plan Hospital Course: Admit date 02/01/22 Discharge date 02/03/22 DOS 02/03/22 Admit diagnosis(1) Acute renal failure (2) Acute dehydration (3) Arthritis (4) Diabetes mellitus (5) Hypertension Discharge diagnosis same Hospital Course PT IS 72 BF ER ADMISSION AFTER PRESENTING WITH CO FALL WHILE IN RESTROOM THIS AM. PT CO PAIN TO LEFT KNEE AND LOWER BACK AND RIGHT SHOULDER. PT HAD PMH OF DM, HTN, OA, SERGIO. PT HAD ELEVATED BUN/CREAT ON ADMISSION ABOVE HER BASELINE. PT WAS ADMITTED FOR TREATMENT OF ACUTE ILLNESS. CULTURES NEGATIVE. LABS IMPROVED TO BASELINE. IMAGING STUDIES NEGATIVE FOR ACUTE FINDINGS. PATIENT TREATED WITH IV FLUIDS. PATIENT TO FOLLOW UP WITH PCP IN 1 WEEK. SEE DISCHARGE MED REC Discharge time spent >35 mins. Disposition: HOME, SELF-CARE Condition: Stable Health Concerns: Post Hospitalization: new medications and changes needed to prevent readmission or further decline. Pt educated and given instructions on all concerns. Care Plan Goals: Problem: Pain/Alteration in Comfort Goal: Improve/ Resolve Pain; Achieve Pain Tolerance Instructions: Take pain medications as prescribed. Contact your primary care provider if your pain is unrelieved or worsens. Follow up with primary care provider as directed. Plan of Treatment: Continue with present treatment and follow up plan. Pt is to keep follow up appointment as instructed and take medications as ordered. Prescriptions: Continued albuterol sulfate [ProAir HFA] 90 mcg/actuation Hfa Aerosol Inhaler 2 puff Inhalation Q4H PRN (Reason: SOB) allopurinol 100 MG tablet 100 mg PO DAILY carvedilol [Coreg] 25 mg tablet 25 mg PO DAILY famotidine [Pepcid] 20 mg Tablet 20 mg PO DAILY fluticasone propionate 50 mcg/actuation [place],Suspension 1 mcg INTRANASAL DAILY gabapentin [Neurontin] 300 mg Capsule 600 mg PO TID Glimepiride 4 MG Tab 4 mg PO BID hydrocodone-acetaminophen 7.5-325 mg tablet 1 tab PO BID PRN icosapent ethyl [Vascepa] 1 gram Capsule 1 g PO DAILY Levemir U-100 Insulin 100 unit/mL Solution 12 unit SUBCUT DAILY Linzess 145 mcg capsule 145 mcg PO DAILY losartan 100 MG tablet 50 mg PO DAILY pantoprazole [Protonix] 40 mg Tablet,Delayed Release (Dr/Ec) 40 mg PO BID Qty: 60 RF: 0 Repatha SureClick 140 mg/mL Pen Injector 140 mg SUBCUT PRN PRN Simvastatin 40 MG Tab 40 mg PO HS tizanidine 2 mg Tablet 4 mg PO BID torsemide 20 mg tablet 10 mg PO DAILY Tradjenta 5 mg tablet 5 mg PO DAILY trazodone 150 mg tablet 150 mg PO HS Trulicity 1.5 mg/0.5 mL Pen Injector 0.5 mg SUBCUT DAILY zolpidem 10 mg tablet 5 mg PO HS - Orders to Discharge Patient Discharge Orders: Discharge (Routine); Ordered 02/03/22 Ordered By: Flora Felix
== END 2022-02-03 15:40 | disposition home or self-care (01) ==
LOC: MED/SURG 11:00 → ER 11:00 → MED/SURG 16:50
PROVIDERS: ADMIT Internal Medicine; ATTEND Internal Medicine
DX: I10 Essential (primary) hypertension; E86.0 Dehydration; M25.511 Pain in right shoulder; M51.36 Other intervertebral disc degeneration, lumbar region; K21.9 Gastro-esophageal reflux disease without esophagitis; W18.39XA Other fall on same level, initial encounter; M54.2 Cervicalgia; Z20.822 Contact with and (suspected) exposure to COVID-19; R51.9 Headache, unspecified; Y92.002 Bathroom of unspecified non-institutional (private) residence as the place of occurrence of the external cause; M19.90 Unspecified osteoarthritis, unspecified site; N30.01 Acute cystitis with hematuria; R26.89 Other abnormalities of gait and mobility; N17.8 Other acute kidney failure; M25.562 Pain in left knee

== ENCOUNTER 2023-02-14 10:01 | Observation (INO) ==
[2023-02-14] MEDS ORDERED: NS 1,000 ML IV 1,000 ML ONE (10:16)
[2023-02-14 10:48] LABS: BASOPHILS % (AUTO) 0.4 % (0.2-1.0); EOSINOPHILS # (AUTO) 0.1 x10^3/uL (0.0-0.2); EOSINOPHILS % (AUTO) 0.7 % (0.9-2.9); HEMATOCRIT 36.4 % (36.0-47.0); HEMOGLOBIN 11.9 g/dL (12.0-16.0); LYMPHOCYTES # (AUTO) 3.8 X10^3/uL (1.3-2.9); LYMPHOCYTES % (AUTO) 33.6 % (21.0-51.0); MEAN CORPUSCULAR HGB CONC 32.9 g/dL (33.0-35.0); MEAN CORPUSCULAR VOLUME 88.2 fL (80.0-100.0); MEAN PLATELET VOLUME 6.7 fL (7.4-11.0); MONOCYTES # (AUTO) 0.7 x10^3/uL (0.3-0.8); MONOCYTES % (AUTO) 6.6 % (0.0-13.0); NEUTROPHILS # (AUTO) 6.6 x10^3/uL (2.2-4.8); NEUTROPHILS % (AUTO) 58.7 % (42.0-75.0); RED BLOOD COUNT 4.12 X10^6/uL (3.5-5.4); RED CELL DISTRIBUTION WIDTH 14.8 % (11.6-16.5); WHITE BLOOD COUNT 11.2 X10^3/uL (3.6-10.0)
[2023-02-14] MEDS: NS 1,000 ML IV 1,000 ML IV SCH (10:55)
[2023-02-14 11:08] LABS: ALANINE AMINOTRANSFERASE 20 Units/L (12-78); ALBUMIN 3.9 g/dL (3.4-5.0); ALKALINE PHOSPHATASE 67 Units/L (46-116); ASPARTATE AMINO TRANSFERASE 15 Units/L (15-37); BLOOD UREA NITROGEN 13 mg/dL (7-18); CALCIUM 9.4 mg/dL (8.5-10.1); CHLORIDE 105 mmol/L (98-107); COR NA(FOR HYPERGLY) 143 mmol/L (136-145); SODIUM 142 mmol/L (136-145); TOTAL PROTEIN 7.5 g/dL (6.4-8.2); eGFR NON BLACK RACES 58 (>60)
[2023-02-14] MEDS ORDERED: K-DUR TAB 20 MEQ PO PRN (11:44)
[2023-02-14] MEDS ORDERED: KLOR-CON PO PRN (11:44)
[2023-02-14] MEDS ORDERED: POTASSIUM CHL 40 MEQ/NS 0.45% 500 ML IV PRN (11:44)
[2023-02-14] MEDS ORDERED: K-RIDER 10 MEQ/NS 100 ML 10 MEQ/100 ML BAG IV PRN (11:44)
[2023-02-14] MEDS ORDERED: POTASSIUM CHL 60 MEQ/NS 0.45% 500 ML IV PRN (11:44)
[2023-02-14] MEDS ORDERED: POTASSIUM CHLORIDE LIQ 20 MEQ UDC PO PRN (11:44)
[2023-02-14] MEDS ORDERED: MICRO K EXTEN CAP 10 MEQ PO PRN (11:44)
[2023-02-14] MEDS ORDERED: ZOFRAN INJ 4 MG VIAL IVP PRN (11:56)
--- NOTE | 2023-02-14 12:38 | DR.H&P ---
H&P - History & Physical for Day of: H&P Date: 02/14/23 - Chief Complaint Chief Complaint: abdominal pain, n/v - History of Present Illness History of Present Illness: PT IS 73 BF, DIRECT ADMIT FROM DR CHRISTINE OFFICE WITH CO ABDOMINAL CRAMPS, N/V SINCE MONDAY. PT WAS HAD ACTIVE VOMITING WHILE IN OFFICE. PT WAS HYPERTENSIVE WITH BP 165/ 108. PT REPORTS SHE HAD NOT BEEN ABLE TO KEEP FOOD OR FLUIDS DOWN IN 3DAYS AND DID NOT TAKE MEDICATION. PT HAS PMH OF DM, COPD, HTN, CHF. RENAL DISEASE AND OA. PT ADMITTED FOR TREATMENT OF ACUTE ILLNESS. - Past Medical History Past Medical History: Hypertension, Dyslipidemia, Diabetes, Renal Disease, Depression, GERD, Gout, Migraines, CHF - Past Surgical History Surgical History: , Hysterectomy - Family History Family Medical History: Diabetes Mellitus - Social History Does any household member use tobacco: No Alcohol Use: None Drug Use: None - Medications Home Medications: No Known Drug Allergies Allergy (Verified 02/01/22 11:11) - Review of Systems Constitutional: Weakness Eyes: No Symptoms Reported ENT: Nose Congestion Respiratory: Shortness of Breath Cardiovascular: denies: Edema Gastrointestinal: Nausea, Vomiting, Abdominal Pain. denies: Diarrhea Musculoskeletal: No Symptoms Reported Skin: No Symptoms Reported Neurological: Weakness, Other (DIZZINESS) - Physical Exam Vital Signs: Blood Pressure [Right Arm] 151/79 Blood Pressure [Left Arm] 143/75 Blood Pressure [Right Arm] 123/63 Blood Pressure 138/72 Oriented: Normal Eyes: Normal Ear: Normal Nose: Normal Throat: Normal Respiratory: RLL Diminished, LLL Diminished Cardiovascular: Normal. negative: Edema : Normal Auscultation: Bowel Sounds: Increased Palpation: Normal Tenderness: Epigastric Skin: Decreased Turgur Musculoskeletal: Back:Lumbar Psychiatric: Anxiety Affect: Anxious Speech Pattern: Clear, Appropriate - Assessment/Plan (1) Gastroenteritis Status: Acute Plan: ADMIT, IV HDYRATION, STRICT I&OS BP AND BS CONTROL. IV ANTIEMETICS, PPI THERAPY. CXR AND ABD ON ADMISSION. VERIFY HOME MEDICATION (2) Acute dehydration Status: Acute (3) Chronic kidney disease (CKD) stage G1/A3, glomerular filtration rate (GFR) equal to or greater than 90 mL/min/1.73 square meter and albuminuria creatinine ratio greater than 300 mg/g Status: Chronic (4) Hypertension Status: Acute - Allergies Allergies/Adverse Reactions: Allergies Allergy/AdvReac Type Severity Reaction Status Date / Time No Known Drug Allergies Allergy Verified 02/01/22 11:11
[2023-02-14] MEDS ORDERED: PROVENTIL NEB TX 0.083% 2.5MG/ 3ML NEB PRN (13:20)
--- NOTE | 2023-02-14 14:10 | RAD ---
HISTORYShortness of breathSTUDYSingle-view [id number]/31/2023FINDINGSThe trachea is midline. The cardiac silhouette is enlarged with a tortuous thoracic aorta . The lungs are clear without focal infiltrate or effusion. The bony thorax is unremarkable.IMPRESSIONNo acute cardiopulmonary disease.Electronically signed by: KALPESH DIAL (Feb 14, 2023 14:08:43)
[2023-02-14 15:18] LABS: BILIRUBIN,URINE NEGATIVE (NEGATIVE); BLOOD/HEMOGLOBIN,URINE NEGATIVE (NEGATIVE); GLUCOSE, URINE NEGATIVE (NEGATIVE); KETONES,URINE 1+ (NEGATIVE); LEUKOCYTE ESTERASE ,URINE NEGATIVE (NEGATIVE); NITRITES,URINE NEGATIVE (NEGATIVE); PROTEIN,URINE 2+ (NEGATIVE); UROBILINOGEN,URINE NORMAL (NORMAL)
[2023-02-14] MEDS: MAGNESIUM SULFATE 1 GRAM/100 mL PREMIX 1 G/100 ML BAG IV PRN ×2 (15:21→22:21)
[2023-02-14] MEDS: PROTONIX INJ 40 MG VIAL IVP SCH (15:22)
[2023-02-14] MEDS: NORCO 7.5/325 MG TAB PO PRN (15:23)
[2023-02-14 15:26] LABS: APPEARANCE,URINE CLEAR (CLEAR); COLOR,URINE YELLOW (YELLOW); RBC,URINE NONE SEEN /HPF (0-3)
[2023-02-14 15:27] LABS: BACTERIA,URINE NEGATIVE /HPF (NEGATIVE); SQUAMOUS EPITHELIAL CELL,UR FEW /HPF (NEGATIVE)
[2023-02-14] MEDS ORDERED: CATAPRES TAB 0.1 MG PO ONE ×2 (15:31→17:02)
[2023-02-14] MEDS ORDERED: APRESOLINE INJ 20 MG VIAL IVP ONE (17:02)
[2023-02-14] MEDS: LOVENOX INJ 40 MG SYR SC SCH (17:16)
[2023-02-14] MEDS ORDERED: NORVASC TAB 5 MG PO ONE (17:33)
[2023-02-14] MEDS ORDERED: FIORICET TAB PO SCH (18:00)
[2023-02-14] MEDS: COREG TAB 25 MG PO SCH ×2 (18:21→20:52)
[2023-02-14] MEDS ORDERED: MILK OF MAGNESIA PO PRN (19:12)
[2023-02-14] MEDS ORDERED: PULMICORT NEB TX 0.5 MG NEB ONE (19:57)
[2023-02-14] MEDS: DESYREL PO SCH (20:51)
[2023-02-14] MEDS: CRESTOR TAB 10 MG PO SCH (20:52)
[2023-02-14] MEDS: PULMICORT NEB TX 0.5 MG NEB SCH (21:41)
[2023-02-14] MEDS: ZANAFLEX PO SCH (22:21)
--- NOTE | 2023-02-14 23:11 | RAD ---
EXAM: ABDOMEN X-RAY SERIES WITH CXRHISTORY: Abdominal pain. Nausea and vomiting.TECHNIQUE: Supine and erect views of the abdomen; frontal single view CXRCOMPARISON: None.FINDINGS:ABDOMEN: Nonspecific, fluid-filled, nondilated stomach and small bowel loops within the abdomen and pelvis; possible gastroenteritis. Clinical correlation is advised. The bowel gas pattern is otherwise nonspecific and nonobstructive. There is no gross organomegaly, or free intraperitoneal air seen. There are multiple bilateral pelvic calcifications consistent with phleboliths, but cannot rule out urolithiasis in the appropriate clinical setting. Clinical correlation is advised. Multilevel DDD is seen throughout the distal thoracic and lumbar spine. The visualized bony structures are within normal limits.CHEST: The heart size and mediastinum are within normal limits. The lung bishop and costophrenic angles are clear. There is no acute parenchymal infiltrate, pleural effusion, or pneumothorax seen. The visualized bony structures are within normal limits.IMPRESSION:1. Nonspecific, fluid-filled, nondilated stomach and small bowel loops within the abdomen and pelvis; possible gastroenteritis. Clinical correlation is advised.2. Multiple bilateral pelvic calcifications consistent with phleboliths, but cannot rule out urolithiasis in the appropriate clinical setting. Clinical correlation is advised.3. No evidence for acute cardiopulmonary disease seen.Electronically signed by: Reji Sanders (Feb 14, 2023 23:10:13)
[2023-02-15] MEDS: NS 1,000 ML IV 1,000 ML IV SCH ×2 (01:50→14:05)
[2023-02-15] MEDS: NORCO 7.5/325 MG TAB PO PRN ×3 (04:46→21:54)
[2023-02-15] MEDS: ZANAFLEX PO SCH ×3 (05:53→21:44)
[2023-02-15 06:14] LABS: BASOPHILS % (AUTO) 0.5 % (0.2-1.0); EOSINOPHILS # (AUTO) 0.1 x10^3/uL (0.0-0.2); EOSINOPHILS % (AUTO) 0.9 % (0.9-2.9); HEMATOCRIT 29.7 % (36.0-47.0); LYMPHOCYTES # (AUTO) 3.6 X10^3/uL (1.3-2.9); LYMPHOCYTES % (AUTO) 48.5 % (21.0-51.0); MEAN CORPUSCULAR HEMOGLOBIN 29.4 pg (27.0-34.0); MEAN PLATELET VOLUME 6.9 fL (7.4-11.0); MONOCYTES # (AUTO) 0.7 x10^3/uL (0.3-0.8); MONOCYTES % (AUTO) 9.3 % (0.0-13.0); NEUTROPHILS # (AUTO) 3.1 x10^3/uL (2.2-4.8); NEUTROPHILS % (AUTO) 40.8 % (42.0-75.0); RED BLOOD COUNT 3.34 X10^6/uL (3.5-5.4); RED CELL DISTRIBUTION WIDTH 14.9 % (11.6-16.5); WHITE BLOOD COUNT 7.5 X10^3/uL (3.6-10.0)
[2023-02-15 06:16] LABS: HEMOGLOBIN 9.8 g/dL (12.0-16.0)
[2023-02-15 06:32] LABS: ALANINE AMINOTRANSFERASE 16 Units/L (12-78); ALBUMIN 3.1 g/dL (3.4-5.0); ALKALINE PHOSPHATASE 52 Units/L (46-116); ASPARTATE AMINO TRANSFERASE 13 Units/L (15-37); BLOOD UREA NITROGEN 8 mg/dL (7-18); CALCIUM 8.3 mg/dL (8.5-10.1); CARBON DIOXIDE 24.4 mmol/L (21-32); CHLORIDE 108 mmol/L (98-107); COR NA(FOR HYPERGLY) 142 mmol/L (136-145); CREATININE 0.86 mg/dL (0.55-1.02); SODIUM 141 mmol/L (136-145); TOTAL PROTEIN 6.1 g/dL (6.4-8.2); eGFR NON BLACK RACES > 60 (>60)
[2023-02-15] MEDS: PULMICORT NEB TX 0.5 MG NEB SCH ×2 (08:49→20:40)
[2023-02-15] MEDS: COLACE CAP 100 MG PO PRN (08:54)
[2023-02-15] MEDS: COZAAR PO SCH (08:54)
[2023-02-15] MEDS: LOVENOX INJ 40 MG SYR SC SCH (08:55)
[2023-02-15] MEDS: PROTONIX INJ 40 MG VIAL IVP SCH (08:55)
[2023-02-15] MEDS: COREG TAB 25 MG PO SCH ×2 (08:55→21:44)
[2023-02-15 09:41] LABS: AMYLASE 42 Units/L (25-115); LIPASE 220 Units/L (73-393)
[2023-02-15] MEDS: CRESTOR TAB 10 MG PO SCH (21:45)
[2023-02-15] MEDS: DESYREL PO SCH (21:46)
[2023-02-16] MEDS: NS 1,000 ML IV 1,000 ML IV SCH ×4 (01:31→22:44)
[2023-02-16] MEDS: ZANAFLEX PO SCH ×3 (06:16→21:21)
[2023-02-16] MEDS: NORCO 7.5/325 MG TAB PO PRN ×3 (06:21→21:21)
[2023-02-16 06:22] LABS: BASOPHILS % (AUTO) 0.3 % (0.2-1.0); EOSINOPHILS # (AUTO) 0.1 x10^3/uL (0.0-0.2); EOSINOPHILS % (AUTO) 1.2 % (0.9-2.9); HEMATOCRIT 29.8 % (36.0-47.0); HEMOGLOBIN 9.8 g/dL (12.0-16.0); LYMPHOCYTES # (AUTO) 2.7 X10^3/uL (1.3-2.9); LYMPHOCYTES % (AUTO) 40.8 % (21.0-51.0); MEAN CORPUSCULAR HEMOGLOBIN 29.7 pg (27.0-34.0); MEAN CORPUSCULAR HGB CONC 32.9 g/dL (33.0-35.0); MEAN CORPUSCULAR VOLUME 90.3 fL (80.0-100.0); MEAN PLATELET VOLUME 6.7 fL (7.4-11.0); MONOCYTES # (AUTO) 0.6 x10^3/uL (0.3-0.8); MONOCYTES % (AUTO) 8.4 % (0.0-13.0); NEUTROPHILS # (AUTO) 3.3 x10^3/uL (2.2-4.8); NEUTROPHILS % (AUTO) 49.3 % (42.0-75.0); WHITE BLOOD COUNT 6.7 X10^3/uL (3.6-10.0)
[2023-02-16 06:41] LABS: ALANINE AMINOTRANSFERASE 16 Units/L (12-78); ALKALINE PHOSPHATASE 54 Units/L (46-116); ASPARTATE AMINO TRANSFERASE 15 Units/L (15-37); BLOOD UREA NITROGEN 7 mg/dL (7-18); CALCIUM 8.4 mg/dL (8.5-10.1); CARBON DIOXIDE 23.5 mmol/L (21-32); CHLORIDE 112 mmol/L (98-107); COR CA(FOR HYPOALB) 9.2 mg/dL (8.5-10.1); COR NA(FOR HYPERGLY) 145 mmol/L (136-145); CREATININE 0.72 mg/dL (0.55-1.02); SODIUM 144 mmol/L (136-145); TOTAL PROTEIN 5.9 g/dL (6.4-8.2); eGFR NON BLACK RACES > 60 (>60)
[2023-02-16] MEDS ORDERED: PEPCID 20 MG VIAL IVP ONE (08:30)
[2023-02-16] MEDS: PULMICORT NEB TX 0.5 MG NEB SCH ×3 (09:21→21:00)
[2023-02-16] MEDS: COZAAR PO SCH (09:40)
[2023-02-16] MEDS: PROTONIX INJ 40 MG VIAL IVP SCH (09:40)
[2023-02-16] MEDS: COREG TAB 25 MG PO SCH ×2 (09:41→21:21)
[2023-02-16] MEDS: LOVENOX INJ 40 MG SYR SC SCH (09:41)
[2023-02-16 10:22] VITALS: BMI 34.8
[2023-02-16] MEDS ORDERED: MAALOX or MYLANTA PO PRN (19:53)
[2023-02-16] MEDS: CRESTOR TAB 10 MG PO SCH (21:19)
[2023-02-16] MEDS: DESYREL PO SCH (21:20)
[2023-02-17] MEDS: ZANAFLEX PO SCH ×3 (05:27→21:44)
[2023-02-17 06:10] LABS: BASOPHILS % (AUTO) 0.3 % (0.2-1.0); EOSINOPHILS # (AUTO) 0.1 x10^3/uL (0.0-0.2); HEMATOCRIT 29.1 % (36.0-47.0); HEMOGLOBIN 9.7 g/dL (12.0-16.0); LYMPHOCYTES # (AUTO) 2.8 X10^3/uL (1.3-2.9); LYMPHOCYTES % (AUTO) 41.1 % (21.0-51.0); MEAN CORPUSCULAR HEMOGLOBIN 29.8 pg (27.0-34.0); MEAN CORPUSCULAR HGB CONC 33.2 g/dL (33.0-35.0); MEAN CORPUSCULAR VOLUME 89.6 fL (80.0-100.0); MEAN PLATELET VOLUME 6.6 fL (7.4-11.0); MONOCYTES # (AUTO) 0.5 x10^3/uL (0.3-0.8); MONOCYTES % (AUTO) 7.1 % (0.0-13.0); NEUTROPHILS # (AUTO) 3.4 x10^3/uL (2.2-4.8); NEUTROPHILS % (AUTO) 50.5 % (42.0-75.0); RED BLOOD COUNT 3.24 X10^6/uL (3.5-5.4); WHITE BLOOD COUNT 6.8 X10^3/uL (3.6-10.0)
[2023-02-17 06:21] LABS: ALANINE AMINOTRANSFERASE 15 Units/L (12-78); ALBUMIN 2.8 g/dL (3.4-5.0); ALKALINE PHOSPHATASE 54 Units/L (46-116); ASPARTATE AMINO TRANSFERASE 11 Units/L (15-37); BLOOD UREA NITROGEN 9 mg/dL (7-18); CALCIUM 8.2 mg/dL (8.5-10.1); CARBON DIOXIDE 24.9 mmol/L (21-32); CHLORIDE 111 mmol/L (98-107); COR CA(FOR HYPOALB) 9.2 mg/dL (8.5-10.1); COR NA(FOR HYPERGLY) 146 mmol/L (136-145); CREATININE 0.93 mg/dL (0.55-1.02); SODIUM 144 mmol/L (136-145); TOTAL PROTEIN 5.8 g/dL (6.4-8.2); eGFR NON BLACK RACES > 60 (>60)
[2023-02-17] MEDS: COREG TAB 25 MG PO SCH ×2 (08:53→21:45)
[2023-02-17] MEDS: LOVENOX INJ 40 MG SYR SC SCH (08:53)
[2023-02-17] MEDS: PROTONIX INJ 40 MG VIAL IVP SCH ×2 (08:53→21:43)
[2023-02-17] MEDS: NORCO 7.5/325 MG TAB PO PRN ×3 (08:53→21:45)
[2023-02-17] MEDS: COZAAR PO SCH (08:54)
[2023-02-17] MEDS ORDERED: BENTYL I.M. INJ 10 MG IM ONE (11:10)
[2023-02-17] MEDS ORDERED: ATARAX TAB 10 MG PO ONE (11:11)
[2023-02-17] MEDS: NS 1,000 ML IV 1,000 ML IV SCH ×3 (12:02→21:00)
--- NOTE | 2023-02-17 13:29 | PCM.PROG ---
Progress Note - Progress Note for Day of Date of Exam: 02/16/23 - Subjective Subjective: he patient is a 73-year-old black female who was admitted with dehydration and gastroenteritis. Her abdominal series did reveal findings consistent with gastroenteritis. She has been on gentle IV hydration with stable renal function. Pt reports only a small bowel movement since admission and co lower abdominal cramps. Pt has pmh of hypertension and diabetes. Pt is still on limited po intake due to nausea. - Past Medical Family Social History Past Med/Fam/Surg Hx: No changes since H&P Allergies: Allergies No Known Drug Allergies Allergy (Verified 02/01/22 11:11) - Review of Systems ROS: No change since H&P - Vital Signs and I&O's Vital Signs: Temperature 97.9 F Pulse Rate [Right Radial] 73 Pulse Rate 98 Respiratory Rate 20 Blood Pressure [Right Arm] 182/74 Blood Pressure [Left Arm] 143/75 Blood Pressure [Right Arm] 123/63 Blood Pressure 138/72 O2 Sat by Pulse Oximetry 96 Intake and Output: Intake & Output 02/15/23 02/16/23 02/17/23 02/18/23 11:59 11:59 11:59 11:59 Intake Total 1511 / 1511 1844 / 1844 2140 / 2140 Balance 1511 / 1511 1844 / 1844 2140 / 2140 - Physical Exam Oriented: Normal Eyes: Normal Ear: Normal Nose: Normal Throat: Normal Cardiovascular: Normal. negative: Edema : Normal Auscultation: Bowel Sounds: Increased Tenderness: Epigastric Skin: Decreased Turgur Musculoskeletal: Back:Lumbar Psychiatric: Anxiety Affect: Anxious Speech Pattern: Clear, Appropriate - Laboratory and Diagnostics Result Diagrams: 02/17/23 05:42 02/17/23 05:42 Labs: Laboratory WBC 6.8 X10^3/uL (3.6-10.0) 02/17/23 05:42 RBC 3.24 X10^6/uL (3.5-5.4) L 02/17/23 05:42 Hgb 9.7 g/dL (12.0-16.0) L 02/17/23 05:42 Hct 29.1 % (36.0-47.0) L 02/17/23 05:42 MCV 89.6 fL (80.0-100.0) 02/17/23 05:42 MCH 29.8 pg (27.0-34.0) 02/17/23 05:42 MCHC 33.2 g/dL (33.0-35.0) 02/17/23 05:42 RDW 15.0 % (11.6-16.5) 02/17/23 05:42 Plt Count 229 X10^3/uL (150.0-450.0) 02/17/23 05:42 MPV 6.6 fL (7.4-11.0) L 02/17/23 05:42 Neut % (Auto) 50.5 % (42.0-75.0) 02/17/23 05:42 Lymph % (Auto) 41.1 % (21.0-51.0) 02/17/23 05:42 [place] % (Auto) 7.1 % (0.0-13.0) 02/17/23 05:42 Eos % (Auto) 1.0 % (0.9-2.9) 02/17/23 05:42 Baso % (Auto) 0.3 % (0.2-1.0) 02/17/23 05:42 Neut # (Auto) 3.4 x10^3/uL (2.2-4.8) 02/17/23 05:42 Lymph # (Auto) 2.8 X10^3/uL (1.3-2.9) 02/17/23 05:42 [place] # (Auto) 0.5 x10^3/uL (0.3-0.8) 02/17/23 05:42 Eos # (Auto) 0.1 x10^3/uL (0.0-0.2) 02/17/23 05:42 Baso # (Auto) 0.0 X10^3/uL (0.0-0.1) 02/17/23 05:42 Absolute Nucleated RBC 0.1 /100WBC 02/17/23 05:42 Sodium 144 mmol/L (136-145) 02/17/23 05:42 Corrected Sodium 146 mmol/L (136-145) H 02/17/23 05:42 Potassium 4.2 mmol/L (3.5-5.1) 02/17/23 05:42 Chloride 111 mmol/L (98-107) H 02/17/23 05:42 Carbon Dioxide 24.9 mmol/L (21-32) 02/17/23 05:42 BUN 9 mg/dL (7-18) 02/17/23 05:42 Creatinine 0.93 mg/dL (0.55-1.02) 02/17/23 05:42 Est GFR (MDRD) Af Amer > 60 (>60) 02/17/23 05:42 Est GFR (MDRD) Non-Af > 60 (>60) 02/17/23 05:42 Glucose 181 mg/dL (65-99) H 02/17/23 05:42 POC Glucose (mg/dL) 156 mg/dL (65-99) H 02/17/23 11:25 Calcium 8.2 mg/dL (8.5-10.1) L 02/17/23 05:42 Corrected Calcium 9.2 mg/dL (8.5-10.1) 02/17/23 05:42 Magnesium 2.0 mg/dL (2.0-2.9) 02/15/23 05:31 Total Bilirubin 0.10 mg/dL (0.2-1.0) L 02/17/23 05:42 AST 11 Units/L (15-37) L 02/17/23 05:42 ALT 15 Units/L (12-78) 02/17/23 05:42 Alkaline Phosphatase 54 Units/L (46-116) 02/17/23 05:42 Total Protein 5.8 g/dL (6.4-8.2) L 02/17/23 05:42 Albumin 2.8 g/dL (3.4-5.0) L 02/17/23 05:42 Globulin 3.0 g/dL (2.5-4.5) 02/17/23 05:42 Albumin/Globulin Ratio 0.9 Ratio (1.1-2.1) L 02/17/23 05:42 Amylase 42 Units/L (25-115) 02/14/23 10:30 Lipase 220 Units/L (73-393) 02/14/23 10:30 Specimen Type Clean catch urine 02/14/23 15:05 Urine Color Yellow (YELLOW) 02/14/23 15:05 Urine Appearance Clear (CLEAR) 02/14/23 15:05 Urine pH 7.0 (5.0 - 8.0) 02/14/23 15:05 Ur Specific [place] 1.010 (1.000-1.030) 02/14/23 15:05 Urine Protein 2+ (NEGATIVE) 02/14/23 15:05 Urine Glucose (UA) Negative (NEGATIVE) 02/14/23 15:05 Urine Ketones 1+ (NEGATIVE) 02/14/23 15:05 Urine Blood Negative (NEGATIVE) 02/14/23 15:05 Urine Nitrite Negative (NEGATIVE) 02/14/23 15:05 Urine Bilirubin Negative (NEGATIVE) 02/14/23 15:05 Urine Urobilinogen Normal (NORMAL) 02/14/23 15:05 Ur Leukocyte Esterase Negative (NEGATIVE) 02/14/23 15:05 Urine RBC None seen /HPF (0-3) 02/14/23 15:05 Urine WBC 0-2 /HPF (0-5) 02/14/23 15:05 Ur Squamous Epith Cells Few /HPF (NEGATIVE) 02/14/23 15:05 Urine Bacteria Negative /HPF (NEGATIVE) 02/14/23 15:05 Ur Culture Indicated? No/not indicated 02/14/23 15:05 SARS-CoV-2 (PCR) Negative (NEGATIVE) 02/14/23 18:27 Influenza Type A (PCR) Negative (NEGATIVE) 02/14/23 18: Influenza Type B (PCR) Negative (NEGATIVE) 02/14/23 18:27 RSV (PCR) Negative (NEGATIVE) 02/14/23 18:27 Resp Viral Panel (PCR) Cancelled 02/14/23 18:27 - Plan (1) Gastroenteritis Status: Acute Plan: ADMIT, IV ANTIEMETICS, PPI THERAPY. CXR AND ABD ON ADMISSION. VERIFY HOME MEDICATION (2) Gastroparesis due to DM Status: Acute (3) Acute dehydration Status: Acute (4) Chronic kidney disease (CKD) stage G1/A3, glomerular filtration rate (GFR) equal to or greater than 90 mL/min/1.73 square meter and albuminuria creatinine ratio greater than 300 mg/g Status: Chronic (5) Hypertension Status: Acute
--- NOTE | 2023-02-17 13:33 | RAD ---
HISTORYABD PAINSTUDYACUTE ABDOMEN [id number]/2023FINDINGSThe cardiomediastinal silhouette is stable given rotation. The lungs are clear without evidence of airspace disease or effusion. No pneumothorax. The bony thorax appears intact.Evaluation of the abdomen demonstrates a nonobstructive bowel gas pattern. No evidence of pneumoperitoneum. No pathologic soft tissue calcification. The bony structures of the abdomen are intact.IMPRESSION1. No acute cardiopulmonary process.2. No acute abdominal process.Electronically signed by: CASIE TERRY (Feb 17, 2023 13:32:29)
--- NOTE | 2023-02-17 13:35 | PCM.PROG ---
Progress Note - Progress Note for Day of Date of Exam: 02/17/23 - Subjective Subjective: he patient is a 73-year-old black female who was admitted with dehydration and gastroenteritis. Her abdominal series did reveal findings consistent with gastroenteritis. She has been on gentle IV hydration with stable renal function. Pt reports only a small bowel movement since admission and co lower abdominal cramps. Pt had abdomen series obtained with results still pending. Pt reports PMH of diverticulitis. Pt reports she vomiting last pm and co nausea and lower abdominal pain this am. Pt was hypertensive with bp 198/99. Plan to add amlodipine 5mg po daily for BP control. Pt was given Bentyl im x 1 dose and increased protonix to bid. We will add cipro 500mg iv daily for colitis and obtain an occult stool and ct of abdomen and pelvis in the morning. - Past Medical Family Social History Past Med/Fam/Surg Hx: No changes since H&P Allergies: Allergies No Known Drug Allergies Allergy (Verified 02/01/22 11:11) - Review of Systems ROS: No change since H&P - Vital Signs and I&O's Vital Signs: Temperature 97.9 F Pulse Rate [Right Radial] 73 Pulse Rate 98 Respiratory Rate 20 Blood Pressure [Right Arm] 182/74 Blood Pressure [Left Arm] 143/75 Blood Pressure [Right Arm] 123/63 Blood Pressure 138/72 O2 Sat by Pulse Oximetry 96 Intake and Output: Intake & Output 02/15/23 02/16/23 02/17/23 02/18/23 11:59 11:59 11:59 11:59 Intake Total 1511 / 1511 1844 / 1844 2140 / 2140 Balance 1511 / 1511 1844 / 1844 2140 / 2140 - Physical Exam Oriented: Normal Eyes: Normal Ear: Normal Nose: Normal Throat: Normal Respiratory: Diminished Cardiovascular: Normal. negative: Edema : Normal Auscultation: Bowel Sounds: Increased Tenderness: RLQ, LUQ, Moderate Skin: Decreased Turgur Musculoskeletal: Back:Lumbar Psychiatric: Anxiety Affect: Anxious Speech Pattern: Clear, Appropriate - Laboratory and Diagnostics Result Diagrams: 02/17/23 05:42 02/17/23 05:42 Labs: Laboratory WBC 6.8 X10^3/uL (3.6-10.0) 02/17/23 05:42 RBC 3.24 X10^6/uL (3.5-5.4) L 02/17/23 05:42 Hgb 9.7 g/dL (12.0-16.0) L 02/17/23 05:42 Hct 29.1 % (36.0-47.0) L 02/17/23 05:42 MCV 89.6 fL (80.0-100.0) 02/17/23 05:42 MCH 29.8 pg (27.0-34.0) 02/17/23 05:42 MCHC 33.2 g/dL (33.0-35.0) 02/17/23 05:42 RDW 15.0 % (11.6-16.5) 02/17/23 05:42 Plt Count 229 X10^3/uL (150.0-450.0) 02/17/23 05:42 MPV 6.6 fL (7.4-11.0) L 02/17/23 05:42 Neut % (Auto) 50.5 % (42.0-75.0) 02/17/23 05:42 Lymph % (Auto) 41.1 % (21.0-51.0) 02/17/23 05:42 [place] % (Auto) 7.1 % (0.0-13.0) 02/17/23 05:42 Eos % (Auto) 1.0 % (0.9-2.9) 02/17/23 05:42 Baso % (Auto) 0.3 % (0.2-1.0) 02/17/23 05:42 Neut # (Auto) 3.4 x10^3/uL (2.2-4.8) 02/17/23 05:42 Lymph # (Auto) 2.8 X10^3/uL (1.3-2.9) 02/17/23 05:42 [place] # (Auto) 0.5 x10^3/uL (0.3-0.8) 02/17/23 05:42 Eos # (Auto) 0.1 x10^3/uL (0.0-0.2) 02/17/23 05:42 Baso # (Auto) 0.0 X10^3/uL (0.0-0.1) 02/17/23 05:42 Absolute Nucleated RBC 0.1 /100WBC 02/17/23 05:42 Sodium 144 mmol/L (136-145) 02/17/23 05:42 Corrected Sodium 146 mmol/L (136-145) H 02/17/23 05:42 Potassium 4.2 mmol/L (3.5-5.1) 02/17/23 05:42 Chloride 111 mmol/L (98-107) H 02/17/23 05:42 Carbon Dioxide 24.9 mmol/L (21-32) 02/17/23 05:42 BUN 9 mg/dL (7-18) 02/17/23 05:42 Creatinine 0.93 mg/dL (0.55-1.02) 02/17/23 05:42 Est GFR (MDRD) Af Amer > 60 (>60) 02/17/23 05:42 Est GFR (MDRD) Non-Af > 60 (>60) 02/17/23 05:42 Glucose 181 mg/dL (65-99) H 02/17/23 05:42 POC Glucose (mg/dL) 156 mg/dL (65-99) H 02/17/23 11:25 Calcium 8.2 mg/dL (8.5-10.1) L 02/17/23 05:42 Corrected Calcium 9.2 mg/dL (8.5-10.1) 02/17/23 05:42 Magnesium 2.0 mg/dL (2.0-2.9) 02/15/23 05:31 Total Bilirubin 0.10 mg/dL (0.2-1.0) L 02/17/23 05:42 AST 11 Units/L (15-37) L 02/17/23 05:42 ALT 15 Units/L (12-78) 02/17/23 05:42 Alkaline Phosphatase 54 Units/L (46-116) 02/17/23 05:42 Total Protein 5.8 g/dL (6.4-8.2) L 02/17/23 05:42 Albumin 2.8 g/dL (3.4-5.0) L 02/17/23 05:42 Globulin 3.0 g/dL (2.5-4.5) 02/17/23 05:42 Albumin/Globulin Ratio 0.9 Ratio (1.1-2.1) L 02/17/23 05:42 Amylase 42 Units/L (25-115) 02/14/23 10:30 Lipase 220 Units/L (73-393) 02/14/23 10:30 Specimen Type Clean catch urine 02/14/23 15:05 Urine Color Yellow (YELLOW) 02/14/23 15:05 Urine Appearance Clear (CLEAR) 02/14/23 15:05 Urine pH 7.0 (5.0 - 8.0) 02/14/23 15:05 Ur Specific [place] 1.010 (1.000-1.030) 02/14/23 15:05 Urine Protein 2+ (NEGATIVE) 02/14/23 15:05 Urine Glucose (UA) Negative (NEGATIVE) 02/14/23 15:05 Urine Ketones 1+ (NEGATIVE) 02/14/23 15:05 Urine Blood Negative (NEGATIVE) 02/14/23 15:05 Urine Nitrite Negative (NEGATIVE) 02/14/23 15:05 Urine Bilirubin Negative (NEGATIVE) 02/14/23 15:05 Urine Urobilinogen Normal (NORMAL) 02/14/23 15:05 Ur Leukocyte Esterase Negative (NEGATIVE) 02/14/23 15:05 Urine RBC None seen /HPF (0-3) 02/14/23 15:05 Urine WBC 0-2 /HPF (0-5) 02/14/23 15:05 Ur Squamous Epith Cells Few /HPF (NEGATIVE) 02/14/23 15:05 Urine Bacteria Negative /HPF (NEGATIVE) 02/14/23 15:05 Ur Culture Indicated? No/not indicated 02/14/23 15:05 SARS-CoV-2 (PCR) Negative (NEGATIVE) 02/14/23 18:27 Influenza Type A (PCR) Negative (NEGATIVE) 02/14/23 18:27 Influenza Type B (PCR) Negative (NEGATIVE) 02/14/23 18:27 RSV (PCR) Negative (NEGATIVE) 02/14/23 18:27 Resp Viral Panel (PCR) Cancelled 02/14/23 18: - Plan (1) Colitis Status: Acute Plan: ct abdomen and pelvis, iv cipro. occult stool, continue gentle iv hydration. Bentyl IM, repeat am labs (2) Gastroenteritis Status: Acute Plan: IV ANTIEMETICS, PPI THERAPY. (3) Gastroparesis due to DM Status: Acute (4) Acute dehydration Status: Acute (5) Chronic kidney disease (CKD) stage G1/A3, glomerular filtration rate (GFR) equal to or greater than 90 mL/min/1.73 square meter and albuminuria creatinine ratio greater than 300 mg/g Status: Chronic (6) Hypertension Status: Acute
[2023-02-17] MEDS: NORVASC TAB 5 MG PO SCH (13:48)
[2023-02-17] MEDS: CIPRO IV 400 MG PREMIX* 400 MG/200 ML IV.SOLN. IV SCH ×2 (13:49→21:45)
[2023-02-17] MEDS ORDERED: CATAPRES TAB 0.1 MG PO ONE (16:00)
[2023-02-17] MEDS ORDERED: CATAPRES TAB 0.1 MG ONE (16:19)
[2023-02-17] MEDS: PULMICORT NEB TX 0.5 MG NEB SCH ×2 (16:44→21:56)
[2023-02-17] MEDS: DESYREL PO SCH (21:44)
[2023-02-17] MEDS: CRESTOR TAB 10 MG PO SCH (21:44)
[2023-02-18 05:05] LABS: BASOPHILS % (AUTO) 0.5 % (0.2-1.0); EOSINOPHILS # (AUTO) 0.1 x10^3/uL (0.0-0.2); EOSINOPHILS % (AUTO) 1.2 % (0.9-2.9); HEMATOCRIT 28.1 % (36.0-47.0); HEMOGLOBIN 9.3 g/dL (12.0-16.0); LYMPHOCYTES # (AUTO) 3.1 X10^3/uL (1.3-2.9); MEAN CORPUSCULAR HEMOGLOBIN 29.4 pg (27.0-34.0); MEAN PLATELET VOLUME 6.7 fL (7.4-11.0); MONOCYTES # (AUTO) 0.5 x10^3/uL (0.3-0.8); NEUTROPHILS # (AUTO) 3.2 x10^3/uL (2.2-4.8); NEUTROPHILS % (AUTO) 46.3 % (42.0-75.0); RED BLOOD COUNT 3.16 X10^6/uL (3.5-5.4); RED CELL DISTRIBUTION WIDTH 15.1 % (11.6-16.5)
[2023-02-18 05:20] LABS: ALANINE AMINOTRANSFERASE 15 Units/L (12-78); ALBUMIN 2.7 g/dL (3.4-5.0); ALKALINE PHOSPHATASE 52 Units/L (46-116); ASPARTATE AMINO TRANSFERASE 12 Units/L (15-37); BLOOD UREA NITROGEN 8 mg/dL (7-18); CALCIUM 8.2 mg/dL (8.5-10.1); CARBON DIOXIDE 25.9 mmol/L (21-32); CHLORIDE 111 mmol/L (98-107); COR CA(FOR HYPOALB) 9.2 mg/dL (8.5-10.1); COR NA(FOR HYPERGLY) 145 mmol/L (136-145); CREATININE 0.75 mg/dL (0.55-1.02); SODIUM 143 mmol/L (136-145); TOTAL PROTEIN 5.6 g/dL (6.4-8.2); eGFR NON BLACK RACES > 60 (>60)
[2023-02-18] MEDS: ZANAFLEX PO SCH ×3 (05:53→21:49)
[2023-02-18] MEDS: NS 1,000 ML IV 1,000 ML IV SCH (05:55)
[2023-02-18] MEDS: PULMICORT NEB TX 0.5 MG NEB SCH (08:50)
[2023-02-18] MEDS: COZAAR PO SCH (08:58)
[2023-02-18] MEDS: NORVASC TAB 5 MG PO SCH (08:58)
[2023-02-18] MEDS: CIPRO IV 400 MG PREMIX* 400 MG/200 ML IV.SOLN. IV SCH ×2 (08:58→21:44)
[2023-02-18] MEDS: NORCO 7.5/325 MG TAB PO PRN ×2 (08:59→17:50)
[2023-02-18] MEDS: COREG TAB 25 MG PO SCH ×2 (08:59→21:50)
[2023-02-18] MEDS: LOVENOX INJ 40 MG SYR SC SCH (08:59)
[2023-02-18] MEDS: PROTONIX INJ 40 MG VIAL IVP SCH ×2 (08:59→21:45)
[2023-02-18] MEDS ORDERED: ATARAX SYRUP BTL 10MG/5ML PO PRN (10:11)
[2023-02-18] MEDS ORDERED: ATARAX TAB 10 MG PO PRN (10:20)
[2023-02-18] MEDS ORDERED: MILK OF MAGNESIA PO SCH (11:00)
[2023-02-18] MEDS: MILK OF MAGNESIA PO SCH (11:20)
--- NOTE | 2023-02-18 15:01 | CT ---
HISTORYABD PAIN, N/VSTUDYABDOMEN/PELVIS WITH CONCOMPARISONAcute abdomen series from 1 day prior.TECHNIQUEMultiple axial images of the abdomen and pelvis were obtained from the lung bases to the upper thighs after the administration of IV contrast. Dose reduction techniques including Automated Exposure Control (AEC) and adjustment of mA and kV were utilized.FINDINGSThere are trace bilateral pleural effusions. Mild bilateral subsegmental atelectasis. The heart is mildly enlarged. Small pericardial effusion. The liver, gallbladder, spleen, pancreas, common duct, adrenal glands, and kidneys have a benign appearance. There is mild perinephric fat stranding which is symmetric and fairly common in this age group. The urinary bladder appears benign. Status post hysterectomy. Diverticulosis of the colon without convincing evidence of diverticulitis. The appendix appears normal. Negative for bowel obstruction. Small fat containing right inguinal hernia. Mildly atherosclerotic normal caliber abdominal aorta. Fat stranding and subcutaneous gas in the anterior body wall image 61 series 3 likely sequela of injection. Bilateral femoral head AVN. Mild rightward curvature of the thoracolumbar spine. Moderate to severe degenerative disc disease at L4-5 and L5-S1.IMPRESSIONNegative for bowel obstruction.Diverticulosis of the colon without convincing evidence of diverticulitis.Other incidental findings as above.Electronically signed by: Liam Pak (Feb 18, 2023 15:00:00)
[2023-02-18] MEDS: COLACE CAP 100 MG PO PRN (17:50)
[2023-02-18] MEDS: DESYREL PO SCH (21:46)
[2023-02-18] MEDS: CRESTOR TAB 10 MG PO SCH (21:49)
[2023-02-19 04:55] LABS: BASOPHILS % (AUTO) 0.5 % (0.2-1.0); EOSINOPHILS # (AUTO) 0.1 x10^3/uL (0.0-0.2); EOSINOPHILS % (AUTO) 1.4 % (0.9-2.9); HEMATOCRIT 28.9 % (36.0-47.0); HEMOGLOBIN 9.6 g/dL (12.0-16.0); LYMPHOCYTES # (AUTO) 2.6 X10^3/uL (1.3-2.9); LYMPHOCYTES % (AUTO) 36.4 % (21.0-51.0); MEAN CORPUSCULAR HEMOGLOBIN 29.5 pg (27.0-34.0); MEAN CORPUSCULAR HGB CONC 33.2 g/dL (33.0-35.0); MEAN CORPUSCULAR VOLUME 88.6 fL (80.0-100.0); MEAN PLATELET VOLUME 6.7 fL (7.4-11.0); MONOCYTES # (AUTO) 0.5 x10^3/uL (0.3-0.8); MONOCYTES % (AUTO) 6.5 % (0.0-13.0); NEUTROPHILS % (AUTO) 55.2 % (42.0-75.0); RED BLOOD COUNT 3.26 X10^6/uL (3.5-5.4); RED CELL DISTRIBUTION WIDTH 15.1 % (11.6-16.5); WHITE BLOOD COUNT 7.3 X10^3/uL (3.6-10.0)
[2023-02-19 05:20] LABS: ALANINE AMINOTRANSFERASE 21 Units/L (12-78); ALBUMIN 2.9 g/dL (3.4-5.0); ALKALINE PHOSPHATASE 55 Units/L (46-116); ASPARTATE AMINO TRANSFERASE 17 Units/L (15-37); BLOOD UREA NITROGEN 7 mg/dL (7-18); CALCIUM 8.6 mg/dL (8.5-10.1); CARBON DIOXIDE 25.4 mmol/L (21-32); CHLORIDE 109 mmol/L (98-107); COR CA(FOR HYPOALB) 9.5 mg/dL (8.5-10.1); COR NA(FOR HYPERGLY) 145 mmol/L (136-145); SODIUM 143 mmol/L (136-145); TOTAL PROTEIN 5.9 g/dL (6.4-8.2); eGFR NON BLACK RACES > 60 (>60)
[2023-02-19] MEDS: ZANAFLEX PO SCH (05:48)
[2023-02-19] MEDS: NS 1,000 ML IV 1,000 ML IV SCH ×2 (08:58→10:39)
[2023-02-19] MEDS: MILK OF MAGNESIA PO SCH (09:09)
[2023-02-19] MEDS: COREG TAB 25 MG PO SCH (09:10)
[2023-02-19] MEDS: NORVASC TAB 5 MG PO SCH (09:10)
[2023-02-19] MEDS: LOVENOX INJ 40 MG SYR SC SCH (09:10)
[2023-02-19] MEDS: COZAAR PO SCH (09:10)
[2023-02-19] MEDS: PROTONIX INJ 40 MG VIAL IVP SCH (09:11)
[2023-02-19] MEDS: CIPRO IV 400 MG PREMIX* 400 MG/200 ML IV.SOLN. IV SCH (09:14)
[2023-02-19] MEDS ORDERED: DULCOLAX SUPPOSITORY 10 MG RECTAL ONE (11:22)
[2023-02-19] MEDS ORDERED: DULCOLAX SUPPOSITORY 10 MG ONE (12:01)
[2023-02-19 12:20] VITALS: BP 184/79
--- NOTE | 2023-02-20 10:09 | RAD ---
HISTORYChest discomfortSTUDYPortable AP chestCOMPARISONApril 2022FINDINGSSimilar cardiomegaly, aortic dilation, clear lungs and pleural spaces.IMPRESSIONNo interval change or acute abnormality demonstrated.Electronically signed by: LUCA CAMACHO (Feb 20, 2023 10:07:35)
== END 2023-02-19 13:14 | disposition home health service (06) ==
LOC: MED/SURG
PROVIDERS: ADMIT Internal Medicine; ATTEND Internal Medicine
DX: E11.22 Type 2 diabetes mellitus with diabetic chronic kidney disease; K31.84 Gastroparesis; R26.89 Other abnormalities of gait and mobility; R11.2 Nausea with vomiting, unspecified; Z20.822 Contact with and (suspected) exposure to COVID-19; N18.1 Chronic kidney disease, stage 1; J44.9 Chronic obstructive pulmonary disease, unspecified; E86.0 Dehydration; R10.84 Generalized abdominal pain; K52.89 Other specified noninfective gastroenteritis and colitis; I12.9 Hypertensive chronic kidney disease with stage 1 through stage 4 chronic kidney disease, or unspecified chronic kidney disease; E11.65 Type 2 diabetes mellitus with hyperglycemia; R06.02 Shortness of breath

== ENCOUNTER 2023-04-02 06:08 | Observation (INO) ==
[2023-04-02] MEDS ORDERED: MORPHINE SULFATE INJ 2 MG INJ IM ONE (06:29)
[2023-04-02] MEDS ORDERED: MORPHINE SULFATE INJ 2 MG INJ ONE (06:30)
[2023-04-02 06:51] LABS: BASOPHILS % (AUTO) 0.4 % (0.2-1.0); EOSINOPHILS # (AUTO) 0.1 x10^3/uL (0.0-0.2); EOSINOPHILS % (AUTO) 1.2 % (0.9-2.9); HEMATOCRIT 32.4 % (36.0-47.0); HEMOGLOBIN 10.8 g/dL (12.0-16.0); LYMPHOCYTES # (AUTO) 3.2 X10^3/uL (1.3-2.9); LYMPHOCYTES % (AUTO) 29.5 % (21.0-51.0); MEAN CORPUSCULAR HEMOGLOBIN 28.7 pg (27.0-34.0); MEAN CORPUSCULAR HGB CONC 33.2 g/dL (33.0-35.0); MEAN CORPUSCULAR VOLUME 86.5 fL (80.0-100.0); MEAN PLATELET VOLUME 6.7 fL (7.4-11.0); MONOCYTES # (AUTO) 0.5 x10^3/uL (0.3-0.8); MONOCYTES % (AUTO) 4.9 % (0.0-13.0); NEUTROPHILS # (AUTO) 6.9 x10^3/uL (2.2-4.8); PLATELET COUNT 296 X10^3/uL (150.0-450.0); RED BLOOD COUNT 3.75 X10^6/uL (3.5-5.4); WHITE BLOOD COUNT 10.8 X10^3/uL (3.6-10.0)
--- NOTE | 2023-04-02 06:55 | DR.EXTPAIN ---
HPI <Mohsen Jones - Last Filed: 04/02/23 06:54> Time seen Time Seen by Provider: 04/02/23 06:45 PCP Primary Care Physician: Gurmeet HPI Comment HPI Comment: According to pt she had not been feeling well since Monday .However slowly got better .Got up this mornig around 2 am from sleep experiencing spasm in the middle of the chest associated with feeling that she could not breathe.EMS called in and patient brought to ER for evaluation .In the ER her oxygen sat 100 % on room air Complaint/Symptoms Chief Complaint Doctor Comments: could not breath Chief Complaint:: pt states" she woke up at 2am this morning and felt like she could not breath. she used her inhaler and provided no relief so she called ems." Self Treatment fo Chief Complaint: inhaler COVID-19 Coronavirus risk:travel/contact w/high risk person: No Has patient experienced Coronavirus symptoms: No Nurses notes reviewed Nurses Notes Review: Yes Source History Provided: Patient Mode of arrival Mode of Arrival: EMS Timing Onset of Chief Complaint: 04/02/23 Context History of: Arthritis Associated signs and symptoms Associated Signs and Symptoms: None PMH <Mohsen Jones - Last Filed: 04/02/23 06:54> PMH Past Medical History: Yes Past Medical History: Asthma, CHF, Depression, Diabetes, Dyslipidemia, Migraines, GERD, Gout, Hypertension and Renal Disease Past Surgical History: No Surgical History: and Hysterectomy Family History History of Family Medical Conditions: Yes Family Medical History: Diabetes Mellitus Social History Alcohol Use: None Do you use any recreational Drugs:: No Lives With: Alone Lives Where: Home Travel Risk Coronavirus risk:travel/contact w/high risk person: No Has patient experienced Coronavirus symptoms: No Infectious screening In the last 2 months have you had wt loss of >10#?: NO Have you had fever, night sweats or hemotysis?: No Have you traveled outside the country in the last 6 months?: No Isolation: Standard ROS <Mohsen Jones - Last Filed: 04/02/23 06:54> Review of Systems Constitutional: No Symptoms Reported Eyes: No Symptoms Reported ENTM: No Symptoms Reported Respiratoy: Short of Breath Cardiovascular: Chest Pain Gastrointestinal/Abdominal: No Symptoms Reported Genitourinary: No Symptoms Reported Neurological: No Symptoms Reported Musculoskeletal: No Symptoms Reported Integumentary: No Symptoms Reported Hematologic/Lymphatic: No Symptoms Reported Endocrine: No Symptoms Reported PE <Mohsen Jones - Last Filed: 04/02/23 06:54> Vital Signs Vitals: Temperature 97.6 F Pulse Rate 77 Pulse Rate 81 Respiratory Rate 20 Respiratory Rate 20 Blood Pressure [Right Arm] 184/79 Blood Pressure 165/77 Blood Pressure 165/77 O2 Sat by Pulse Oximetry 100 O2 Sat by Pulse Oximetry 100 General Limitations: No Limitations General Appearance: Alert and Anxious Head Head Exam: Normal Inspection, Atraumatic and Normocephalic Eyes Eye exam: Normal Appearance, PERRL and EOMI ENT ENT Exam: Normal Exam, Normal Oropharynx and Mucous Membranes Moist Neck Neck Exam: Normal Inspection and Full ROM Chest Chest Inspection: Normal Inspection, Symmetric Chest Wall Rise and Tenderness Respiratory Respiratory Exam: Normal Lung Sounds Bilat Respiratory Exam: Bilateral: Clear to Auscultation Cardiovascular Cardiovascular Exam: +S1 and +S2 Abdominal Exam Abdominal Exam: Normal Inspection, Normal Bowel Sounds and Soft Neurological Neurological Exam: Alert Other Exam Other Exam: lower ext no redness or swelling no tenderness over the calf muscles on palpation <Camilo Griffiths - Last Filed: 04/02/23 09:50> Vital Signs Vitals: Temperature 97.6 F Pulse Rate 77 Pulse Rate 81 Respiratory Rate 20 Respiratory Rate 20 Blood Pressure [Right Arm] 184/79 Blood Pressure 165/77 Blood Pressure 165/77 O2 Sat by Pulse Oximetry 100 O2 Sat by Pulse Oximetry 100 [facility] <Mohsen Jones - Last Filed: 04/02/23 06:54> Differential Diagnosis Differential Diagnosis: Other (shortness of breath ,chest spasm ) COURSE <Mohsen Jones - Last Filed: 04/02/23 06:54> Treatment Treatment: cbc,cmp,bnp,d-dimer,cardiac enzymes ,IM morphine 2 mg <Camilo Griffiths - Last Filed: 04/02/23 09:50> Treatment Treatment: cbc,cmp,bnp,d-dimer,cardiac enzymes ,IM morphine 2 mg. 039 - pt was signed over to me. Labs overall acceptable, except for an elevated d-dimer. CTA of the chest was performed, no acute abnormalities detected. Pt given PO hydroxyzine for itching (going on several days [facility]). Pt doing better. Negative w/u at this time for chest pain. 0859 - pt without chest pain at present. Feeling anxious, short of breath. 100% on 2L. Recommend observation admission for chest pain/dyspnea, in view of pt's age & complaints. ROR <Mohsen Jones - Last Filed: 04/02/23 06:54> Labs Reviewed Result Diagrams: 04/02/23 06:42 04/02/23 06:42 Laboratory: WBC 10.8 X10^3/uL (3.6-10.0) H 04/02/23 06:42 RBC 3.75 X10^6/uL (3.5-5.4) 04/02/23 06:42 Hgb 10.8 g/dL (12.0-16.0) L 04/02/23 06:42 Hct 32.4 % (36.0-47.0) L 04/02/23 06:42 MCV 86.5 fL (80.0-100.0) 04/02/23 06:42 MCH 28.7 pg (27.0-34.0) 04/02/23 06:42 MCHC 33.2 g/dL (33.0-35.0) 04/02/23 06:42 RDW 14.0 % (11.6-16.5) 04/02/23 06:42 Plt Count 296 X10^3/uL (150.0-450.0) 04/02/23 06:42 MPV 6.7 fL (7.4-11.0) L 04/02/23 06:42 Neut % (Auto) 64.0 % (42.0-75.0) 04/02/23 06:42 Lymph % (Auto) 29.5 % (21.0-51.0) 04/02/23 06:42 Sharp % (Auto) 4.9 % (0.0-13.0) 04/02/23 06:42 Eos % (Auto) 1.2 % (0.9-2.9) 04/02/23 06:42 Baso % (Auto) 0.4 % (0.2-1.0) 04/02/23 06:42 Neut # (Auto) 6.9 x10^3/uL (2.2-4.8) H 04/02/23 06:42 Lymph # (Auto) 3.2 X10^3/uL (1.3-2.9) H 04/02/23 06:42 Sharp # (Auto) 0.5 x10^3/uL (0.3-0.8) 04/02/23 06:42 Eos # (Auto) 0.1 x10^3/uL (0.0-0.2) 04/02/23 06:42 Baso # (Auto) 0.0 X10^3/uL (0.0-0.1) 04/02/23 06:42 Absolute Nucleated RBC 0.1 /100WBC 04/02/23 06:42 D-Dimer 3.51 ug/ml (0.0-0.57) H 04/02/23 06:42 Sodium 141 mmol/L (136-145) 04/02/23 06:42 Corrected Sodium 143 mmol/L (136-145) 04/02/23 06:42 Potassium 3.4 mmol/L (3.5-5.1) L 04/02/23 06:42 Chloride 104 mmol/L (98-107) 04/02/23 06:42 Carbon Dioxide 19.4 mmol/L (21-32) L 04/02/23 06:42 BUN 18 mg/dL (7-18) 04/02/23 06:42 Creatinine 1.04 mg/dL (0.55-1.02) H 04/02/23 06:42 Est GFR (MDRD) Af Amer > 60 (>60) 04/02/23 06:42 Est GFR (MDRD) Non-Af 55 (>60) L 04/02/23 06:42 Glucose 196 mg/dL (65-99) H 04/02/23 06:42 Calcium 9.2 mg/dL (8.5-10.1) 04/02/23 06:42 Corrected Calcium TNP 04/02/23 06:42 Total Bilirubin 0.40 mg/dL (0.2-1.0) 04/02/23 06:42 AST 14 Units/L (15-37) L 04/02/23 06:42 ALT 20 Units/L (12-78) 04/02/23 06:42 Alkaline Phosphatase 64 Units/L (46-116) 04/02/23 06:42 Troponin I High Sens 5.7 ng/L (4.0-60.0) 04/02/23 06:42 B-Natriuretic Peptide 174 pg/mL (0-79) H 04/02/23 06:42 Total Protein 7.3 g/dL (6.4-8.2) 04/02/23 06:42 Albumin 3.7 g/dL (3.4-5.0) 04/02/23 06:42 Globulin 3.6 g/dL (2.5-4.5) 04/02/23 06:42 Albumin/Globulin Ratio 1.0 Ratio (1.1-2.1) L 04/02/23 06:42 <Camilonelson Seth - Last Filed: 04/02/23 09:50> Labs Reviewed Laboratory Results Reviewed?: Yes Laboratory: WBC 10.8 X10^3/uL (3.6-10.0) H 04/02/23 06:42 RBC 3.75 X10^6/uL (3.5-5.4) 04/02/23 06:42 Hgb 10.8 g/dL (12.0-16.0) L 04/02/23 06:42 Hct 32.4 % (36.0-47.0) L 04/02/23 06:42 MCV 86.5 fL (80.0-100.0) 04/02/23 06:42 MCH 28.7 pg (27.0-34.0) 04/02/23 06:42 MCHC 33.2 g/dL (33.0-35.0) 04/02/23 06:42 RDW 14.0 % (11.6-16.5) 04/02/23 06:42 Plt Count 296 X10^3/uL (150.0-450.0) 04/02/23 06:42 MPV 6.7 fL (7.4-11.0) L 04/02/23 06:42 Neut % (Auto) 64.0 % (42.0-75.0) 04/02/23 06:42 Lymph % (Auto) 29.5 % (21.0-51.0) 04/02/23 06:42 Sharp % (Auto) 4.9 % (0.0-13.0) 04/02/23 06:42 Eos % (Auto) 1.2 % (0.9-2.9) 04/02/23 06:42 Baso % (Auto) 0.4 % (0.2-1.0) 04/02/23 06:42 Neut # (Auto) 6.9 x10^3/uL (2.2-4.8) H 04/02/23 06:42 Lymph # (Auto) 3.2 X10^3/uL (1.3-2.9) H 04/02/23 06:42 Sharp # (Auto) 0.5 x10^3/uL (0.3-0.8) 04/02/23 06:42 Eos # (Auto) 0.1 x10^3/uL (0.0-0.2) 04/02/23 06:42 Baso # (Auto) 0.0 X10^3/uL (0.0-0.1) 04/02/23 06:42 Absolute Nucleated RBC 0.1 /100WBC 04/02/23 06:42 D-Dimer 3.51 ug/ml (0.0-0.57) H 04/02/23 06:42 Sodium 141 mmol/L (136-145) 04/02/23 06:42 Corrected Sodium 143 mmol/L (136-145) 04/02/23 06:42 Potassium 3.4 mmol/L (3.5-5.1) L 04/02/23 06:42 Chloride 104 mmol/L (98-107) 04/02/23 06:42 Carbon Dioxide 19.4 mmol/L (21-32) L 04/02/23 06:42 BUN 18 mg/dL (7-18) 04/02/23 06:42 Creatinine 1.04 mg/dL (0.55-1.02) H 04/02/23 06:42 Est GFR (MDRD) Af Amer > 60 (>60) 04/02/23 06:42 Est GFR (MDRD) Non-Af 55 (>60) L 04/02/23 06:42 Glucose 196 mg/dL (65-99) H 04/02/23 06:42 Calcium 9.2 mg/dL (8.5-10.1) 04/02/23 06:42 Corrected Calcium TNP 04/02/23 06:42 Total Bilirubin 0.40 mg/dL (0.2-1.0) 04/02/23 06:42 AST 14 Units/L (15-37) L 04/02/23 06:42 ALT 20 Units/L (12-78) 04/02/23 06:42 Alkaline Phosphatase 64 Units/L (46-116) 04/02/23 06:42 Troponin I High Sens 5.7 ng/L (4.0-60.0) 04/02/23 06:42 B-Natriuretic Peptide 174 pg/mL (0-79) H 04/02/23 06:42 Total Protein 7.3 g/dL (6.4-8.2) 04/02/23 06:42 Albumin 3.7 g/dL (3.4-5.0) 04/02/23 06:42 Globulin 3.6 g/dL (2.5-4.5) 04/02/23 06:42 Albumin/Globulin Ratio 1.0 Ratio (1.1-2.1) L 04/02/23 06:42 labs overall acceptable,, except elevated d-dimer, mild elevated BNP. XRAY XRAY Interpreted by: Radiologist X-ray Results: No acute abnormalities. Opioid <Mohsen Jones - Last Filed: 04/02/23 06:54> Opioid Risk Tool Age (Harsha box if 16-45): No History of Preadolescent Sexual Abuse: No Total: 0 Total Score Risk Category: Low Risk Copyright: [facility] predicting aberrant behaviors <Camilo Seth - Last Filed: 04/02/23 09:50> Opioid Risk Tool Total: 0 Total Score Risk Category: Low Risk Discharge Plan Diagnosis Discharge Problem: Chest pain, Dyspnea Discharge Plan Patient Disposition: ADMITTED INPATIENT Condition: Stable Prescriptions: No Action Glimepiride 4 MG Tab 4 mg PO BID Label Comments: allopurinol 100 MG tablet 100 mg PO DAILY Label Comments: albuterol sulfate [ProAir HFA] 90 mcg/actuation Hfa Aerosol Inhaler 2 puff Inhalation Q4H PRN (Reason: SOB) famotidine [Pepcid] 20 mg Tablet 20 mg PO BID Label Comments: pt states she uses as needed icosapent ethyl [Vascepa] 1 gram Capsule 1 g PO BID tizanidine 4 mg tablet 4 mg PO TID rosuvastatin 40 mg tablet 40 mg PO HS losartan 50 mg tablet 100 mg PO QDAY zolpidem 5 mg tablet 5 mg PO HS hydrocodone-acetaminophen 7.5-325 mg tablet 1 tab PO BID PRN fluticasone propionate 50 mcg/actuation spray,suspension 1 spray INTRANASAL QDAY Levemir FlexTouch U100 Insulin 100 unit/mL (3 mL) insulin pen 16 unit SUBCUT DAILY Label Comments: [NO ORIGINAL SIG] levocetirizine 5 mg tablet 5 mg PO HS pantoprazole [Protonix] 40 mg tablet,delayed release (DR/EC) 40 mg PO PRN PRN amlodipine 5 mg tablet 1 tab PO QDAY gabapentin 300 mg capsule 300 mg PO TID Tradjenta 5 mg tablet 5 mg PO DAILY Linzess 145 mcg capsule 145 mcg PO DAILY carvedilol [Coreg] 25 mg tablet 25 mg PO BID trazodone 150 mg tablet 150 mg PO HS Health Concerns: Post Hospitalization: new medications and changes needed to prevent readmission or further decline. Pt educated and given instructions on all concerns. Plan of Treatment: Continue with present treatment and follow up plan. Pt is to keep follow up appointment as instructed and take medications as ordered. Orders to Discharge Patient Discharge Orders: Transfer (Routine); Ordered 04/02/23 Ordered By: Camilo Seth Follow ups/Referrals Follow ups/Referrals: CATALINO NYE [Primary Care Provider] - 3 days
[2023-04-02 07:20] LABS: ALANINE AMINOTRANSFERASE 20 Units/L (12-78); ALBUMIN 3.7 g/dL (3.4-5.0); ALKALINE PHOSPHATASE 64 Units/L (46-116); ASPARTATE AMINO TRANSFERASE 14 Units/L (15-37); BLOOD UREA NITROGEN 18 mg/dL (7-18); CALCIUM 9.2 mg/dL (8.5-10.1); CARBON DIOXIDE 19.4 mmol/L (21-32); CHLORIDE 104 mmol/L (98-107); COR NA(FOR HYPERGLY) 143 mmol/L (136-145); CREATININE 1.04 mg/dL (0.55-1.02); GLUCOSE 196 mg/dL (65-99); POTASSIUM 3.4 mmol/L (3.5-5.1); SODIUM 141 mmol/L (136-145); TOTAL PROTEIN 7.3 g/dL (6.4-8.2); eGFR NON BLACK RACES 55 (>60)
[2023-04-02] MEDS ORDERED: NS 100 ML IV 100 ML ONE (07:35)
[2023-04-02] MEDS ORDERED: ATARAX TAB 25 MG PO ONE ×2 (08:04→08:05)
--- NOTE | 2023-04-02 08:15 | CT ---
HISTORYSOB, ELEVATED D-DIMERSTUDYCTA CHESTCOMPARISONChest one view performed on 02/19/2023.TECHNIQUEMultiple axial images of the chest were obtained from the thoracic inlet to the upper abdomen after the administration of IV contrast. 3D reconstructions utilizing axial MIPS imaging was performed and reviewed. Dose reduction techniques including Automated Exposure Control (AEC) and adjustment of mA and kV were utilized.FINDINGSPulmonary arteries: No evidence of pulmonary emboli.Thoracic aorta: No acute findings. There is mild atherosclerosis.Heart/mediastinum: Normal heart size without a significant pericardial effusion. No mass or lymphadenopathy. There is mild coronary artery calcification.Lungs: The lungs are clear without a pneumothorax or pleural effusion.Upper abdomen: No significant abnormality.Bones: Mild degenerative changes are noted along the spine without acute findings.Additional findings: None.IMPRESSION1. No CT evidence of pulmonary emboli.2. No acute findings.Electronically signed by: Jeremiah Lopez (Apr 02, 2023 08:14:39)
[2023-04-02] MEDS ORDERED: BENADRYL INJ 50 MG VIAL IVP ONE (09:44)
[2023-04-02] MEDS ORDERED: BENADRYL INJ 50 MG VIAL ONE (09:46)
[2023-04-02] MEDS ORDERED: VENTOLIN or PROAIR HFA IN PRN (11:10)
[2023-04-02] MEDS ORDERED: ZANAFLEX PO PRN (11:10)
[2023-04-02] MEDS ORDERED: K-DUR TAB 20 MEQ PO PRN (11:18)
[2023-04-02] MEDS: PROVENTIL NEB TX 0.083% 2.5MG/ 3ML NEB PRN (11:30)
[2023-04-02 11:54] VITALS: BMI 31.0
[2023-04-02] MEDS: VISTARIL PO PRN ×2 (11:56→20:01)
[2023-04-02] MEDS: NORCO 7.5/325 MG TAB PO PRN ×2 (13:36→20:03)
[2023-04-02] MEDS: NEURONTIN CAP 300 MG PO SCH ×2 (13:37→22:00)
[2023-04-02] MEDS: NovoLIN R (or HumuLIN R) SC PRN (16:52)
[2023-04-02] MEDS: PULMICORT NEB TX 0.5 MG NEB SCH (20:00)
[2023-04-02] MEDS: AMBIEN PO SCH (20:49)
[2023-04-02] MEDS: COREG TAB 25 MG PO SCH (20:50)
[2023-04-02] MEDS ORDERED: PATIENT'S HOME MEDICATION (Rosuvastatin 40 mg tablet) PO SCH (21:00)
[2023-04-02] MEDS ORDERED: PATIENT'S HOME MEDICATION (Levocetirizine 5 mg tablet) PO SCH (21:00)
[2023-04-02] MEDS ORDERED: PATIENT'S HOME MEDICATION (Icosapent Ethyl [Vascepa] 1 gram Capsule) PO SCH ×2 (21:00)
[2023-04-02] MEDS ORDERED: CRESTOR TAB 10 MG PO SCH (21:00)
[2023-04-02] MEDS ORDERED: DESYREL PO SCH (21:00)
[2023-04-02] MEDS: LEVEMIR SC SCH (22:00)
[2023-04-03] MEDS: VISTARIL PO PRN (05:22)
[2023-04-03] MEDS: NEURONTIN CAP 300 MG PO SCH ×3 (05:22→21:02)
[2023-04-03 06:30] LABS: BASOPHILS % (AUTO) 0.4 % (0.2-1.0); EOSINOPHILS # (AUTO) 0.1 x10^3/uL (0.0-0.2); EOSINOPHILS % (AUTO) 1.9 % (0.9-2.9); HEMATOCRIT 31.2 % (36.0-47.0); HEMOGLOBIN 10.3 g/dL (12.0-16.0); LYMPHOCYTES # (AUTO) 3.9 X10^3/uL (1.3-2.9); LYMPHOCYTES % (AUTO) 52.6 % (21.0-51.0); MEAN CORPUSCULAR HEMOGLOBIN 28.6 pg (27.0-34.0); MEAN CORPUSCULAR HGB CONC 32.9 g/dL (33.0-35.0); MEAN CORPUSCULAR VOLUME 87.1 fL (80.0-100.0); MONOCYTES # (AUTO) 0.6 x10^3/uL (0.3-0.8); MONOCYTES % (AUTO) 7.6 % (0.0-13.0); NEUTROPHILS # (AUTO) 2.8 x10^3/uL (2.2-4.8); NEUTROPHILS % (AUTO) 37.5 % (42.0-75.0); PLATELET COUNT 274 X10^3/uL (150.0-450.0); RED BLOOD COUNT 3.59 X10^6/uL (3.5-5.4); RED CELL DISTRIBUTION WIDTH 14.1 % (11.6-16.5); WHITE BLOOD COUNT 7.4 X10^3/uL (3.6-10.0)
[2023-04-03 06:49] LABS: ALANINE AMINOTRANSFERASE 18 Units/L (12-78); ALBUMIN 3.1 g/dL (3.4-5.0); ALKALINE PHOSPHATASE 53 Units/L (46-116); ASPARTATE AMINO TRANSFERASE 12 Units/L (15-37); BLOOD UREA NITROGEN 19 mg/dL (7-18); CALCIUM 8.8 mg/dL (8.5-10.1); CARBON DIOXIDE 25.3 mmol/L (21-32); CHLORIDE 109 mmol/L (98-107); COR CA(FOR HYPOALB) 9.5 mg/dL (8.5-10.1); COR NA(FOR HYPERGLY) 144 mmol/L (136-145); CREATININE 1.01 mg/dL (0.55-1.02); GLUCOSE 121 mg/dL (65-99); POTASSIUM 4.4 mmol/L (3.5-5.1); SODIUM 143 mmol/L (136-145); TOTAL PROTEIN 6.4 g/dL (6.4-8.2); eGFR NON BLACK RACES 57 (>60)
[2023-04-03] MEDS ORDERED: ZYLOPRIM PO SCH (09:00)
[2023-04-03] MEDS ORDERED: INSULIN DETEMIR U SUBCUT SCH (09:00)
[2023-04-03] MEDS: LINZESS PO SCH (09:07)
[2023-04-03] MEDS: COREG TAB 25 MG PO SCH ×2 (09:07→21:03)
[2023-04-03] MEDS: LOVAZA PO SCH ×2 (09:07→21:02)
[2023-04-03] MEDS: ZyrTEC TAB 10 MG PO SCH (09:07)
[2023-04-03] MEDS: NORVASC TAB 5 MG PO SCH (09:07)
[2023-04-03] MEDS: PROTONIX TAB 40 MG PO SCH (09:07)
[2023-04-03] MEDS: COZAAR PO SCH (09:07)
[2023-04-03] MEDS: LOVENOX INJ 40 MG SYR SC SCH (09:08)
[2023-04-03] MEDS: TRADJENTA PO SCH (09:08)
[2023-04-03] MEDS ORDERED: SALINE 3% 15 ML NEB TX NEB ONE (09:37)
[2023-04-03] MEDS ORDERED: SALINE 3% 15 ML NEB TX ONE (09:37)
[2023-04-03] MEDS: PROVENTIL NEB TX 0.083% 2.5MG/ 3ML NEB PRN ×2 (09:40→20:49)
[2023-04-03] MEDS: PULMICORT NEB TX 0.5 MG NEB SCH ×2 (09:40→20:48)
[2023-04-03] MEDS: ROCEPHIN VIAL 1 GRAM 1 G in NS 100 ML IV 100 ML IV SCH (11:36)
[2023-04-03] MEDS: ATARAX TAB 25 MG PO PRN ×2 (11:36→21:01)
--- NOTE | 2023-04-03 14:00 | VAS ---
HISTORY: [Extremity pain, swelling, and edema]Study: Bilateral lower extremity Doppler venous ultrasound.TECHNIQUE: Multiple lawrence scale and color flow Doppler images of the deep venous system were obtained of the [right and left] lower extremity.FINDINGS: The deep venous system of the [right and left lower extremities were] evaluated from the level of the common femoral veins through the popliteal veins, bilaterally. Normal color flow and augmentation can be observed. In addition, normal compression is seen throughout the deep venous system. No Alegre's cyst is seen.IMPRESSION:1. Negative examination for DVT.Electronically signed by: PAGE BEST III (Apr 03, 2023 13:58:48)
--- NOTE | 2023-04-03 18:20 | DR.H&P ---
H&P - History & Physical for Day of: H&P Date: 04/02/23 - Chief Complaint Chief Complaint: SOB - History of Present Illness History of Present Illness: Pt is 73 bf, ER admission. According to pt she had not been feeling well since Monday.However slowly got better. Got up this mornig around 2 am from sleep experiencing spasm in the middle of the chest associated with feeling that she could not breathe.EMS called in and patient brought to ER for evaluation. Pt has reports of ccc with productive sputum since Monday. Pt has PMH of HTN, DM, GERD, OA, SERGIO and renal disease. - Past Medical History Past Medical History: Anxiety, Arthritis, Asthma, CHF, Depression, Diabetes, Dyslipidemia, Migraines, GERD, Gout, Hypertension, Renal Disease - Past Surgical History Surgical History: , Hysterectomy - Family History Family Medical History: Diabetes Mellitus - Social History Does patient currently use any type of tobacco product: No Have you used tobacco products in the last 12 months: No Type of Tobacco Use: None Does any household member use tobacco: No Alcohol Use: None Drug Use: None - Medications Home Medications: Home Medications Medication Instructions Recorded Confirmed Type Glimepiride 4 mg PO BID 04/14/17 04/02/23 History allopurinol 100 mg tablet 100 mg PO DAILY 03/09/18 04/02/23 History albuterol sulfate 90 mcg/actuation 2 puff inhalation Q4H PRN SOB 12/18/18 04/02/23 History aerosol inhaler (ProAir HFA) carvedilol 25 mg tablet (Coreg) 25 mg PO BID 02/02/20 04/02/23 History linaclotide 145 mcg capsule 145 mcg PO DAILY 02/02/20 04/02/23 History (Linzess) linagliptin 5 mg tablet (Tradjenta) 5 mg PO DAILY 02/02/20 04/02/23 History trazodone 150 mg tablet 150 mg PO HS 02/13/21 04/02/23 History famotidine 20 mg tablet (Pepcid) 20 mg PO BID 01/11/22 04/02/23 History icosapent ethyl 1 gram capsule 1 g PO BID 01/11/22 04/02/23 History (Vascepa) fluticasone propionate 50 1 spray intranasal QDAY 02/14/23 04/02/23 History mcg/actuation nasal spray,suspension hydrocodone 7.5 mg-acetaminophen 1 tab PO BID PRN 02/14/23 04/02/23 History 325 mg tablet insulin detemir U-100 100 unit/mL 16 unit subcut DAILY 02/14/23 04/02/23 History (3 mL) subcutaneous pen (Levemir FlexTouch U-100 Insulin) levocetirizine 5 mg tablet 5 mg PO HS 02/14/23 04/02/23 History losartan 50 mg tablet 100 mg PO QDAY 02/14/23 04/02/23 History rosuvastatin 40 mg tablet 40 mg PO HS 02/14/23 04/02/23 History tizanidine 4 mg tablet 4 mg PO TID 02/14/23 04/02/23 History zolpidem 5 mg tablet 5 mg PO HS 02/14/23 04/02/23 History amlodipine 5 mg tablet 1 tab PO QDAY 04/02/23 04/02/23 History gabapentin 300 mg capsule 300 mg PO TID 04/02/23 04/02/23 History pantoprazole 40 mg tablet,delayed 40 mg PO PRN PRN 04/02/23 04/02/23 History release (Protonix) - Review of Systems Constitutional: Chills, Weakness, Malaise Eyes: No Symptoms Reported ENT: No Symptoms Reported Respiratory: Cough, Shortness of Breath, SOB with Excertion, Sputum, Wheezing Cardiovascular: Chest Pain ("tightness"), Edema Gastrointestinal: Nausea Genitourinary: No Symptoms Reported Musculoskeletal: Shoulder Pain, Back Pain Skin: Other (itching (no rash)) Neurological: No Symptoms Reported - Physical Exam Vital Signs: Temperature 97.4 F Temperature 97.6 F Pulse Rate [Left Radial] 78 Pulse Rate 84 Pulse Rate 81 Respiratory Rate 18 Respiratory Rate 20 Blood Pressure [Right Arm] 116/58 Blood Pressure 165/77 Blood Pressure 165/77 O2 Sat by Pulse Oximetry 98 O2 Sat by Pulse Oximetry 100 Oriented: Normal Eyes: Normal Ear: Normal Nose: Normal Throat: Dry Respiratory: Wheezes Throughout (upper exp. wheezing), RLL Diminished, LLL Diminished Cardiovascular: Normal, Edema. negative: Murmur : Normal Auscultation: Bowel Sounds: Normal Palpation: Normal Tenderness: Normal Skin: Decreased Turgur. negative: Rash Musculoskeletal: Right, Left, Shoulder, Back:Lumbar Psychiatric: Anxiety Affect: Anxious Speech Pattern: Clear, Appropriate - Assessment/Plan (1) SOB (shortness of breath) Status: Acute Plan: ADMIT, CTA LUNGS TO RO PE DUE TO ELEVATED DDIMER AND SOB. SUPPLEMENTAL O2, BP CONTROL. CARDIAC MONITORING. VERIFY HOME MEDICATION. BS CONTROL, RESP CONSULT (2) Acute bronchitis Status: Acute (3) Hypertension Status: Acute (4) DDD (degenerative disc disease), cervical Status: Acute (5) Diabetes Qualifiers: Diabetes mellitus type: type 2 Status: Chronic (6) CHF (congestive heart failure) Qualifiers: Qualified Code(s): I50.9 - Heart failure, unspecified Status: Chronic - Allergies Allergies/Adverse Reactions: Allergies Allergy/AdvReac Type Severity Reaction Status Date / Time No Known Drug Allergies Allergy Verified 02/01/22 11:11
--- NOTE | 2023-04-03 18:24 | PCM.PROG ---
Progress Note - Progress Note for Day of Date of Exam: 04/03/23 - Subjective Subjective: PT IS 73 BF, ER ADMISSION WITH SOB AND PRODUCTIVE COUGH. PT HAD AN ELEVATED DDIMER ON ADMISSION, WITH CTA NEGATIVE FOR PE. RESP SWAB ORDERED TO BE COLLECTED THIS AM AND SPUTUM CULTURE. PT IS CURRENTLY ON IV ROCEPHIN AND DUO NEBS. WILL ADD ROBITUSSIN AND ATARAX FOR CO OF "ITCHING" ALL OVER. PT HAS NO RASH OR CONCERNING SKIN LESIONS ON PHYSICAL EXAM. PT REPORTS SWELLING TO BOTH LEGS WITH RIGHT BEING WORSE FOR ONE WEEK. PT REPORTS TAKING HER WATER PILLS WITHOUT IMPROVEMENT IN SWELLING. - Past Medical Family Social History Past Med/Fam/Surg Hx: No changes since H&P Allergies: Allergies No Known Drug Allergies Allergy (Verified 02/01/22 11:11) - Review of Systems ROS: No change since H&P - Vital Signs and I&O's Vital Signs: Temperature 97.4 F Temperature 97.6 F Pulse Rate [Left Radial] 78 Pulse Rate 84 Pulse Rate 81 Respiratory Rate 18 Respiratory Rate 20 Blood Pressure [Right Arm] 116/58 Blood Pressure 165/77 Blood Pressure 165/77 O2 Sat by Pulse Oximetry 98 O2 Sat by Pulse Oximetry 100 Intake and Output: Intake & Output 04/01/23 04/02/23 04/03/23 04/04/23 11:59 11:59 11:59 11:59 Intake Total 830 / 830 520 / 520 Balance 830 / 830 520 / 520 - Physical Exam Oriented: Normal Eyes: Normal Ear: Normal Nose: Normal Throat: Dry Respiratory: Diminished, Wheezes Cardiovascular: Normal, Edema. negative: Murmur : Normal Auscultation: Bowel Sounds: Normal Tenderness: Normal Skin: Decreased Turgur. negative: Rash Musculoskeletal: Right, Left, Shoulder, Back:Lumbar Psychiatric: Anxiety Affect: Anxious Speech Pattern: Clear, Appropriate - Laboratory and Diagnostics Result Diagrams: 04/03/23 05:23 04/03/23 05: Labs: Laboratory WBC 7.4 X10^3/uL (3.6-10.0) 04/03/23 05: RBC 3.59 X10^6/uL (3.5-5.4) 04/03/23 05:23 Hgb 10.3 g/dL (12.0-16.0) L 06/05/23 05:23 Hct 31.2 % (36.0-47.0) L 04/03/23 05:23 MCV 87.1 fL (80.0-100.0) 04/03/23 05:23 MCH 28.6 pg (27.0-34.0) 04/03/23 05:23 MCHC 32.9 g/dL (33.0-35.0) L 04/03/23 05: RDW 14.1 % (11.6-16.5) 04/03/23 05:23 Plt Count 274 X10^3/uL (150.0-450.0) 04/03/23 05:23 MPV 7.0 fL (7.4-11.0) L 04/03/23 05:23 Neut % (Auto) 37.5 % (42.0-75.0) L 04/03/23 05:23 Lymph % (Auto) 52.6 % (21.0-51.0) H 04/03/23 05:23 Gates % (Auto) 7.6 % (0.0-13.0) 04/03/23 05:23 Eos % (Auto) 1.9 % (0.9-2.9) 04/03/23 05:23 Baso % (Auto) 0.4 % (0.2-1.0) 04/03/23 05:23 Neut # (Auto) 2.8 x10^3/uL (2.2-4.8) 04/03/23 05:23 Lymph # (Auto) 3.9 X10^3/uL (1.3-2.9) H 04/03/23 05:23 Gates # (Auto) 0.6 x10^3/uL (0.3-0.8) 04/03/23 05:23 Eos # (Auto) 0.1 x10^3/uL (0.0-0.2) 04/03/23 05:23 Baso # (Auto) 0.0 X10^3/uL (0.0-0.1) 04/03/23 05:23 Absolute Nucleated RBC 0.2 /100WBC 04/03/23 05:23 D-Dimer 3.51 ug/ml (0.0-0.57) H 04/02/23 06:42 Sodium 143 mmol/L (136-145) 04/03/23 05:23 Corrected Sodium 144 mmol/L (136-145) 04/03/23 05:23 Potassium 4.4 mmol/L (3.5-5.1) 04/03/23 05:23 Chloride 109 mmol/L (98-107) H 04/03/23 05:23 Carbon Dioxide 25.3 mmol/L (21-32) 04/03/23 05:23 BUN 19 mg/dL (7-18) H 04/03/23 05:23 Creatinine 1.01 mg/dL (0.55-1.02) 04/03/23 05:23 Est GFR (MDRD) Af Amer > 60 (>60) 04/03/23 05:23 Est GFR (MDRD) Non-Af 57 (>60) L 04/03/23 05:23 Glucose 121 mg/dL (65-99) H 04/03/23 05:23 POC Glucose (mg/dL) 152 mg/dL (65-99) H 04/03/23 17:20 Uric Acid 6.4 mg/dL (2.6-6.0) H 04/03/23 05:23 Calcium 8.8 mg/dL (8.5-10.1) 04/03/23 05:23 Corrected Calcium 9.5 mg/dL (8.5-10.1) 04/03/23 05:23 Total Bilirubin 0.30 mg/dL (0.2-1.0) 04/03/23 05:23 AST 12 Units/L (15-37) L 04/03/23 05:23 ALT 18 Units/L (12-78) 04/03/23 05:23 Alkaline Phosphatase 53 Units/L (46-116) 04/03/23 05:23 Troponin I High Sens 7.3 ng/L (4.0-60.0) 04/02/23 16:15 B-Natriuretic Peptide 174 pg/mL (0-79) H 04/02/23 06:42 Total Protein 6.4 g/dL (6.4-8.2) 04/03/23 05:23 Albumin 3.1 g/dL (3.4-5.0) L 04/03/23 05:23 Globulin 3.3 g/dL (2.5-4.5) 04/03/23 05:23 Albumin/Globulin Ratio 0.9 Ratio (1.1-2.1) L 04/03/23 05:23 - Plan (1) Acute bronchitis Status: Acute Plan: CTA LUNGS TO RO PE DUE TO ELEVATED DDIMER AND SOB. SUPPLEMENTAL O2, BP CONTROL. CARDIAC MONITORING. VERIFY HOME MEDICATION. BS CONTROL, RESP CONSULT (2) Hypertension Status: Acute (3) DDD (degenerative disc disease), cervical Status: Acute (4) Diabetes Status: Chronic Qualifiers: Diabetes mellitus type: type 2 (5) CHF (congestive heart failure) Status: Chronic Qualifiers: Qualified Code(s): I50.9 - Heart failure, unspecified (6) SOB (shortness of breath) Status: Acute
[2023-04-03] MEDS: NORCO 7.5/325 MG TAB PO PRN (21:02)
[2023-04-03] MEDS: AMBIEN PO SCH (21:03)
[2023-04-03] MEDS: LEVEMIR SC SCH (21:04)
[2023-04-03] MEDS: NovoLIN R (or HumuLIN R) SC PRN (21:05)
[2023-04-04] MEDS: NEURONTIN CAP 300 MG PO SCH ×3 (05:21→21:00)
[2023-04-04] MEDS: NORCO 7.5/325 MG TAB PO PRN ×3 (05:22→21:00)
[2023-04-04] MEDS: ATARAX TAB 25 MG PO PRN ×3 (05:25→21:20)
[2023-04-04 06:30] LABS: BASOPHILS # (AUTO) 0.1 X10^3/uL (0.0-0.1); BASOPHILS % (AUTO) 1.1 % (0.2-1.0); EOSINOPHILS # (AUTO) 0.2 x10^3/uL (0.0-0.2); EOSINOPHILS % (AUTO) 1.9 % (0.9-2.9); HEMOGLOBIN 10.2 g/dL (12.0-16.0); LYMPHOCYTES # (AUTO) 4.2 X10^3/uL (1.3-2.9); LYMPHOCYTES % (AUTO) 46.7 % (21.0-51.0); MEAN CORPUSCULAR HEMOGLOBIN 28.7 pg (27.0-34.0); MEAN PLATELET VOLUME 7.1 fL (7.4-11.0); MONOCYTES # (AUTO) 0.6 x10^3/uL (0.3-0.8); MONOCYTES % (AUTO) 6.9 % (0.0-13.0); NEUTROPHILS # (AUTO) 3.9 x10^3/uL (2.2-4.8); NEUTROPHILS % (AUTO) 43.4 % (42.0-75.0); PLATELET COUNT 283 X10^3/uL (150.0-450.0); RED BLOOD COUNT 3.57 X10^6/uL (3.5-5.4); RED CELL DISTRIBUTION WIDTH 13.9 % (11.6-16.5); WHITE BLOOD COUNT 9.1 X10^3/uL (3.6-10.0)
[2023-04-04 06:47] LABS: ALANINE AMINOTRANSFERASE 17 Units/L (12-78); ALBUMIN 3.1 g/dL (3.4-5.0); ALKALINE PHOSPHATASE 55 Units/L (46-116); ASPARTATE AMINO TRANSFERASE 12 Units/L (15-37); BLOOD UREA NITROGEN 23 mg/dL (7-18); CALCIUM 8.7 mg/dL (8.5-10.1); CARBON DIOXIDE 25.4 mmol/L (21-32); CHLORIDE 110 mmol/L (98-107); COR CA(FOR HYPOALB) 9.4 mg/dL (8.5-10.1); COR NA(FOR HYPERGLY) 144 mmol/L (136-145); CREATININE 0.92 mg/dL (0.55-1.02); GLUCOSE 113 mg/dL (65-99); POTASSIUM 4.4 mmol/L (3.5-5.1); SODIUM 144 mmol/L (136-145); TOTAL PROTEIN 6.5 g/dL (6.4-8.2); eGFR NON BLACK RACES > 60 (>60)
[2023-04-04] MEDS: PULMICORT NEB TX 0.5 MG NEB SCH ×2 (08:20→20:35)
[2023-04-04] MEDS: COREG TAB 25 MG PO SCH ×2 (09:21→21:00)
[2023-04-04] MEDS: PROTONIX TAB 40 MG PO SCH (09:21)
[2023-04-04] MEDS: LINZESS PO SCH (09:21)
[2023-04-04] MEDS: NORVASC TAB 5 MG PO SCH (09:21)
[2023-04-04] MEDS: ZyrTEC TAB 10 MG PO SCH (09:21)
[2023-04-04] MEDS: COZAAR PO SCH (09:21)
[2023-04-04] MEDS: LOVAZA PO SCH ×2 (09:21→20:59)
[2023-04-04] MEDS: ROCEPHIN VIAL 1 GRAM 1 G in NS 100 ML IV 100 ML IV SCH (09:22)
[2023-04-04] MEDS: LOVENOX INJ 40 MG SYR SC SCH (09:22)
[2023-04-04] MEDS: TRADJENTA PO SCH (09:22)
--- NOTE | 2023-04-04 11:16 | RAD ---
HISTORYCOUGH, SOB ASTHMA, HTN, DM, RENAL DISEASE, CHF SX: HYSTERECTOMYSTUDYCHEST, 1 [id number] trachea is midline. Mild cardiomegaly. No evidence of focal pneumonia, pneumothorax or pleural effusions.IMPRESSIONNo acute cardiopulmonary findings .Electronically signed by: Imani Torres (Apr 04, 2023 11:15:16)
[2023-04-04] MEDS ORDERED: ROBITUSSIN DM PO PRN (13:09)
[2023-04-04] MEDS: TEMOVATE CREAM EXT SCH ×2 (14:13→21:01)
[2023-04-04] MEDS: NovoLIN R (or HumuLIN R) SC PRN (17:30)
--- NOTE | 2023-04-04 18:52 | PCM.PROG ---
Progress Note - Progress Note for Day of Date of Exam: 04/04/23 - Subjective Subjective: PT IS 73 BF, ER ADMISSION WITH SOB AND PRODUCTIVE COUGH. PT HAD AN ELEVATED DDIMER ON ADMISSION, WITH CTA NEGATIVE FOR PE. RESP SWAB WAS NEGATIVE FOR FLU, RSV AND COVID 19. PT INSTRUCTED TO PROVIDE A SPUTUM CULTURE. PT IS CURRENTLY ON IV ROCEPHIN AND DUO NEBS. WILL ADD ROBITUSSIN AND ATARAX FOR CO OF "ITCHING" ALL OVER. PT HAS NO RASH OR CONCERNING SKIN LESIONS ON PHYSICAL EXAM. PT REPORTS SWELLING TO BOTH LEGS WITH RIGHT BEING WORSE FOR ONE WEEK. PT REPORTS TAKING HER WATER PILLS WITHOUT IMPROVEMENT IN SWELLING. SHE HAD A NEGATIVE LE VENOUS DOPPLER. PT IS ON ROBITUSSIN DM SCHEDULED. - Past Medical Family Social History Past Med/Fam/Surg Hx: No changes since H&P Allergies: Allergies No Known Drug Allergies Allergy (Verified 02/01/22 11:11) - Review of Systems ROS: No change since H&P - Vital Signs and I&O's Vital Signs: Temperature 98.0 F Temperature 97.6 F Pulse Rate [Left Radial] 76 Pulse Rate 76 Pulse Rate 81 Respiratory Rate 18 Respiratory Rate 20 Blood Pressure [Right Arm] 126/60 Blood Pressure 165/77 Blood Pressure 165/77 O2 Sat by Pulse Oximetry 97 O2 Sat by Pulse Oximetry 100 Intake and Output: Intake & Output 04/02/23 04/03/23 04/04/23 04/05/23 11:59 11:59 11:59 11:59 Intake Total 830 / 830 1760 / 1760 560 / 560 Balance 830 / 830 1760 / 1760 560 / 560 - Physical Exam Oriented: Normal Eyes: Normal Ear: Normal Nose: Normal Throat: Dry Respiratory: Diminished, Wheezes Cardiovascular: Normal, Edema. negative: Murmur : Normal Auscultation: Bowel Sounds: Normal Tenderness: Normal Skin: Decreased Turgur. negative: Rash Musculoskeletal: Right, Left, Shoulder, Back:Lumbar Psychiatric: Anxiety Affect: Anxious Speech Pattern: Clear, Appropriate - Laboratory and Diagnostics Result Diagrams: 04/04/23 05:14 04/04/23 05:14 Labs: Laboratory WBC 9.1 X10^3/uL (3.6-10.0) 04/04/23 05:14 RBC 3.57 X10^6/uL (3.5-5.4) 04/04/23 05:14 Hgb 10.2 g/dL (12.0-16.0) L 04/04/23 05:14 Hct 31.0 % (36.0-47.0) L 04/04/23 05:14 MCV 87.0 fL (80.0-100.0) 04/04/23 05:14 MCH 28.7 pg (27.0-34.0) 04/04/23 05:14 MCHC 33.0 g/dL (33.0-35.0) 04/04/23 05:14 RDW 13.9 % (11.6-16.5) 04/04/23 05:14 Plt Count 283 X10^3/uL (150.0-450.0) 04/04/23 05:14 MPV 7.1 fL (7.4-11.0) L 04/04/23 05:14 Neut % (Auto) 43.4 % (42.0-75.0) 04/04/23 05:14 Lymph % (Auto) 46.7 % (21.0-51.0) 04/04/23 05:14 [place] % (Auto) 6.9 % (0.0-13.0) 04/04/23 05:14 Eos % (Auto) 1.9 % (0.9-2.9) 04/04/23 05:14 Baso % (Auto) 1.1 % (0.2-1.0) H 04/04/23 05:14 Neut # (Auto) 3.9 x10^3/uL (2.2-4.8) 04/04/23 05:14 Lymph # (Auto) 4.2 X10^3/uL (1.3-2.9) H 04/04/23 05:14 [place] # (Auto) 0.6 x10^3/uL (0.3-0.8) 04/04/23 05:14 Eos # (Auto) 0.2 x10^3/uL (0.0-0.2) 04/04/23 05:14 Baso # (Auto) 0.1 X10^3/uL (0.0-0.1) 04/04/23 05:14 Absolute Nucleated RBC 0.1 /100WBC 04/04/23 05:14 D-Dimer 3.51 ug/ml (0.0-0.57) H 04/02/23 06:42 Sodium 144 mmol/L (136-145) 04/04/23 05:14 Corrected Sodium 144 mmol/L (136-145) 04/04/23 05:14 Potassium 4.4 mmol/L (3.5-5.1) 04/04/23 05:14 Chloride 110 mmol/L (98-107) H 04/04/23 05:14 Carbon Dioxide 25.4 mmol/L (21-32) 04/04/23 05:14 BUN 23 mg/dL (7-18) H 04/04/23 05:14 Creatinine 0.92 mg/dL (0.55-1.02) 04/04/23 05:14 Est GFR (MDRD) Af Amer > 60 (>60) 04/04/23 05:14 Est GFR (MDRD) Non-Af > 60 (>60) 04/04/23 05:14 Glucose 113 mg/dL (65-99) H 04/04/23 05:14 POC Glucose (mg/dL) 230 mg/dL (65-99) H 04/04/23 17:27 Uric Acid 6.4 mg/dL (2.6-6.0) H 04/03/23 05:23 Calcium 8.7 mg/dL (8.5-10.1) 04/04/23 05:14 Corrected Calcium 9.4 mg/dL (8.5-10.1) 04/04/23 05:14 Total Bilirubin 0.20 mg/dL (0.2-1.0) 04/04/23 05:14 AST 12 Units/L (15-37) L 04/04/23 05:14 ALT 17 Units/L (12-78) 04/04/23 05:14 Alkaline Phosphatase 55 Units/L (46-116) 04/04/23 05:14 Troponin I High Sens 7.3 ng/L (4.0-60.0) 04/02/23 16:15 B-Natriuretic Peptide 174 pg/mL (0-79) H 04/02/23 06:42 Total Protein 6.5 g/dL (6.4-8.2) 04/04/23 05:14 Albumin 3.1 g/dL (3.4-5.0) L 04/04/23 05:14 Globulin 3.4 g/dL (2.5-4.5) 04/04/23 05:14 Albumin/Globulin Ratio 0.9 Ratio (1.1-2.1) L 04/04/23 05:14 SARS-CoV-2 (PCR) Negative (NEGATIVE) 04/03/23 18:09 Influenza Type A (PCR) Negative (NEGATIVE) 04/03/23 18:09 Influenza Type B (PCR) Negative (NEGATIVE) 04/03/23 18:09 RSV (PCR) Negative (NEGATIVE) 04/03/23 18:09 - Plan (1) Acute bronchitis Status: Acute Plan: CTA LUNGS TO RO PE DUE TO ELEVATED DDIMER AND SOB. SUPPLEMENTAL O2, BP CONTROL. CARDIAC MONITORING. VERIFY HOME MEDICATION. BS CONTROL, RESP CONSULT (2) Hypertension Status: Acute (3) DDD (degenerative disc disease), cervical Status: Acute (4) Diabetes Status: Chronic Qualifiers: Diabetes mellitus type: type 2 (5) CHF (congestive heart failure) Status: Chronic Qualifiers: Qualified Code(s): I50.9 - Heart failure, unspecified (6) SOB (shortness of breath) Status: Acute Plan: ADMIT, CTA LUNGS TO RO PE DUE TO ELEVATED DDIMER AND SOB. SUPPLEMENTAL O2, BP CONTROL. CARDIAC MONITORING. VERIFY HOME MEDICATION. BS CONTROL, RESP CONSULT
[2023-04-04] MEDS ORDERED: MILK OF MAGNESIA PO PRN (19:52)
[2023-04-04] MEDS ORDERED: COLACE CAP 100 MG PO PRN (19:52)
[2023-04-04] MEDS: AMBIEN PO SCH (21:00)
[2023-04-04] MEDS: ROBITUSSIN DM PO SCH (21:01)
[2023-04-04] MEDS: LEVEMIR SC SCH (21:20)
[2023-04-05] MEDS: NEURONTIN CAP 300 MG PO SCH ×2 (05:31→14:26)
[2023-04-05] MEDS: NORCO 7.5/325 MG TAB PO PRN ×2 (05:41→14:26)
[2023-04-05] MEDS: ATARAX TAB 25 MG PO PRN ×2 (05:42→14:25)
[2023-04-05 07:17] LABS: BASOPHILS % (AUTO) 0.4 % (0.2-1.0); EOSINOPHILS # (AUTO) 0.1 x10^3/uL (0.0-0.2); HEMATOCRIT 30.2 % (36.0-47.0); HEMOGLOBIN 10.1 g/dL (12.0-16.0); LYMPHOCYTES # (AUTO) 3.3 X10^3/uL (1.3-2.9); LYMPHOCYTES % (AUTO) 44.3 % (21.0-51.0); MEAN CORPUSCULAR HEMOGLOBIN 29.1 pg (27.0-34.0); MEAN CORPUSCULAR HGB CONC 33.5 g/dL (33.0-35.0); MONOCYTES # (AUTO) 0.6 x10^3/uL (0.3-0.8); MONOCYTES % (AUTO) 8.1 % (0.0-13.0); NEUTROPHILS # (AUTO) 3.4 x10^3/uL (2.2-4.8); NEUTROPHILS % (AUTO) 45.2 % (42.0-75.0); PLATELET COUNT 278 X10^3/uL (150.0-450.0); RED BLOOD COUNT 3.47 X10^6/uL (3.5-5.4); RED CELL DISTRIBUTION WIDTH 14.3 % (11.6-16.5); WHITE BLOOD COUNT 7.5 X10^3/uL (3.6-10.0)
[2023-04-05 07:27] LABS: ALANINE AMINOTRANSFERASE 16 Units/L (12-78); ALBUMIN 3.1 g/dL (3.4-5.0); ALKALINE PHOSPHATASE 52 Units/L (46-116); ASPARTATE AMINO TRANSFERASE 12 Units/L (15-37); BLOOD UREA NITROGEN 21 mg/dL (7-18); CALCIUM 8.7 mg/dL (8.5-10.1); CARBON DIOXIDE 25.1 mmol/L (21-32); CHLORIDE 109 mmol/L (98-107); COR CA(FOR HYPOALB) 9.4 mg/dL (8.5-10.1); COR NA(FOR HYPERGLY) 145 mmol/L (136-145); CREATININE 0.83 mg/dL (0.55-1.02); GLUCOSE 128 mg/dL (65-99); POTASSIUM 4.4 mmol/L (3.5-5.1); SODIUM 144 mmol/L (136-145); TOTAL PROTEIN 6.4 g/dL (6.4-8.2); eGFR NON BLACK RACES > 60 (>60)
[2023-04-05] MEDS: PROVENTIL NEB TX 0.083% 2.5MG/ 3ML NEB PRN (08:21)
[2023-04-05] MEDS: PULMICORT NEB TX 0.5 MG NEB SCH (08:21)
[2023-04-05] MEDS: NORVASC TAB 5 MG PO SCH (08:36)
[2023-04-05] MEDS: COZAAR PO SCH (08:36)
[2023-04-05] MEDS: ROBITUSSIN DM PO SCH ×2 (08:36→14:26)
[2023-04-05] MEDS: COREG TAB 25 MG PO SCH (08:37)
[2023-04-05] MEDS: TEMOVATE CREAM EXT SCH (08:37)
[2023-04-05] MEDS: LINZESS PO SCH (08:37)
[2023-04-05] MEDS: PROTONIX TAB 40 MG PO SCH (08:37)
[2023-04-05] MEDS: ZyrTEC TAB 10 MG PO SCH (08:37)
[2023-04-05] MEDS: LOVAZA PO SCH (08:37)
[2023-04-05] MEDS: ROCEPHIN VIAL 1 GRAM 1 G in NS 100 ML IV 100 ML IV SCH (08:37)
[2023-04-05] MEDS: LOVENOX INJ 40 MG SYR SC SCH (08:37)
[2023-04-05] MEDS: TRADJENTA PO SCH (08:39)
[2023-04-05 09:21] VITALS: O2SAT 97
[2023-04-05] MEDS ORDERED: ULTRAM PO ONE (09:37)
[2023-04-05 12:00] VITALS: BP 171/93; PULSE 84; TEMP 97.8
== END 2023-04-05 15:05 | disposition home health service (06) ==
LOC: MED/SURG 06:08 → ER 06:08 → MED/SURG 11:24
PROVIDERS: ADMIT Internal Medicine; ATTEND Internal Medicine
DX: F41.8 Other specified anxiety disorders; J20.8 Acute bronchitis due to other specified organisms; I11.0 Hypertensive heart disease with heart failure; R06.02 Shortness of breath; K21.9 Gastro-esophageal reflux disease without esophagitis; R07.89 Other chest pain; M50.30 Other cervical disc degeneration, unspecified cervical region; I50.9 Heart failure, unspecified; L29.8 Other pruritus; E78.2 Mixed hyperlipidemia; Z20.822 Contact with and (suspected) exposure to COVID-19; E11.65 Type 2 diabetes mellitus with hyperglycemia; R79.1 Abnormal coagulation profile

== ENCOUNTER 2025-09-03 09:57 | Observation (INO) ==
--- NOTE | 2025-09-03 10:16 | EKG ---
Test Reason : hypotension Blood Pressure : */* mmHG Vent. Rate : 76 BPM Atrial Rate : 76 BPM P-R Int : 198 ms QRS Dur : 76 ms QT Int : 428 ms P-R-T Axes : -14 -28 0 degrees QTc Int : 481 ms Normal sinus rhythm Anterolateral infarct (cited on or before 27-JAN-2023) Abnormal ECG When compared with ECG of 01-MAR-2025 00:31, Questionable change in initial forces of Lateral leads Nonspecific T wave abnormality now evident in Anterior leads QT has lengthened Confirmed by Ozzie Augustine MD ([id number]) on 09/03/2025 10:16:53 AM Referred By: Confirmed By: Ozzie Augustine MD
--- NOTE | 2025-09-03 10:28 | DR.GENAD ---
HPI Time Seen Time Seen by Provider: 09/03/25 10:25 PCP Primary Care Physician: rodney stone Complaint/Symptoms Chief Complaint Doctors Comments: 75 yo F, hx of CHF, at PCP office today for routine checkup, Patient brought in by [facility]. When ems arrived at [facility] office patient was sitting in the chair inside unresponsive low bp 40/28 manually by ems. Enroute to the hospital patient became for responsive and awake. Upon arrival patient is alert and talking and states she just feels tired. She states she remembers taking her meds around 0700 this morning and then her aide came to pick her up for her docotor appointment she went inside to [facility] office and was filling paper work out and she sat back down and they called her back and she was not responding. Patient denies any recent falls she states she denies any pain she just feels tired. COVID-19 Coronavirus risk:travel/contact w/high risk person: No Has patient experienced Coronavirus symptoms: No Source History Provided: Patient Mode of Arrival Mode of Arrival: EMS Timing Onset of Chief Complaint: 09/03/25 PMH PMH Past Medical History: Yes Past Medical History: Anxiety, Arthritis, Asthma, CHF, Depression, Diabetes, Dyslipidemia, Migraines, GERD, Gout, Hypertension and Renal Disease Past Surgical History: Yes Surgical History: and Hysterectomy Family History History of Family Medical Conditions: Yes Family Medical History: Diabetes Mellitus Social History Does patient currently use any type of tobacco product: No Have you used tobacco products in the last 12 months: No Type of Tobacco Use: None Does any household member use tobacco: No Alcohol Use: None Do you use any recreational Drugs:: No Lives With: Alone Lives Where: Home Travel Risk Coronavirus risk:travel/contact w/high risk person: No Has patient experienced Coronavirus symptoms: No Infectious screening In the last 2 months have you had wt loss of >10#?: NO Have you had fever, night sweats or hemotysis?: No Have you traveled outside the country in the last 6 months?: No Isolation: Standard ROS Review of Systems Cardiovascular: Syncope All Other Systems: Reviewed and Negative PE Vital Signs Vitals: Vital Signs Temperature 97.8 F Pulse Rate 71 Pulse Rate 72 Pulse Rate 76 Pulse Rate 69 Pulse Rate 61 Pulse Rate 66 Pulse Rate 68 Pulse Rate 70 Pulse Rate 68 Pulse Rate 69 Pulse Rate 66 Pulse Rate 63 Pulse Rate 61 Pulse Rate 67 Pulse Rate 64 Pulse Rate 71 Pulse Rate 65 Pulse Rate 70 Pulse Rate 69 Pulse Rate 69 Pulse Rate 70 Pulse Rate 71 Pulse Rate 74 Pulse Rate 83 Respiratory Rate 15 Blood Pressure 157/74 Blood Pressure 136/78 Blood Pressure 142/96 Blood Pressure 141/97 Blood Pressure 163/96 Blood Pressure 124/67 Blood Pressure 143/75 Blood Pressure 137/72 Blood Pressure 146/73 Blood Pressure 140/67 Blood Pressure 142/67 Blood Pressure 167/79 Blood Pressure 126/57 Blood Pressure 127/57 Blood Pressure 126/60 Blood Pressure 121/59 Blood Pressure 130/66 Blood Pressure 134/65 Blood Pressure 139/70 Blood Pressure 133/64 Blood Pressure 137/69 Blood Pressure 133/69 Blood Pressure 132/68 Blood Pressure 137/69 Blood Pressure 144/65 Blood Pressure 101/56 O2 Sat by Pulse Oximetry 97 O2 Sat by Pulse Oximetry 98 O2 Sat by Pulse Oximetry 99 O2 Sat by Pulse Oximetry 98 O2 Sat by Pulse Oximetry 99 O2 Sat by Pulse Oximetry 99 O2 Sat by Pulse Oximetry 99 O2 Sat by Pulse Oximetry 99 O2 Sat by Pulse Oximetry 99 O2 Sat by Pulse Oximetry 99 O2 Sat by Pulse Oximetry 100 O2 Sat by Pulse Oximetry 100 O2 Sat by Pulse Oximetry 100 O2 Sat by Pulse Oximetry 99 O2 Sat by Pulse Oximetry 99 O2 Sat by Pulse Oximetry 100 O2 Sat by Pulse Oximetry 100 O2 Sat by Pulse Oximetry 100 O2 Sat by Pulse Oximetry 100 O2 Sat by Pulse Oximetry 100 O2 Sat by Pulse Oximetry 100 O2 Sat by Pulse Oximetry 100 O2 Sat by Pulse Oximetry 100 O2 Sat by Pulse Oximetry 100 General Limitations: No Limitations General Appearance: Alert and In No Apparent Distress Head Head Exam: Normal Inspection Eyes Eye exam: Normal Appearance ENT ENT Exam: Normal Exam External Ear Exam: Normal External Inspection TM/Canal Exam: Bilateral: Normal Nose Exam: Normal Nose Exam Mouth Exam: Normal Inspection Throat Exam: Normal Inspection Neck Neck Exam: Normal Inspection Chest Chest Inspection: Normal Inspection Respiratory Respiratory Exam: Normal Lung Sounds Bilat Respiratory Exam: Bilateral: Clear to Auscultation Cardiovascular Cardiovascular Exam: Regular Rate and Normal Rhythm Abdominal Exam Abdominal Exam: Normal Inspection, Normal Bowel Sounds and Soft Extremities Extremities Exam: Normal Inspection Back Back Exam: Normal Inspection Neurologic Neurological Exam: Alert and Oriented X3 Psychiatric Psychiatric Exam: Normal Affect and Normal Mood Skin Skin Exam: Warm, Dry, Intact and Normal Color ROR Labs Reviewed 09/03/25 10:41 09/03/25 10:41 Laboratory: WBC 5.8 X10^3/uL (3.6-10.0) 09/03/25 10:41 RBC 3.50 X10^6/uL (3.5-5.4) 09/03/25 10:41 Hgb 10.1 g/dL (12.0-16.0) L 09/03/25 10:41 Hct 30.3 % (36.0-47.0) L 09/03/25 10:41 MCV 86.4 fL (80.0-100.0) 09/03/25 10:41 MCH 28.7 pg (27.0-34.0) 09/03/25 10:41 MCHC 33.3 g/dL (33.0-35.0) 09/03/25 10:41 RDW 16.3 % (11.6-16.5) 09/03/25 10:41 Plt Count 245 X10^3/uL (150.0-450.0) 09/03/25 10:41 MPV 6.7 fL (7.4-11.0) L 09/03/25 10:41 Neut % (Auto) 41.5 % (42.0-75.0) L 09/03/25 10:41 Lymph % (Auto) 45.3 % (21.0-51.0) 09/03/25 10:41 [place] % (Auto) 9.4 % (0.0-13.0) 09/03/25 10:41 Eos % (Auto) 3.3 % (0.9-2.9) H 09/03/25 10:41 Baso % (Auto) 0.5 % (0.2-1.0) 09/03/25 10:41 Neut # (Auto) 2.4 x10^3/uL (2.2-4.8) 09/03/25 10:41 Lymph # (Auto) 2.7 X10^3/uL (1.3-2.9) 09/03/25 10:41 [place] # (Auto) 0.5 x10^3/uL (0.3-0.8) 09/03/25 10:41 Eos # (Auto) 0.2 x10^3/uL (0.0-0.2) 09/03/25 10:41 Baso # (Auto) 0.0 X10^3/uL (0.0-0.1) 09/03/25 10:41 Absolute Nucleated RBC 0.1 /100WBC 09/03/25 10:41 PT 13.1 SECONDS (11.8-14.3) 09/03/25 10:41 INR Target Range - 09/03/25 10:41 INR 0.98 (0.8-1.3) 09/03/25 10:41 APTT 23.2 SECONDS (22.9-36.5) 09/03/25 10:41 PTT Comment - 09/03/25 10:41 Sodium 143 mmol/L (136-145) 09/03/25 10:41 Corrected Sodium 144 mmol/L (136-145) 09/03/25 10:41 Potassium 3.9 mmol/L (3.5-5.1) 09/03/25 10:41 Chloride 111 mmol/L (98-107) H 09/03/25 10:41 Carbon Dioxide 22.4 mmol/L (21-32) 09/03/25 10:41 BUN 21 mg/dL (7-18) H 09/03/25 10:41 Creatinine 1.17 mg/dL (0.55-1.02) H 09/03/25 10:41 Est GFR (MDRD) Af Amer 58 (>60) L 09/03/25 10:41 Est GFR (MDRD) Non-Af 48 (>60) L 09/03/25 10:41 Glucose 155 mg/dL (65-99) H 09/03/25 10:41 Lactic Acid 1.6 mmol/L (0.4-2.0) 09/03/25 12:45 Calcium 8.2 mg/dL (8.5-10.1) L 09/03/25 10:41 Corrected Calcium 8.8 mg/dL (8.5-10.1) 09/03/25 10:41 Magnesium 1.8 mg/dL (2.0-2.9) L 09/03/25 10:41 Total Bilirubin 0.20 mg/dL (0.2-1.0) 09/03/25 10:41 AST 11 Units/L (15-37) L 09/03/25 10:41 ALT 17 Units/L (12-78) 09/03/25 10:41 Alkaline Phosphatase 61 Units/L (46-116) 09/03/25 10:41 Creatine Kinase 137 Units/L (26-192) 09/03/25 10:41 Troponin I High Sens 4.9 ng/L (4.0-60.0) 09/03/25 10:41 B-Natriuretic Peptide 84.6 pg/mL (0-79) H 09/03/25 10:41 Total Protein 6.7 g/dL (6.4-8.2) 09/03/25 10:41 Albumin 3.3 g/dL (3.4-5.0) L 09/03/25 10:41 Globulin 3.4 g/dL (2.5-4.5) 09/03/25 10:41 Albumin/Globulin Ratio 1.0 Ratio (1.1-2.1) L 09/03/25 10:41 Specimen Type Clean catch urine 09/03/25 14:30 Urine Color Yellow (YELLOW) 09/03/25 14:30 Urine Appearance Clear (CLEAR) 09/03/25 14:30 Urine pH 6.0 (5.0 - 8.0) 09/03/25 14:30 Ur Specific [place] 1.015 (1.000-1.030) 09/03/25 14:30 Urine Protein Negative (NEGATIVE) 09/03/25 14:30 Urine Glucose (UA) Negative (NEGATIVE) 09/03/25 14:30 Urine Ketones Negative (NEGATIVE) 09/03/25 14:30 Urine Blood Negative (NEGATIVE) 09/03/25 14:30 Urine Nitrite Negative (NEGATIVE) 09/03/25 14:30 Urine Bilirubin Negative (NEGATIVE) 09/03/25 14:30 Urine Urobilinogen Normal (NORMAL) 09/03/25 14:30 Ur Leukocyte Esterase Negative (NEGATIVE) 09/03/25 14:30 Opioid Opioid Risk Tool Age (Harsha box if 16-45): No History of Preadolescent Sexual Abuse: No Total: 0 Total Score Risk Category: Low Risk Copyright: Jas ZAMUDIO predicting aberrant behaviors Discharge Plan Diagnosis Discharge Problem: Syncope and collapse CHF (congestive heart failure) Qualifiers: Qualified Code(s): I50.9 - Heart failure, unspecified Discharge Plan Patient Disposition: ADMITTED INPATIENT Condition: Stable Prescriptions: No Action allopurinol 100 mg tablet 100 mg PO QAM Patient Comments: quetiapine 25 mg tablet 25 mg PO QPM tizanidine 4 mg tablet 4 mg PO TID famotidine 20 mg tablet 20 mg PO BID zolpidem 5 mg tablet 5 mg PO QPM PRN insulin lispro [Humalog KwikPen Insulin] 100 unit/mL insulin pen See Rx Instructions .ROUTE .COMPLEX Patient Comments: [NO ORIGINAL SIG] Rx Instructions: . insulin glargine [Lantus Solostar U-100 Insulin] 100 unit/mL (3 mL) insulin pen See Rx Instructions .ROUTE .COMPLEX Patient Comments: [NO ORIGINAL SIG] Rx Instructions: . Gemtesa 75 mg tablet 75 mg PO QDAY hydrocodone-acetaminophen 7.5-325 mg tablet 1 tab PO BID MDD 3 losartan 50 mg tablet 50 mg PO QDAY amlodipine 5 mg tablet 5 mg PO BID pantoprazole 40 mg tablet,delayed release (DR/EC) 40 mg PO BID gabapentin 300 mg capsule 600 mg PO TID (DME) insulin syringe-needle U-100 [Sure Comfort Insulin Syringe] 0.5 mL 31 gauge x 5/16" syringe MISCELLANEOUS Patient Comments: [NO ORIGINAL SIG] rosuvastatin 40 mg tablet 40 mg PO QDAY diclofenac sodium 1 % gel 1 ea TOPICAL BID Tradjenta 5 mg tablet 5 mg PO QDAY (DME) pen needle, diabetic [Comfort EZ Pen [place]] 32 gauge x 3/16" needle MISCELLANEOUS Patient Comments: [NO ORIGINAL SIG] Linzess 145 mcg capsule 145 mcg PO QDAY icosapent ethyl [Vascepa] 1 gram capsule 1 g PO BID Trulicity 3 mg/0.5 mL pen injector 3 mg SUBCUT WEEKLY Patient Comments: [NO ORIGINAL SIG] carvedilol [Coreg] 25 mg tablet 25 mg PO BID clopidogrel 75 mg tablet 75 mg PO QDAY Health Concerns: Post Hospitalization: new medications and changes needed to prevent readmission or further decline. Pt educated and given instructions on all concerns. Plan of Treatment: Continue with present treatment and follow up plan. Pt is to keep follow up appointment as instructed and take medications as ordered. Orders to Discharge Patient Discharge Orders: Transfer (Routine); Ordered 09/03/25 Ordered By: Matt Chamorro Follow ups/Referrals Follow ups/Referrals: NFD,None [Primary Care Provider] - 3 days Instructions Stand Alone Forms: Find Help Web Site, Post Hospital Follow Up Care Print Language: WELSH
[2025-09-03 11:01] LABS: MEAN PLATELET VOLUME 6.7 fL (7.4-11.0); RED CELL DISTRIBUTION WIDTH 16.3 % (11.6-16.5)
[2025-09-03 11:13] LABS: INR 0.98 (0.8-1.3)
[2025-09-03 11:17] LABS: COR CA(FOR HYPOALB) 8.8 mg/dL (8.5-10.1); COR NA(FOR HYPERGLY) 144.0 mmol/L (136-145); CREATININE 1.17 mg/dL (0.55-1.02); eGFR NON BLACK RACES 48.0 (>60)
--- NOTE | 2025-09-03 12:42 | RAD ---
EXAM: CHEST, 1 VIEW HISTORY: Shortness of Breath; COMPARISON: No relevant prior studies were available for comparison at the time of interpretation. TECHNIQUE: CHEST, 1 VIEW FINDINGS: Chest: Lines and tubes: None Mediastinum: Cardiac and mediastinal shadow is within normal limits for size and contour. Pulmonary vessels: No pulmonary vascular congestion. Lung bishop: No suspicious airspace opacity. Pleura: No effusion. No pneumothorax. Bones and soft tissues: No acute osseous or soft tissue abnormality. IMPRESSION: 1. No acute cardiopulmonary abnormality THIS IS AN ELECTRONICALLY VERIFIED FINAL REPORT 09/03/2025 12:38 PM - Electronically signed by Enrique Drake MD
[2025-09-03 15:20] LABS: BLOOD/HEMOGLOBIN,URINE NEGATIVE (NEGATIVE); LEUKOCYTE ESTERASE ,URINE NEGATIVE (NEGATIVE); NITRITES,URINE NEGATIVE (NEGATIVE)
[2025-09-03 15:24] LABS: APPEARANCE,URINE CLEAR (CLEAR)
[2025-09-03] MEDS ORDERED: ZOFRAN TAB 4 MG PO PRN (17:03)
[2025-09-03] MEDS ORDERED: MORPHINE SULFATE INJ 2 MG INJ IVP PRN (17:03)
[2025-09-03] MEDS ORDERED: NORCO 5/325 MG TAB PO PRN (17:03)
[2025-09-03] MEDS ORDERED: ULTRAM PO PRN (17:03)
[2025-09-03] MEDS ORDERED: CONSULT PHARMACY - POTASSIUM & MAGNESIUM XX SCH (17:03)
[2025-09-03] MEDS ORDERED: INSULIN LISPRO INSULIN SCH (17:03)
[2025-09-03] MEDS ORDERED: TYLENOL 325 MG TAB PO PRN (17:03)
[2025-09-03] MEDS ORDERED: [UNRECOGNIZED DRUG - OTHER] SCH (17:03)
[2025-09-03] MEDS ORDERED: ZOFRAN INJ 4 MG VIAL IVP PRN (17:03)
[2025-09-03] MEDS: NS 1,000 ML IV 1,000 ML IV SCH (17:39)
[2025-09-03] MEDS ORDERED: NovoLIN R (or HumuLIN R) SUBCUT PRN (17:43)
[2025-09-03 17:48] VITALS: BMI 30.2
[2025-09-03] MEDS ORDERED: PROVENTIL NEB TX 0.083% 2.5MG/ 3ML NEB PRN (18:10)
[2025-09-03] MEDS: PULMICORT NEB TX 0.5 MG NEB SCH (20:26)
[2025-09-03] MEDS: SNACK - Diabetic Appropriate PO SCH (20:30)
[2025-09-03] MEDS: PROTONIX TAB 40 MG PO SCH (21:23)
[2025-09-03] MEDS: NEURONTIN CAP 300 MG PO SCH (21:23)
[2025-09-03] MEDS: PEPCID TAB 20 MG PO SCH (21:23)
[2025-09-03] MEDS: COLACE CAP 100 MG PO SCH (21:23)
[2025-09-03] MEDS: COREG TAB 25 MG PO SCH (21:23)
[2025-09-03] MEDS: NORVASC TAB 5 MG PO SCH (21:24)
[2025-09-03] MEDS: NORCO 7.5/325 MG TAB PO SCH (21:24)
[2025-09-03] MEDS: CRESTOR TAB 10 MG PO SCH (21:24)
[2025-09-03] MEDS: ZANAFLEX PO SCH (21:24)
[2025-09-03] MEDS: AMBIEN PO PRN (21:30)
[2025-09-04 04:58] LABS: MEAN PLATELET VOLUME 6.7 fL (7.4-11.0); RED CELL DISTRIBUTION WIDTH 16.4 % (11.6-16.5)
[2025-09-04 05:12] LABS: COR CA(FOR HYPOALB) 9.2 mg/dL (8.5-10.1); COR NA(FOR HYPERGLY) 147 mmol/L (136-145); CREATININE 0.92 mg/dL (0.55-1.02); eGFR NON BLACK RACES > 60 (>60)
--- NOTE | 2025-09-04 07:31 | RAD ---
EXAMINATION: CHEST, 1 VIEW HISTORY: SYNCOPE, CHF ; HTN, DM, RENAL DISEASE, ASTHMA, GERD, GOUT, CHF SX: CSECTION, HYST . COMPARISON STUDY: 09/03/2025 TECHNIQUE: One view FINDINGS: Heart size is probably normal technique. No acute alveolar infiltrates. Atelectasis in the left lower lobe. No pneumothorax. Hilar and mediastinal structures and bony structures are unremarkable and unchanged. IMPRESSION: No acute findings. Atelectasis in the left lower lobe. THIS IS AN ELECTRONICALLY VERIFIED FINAL REPORT 09/04/2025 7:28 AM - Electronically signed by Chacorta Mi MD
[2025-09-04] MEDS ORDERED: NovoLIN R (or HumuLIN R) SUBCUT PRN (07:48)
[2025-09-04] MEDS: TRADJENTA PO SCH (08:31)
[2025-09-04] MEDS: ZYLOPRIM PO SCH (08:32)
[2025-09-04] MEDS: COZAAR PO SCH (08:33)
[2025-09-04] MEDS: PLAVIX PO SCH (08:34)
[2025-09-04] MEDS: LINZESS PO SCH (08:34)
[2025-09-04] MEDS: LANTUS SC SCH (08:35)
--- NOTE | 2025-09-04 10:29 | CT ---
EXAM: CT head without contrast HISTORY: Syncope TECHNIQUE: Axial noncontrast images with coronal and sagittal reformats. Dose reduction procedures were used with mA/kv adjusted for body size. COMPARISON: 02/27/2025 FINDINGS: Ventr icles are normal in size shape and position. There is decreased attenuation in the periventricular white matter suggestive of small-vessel vascular disease. There are no focal areas of abnormal attenuation to suggest recent or remote CVA, hemorrhage, mass lesion, or extra-axial fluid collection. Visualized sinuses are clear. Calvarium is intact. IMPRESSION: No acute intracranial abnormality identified Small-vessel disease THIS IS AN ELECTRONICALLY VERIFIED FINAL REPORT 09/04/2025 10:25 AM - Electronically signed by Óscar Ponce MD
[2025-09-04 11:47] VITALS: BP 116/59; PULSE 79; RESP 18; TEMP 97.6; O2SAT 96
[2025-09-04] MEDS ORDERED: SNACK - Diabetic Appropriate PO SCH (20:00)
== END 2025-09-04 14:40 | disposition home health service (06) ==
LOC: MED/SURG 09:57 → ER 09:57 → MED/SURG 17:07
PROVIDERS: ADMIT Internal Medicine; ATTEND Internal Medicine